=== PATIENT | female | born 1945 | race Caucasian/White ===

== ENCOUNTER 2019-06-24 21:55 | Emergency (ER) | payer OTHER ==
[2019-06-24] MEDS ORDERED: TRAMADOL HCL 50 MG TAB ONE (22:49)
[2019-06-24] MEDS ORDERED: predniSONE 20 MG TAB ONE (22:50)
[2019-06-24 22:51] LABS: Urine Blood NEGATIVE (NEG); Urine Glucose NEGATIVE (NEG); Urine Protein NEGATIVE (NEG); Urine Specific Gravity >1.030 (1.005-1.030)
[2019-06-24 23:31] LABS: Urine Bacteria >50 /HPF (<20); Urine Culture Reflex Order REFLEXED; Urine RBC <5 /HPF (NONE SEEN)
--- NOTE | 2019-06-24 23:39 | ER ---
Nurse's Notes [facility] Name: Savana Martin Age: 74 yrs Sex: Female : 1945 Arrival Date: 06/24/2019 Time: 21:58 Bed 17 Private MD: Diagnosis: Low back pain;Urinary tract infection, site not specified Presentation: 06/24 22:04 Presenting complaint: Patient states: Chronic back pain, reports having pain in the sg left side of back and left hip, denies injury or trauma at this time, reports having a new diagnosis of Dementia. Transition of care: patient was not received from another setting of care. Onset of symptoms was June 24, 2019. Risk Assessment: Do you want to hurt yourself or someone else? Patient reports no desire to harm self or others. Initial Sepsis Screen: Does the patient meet any 2 criteria? No. Patient's initial sepsis screen is negative. Does the patient have a suspected source of infection? No. Patient's initial sepsis screen is negative. Care prior to arrival: None. 22:04 Method Of Arrival: Wheelchair sg 22:04 Acuity: MARGARITO 4 sg Historical: - Allergies: 22:04 Cipro; sg - Home Meds: 22:17 levothyroxine oral [Active]; Plaquenil Oral [Active]; gabapentin oral oral [Active]; BP sg medication [Active]; Effexor Oral [Active]; - PMHx: 22:06 Back pain; sg 22:06 Dementia; sg - PSHx: 22:06 Back Surgery; sg - Immunization history:: Adult Immunizations up to date. - Social history:: Smoking status: Patient uses tobacco products. - Ebola Screening: : Patient negative for fever greater than or equal to 101.5 degrees Fahrenheit, and additional compatible Ebola Virus Disease symptoms Patient denies exposure to infectious person Patient denies travel to an Ebola-affected area in the 21 days before illness onset No symptoms or risks identified at this time. Screenin:30 Abuse screen: Denies threats or abuse. Denies injuries from another. Nutritional wh screening: No deficits noted. Tuberculosis screening: No symptoms or risk factors identified. Fall Risk None identified. Assessment: 22:30 General: Appears in no apparent distress. Behavior is calm, cooperative, appropriate wh for age. Pain: Complains of pain in lower back Pain does not radiate. Pain currently is 7 out of 10 on a pain scale. Quality of pain is described as aching. Neuro: Level of Consciousness is awake, alert, obeys commands, Oriented to person, place, time, situation, Appropriate for age. Cardiovascular: Capillary refill < 3 seconds. Respiratory: Airway is patent Respiratory effort is even, unlabored, Respiratory pattern is regular, symmetrical. GI: Abdomen is flat, non-distended. : No signs and/or symptoms were reported regarding the genitourinary system. EENT: No signs and/or symptoms were reported regarding the EENT system. Derm: Skin is intact, is healthy with good turgor, Skin is pink, warm \T\ dry. normal. Musculoskeletal: Circulation, motion, and sensation intact. 23:50 Reassessment: Patient appears in no apparent distress at this time. No changes from previously documented assessment. Patient and/or family updated on plan of care and expected duration. Pain level reassessed. Patient is alert, oriented x 3, equal unlabored respirations, skin warm/dry/pink. Patient states feeling better. Patient states symptoms have improved. Vital Signs: 22:03 BP 126 / 72; Pulse 87; Resp 18; Temp 97.9; Pulse Ox 100% on R/A; Pain 8/10; sg 23:56 BP 112 / 73; Pulse 74; Resp 18; Pulse Ox 97% on R/A; wh ED Course: 21:58 Patient arrived in ED. jg7 22:04 Arm band placed on. sg 22:05 Triage completed. sg 22:10 Maria Alberto is Primary Nurse. wh 22:22 Elvira Aguillon FNP-C [facility]. kb 22:22 Milton Humphries MD is Attending Physician. kb 22:30 Patient has correct armband on for positive identification. Placed in gown. Bed in low wh position. Call light in reach. Side rails up X 1. Pulse ox on. NIBP on. 22:35 Warm blanket given. Pillow given. Assisted to bathroom. Patient given adult jb5 undergarment for incontinence. 23:51 No provider procedures requiring assistance completed. Patient did not have IV access during this emergency room visit. Administered Medications: 22:49 Drug: predniSONE 20 mg Route: PO; 23:40 Follow up: Response: No adverse reaction 22:49 Drug: traMADol 50 mg Route: PO; 23:40 Follow up: Response: No adverse reaction; Pain is decreased; RASS: Alert and Calm (0) 23:50 Drug: Bactrim (160 mg-800 mg (DS) 1 tablet Route: PO; 23:57 Follow up: Response: No adverse reaction Outcome: 23:38 Discharge ordered by . audra 23:54 Discharged to home via wheelchair, with family. 23:54 Condition: stable 23:54 Discharge instructions given to patient, family, Instructed on discharge instructions, follow up and referral plans. no drinking with medication, no driving heavy equipment, medication usage, POC Demonstrated understanding of instructions, follow-up care, medications, POC Prescriptions given X 3. 23:57 Patient left the ED. Signatures: Elvira Aguillon, WHARF OPERATOR-C WHARF OPERATOR-Ckb Mg Gross, Shavon Farris RN, Winsy wh Gutierrez, Jessica jg7
--- NOTE | 2019-06-24 23:39 | EDPHYS ---
Physician Documentation [facility] Name: Savana Martin Age: 74 yrs Sex: Female : 1945 Arrival Date: 06/24/2019 Time: 21:58 Bed 17 Private MD: ED Physician Milton Humphries HPI: 06/24 23:42 This 74 yrs old Female presents to ER via Wheelchair with complaints of Back kb Pain. 23:42 The patient presents with pain that is chronic. The symptoms are located in the left kb low back. Onset: The symptoms/episode began/occurred years ago. The pain radiates to the left leg. Associated signs and symptoms: The patient has no apparent associated signs or symptoms. The problem was sustained from a chronic condition. Modifying factors: The patient symptoms are alleviated by nothing, the patient symptoms are aggravated by any movement. Severity of symptoms: At their worst the symptoms were moderate, in the emergency department the symptoms are unchanged. The patient has experienced similar episodes in the past, chronically. The patient has not recently seen a physician. Patient reports she has had left low back pain that radiates to left hip and down left leg for years. States it has been worse over the last few days. Reports she had the same pain on the right side years ago and had to have surgery for a nerve problem. The surgeon told her she would eventually need surgery on the other side as well, [place] so she's been trying to get her insurance transferred over so she can see a back surgeon. . Historical: - Allergies: 22:04 Cipro; sg - Home Meds: 22:17 levothyroxine oral [Active]; Plaquenil Oral [Active]; gabapentin oral oral [Active]; BP sg medication [Active]; Effexor Oral [Active]; - PMHx: 22:06 Back pain; sg 22:06 Dementia; sg - PSHx: 22:06 Back Surgery; sg - Immunization history:: Adult Immunizations up to date. - Social history:: Smoking status: Patient uses tobacco products. - Ebola Screening: : Patient negative for fever greater than or equal to 101.5 degrees Fahrenheit, and additional compatible Ebola Virus Disease symptoms Patient denies exposure to infectious person Patient denies travel to an Ebola-affected area in the 21 days before illness onset No symptoms or risks identified at this time. ROS: 23:41 Constitutional: Negative for fever, chills, and weight loss, Cardiovascular: Negative kb for chest pain, palpitations, and edema, Respiratory: Negative for shortness of breath, cough, wheezing, and pleuritic chest pain, Abdomen/GI: Negative for abdominal pain, nausea, vomiting, diarrhea, and constipation, : Negative for injury, bleeding, discharge, and swelling, MS/Extremity: Negative for injury and deformity, Skin: Negative for injury, rash, and discoloration, Neuro: Negative for headache, weakness, numbness, tingling, and seizure. 23:41 Back: Positive for pain at rest, pain with movement, radiated pain, of the left low back. Exam: 23:41 Constitutional: This is a well developed, well nourished patient who is awake, alert, kb and in no acute distress. Head/Face: Normocephalic, atraumatic. Chest/axilla: Normal chest wall appearance and motion. Nontender with no deformity. No lesions are appreciated. Cardiovascular: Regular rate and rhythm with a normal S1 and S2. No gallops, murmurs, or rubs. Normal PMI, no JVD. No pulse deficits. Respiratory: Lungs have equal breath sounds bilaterally, clear to auscultation and percussion. No rales, rhonchi or wheezes noted. No increased work of breathing, no retractions or nasal flaring. Abdomen/GI: Soft, non-tender, with normal bowel sounds. No distension or tympany. No guarding or rebound. No evidence of tenderness throughout. Skin: Warm, dry with normal turgor. Normal color with no rashes, no lesions, and no evidence of cellulitis. MS/ Extremity: Pulses equal, no cyanosis. Neurovascular intact. Full, normal range of motion. Neuro: Awake and alert, GCS 15, oriented to person, place, time, and situation. Cranial nerves II-XII grossly intact. Motor strength 5/5 in all extremities. Sensory grossly intact. Cerebellar exam normal. Normal gait. 23:41 Back: pain, that is mild, that is moderate, of the left low back, ROM is painful, normal spinal alignment noted. Vital Signs: 22:03 BP 126 / 72; Pulse 87; Resp 18; Temp 97.9; Pulse Ox 100% on R/A; Pain 8/10; sg 23:56 BP 112 / 73; Pulse 74; Resp 18; Pulse Ox 97% on R/A; MDM: 22:22 Patient medically screened. kb 23:41 Data reviewed: vital signs, nurses notes. Data interpreted: Pulse oximetry: on room air kb is 100 %. Interpretation: normal. Counseling: I had a detailed discussion with the patient and/or guardian regarding: the historical points, exam findings, and any diagnostic results supporting the discharge/admit diagnosis, lab results, the need for outpatient follow up, a family practitioner, to return to the emergency department if symptoms worsen or persist or if there are any questions or concerns that arise at home. 06/24 22:39 Order name: Urine Dipstick--Ancillary (enter results); Complete Time: 22:53 ar5 06/24 22:40 Order name: Urine Microscopic Only; Complete Time: 23:36 kb 06/24 23:32 Order name: Urine Culture EDMS Administered Medications: 22:49 Drug: predniSONE 20 mg Route: PO; 23:40 Follow up: Response: No adverse reaction 22:49 Drug: traMADol 50 mg Route: PO; 23:40 Follow up: Response: No adverse reaction; Pain is decreased; RASS: Alert and Calm (0) 23:50 Drug: Bactrim (160 mg-800 mg (DS) 1 tablet Route: PO; 23:57 Follow up: Response: No adverse reaction Disposition: 06/25 00:52 Co-signature as Attending Physician, Milton Humphries MD. rn Disposition: 06/24/19 23:38 Discharged to Home. Impression: Low back pain, Urinary tract infection, site not specified. - Condition is Stable. - Discharge Instructions: Urinary Tract Infection, Adult, [id number], Back Pain, Adult, [id number]. - Prescriptions for Prednisone 20 mg Oral Tablet - take 1 tablet by ORAL route once daily for 5 days; 5 tablet. Tramadol 50 mg Oral Tablet - take 1 tablet by ORAL route every 8 hours as needed; 12 tablet. Bactrim DS 800- 160 mg Oral Tablet - take 1 tablet by ORAL route every 12 hours for 7 days; 14 tablet. - Medication Reconciliation Form, Thank You Letter, Antibiotic Education, Prescription Opioid Use form. - Follow up: Emergency Department; When: As needed; Reason: Worsening of condition. Follow up: Private Physician; When: 2 - 3 days; Reason: Recheck today's complaints, Continuance of care, Re-evaluation by your physician. Signatures: Dispatcher [employer] Elvira Levy, EDIS-Marlen RANDHAWA-Mg Gibbs RN RN sg Nieto, Roman, MD MD rn Habalo, Winsy wh Corrections: (The following items were deleted from the chart) 06/24 23:57 23:38 06/24/2019 23:38 Discharged to Home. Impression: Low back pain; Urinary tract wh infection, site not specified. Condition is Stable. Forms are Medication Reconciliation Form, Thank You Letter, Antibiotic Education, Prescription Opioid Use. Follow up: Emergency Department; When: As needed; Reason: Worsening of condition. Follow up: Private Physician; When: 2 - 3 days; Reason: Recheck today's complaints, Continuance of care, Re-evaluation by your physician. kb
[2019-06-24] MEDS ORDERED: AMOX/K CLAV 875 MG TAB ONE (23:46)
[2019-06-25 00:32] VITALS: TEMP 97.9
[2019-06-25 00:33] VITALS: BP 112/73; O2SAT 97
== END 2019-06-24 23:57 | disposition home or self-care (01) ==
LOC: ER 21:55
DX: N39.0 Urinary tract infection, site not specified (principal); Z88.1 Allergy status to other antibiotic agents; Z72.0 Tobacco use
CPT/HCPCS: 81003; 81015; 87086; 87088; 99283; J7512

== ENCOUNTER 2020-01-02 10:52 | Emergency (ER) | payer OTHER ==
[2020-01-02 12:15] LABS: Urine Bacteria 20-50 /HPF (<20); Urine RBC <5 /HPF (NONE SEEN)
[2020-01-02 12:16] LABS: Urine Culture Reflex Order NOT NEEDED
--- NOTE | 2020-01-02 12:55 | RAD REPORT ---
EXAM DESCRIPTION: RAD - Abdomen Acute Series - 01/02/2020 12:44 pm CLINICAL HISTORY: ABD PAIN COMPARISON: Chest Pa And Lat (2 Views) dated 07/30/2018 FINDINGS: The lungs are grossly clear. No subdiaphragmatic free air seen. No bowel obstruction evident. No pathologic calcifications. Moderate levoscoliosis of the lumbar spin e. IMPRESSION: No acute abnormality detected.
--- NOTE | 2020-01-02 13:17 | ER ---
Nurse's Notes [facility] Name: Savana Martin Age: 74 yrs Sex: Female : 1945 Arrival Date: 01/02/2020 Time: 10:55 Bed 17 Private MD: Dawson Hernandez Diagnosis: Lower abdominal pain, unspecified;Urinary tract infection, site not specified;Constipation, unspecified Presentation: 01/01 11:06 Chief complaint: Patient's son or daughter states: abd pain x 3-4 days. Denies N/V/D. Coronavirus screen: Patient denies a cough. Patient denies shortness of breath or difficulty breathing. Patient denies measured and/or subjective temperature greater than 100.4F prior to today's visit. Patient denies travel on a cruise ship or to a country the [facility] currently lists as an affected area. Patient denies contact with known and/or suspected case of COVID-19. Proceed with normal triage. Patient instructed to continue to wear a mask when interacting with others. Patient moved to private room, placed in contact and droplet isolation with eye protection until further assessment. Ebola Screen: Patient denies exposure to infectious person. Patient denies travel to an Ebola-affected area in the 21 days before illness onset. Initial Sepsis Screen: Does the patient meet any 2 criteria? No. Patient's initial sepsis screen is negative. Does the patient have a suspected source of infection? No. Patient's initial sepsis screen is negative. Risk Assessment: Do you want to hurt yourself or someone else? Patient reports no desire to harm self or others. Onset of symptoms was December 29, 2019. 11:06 Method Of Arrival: Wheelchair ss 11:06 Acuity: MARGARITO 3 ss Historical: - Allergies: 11:08 Cipro; ss - PMHx: 11:08 Back pain; Dementia; ss - PSHx: 11:08 Back Surgery; ss - Immunization history:: Adult Immunizations up to date. - Social history:: Smoking status: Patient denies any tobacco usage or history of. Screenin:27 Abuse screen: Denies threats or abuse. Nutritional screening: No deficits noted. Tuberculosis screening: No symptoms or risk factors identified. Fall Risk None identified. Assessment: 11:24 General: Appears in no apparent distress. Behavior is calm, cooperative, appropriate ah for age. Pain: Complains of pain in suprapubic area, right lower quadrant and left lower quadrant Pain. Neuro: Level of Consciousness is awake, alert, obeys commands, Oriented to person, place, time, situation. Cardiovascular: Capillary refill < 3 seconds Patient's skin is warm and dry. Respiratory: Airway is patent Respiratory effort is even, unlabored. GI: Bowel sounds present X 4 quads. Abdomen is tender to palpation in right lower quadrant and left lower quadrant. GI: Patient currently denies rectal bleeding, vomiting. : Urine is dark yellow. Derm: Skin is intact, is healthy with good turgor. 12:18 Reassessment: Pt to radiology via for xrays. Vital Signs: 11:06 Resp 16; Temp 97.8(TE); Weight 56.7 kg; Height 5 ft. 4 in. (162.56 cm); ss 13:42 BP 100 / 55; ah 11:06 Body Mass Index 21.46 (56.70 kg, 162.56 cm) ED Course: 10:55 Patient arrived in ED. mr 10:56 Dawson Hernandez MD is Private Physician. mr 11:03 Ness Chacon FNP-C is [facility]. snw 11:03 Tigre Mercado MD is Attending Physician. snw 11:08 Triage completed. ss 11:08 Arm band placed on right wrist. ss 11:20 Desi Clay, RN is Primary Nurse. ah 11:27 Patient has correct armband on for positive identification. Placed in gown. Bed in low ah position. Call light in reach. Side rails up X 1. Adult w/ patient. NIBP on. Warm blanket given. 12:44 Abdomen Acute Series XRAY In Process Unspecified. EDMS 13:31 No provider procedures requiring assistance completed. Patient did not have IV access ah during this emergency room visit. Administered Medications: 13:30 Drug: Bentyl 20 mg Route: PO; 13:43 Follow up: Response: No adverse reaction; Medication administered at discharge. 13:30 Drug: Augmentin 875 mg Route: PO; 13:42 Follow up: Response: Medication administered at discharge. Outcome: 13:16 Discharge ordered by . sn 13:42 Discharged to home via wheelchair. 13:42 Condition: good 13:42 Discharge instructions given to patient, Instructed on discharge instructions, follow up and referral plans. medication usage, Demonstrated understanding of instructions, follow-up care, medications. 13:43 Patient left the ED. Signatures: Dispatcher [employer] EDMS Ness Chacon, LAGGING MACHINE OPERATOR-C LAGGING MACHINE OPERATOR-Csnw Anat Dorsey, Elvie, RN MYRON Desi Clay RN RN
--- NOTE | 2020-01-02 13:17 | EDPHYS ---
Physician Documentation [facility] Name: Savana Martin Age: 74 yrs Sex: Female : 1945 Arrival Date: 01/02/2020 Time: 10:55 Bed 17 Private MD: Dawson Hernandez ED Physician Tigre Mercado HPI: 01/01 13:48 This 74 yrs old Female presents to ER via Wheelchair with complaints of snw Abdominal Pain. 13:48 The patient presents with abdominal pain in the lower abdomen. Onset: The snw symptoms/episode began/occurred gradually, 4 day(s) ago, and became persistent. The symptoms do not radiate. Associated signs and symptoms: Pertinent positives: rectal pressure. The symptoms are described as vague. Severity of pain: At its worst the pain was moderate. It is unknown whether or not the patient has had similar symptoms in the past. The patient has not recently seen a physician. Historical: - Allergies: 11:08 Cipro; ss - PMHx: 11:08 Back pain; Dementia; ss - PSHx: 11:08 Back Surgery; ss - Immunization history:: Adult Immunizations up to date. - Social history:: Smoking status: Patient denies any tobacco usage or history of. ROS: 13:47 Constitutional: Negative for fever, chills, and weight loss, Eyes: Negative for injury, snw pain, redness, and discharge, ENT: Negative for injury, pain, and discharge, Neck: Negative for injury, pain, and swelling, Cardiovascular: Negative for chest pain, palpitations, and edema, Respiratory: Negative for shortness of breath, cough, wheezing, and pleuritic chest pain, Back: Negative for injury and pain, : Negative for injury, bleeding, discharge, and swelling, MS/Extremity: Negative for injury and deformity, Skin: Negative for injury, rash, and discoloration, Neuro: Negative for headache, weakness, numbness, tingling, and seizure, Psych: Negative for depression, anxiety, suicide ideation, homicidal ideation, and hallucinations. 13:47 Abdomen/GI: Positive for abdominal pain, abdominal cramps, Negative for nausea, vomiting, diarrhea, hematemesis, black/tarry stool. Exam: 13:22 Constitutional: This is a well developed, well nourished patient who is awake, alert, snw and in no acute distress. Head/Face: Normocephalic, atraumatic. Eyes: Pupils equal round and reactive to light, extra-ocular motions intact. Lids and lashes normal. Conjunctiva and sclera are non-icteric and not injected. Cornea within normal limits. Periorbital areas with no swelling, redness, or edema. ENT: Nares patent. No nasal discharge, no septal abnormalities noted. Tympanic membranes are normal and external auditory canals are clear. Oropharynx with no redness, swelling, or masses, exudates, or evidence of obstruction, uvula midline. Mucous membranes moist. Neck: Trachea midline, no thyromegaly or masses palpated, and no cervical lymphadenopathy. Supple, full range of motion without nuchal rigidity, or vertebral point tenderness. No Meningismus. Chest/axilla: Normal chest wall appearance and motion. Nontender with no deformity. No lesions are appreciated. Cardiovascular: Regular rate and rhythm with a normal S1 and S2. No gallops, murmurs, or rubs. Normal PMI, no JVD. No pulse deficits. Respiratory: Lungs have equal breath sounds bilaterally, clear to auscultation and percussion. No rales, rhonchi or wheezes noted. No increased work of breathing, no retractions or nasal flaring. Abdomen/GI: Soft, non-tender except over bladder, with normal bowel sounds. No distension or tympany. No guarding or rebound. Pressure in rectum with palpation of bladder Back: No spinal tenderness. No costovertebral tenderness. Full range of motion. Skin: Warm, dry with normal turgor. Normal color with no rashes, no lesions, and no evidence of cellulitis. MS/ Extremity: Pulses equal, no cyanosis. Neurovascular intact. Full, normal range of motion. Neuro: Awake and alert, GCS 15, oriented to person, place, time, and situation. Cranial nerves II-XII grossly intact. Motor strength 5/5 in all extremities. Sensory grossly intact. Cerebellar exam normal. Normal gait. Psych: Awake, alert, with orientation to person, place and time. Behavior, mood, and affect are within normal limits. Vital Signs: 11:06 Resp 16; Temp 97.8(TE); Weight 56.7 kg; Height 5 ft. 4 in. (162.56 cm); ss 13:42 BP 100 / 55; ah 11:06 Body Mass Index 21.46 (56.70 kg, 162.56 cm) MDM: 11:03 Patient medically screened. snw 01/01 11:08 Order name: Urine Culture snw 01/01 11:08 Order name: Urine Microscopic Only; Complete Time: 12:16 snw 01/01 11:10 Order name: Abdomen Acute Series XRAY; Complete Time: 13:01 snw 01/01 11:19 Order name: Urine Dipstick--Ancillary (enter results) 3 01/01 11:08 Order name: Urine Dipstick-Ancillary (obtain specimen); Complete Time: 11:20 snw Administered Medications: 13:30 Drug: Bentyl 20 mg Route: PO; 13:43 Follow up: Response: No adverse reaction; Medication administered at discharge. 13:30 Drug: Augmentin 875 mg Route: PO; 13:42 Follow up: Response: Medication administered at discharge. Disposition: 19:09 Co-signature as Attending Physician, Tigre Mercado MD I agree with the assessment and kdr plan of care. Disposition: 01/02/20 13:16 Discharged to Home. Impression: Lower abdominal pain, unspecified, Urinary tract infection, site not specified, Constipation, unspecified. - Condition is Stable. - Discharge Instructions: Abdominal Pain, Adult, Constipation, Adult, Urinary Tract Infection, Adult, Rehydration, Elderly. - Prescriptions for Augmentin 875- 125 mg Oral Tablet - take 1 tablet by ORAL route every 12 hours for 10 days; 20 tablet. Bentyl 20 mg Oral Tablet - take 1 tablet by ORAL route every 6 hours As needed; 20 tablet. - Medication Reconciliation Form, Thank You Letter, Antibiotic Education, Prescription Opioid Use form. - Follow up: Emergency Department; When: As needed; Reason: Worsening of condition. Follow up: Private Physician; When: 2 - 3 days; Reason: Recheck today's complaints, Continuance of care, Re-evaluation by your physician. Signatures: Dispatcher [employer] [facility] Tigre Mercado MD MD kdr Waters, Shelly, WARE CARRIER-C WARE CARRIER-Elvie Davis RN RN Desi Clay RN RN Corrections: (The following items were deleted from the chart) 13:43 13:16 01/02/2020 13:16 Discharged to Home. Impression: Lower abdominal pain, ah unspecified; Urinary tract infection, site not specified; Constipation, unspecified. Condition is Stable. Forms are Medication Reconciliation Form, Thank You Letter, Antibiotic Education, Prescription Opioid Use. Follow up: Emergency Department; When: As needed; Reason: Worsening of condition. Follow up: Private Physician; When: 2 - 3 days; Reason: Recheck today's complaints, Continuance of care, Re-evaluation by your physician. snw
[2020-01-02] MEDS ORDERED: AMOX/K CLAV 875 MG TAB ONE (13:37)
[2020-01-02] MEDS ORDERED: DICYCLOMINE HCL 10 MG CAP ONE (13:37)
[2020-01-02 14:15] VITALS: TEMP 97.8
[2020-01-02 14:16] VITALS: BP 100/55
[2020-01-02 14:24] LABS: Urine Blood NEGATIVE (NEG); Urine Glucose NEGATIVE (NEG); Urine Protein 1+ (NEG); Urine Specific Gravity >1.030 (1.005-1.030); Urine pH 5.5 (5.0-7.0)
== END 2020-01-02 13:43 | disposition home or self-care (01) ==
LOC: ER 10:52
DX: N39.0 Urinary tract infection, site not specified (principal); K59.00 Constipation, unspecified; Z88.1 Allergy status to other antibiotic agents
CPT/HCPCS: 74022; 81003; 81015; 87086; 87088; 99283

== ENCOUNTER 2020-05-04 08:14 | Inpatient (IN) | payer OTHER ==
--- OUTSIDE RECORDS SUMMARY | 2020-05-04 08:21 | XMS REPORT | Clinical Summary ---
:1945 Author Organization [facility] Address [address] [place] [address] Care Team Providers Name Role Phone Pcp, No Primary Care Provider Unavailable Allergies No Known Allergies Medications Medication Sig Dispensed Refills Start Date End Date Status aspirin 81 MG EC tablet Take 1 tablet 90 tablet 3 02/07/2020 0 02/06/2021 Active (81 mg total) by mouth daily. atorvastatin (LIPITOR) 80 Take 1 tablet 0 02/06/2020 02/05/2021 Active MG tablet (80 mg total) by mouth nightly. bisoprolol (ZEBETA) 5 MG Take 0.5 0 02/07/202001/17 Active tablet tablets (2.5 mg total) by mouth daily. hydrOXYchloroQUINE Take 1 tablet 0 02/07/20202020 Active (PLAQUENIL) 200 mg tablet (200 mg total) by mouth daily. levothyroxine (SYNTHROID, Take 1 tablet 30 tablet 0 02/07/2020 02/06/2021 Active LEVOTHROID) 75 MCG tablet (75 mcg total) by mouth Every morning on an empty stomach. melatonin 5 mg Tab tablet Take 1 tablet 0 02/06/2020 Active (5 mg total) by mouth nightly. QUEtiapine (SEROQUEL) 50 Take 1 tablet 0 02/06/2020 03/07/2020 MG tablet (50 mg total) by mouth nightly for 30 days. 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); Go Mcgrath MD Hypothyroidism, unspecified type; , At risk for carrie pement; MD Jose Depression, unspecified depression type; Latanya Arreola, Delirium; Suicidal ideati on; Agitation due t o dementia (HCC) 01/29/2020 Travel 01/28/2020 - Hospital Encounter Emergency Goodnough, Weakness (Primary Dx); 01/29/2020 Medicine Liam Mcghee NSTEMI (non-S T elevated myocardial infarction) ([facility]); TIA (transient ischemic attack); Deborah, Hypothyroidism, unspecified type; Go Mcgrath MD Elevated troponin; Wu, Vascular rin ia without behavioral disturbance ([facility]); Chichi Kelley, Essential hype rtension; Lightheadedness 01/28/2020 Orders Only General Internal Medicine after 05/04/2019 Social History Tobacco Use Types Packs/Day Years Used Date Never Assessed Sex Assigned at Date Recorded Not on file Last Filed Vital Signs Vital Sign Reading Time Taken Comments Blood Pressure 112/64 02/07/2020 4:00 PM CDT Pulse 63 02/07/2020 4:00 PM CDT Temperature 36.8 C (98.3 F) 02/07/2020 4:00 PM CDT Respiratory Rate 18 02/07/2020 4:00 PM CDT Oxygen Saturation 100% 02/07/2020 4:00 PM CDT Inhaled Oxygen Concentration - - Weight 61.2 kg (135 lb) 01/30/2020 3:24 PM CDT Height 162.6 cm (5' 4") 01/30/2020 3:24 PM CDT Body Mass Index 23.17 01/30/2020 3:24 PM CDT Plan of Treatment Health Maintenance Due Date Last Done Comments BREAST CANCER SCREENING 1945 COLON CANCER SCREENING COLONOSCOPY 1945 Medicare IPPE (WELCOME TO MEDICARE) 06/18/2019 INFLUENZA VACCINE (#1) 2020 05/02/2017, 02/25/2016, 04/01/2015 PNEUMOCOCCAL 65+ YRS Completed 02/25/2016, 03/18/2015, 02/17/2014 Procedures Procedure Name Priority Date/Time Associated Comments Diagnosis RHYTHM STRIP - SCAN 02/09/2020 3:00 PM CDT ECG 12-LEAD Routine 02/03/2020 11:06 Results for this AM CDT procedure are i n the results section. REPORT OF PROCEDURE - 02/03/2020 10:14 ENDOSCOPY SCAN AM CDT REPORT OF PROCEDURE - 02/03/2020 10:13 ENDOSCOPY SCAN AM CDT CBC W/PLT COUNT & AUTO Routine 02/01/2020 5:38 R esults for this DIFFERENTIAL AM CDT procedure are i n the results section. CBC W/PLT COUNT & AUTO Routine 02/01/2020 5:38 R esults for this DIFFERENTIAL AM CDT procedure are i n the results section. BASIC METABOLIC PANEL Routine 02/01/2020 5:38 Re sults for this (7) AM CDT procedure are i n the results section. DRUG SCREEN, URINE, Routine 01/31/2020 5:38 COMPREHENSIVE AM CDT CBC W/PLT COUNT & AUTO Routine 01/31/2020 5:37 R esults for this DIFFERENTIAL AM CDT procedure are i n the results section. CBC W/PLT COUNT & AUTO Routine 01/31/2020 5:37 R esults for this DIFFERENTIAL AM CDT procedure are i n the results section. BASIC METABOLIC PANEL Routine 01/31/2020 5:37 Re sults for this (7) AM CDT procedure are i n the results section. 2D ECHO W/ DOPPLER Routine 01/31/2020 12:18 Resul ts for this (CW/PW/COLOR) AM CDT procedure are in the results section. REPORT OF PROCEDURE - 01/30/2020 4:42 ENDOSCOPY SCAN PM CDT REPORT OF PROCEDURE - 01/30/2020 4:41 ENDOSCOPY SCAN PM CDT CBC W/PLT COUNT & AUTO Routine 01/30/2020 8:38 R esults for this DIFFERENTIAL AM CDT procedure are i n the results section. CBC W/PLT COUNT & AUTO Routine 01/30/2020 8:38 R esults for this DIFFERENTIAL AM CDT procedure are i n the results section. LIPID PANEL Routine 01/30/2020 8:38 Results for this AM CDT procedure are i n the results section. BASIC METABOLIC PANEL Routine 01/30/2020 8:38 Re sults for this (7) AM CDT procedure are i n the results section. MR BRAIN WITHOUT IV STAT 01/29/2020 9:40 Resu lts for this CONTRAST PM CDT procedure are i n the results section. ECG 12-LEAD Routine 01/29/2020 7:18 Results for this PM CDT procedure are i n the results section. ECG 12-LEAD Routine 01/29/2020 7:18 PM CDT Procedure Note - Interface, External Ris In - 01/29/2020 8:05 PM CDT Ventricular Rate 84 BPM Atrial Rate 84 BPM P-R Interval 140 ms QRS Duration 82 ms Q-T Interval 382 ms QTC Calculation(Bazett) 451 ms P [place] 22 degrees R [place]aver[place] 86 degrees T [place] 74 degrees Normal sinus rhythm Nonspecific ST and T wave ab normality Abnormal ECG When compared with ECG of 09:19, Nonspecific T wave abnormali ty, worse in Lateral leads RPR Routine 01/29/2020 7:07 PM CDT Resu lts for this procedure are i n the results section . HEMOGLOBIN A1C Routine 01/29/2020 7:07 PM CDT Re sults for this procedure are i n the results section . TROPONIN I Routine 01/29/2020 7:07 PM CDT Resu lts for this procedure are i n the results section . ECG 12-LEAD Routine 01/29/2020 9:19 AM CDT Resu lts for this procedure are i n the results section . CBC W/PLT COUNT & AUTO Routine 01/29/2020 4:12 AM CDT Results for this DIFFERENTIAL procedure are i n the results section . TROPONIN I Routine 01/29/2020 4:12 AM CDT Resu lts for this procedure are i n the results section . CBC W/PLT COUNT & AUTO Routine 01/29/2020 4:12 AM CDT Results for this DIFFERENTIAL procedure are i n the results section . BASIC METABOLIC PANEL (7) Routine 01/29/2020 4:12 AM CDT Results for this procedure are i n the results section . TROPONIN I Routine 01/29/2020 3:02 AM CDT Resu lts for this procedure are i n the results section . TROPONIN I STAT 01/29/2020 12:31 AM CDT Resu lts for this procedure are i n the results section . PT/APTT Routine 01/28/2020 10:59 PM CDT Resu lts for this procedure are i n the results section . TROPONIN I STAT 01/28/2020 10:59 PM CDT Resu lts for this procedure are i n the results section . SARS-COV2/RT-PCR ([facility] & STAT 01/28/2020 10:22 PM CDT Results for this REF LABS) procedure are i n the results section . VITAMIN B12 AND FOLATE Routine 01/28/2020 7:14 PM CDT Results for this procedure are i n the results section . TSH/FREE T4 IF INDICATED Routine 01/28/2020 7:14 PM CDT Results for this procedure are i n the results section . HEMOGLOBIN A1C Routine 01/28/2020 7:13 PM CDT Re sults for this procedure are i n the results section . TROPONIN I STAT 01/28/2020 7:13 PM CDT Resu lts for this procedure are i n the results section . XR CHEST 1 VIEW STAT 01/28/2020 6:42 PM CDT R esults for this PORTABLE/BEDSIDE procedure a re in the results section . URINALYSIS W/ REFLEX URINE STAT 01/28/2020 6:35 PM CDT Results for this CULTURE procedure are i n the results section . CT CEREBRAL PERFUSION STAT 01/28/2020 6:31 PM CDT Results for this ANALYSIS procedure are i n the results section . CT/CTA CAROTID STAT 01/28/2020 6:31 PM CDT Re sults for this procedure are i n the results section . CTA BRAIN STAT 01/28/2020 6:31 PM CDT Resu lts for this procedure are i n the results section . CBC W/PLT COUNT & AUTO STAT 01/28/2020 6:20 PM CDT Results for this DIFFERENTIAL procedure are i n the results section . B-TYPE NATRIURETIC FACTOR STAT 01/28/2020 6:20 PM CDT Results for this (BNP) procedure are i n the results section . CBC W/PLT COUNT & AUTO STAT 01/28/2020 6:20 PM CDT Results for this DIFFERENTIAL procedure are i n the results section . LIPID PANEL Add-On 01/28/2020 6:19 PM CDT Resu lts for this procedure are i n the results section . BASIC METABOLIC PANEL (7) STAT 01/28/2020 6:19 PM CDT Results for this procedure are i n the results section . APTT STAT 01/28/2020 6:19 PM CDT Resu lts for this procedure are i n the results section . PROTHROMBIN TIME/INR STAT 01/28/2020 6:19 PM CDT Results for this procedure are i n the results section . TROPONIN I STAT 01/28/2020 6:19 PM CDT Resu lts for this procedure are i n the results section . ECG 12-LEAD Routine 01/28/2020 5:54 PM CDT Procedure Note - Interface, External Ris In - 01/29/2020 8:37 AM CDT Ventricular Rate 90 BPM Atrial Rate 90 BPM P-R Interval 134 ms QRS Duration 88 ms Q-T Interval 376 ms QTC Calculation(Bazett) 459 ms P Waverly -5 degrees R Waverly 84 degrees T [place]aver[place] 73 degrees Normal sinus rhythm Normal ECG No previous ECGs available ECG 12-LEAD Routine 01/28/2020 5:54 PM CDT Resu lts for this procedure are in the resu lts section. CT BRAIN/STROKE TEST STAT 01/28/2020 5:45 PM CDT Results for this procedure DESIGN are in the resu lts section. after 05/04/2019 Results RHYTHM STRIP - SCAN (02/09/2020 3:00 PM CDT) Narrative Performed At This result has an attachment that is no t available. ECG 12 lead (02/03/2020 11:06 AM CDT)Only the most recent of4 resultswithin the time period is included. Specimen Narrative Performed At Ventricular Rate 64 BPM GE MUSE Atrial Rate 64 BPM P-R Interval 164 ms QRS Duration 82 ms Q-T Interval 410 ms QTC Calculation(Bazett) 422 ms P [place] 70 degrees R [place] 66 degrees T [place]aver[place] 95 degrees Normal sinus rhythm T wave abnormality, consider anterior is chemia Abnormal ECG When compared with ECG of 29-JAN-2020 19 :18, Nonspecific ST abnormality improved in t he Inferior leads Confirmed by Shanice LEAVITT MICHAEL ([id number]) on 0 7:24:32 AM Procedure Note Interface, External Ris In - 02/04/2020 7:24 AM CDT Ventricular Rate 64 BPM Atrial Rate 64 BPM P-R Interval 164 ms QRS Duration 82 ms Q-T Interval 410 ms QTC Calculation(Bazett) 422 ms P [place] 70 degrees R [place] 66 degrees T [place]aver[place] 95 degrees Normal sinus rhythm T wave abnormality, consider anterior is chemia Abnormal ECG When compared with ECG of 29-JAN-2020 19 :18, Nonspecific ST abnormality improved in t he Inferior leads Confirmed by Shanice LEAVITT MICHAEL ([id number]) on 02/04/2020 7:24:32 AM Performing Organization Address City/State/Zipcode Phone Number KRANTHI SCOTT EKG-SCANNED (02/03/2020 10:14 AM CDT)Only the most recent of4 resultswithin the time period is included. Narrative Performed At This result has an attachment that is no t available. CBC with platelet count + automated diff (02/01/2020 5:38 AM CDT)Only the most recent of5 resultswithin the time period is included. Pathologist Sig nature WBC 8.2 3.5 - 10.5 [facility] K/L [facility] RBC 3.31 (L) 3.93 - 5.22 [facility] M/L [facility] Hemoglobin 10.4 (L) 11.2 - 15.7 [facility] GM/DL [facility] Hematocrit 32.2 (L) 34.1 - 44.9 % [facility] MCV 97.3 (H) 79.4 - 94.8 fL [facility] MCH 31.4 25.6 - 32.2 pg [facility] MCHC 32.3 32.2 - 35.5 [facility] GM/DL [facility] RDW 14.1 11.7 - 14.4 % [facility] Platelets 193 150 - 450 K/CU [facility] MPV 10.1 9.4 - 12.3 fL [facility] nRBC 0 0 - 0 /100 WBC [facility] % Neutros 65 % [facility] % Lymphs 27 % [facility] % Monos 8 % [facility] % Eos 0 % [facility] % Baso 0 % [facility] # Neutros 5.29 1.56 - 6.13 [facility] # Lymphs 2.17 1.18 - 3.74 [facility] K/L [facility] # Monos 0.66 (H) 0.24 - 0.36 [facility]/L [facility] # Eos 0.00 (L) 0.04 - 0.36 [facility]/L [facility] # Baso 0.02 0.01 - 0.08 [facility] K/L [facility] Immature 0 0 - 1 % [facility] Granulocytes-Relative [facility] Specimen Blood Performing Organization Address City/[facility]/Zipcode Phone Number [facility] [address] [place] [address] CENTER Basic Metabolic Panel (02/01/2020 5:38 AM CDT)Only the most recent of5 results within the time period is included. Sodium 139 136 - 145 meq/L [facility] Potassium 4.5 3.5 - 5.1 meq/L [facility] Chloride 111 (H) 98 - 107 meq/L [facility] CO2 20 (L) 22 - 29 meq/L [facility] BUN 18 7 - 21 mg/dL [facility] Creatinine 0.92 0.57 - 1.25 [facility] mg/dL [facility] Glucose 91 70 - 105 mg/dL [facility] Calcium 8.8 8.4 - 10.2 [facility] mg/dL [facility] EGFR 60Comment: ESTIMATED mL/min/1.[address] [facility] GFR IS NOT m [facility] CREATININE CLEARANCE IN PREDICTING GLOMERULAR FILTRATION RATE. ESTIMATED GFR IS NOT APPLICABLE FOR DIALYSIS PATIENTS. Specimen Blood Narrative Performed At Speech Pathologist Assistant ID - PIAYA L [facility] [place] Performing Organization Address City/[facility]/Zipcode Phone Number [facility] [address] [place] [address] [place]RE[place] Drug screen, urine, comprehensive (01/31/2020 5:38 AM CDT) Specimen Urine Narrative Performed At This result has an attachment that is no t available. Performing Organization Address City/State/Zipcode Phone Number [facility] [address] [facility] [place] [phone] Transthoracic 2D echo w/ doppler (cw/pw/color) (01/31/2020 12:18 AM CDT) Pathologist Sig nature Ejection Fraction [facility] Specimen Narrative Performed At Transthoracic Echocardiography Report (T TE) [facility] Demographics Patient Name SAVANA MARTIN Date of Study 01/31/2020 XENIA Gender Female Visit Number [id number] Race Unknown Room Number 2219 Number Date of 1945 Referring Physician Liam Villalpando Age 74 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 Clinical History HGB 11.3 HCT 33.5 % VASCULAR DEMENTIA, HTN, ANXIETY/DEPRESSI ON Height: 64 inches Weight: 61.23 kg (135 lbs) BSA: 1.66 m^2 BMI: 23.17 kg/m^2 HR: 66 bpm BP: 115/54 mmHg Summary 1. The left ventricle is chamber size (by vol index) is normal. Normal LV wall thickness. All of the LV segments contract normally. LVEF by Valdivia's method of disk assessment is normal (>60%). Grade 1 diastolic dysfunction (impaired relaxation and low-normal LA pressure). LA size is normal (16-34 ml/m2) . 2. The right ventricular chamber size and systolic function are within normal limits. RA cavity size is normal. Unable to estimate peak systolic PA pressure; inadequate TR velocity sig nal. 3. Mild aortic regurgitation. Previous Study No prior exam available for comparison. Signature Findings Left Ventricle The left ventricle is chamber size (by vol index) is normal (female - LVED vol - 29-61ml/m2). Normal LV wall thickness. All of the LV segments contract normally . Global LV systolic function normal . LVEF by Valdivia's method of disk assessment is normal (>60%) . The LVEF was measured using Valdivia's bi-plane method of disk . Grade 1 diastolic dysfunction (impaired relaxati on and low-normal LA pressure). Normal (cardiac index 2-3 L/min/m2) cardiac out put state at rest is noted. Left Atrium LA size is normal (16-34 ml/m2) . Right Ventricle The right ventricular chamber size and systolic function are within normal limits. Right Atrium RA cavity size is normal . Aortic Valve Mild AoV cusp thickening. Mild aortic regurgitation. Mitral Valve Normal MV s tructure. Trace mitral regurgitation. Tricuspid Valve TV structure is normal. Unable to estimate peak systolic PA pressure; inadequate TR velocity signal. Pulmonic Valve PV is not well visualized; function appears normal by Doppler visualized. Aorta Aortic root size (SInus of Valsalva diameter) is norm al . Pericardium No significant pericardial effusion is visualized. IVC/SVC/PA/PV/Pleural The right upper pulmonary vein (RUPV) is normal . The estimated RA pressure by IVC dynamics 0-5mmHg . Chambers/Structures Left Atrium LA Volume: 49.83 ml LA Area: 11.94 cm^2 LA Vol. Index: 30 ml/m^2 Left Ventricle LVIDd: 4.48 cm LV Septum Diastolic: 0.85 cm LV PW Diastolic: 0.87 cm LVEDV Valdivia's:44.95 ml LVESV Valdivia's:14.83 ml LVEF Valdivia's: 67 % LVEDVI: 27 ml/m^2 LVESVI: 9 ml/m^2 LVOT Diameter: 1.86 cm Right Ventricle TAPSE: 1.5 7 cm Aorta Ao Root S of Alma.: 2.74 cm Doppler/Quantitative Measurements Mitral Valve MV Peak E-Wave: 0.53 m/s MV Peak A-Wave: 0.74 m/s E/A Ratio: 0.72 Peak Gradient: 1.12 mmHg Deceleration Time: 228.7 msec MV Uriel. Peak: Tissue Doppler E' Septal Velocity: 0.05 m/s E/E': 9.77 E' Lateral Velocity: 0.06 m/s Aortic Valve Peak Velocity: 1.27 m/s Mean Velocity: 0.92 m/s Peak Gradient: 6.44 mmHg Mean Gradient: 3.76 mmHg AV Area (continuity): 2.32 cm^2 AV VTI: 28.07 cm AV DVI: 0.86 LVOT Peak Velocity: 1.14 m/s Peak Gradient: 5.21 mmHg Mean Velocity: 0.75 m/s Mean Gradient: 2.61 mmHg LVOT Diameter: 1.86 cm LVOT VTI: 24.02 cm LVOT Area: 2.72 cm^2 LVOT SV:65.23 ml LVOT CO: 4.31 l/min LVOT CI: 2.6 l/min/m^2 Procedure Note Interface, External Ris In - 01/31/2020 2:32 PM CDT Transthoracic Echocardiography Report (TTE) Demographics Patient Name SAVANA MARTIN of Study 01/31/2020 XENIA Gen leia Female Visit Number [id number] Rac e Unknown [facility] Number [id number] Number Date of 1945 Ref erring Physician Liam Villalpando Age 74 year(s) Son matt Pelayo Reading Professor Juana Guzman erpretinBao Espinoza MD Procedure Type of Study TTE procedure:2DECHO W DOPPLE R(CW/PW/COLOR) (Routine) Indications:Palpitations. Clinical History HGB 11.3 HCT 33.5 % VASCULAR DEMENTIA, HTN, ANXIETY/DEPRESSI ON Height: 64 inches Weight: 61.23 kg (135 lbs) BSA: 1.66 m^2 BMI: 23.17 kg/m^2 HR: 66 bpm BP: 115/54 mmHg Summary 1. The left ventricle is chamber size ( by vol index) is normal. Normal LV wall thickness. All of the LV segments contract normally. LVEF by Valdivia's method of disk assessment is normal (>60%). Grade 1 diastolic dysfunction (impaired relaxation and lo w-normal LA pressure). LA size is normal (16-34 ml/m2) . 2. The right ventricular chamber size a nd systolic function are within normal limits. RA cavity size is normal . Unable to estimate peak systolic PA pressure; inadequate TR velocity sig nal. 3. Mild aortic regurgitation. Previous Study No prior exam available for comparison. Signature Findings Left Ventricle The left ventric le is chamber size (by vol index) is normal (femal e - LVED vol - 29-61ml/m2). Normal LV wall t hickness. All of the LV se gments contract normally . Global LV systol ic function normal . LVEF by Valdivia' s method of disk assessment is normal (>60%) . The LVEF was franco sured using Valdivia's bi-plane method of disk . Grade 1 diastoli c dysfunction (impaired relaxation and low-normal L A pressure). Normal (cardiac index 2-3 L/min/m2) cardiac output state at rest is noted. Left Atrium LA size is jostin l (16-34 ml/m2) . Right Ventricle The right ventri cular chamber size and systolic function are wit hin normal limits. Right Atrium RA cavity size i s normal . Aortic Valve Mild AoV cusp th ickening. Mild aortic regu rgitation. Mitral Valve Normal MV struct ure. Trace mitral reg urgitation. Tricuspid Valve TV structure is normal. Unable to estima te peak systolic PA pressure; inadequate TR ve locity signal. Pulmonic Valve PV is not well v isualized; function appears normal by Doppler visua lized. Aorta Aortic root size (SInus of Valsalva diameter) is normal . Pericardium No significant p ericardial effusion is visualized. IVC/SVC/PA/PV/Pleural The right upper pulmonary vein (RUPV) is normal . The estimated RA pressure by IVC dynamics 0-5mmHg . Chambers/Structures Left Atrium LA Volume: 49.83 ml LA Area: 11.94 cm^2 LA Vol. Index: 30 ml/m^2 Left Ventricle LVIDd: 4.48 cm LV Septum Diastolic: 0.85 cm LV PW Diastolic: 0.87 cm LVEDV Valdivia's:44.95 ml LVESV Valdivia's:14.83 ml LVEF Valdivia's: 67 % LVEDVI: 27 ml/m^2 LVESVI: 9 ml/m^2 LVOT Diameter: 1.86 cm Right Ventricle TAPSE: 1.57 cm Aorta Ao Root S of Alma.: 2.74 cm Doppler/Quantitative Measurements Mitral Valve MV Peak E-Wave: 0.53 m/s M V Peak A-Wave: 0.74 m/s E /A Ratio: 0.72 P eak Gradient: 1.12 mmHg D eceleration Time: 228.7 msec MV Uriel. Peak: Tissue Doppler E' Septal Velocity: 0.05 m/s E /E': 9.77 E' Lateral Velocity: 0.06 m/s Aortic Valve Peak Velocity: 1.27 m/s Mean Velocity: 0.92 m/s Peak Gradient: 6.44 mmHg Mean Gradient: 3.76 mmHg AV Area (continuity): 2.32 cm^2 AV VTI: 28.07 cm AV DVI: 0.86 LVOT Peak Velocity: 1.14 m/s Pea k Gradient: 5.21 mmHg Mean Velocity: 0.75 m/s Franco n Gradient: 2.61 mmHg LVOT Diameter: 1.86 cm LVO T VTI: 24.02 cm LVOT Area: 2.72 cm^2 LVO T SV:65.23 ml LVOT CO: 4.31 l/min LVO T CI: 2.6 l/min/m^2 Performing Organization Address City/State/Zipcode Phone Number [facility] Fasting lipid panel (01/30/2020 8:38 AM CDT)Only the most recent of2 results within the time period is included. Pathologist Sig nature Triglycerides 102 mg/dL [facility] Cholesterol 145 mg/dL [facility] HDL 45 mg/dL [facility] LDL Calculated 80 mg/dL [facility] Specimen Blood Narrative Performed At Triglyceride Reference Range: [facility] Low Risk <150 Borderline 150-199 High Risk 200-499 Very High Risk >=500 Cholesterol Reference Range: Low Risk <200 Borderline 200-239 High Risk >240 HDL Cholesterol Reference Range: Low Risk >=60 High Risk <40 LDL Cholesterol Reference Range: Optimal <100 Near Optimal 100-129 Borderline 130-159 High 160-189 Very High >=190 Speech Pathologist Assistant ID - RAKESH C Performing Organization Address City/State/Zipcode Phone Number [facility] [address] [place] [address] CENTER MRI brain without contrast (01/29/2020 9:40 PM CDT) Specimen Narrative Performed At FINAL REPORT [employer] MRI Brain without contrast CLINICAL HISTORY: Facial pain or sensory abnormality, mastication muscle weakness (CN 5) Technique: MRI of the brain utilizing ax ial T2, FLAIR, GRE, DWI; sagittal and coronal T1-weighted images. Comparisons: None Findings: Nonspecific T2 FLAIR hyperintensities ty pical of chronic microangiopathy ischemic changes present . There is no evidence of acute infarct or hemorrhage. There is no hydrocephalus or midline shift. There ar e no extra-axial fluid collections. The craniocervical junction is preserved. The major intracranial flow-voids appear patent. H eterogeneous marrow signal suggests osseous demineralization. High- resolution images through the skull base were not obtained but the vis ualized portions of the trigeminal nerves and Meckel's cave demo nstrate no gross asymmetry. IMPRESSION: No evidence of acute infarct, hemorrhage , or hydrocephalus. Moderate chronic microvascular ischemic changes. Signed: Wilberto Durán MD Report Verified Date/Time: 01/29/2020 21:54:29 Procedure Note Interface, External Ris In - 01/29/2020 9:56 PM CDT FINAL REPORT MRI Brain without contrast CLINICAL HISTORY: Facial pain or sensory abnormality, mastication muscle weakness (CN 5) Technique: MRI of the brain utilizing ax ial T2, FLAIR, GRE, DWI; sagittal and coronal T1-weighted images. Comparisons: None Findings: Nonspecific T2 FLAIR hyperintensities ty pical of chronic microangiopathy ischemic changes present . There is no evidence of acute infarct or hemorrhage. There is no hydrocephalus or midline shift. There ar e no extra-axial fluid collections. The craniocervical junction is preserved. The major intracranial flow-voids appear patent. H eterogeneous marrow signal suggests osseous demineralization. High- resolution images through the skull base were not obtained but the vis ualized portions of the trigeminal nerves and Meckel's cave demo nstrate no gross asymmetry. IMPRESSION: No evidence of acute infarct, hemorrhage , or hydrocephalus. Moderate chronic microvascular ischemic changes. Signed: Wilberto Durán MD Report Verified Date/Time: 01/29/2020 2 1:54:29 Performing Organization Address City/State/Zipcode Phone Number [facility] Troponin I (01/29/2020 7:07 PM CDT)Only the most recent of7 resultswithin the time period is included. Pathologist Sig nature Troponin I 0.07 (H) 0.00 - 0.03 ng/mL [facility] Specimen Blood Narrative Performed At Troponin I (TnI) levels must be interpreted [facility] in the context of the presenting symptoms and the clinical findings. Elevated TnI levels indicate myocardial damage, but are not specific for ischemic heart disease. Elevated TnI levels are seen in patients with other cardiac conditions (including myocarditis and congestive heart failure), and slight TnI elevations occur in patients with other conditions, including sepsis, renal failure, acidosis, acute neurological disease, and persistent tachyarrhythmia. Speech Pathologist Assistant ID - DB Performing Organization Address City/State/Zipcode Phone Number [facility] MEDICAL [address] [place] [phone] CENTER RPR (01/29/2020 7:07 PM CDT) Pathologist Sig nature RPR Nonreactive Nonreactive [facility] Specimen Blood Performing Organization Address City/[facility]/Zipcode Phone Number [address] [address] CENTER Hemoglobin A1c (01/29/2020 7:07 PM CDT)Only the most recent of2 resultswithin the time period is included. Pathologist Sig [facility] Hemoglobin A1C 5.0 4.3 - 6.1 % [facility] Specimen Blood Performing Organization Address City/[facility] Phone Number [address] [address] [place] PT/aPTT (01/28/2020 10:59 PM CDT) Pathologist [facility] Protime 13.9 11.9 - 14.2 seconds [facility] INR 1.10 <=5.90 [facility] PTT <20.0 (L) 22.5 - 36.0 seconds [facility] Specimen Blood Narrative Performed At Effective 11/13/2018: PT Reference Range [facility] Change New: 11.9-14.2 Previous: 11.7-14.7 RECOMMENDED COUMADIN/WARFARIN INR THERAPY RANGES STANDARD DOSE: 2.0-3.0 Includes: PROPHYLAXIS for venous thrombosis, systemic embolization; TREATMENT for venous thrombosis and/or pulmonary embolus. HIGH RISK: Target INR is 2.5-3.5 for patients wiht mechanical heart valves. Performing Organization Address City/[facility]/Zipcode Phone Number [address] [address] [place] SARS-CoV2/RT-PCR (Symptomatic ONLY) (01/28/2020 10:22 PM CDT) SARS-COV2/RT-PCR Negative Not Detected, [facility] Negative, See [facility] MED[facility] external report CENTER for linked test SARS-COV-2 [facility] Specimen Other - Nasopharyngeal wall structure (b stacy structure) Narrative Performed At Negative results do not preclude SARS-CoV-2 [facility] infection and should not be used as the sole basis for patient management decisions. Negative results must be combined with clinical observations, patient history, and epidemiological information. A false negative result may occur if a specimen is improperly collected, transported or handled. The limit of detection for this assay is 250 copies/mL. This SARS CoV-2 test is a rapid, real-time RT-PCR test intended for the qualitative detection of nucleic acid from SARS-CoV-2 in a nasopharyngeal swab specimen collected from individuals suspected of COVID-19 by their healthcare provider. This test has not been Food and Drug Administration (FDA) cleared or approved and has been authorized by FDA under an Emergency Use Authorization (EUA). This EUA will be effective until the declaration that circumstances exist justifying the authorization of the emergency use of in vitro diagnostic tests for detection and/or diagnosis of COVID-19 is terminated under Section 564(b)(2) of the Act or the EUA is revoked under Section 564(g) of the Act. Fact Sheet for Healthcare Providers: https://www.[employer]/Documents/Xpert%20Xpre ss%20SARS%20CoV-2/Fact%20Sheets/3023802%20SAR S-COV-2%20HEALTHCARE%20PROVIDERS%20FACT%20SHEE T.pdf Fact Sheet for Healthcare Patients: https://www.[employer]/Documents/Xpert%20Xpre ss%20SARS%20CoV-2/Fact%20Sheets/302-3801%20SAR S-COV-2%20PATIENT%20FACT%20SHEET.pdf Performing Laboratory: [address] [place] [address] Performing Organization Address City/State/Zipcode Phone Number [address] [address] CENTER Vitamin B12 and Folate (01/28/2020 7:14 PM CDT) [facility] Vitamin B12 473 213 - 816 pg/mL [facility] Folate 9.30 >=7.00 ng/mL [facility] Specimen Blood Narrative Performed At Speech Pathologist Assistant ID - RAKESH Gee [facility] Performing Organization Address City/State/Zipcode Phone Number [facility] [address] [place], [place] [phone] CENTER TSH/Free T4 If Indicated (01/28/2020 7:14 PM CDT) Pathologist Sig nature TSH 0.644 0.350 - 4.940 uIU/mL [facility] Specimen Blood Narrative Performed At Speech Pathologist Assistant ID - [facility] Performing Organization Address City/[facility]/Zipcode Phone Number [facility] [address] [place], [place] [phone] CENTER XR chest 1 view portable / bedside (01/28/2020 6:42 PM CDT) Specimen Narrative Performed At FINAL REPORT GE [facility] Chest, 1 view. History: Mental status change. Comparison: None available. Discussion: The trachea is midline. The lungs are sy mmetrically expanded without evidence of focal consolidation, pneumot horax, or significant pleural effusion. The cardiomediastinal silhouet te and pulmonary vasculature are within normal limits. No acute osseo us abnormalities identified. The soft tissues are unremarkable. IMPRESSION: No acute cardiopulmonary process identif ied. Signed: Gerardo Flores MD Report Verified Date/Time: 01/28/2020 19:12:50 Reading Location: [address] Procedure Note Interface, External Ris In - 01/28/2020 7:14 PM CDT FINAL REPORT Chest, 1 view. History: Mental status change. Comparison: None available. Discussion: The trachea is midline. The lungs are sy mmetrically expanded without evidence of focal consolidation, pneumot horax, or significant pleural effusion. The cardiomediastinal silhouet te and pulmonary vasculature are within normal limits. No acute osseo us abnormalities identified. The soft tissues are unremarkable. IMPRESSION: No acute cardiopulmonary process identif ied. Signed: Gerardo Flores MD Report Verified Date/Time: 01/28/2020 1 9:12:50 Reading Location: [facility] [id number] Consult R ding Room Performing Organization Address [facility] Phone Number GE [facility] Urinalysis w/Microscopic + Reflex to Culture (01/28/2020 6:35 PM CDT) Color, UA Yellow [facility] Clarity, UA Hazy [facility] Specific [place], >1.050 (H) 1.001 - 1.035 [facility] pH, UA 5.5 5.0 - 8.0 [facility] Protein, UA 10 mg/dL (A) Negative [facility] Glucose, UA Negative Negative [facility] Ketones, UA Negative Negative [facility] Bilirubin, UA Negative Negative [facility] Blood, UA Moderate (A) Negative [facility] Nitrite, UA Negative Negative [facility] Leukocytes, UA Small (A) Negative [facility] Urobilinogen, UA 0.2 0.2 - 1.0 mg/dL [facility] RBC, UA 30 /HPF [facility] WBC, UA 3 /HPF [facility] Bacteria, UA Occasional [facility] Mucus Rare [facility] Squam Epithel, UA 21 /HPF [facility] Yeast Occasional [facility] Specimen Source [facility] Specimen Urine Narrative Performed At Speech Pathologist Assistant ID - [auto] [facility] Speech Pathologist Assistant ID - tech Performing Organization Address City/State/Zipcode Phone Number [facility] MEDICAL [address] [place] [address] CENTER CTA carotid (01/28/2020 6:31 PM CDT) Specimen Narrative Performed At FINAL REPORT [facility] CT, CAROTID, ANGIO, CT, CTANGIO BRAIN, CT, CEREBRAL PERFUSION ANALYSIS INDICATION: TIA, initial exam Symptoms onset less than 6 hours and NIH SS 6 or greater COMPARISON: Same day noncontrast CT head TECHNIQUE: Rapid acquisition spiral images were obt ained between the aortic arch and the cranial vertex during intravenou s contrast infusion to reconstruct axial images and angiographi c 3D maximum intensity projections (MIP) .Three dimensional ref ormatted images were created at a dedicated workstation. Precontrast images of the brain were also obtained. Perfusion imaging technique: Arterial input function: SHARMAINE Venous outflow function: Torcular Site of normal perfusion: right anterior territory Stenosis evaluation reported in complian ce with NASCET criteria. DOSE REDUCTION: Dose modulation, iterati ve reconstruction, and/or weight-based adjustment of the mA/kV was utilized to reduce the radiation dose to as low as reasonably a chievable. FINDINGS: CTA head: There is no CT evidence of acute infarct or hemorrhage. There is no hydrocephalus or midline shift. The skul l is intact. No intracranial aneurysm, focal stenosis , or proximal branch vessel occlusion. The major intradural venous sinuses are patent. CTA neck: Great vessel origins: No occlusion or hi gh-grade stenosis. Carotid arteries: No occlusion or high-g rade stenosis. Vertebral arteries: Moderate stenosis of the right vertebral origin. Remainder of the vertebral arteries are of normal course and caliber. Mild degenerative changes of the cervica l spine. Cervical soft tissues are unremarkable. Visualized john g apices are clear. CT PERFUSION PARAMETRIC MAPS: CBF: Symmetric CBV: Symmetric MTT: Symmetric TTP: Symmetric IMPRESSION: 1.No proximal branch arterial occlusion or high-grade focal stenosis within the [place]. 2.Moderate focal stenosis of the right v ertebral origin. 3.No significant stenosis of the carotid arteries per NASCET criteria. 4.Symmetric perfusion indices. Signed: Irlanda Liriano MD Report Verified Date/Time: 01/28/2020 18:37:33 Procedure Note Interface, External Ris In - 01/28/2020 6:39 PM CDT FINAL REPORT CT, CAROTID, ANGIO, CT, CTANGIO BRAIN, CT, CEREBRAL PERFUSION ANALYSIS INDICATION: TIA, initial exam Symptoms onset less than 6 hours and NIH SS 6 or greater COMPARISON: Same day noncontrast CT head TECHNIQUE: Rapid acquisition spiral images were obt ained between the aortic arch and the cranial vertex during intravenou s contrast infusion to reconstruct axial images and angiographi c 3D maximum intensity projections (MIP) .Three dimensional ref ormatted images were created at a dedicated workstation. Precontrast images of the brain were also obtained. Perfusion imaging technique: Arterial input function: SHARMAINE Venous outflow function: Torcular Site of normal perfusion: right anterior territory Stenosis evaluation reported in complian ce with NASCET criteria. DOSE REDUCTION: Dose modulation, iterati ve reconstruction, and/or weight-based adjustment of the mA/kV was utilized to reduce the radiation dose to as low as reasonably a chievable. FINDINGS: CTA head: There is no CT evidence of acute infarct or hemorrhage. There is no hydrocephalus or midline shift. The skul l is intact. No intracranial aneurysm, focal stenosis , or proximal branch vessel occlusion. The major intradural venous sinuses are patent. CTA neck: Great vessel origins: No occlusion or hi gh-grade stenosis. Carotid arteries: No occlusion or high-g rade stenosis. Vertebral arteries: Moderate stenosis of the right vertebral origin. Remainder of the vertebral arteries are of normal course and caliber. Mild degenerative changes of the cervica l spine. Cervical soft tissues are unremarkable. Visualized john g apices are clear. CT PERFUSION PARAMETRIC MAPS: CBF: Symmetric CBV: Symmetric MTT: Symmetric TTP: Symmetric IMPRESSION: 1.No proximal branch arterial occlusion or high-grade focal stenosis within the [place]. 2.Moderate focal stenosis of the right v ertebral origin. 3.No significant stenosis of the carotid arteries per NASCET criteria. 4.Symmetric perfusion indices. Signed: Irlanda Liriano MD Report Verified Date/Time: 01/28/2020 1 8:37:33 Performing Organization Address City/State/Zipcode Phone Number GE RIS CT brain cerebral perfusion analysis (01/28/2020 6:31 PM CDT) Specimen Narrative Performed At FINAL REPORT [employer] CT, CAROTID, ANGIO, CT, CTANGIO BRAIN, CT, CEREBRAL PERFUSION ANALYSIS INDICATION: TIA, initial exam Symptoms onset less than 6 hours and NIH SS 6 or greater COMPARISON: Same day noncontrast CT head TECHNIQUE: Rapid acquisition spiral images were obt ained between the aortic arch and the cranial vertex during intravenou s contrast infusion to reconstruct axial images and angiographi c 3D maximum intensity projections (MIP) .Three dimensional ref ormatted images were created at a dedicated workstation. Precontrast images of the brain were also obtained. Perfusion imaging technique: Arterial input function: SHARMAINE Venous outflow function: Torcular Site of normal perfusion: right anterior territory Stenosis evaluation reported in complian ce with NASCET criteria. DOSE REDUCTION: Dose modulation, iterati ve reconstruction, and/or weight-based adjustment of the mA/kV was utilized to reduce the radiation dose to as low as reasonably a chievable. FINDINGS: CTA head: There is no CT evidence of acute infarct or hemorrhage. There is no hydrocephalus or midline shift. The skul l is intact. No intracranial aneurysm, focal stenosis , or proximal branch vessel occlusion. The major intradural venous sinuses are patent. CTA neck: Great vessel origins: No occlusion or hi gh-grade stenosis. Carotid arteries: No occlusion or high-g rade stenosis. Vertebral arteries: Moderate stenosis of the right vertebral origin. Remainder of the vertebral arteries are of normal course and caliber. Mild degenerative changes of the cervica l spine. Cervical soft tissues are unremarkable. Visualized john g apices are clear. CT PERFUSION PARAMETRIC MAPS: CBF: Symmetric CBV: Symmetric MTT: Symmetric TTP: Symmetric IMPRESSION: 1.No proximal branch arterial occlusion or high-grade focal stenosis within the [place]. 2.Moderate focal stenosis of the right v ertebral origin. 3.No significant stenosis of the carotid arteries per NASCET criteria. 4.Symmetric perfusion indices. Signed: Irlanda Liriano MD Report Verified Date/Time: 01/28/2020 18:37:33 Procedure Note Interface, External Ris In - 01/28/2020 6:39 PM CDT FINAL REPORT CT, CAROTID, ANGIO, CT, CTANGIO BRAIN, CT, CEREBRAL PERFUSION ANALYSIS INDICATION: TIA, initial exam Symptoms onset less than 6 hours and NIH SS 6 or greater COMPARISON: Same day noncontrast CT head TECHNIQUE: Rapid acquisition spiral images were obt ained between the aortic arch and the cranial vertex during intravenou s contrast infusion to reconstruct axial images and angiographi c 3D maximum intensity projections (MIP) .Three dimensional ref ormatted images were created at a dedicated workstation. Precontrast images of the brain were also obtained. Perfusion imaging technique: Arterial input function: SHARMAINE Venous outflow function: Torcular Site of normal perfusion: right anterior territory Stenosis evaluation reported in complian ce with NASCET criteria. DOSE REDUCTION: Dose modulation, iterati ve reconstruction, and/or weight-based adjustment of the mA/kV was utilized to reduce the radiation dose to as low as reasonably a chievable. FINDINGS: CTA head: There is no CT evidence of acute infarct or hemorrhage. There is no hydrocephalus or midline shift. The skul l is intact. No intracranial aneurysm, focal stenosis , or proximal branch vessel occlusion. The major intradural venous sinuses are patent. CTA neck: Great vessel origins: No occlusion or hi gh-grade stenosis. Carotid arteries: No occlusion or high-g rade stenosis. Vertebral arteries: Moderate stenosis of the right vertebral origin. Remainder of the vertebral arteries are of normal course and caliber. Mild degenerative changes of the cervica l spine. Cervical soft tissues are unremarkable. Visualized john g apices are clear. CT PERFUSION PARAMETRIC MAPS: CBF: Symmetric CBV: Symmetric MTT: Symmetric TTP: Symmetric IMPRESSION: 1.No proximal branch arterial occlusion or high-grade focal stenosis within the [place]. 2.Moderate focal stenosis of the right v ertebral origin. 3.No significant stenosis of the carotid arteries per NASCET criteria. 4.Symmetric perfusion indices. Signed: Irlanda Liriano MD Report Verified Date/Time: 01/28/2020 1 8:37:33 Performing Organization Address City/State/Zipcode Phone Number [employer] CTA brain (01/28/2020 6:31 PM CDT) Specimen Narrative Performed At FINAL REPORT GE RIS CT, CAROTID, ANGIO, CT, CTANGIO BRAIN, CT, CEREBRAL PERFUSION ANALYSIS INDICATION: TIA, initial exam Symptoms onset less than 6 hours and NIH SS 6 or greater COMPARISON: Same day noncontrast CT head TECHNIQUE: Rapid acquisition spiral images were obt ained between the aortic arch and the cranial vertex during intravenou s contrast infusion to reconstruct axial images and angiographi c 3D maximum intensity projections (MIP) .Three dimensional ref ormatted images were created at a dedicated workstation. Precontrast images of the brain were also obtained. Perfusion imaging technique: Arterial input function: SHARMAINE Venous outflow function: Torcular Site of normal perfusion: right anterior territory Stenosis evaluation reported in complian ce with NASCET criteria. DOSE REDUCTION: Dose modulation, iterati ve reconstruction, and/or weight-based adjustment of the mA/kV was utilized to reduce the radiation dose to as low as reasonably a chievable. FINDINGS: CTA head: There is no CT evidence of acute infarct or hemorrhage. There is no hydrocephalus or midline shift. The skul l is intact. No intracranial aneurysm, focal stenosis , or proximal branch vessel occlusion. The major intradural venous sinuses are patent. CTA neck: Great vessel origins: No occlusion or hi gh-grade stenosis. Carotid arteries: No occlusion or high-g rade stenosis. Vertebral arteries: Moderate stenosis of the right vertebral origin. Remainder of the vertebral arteries are of normal course and caliber. Mild degenerative changes of the cervica l spine. Cervical soft tissues are unremarkable. Visualized john g apices are clear. CT PERFUSION PARAMETRIC MAPS: CBF: Symmetric CBV: Symmetric MTT: Symmetric TTP: Symmetric IMPRESSION: 1.No proximal branch arterial occlusion or high-grade focal stenosis within the [place]. 2.Moderate focal stenosis of the right v ertebral origin. 3.No significant stenosis of the carotid arteries per NASCET criteria. 4.Symmetric perfusion indices. Signed: Irlanda Liriano MD Report Verified Date/Time: 01/28/2020 18:37:33 Procedure Note Interface, External Ris In - 01/28/2020 6:39 PM CDT FINAL REPORT CT, CAROTID, ANGIO, CT, CTANGIO BRAIN, CT, CEREBRAL PERFUSION ANALYSIS INDICATION: TIA, initial exam Symptoms onset less than 6 hours and NIH SS 6 or greater COMPARISON: Same day noncontrast CT head TECHNIQUE: Rapid acquisition spiral images were obt ained between the aortic arch and the cranial vertex during intravenou s contrast infusion to reconstruct axial images and angiographi c 3D maximum intensity projections (MIP) .Three dimensional ref ormatted images were created at a dedicated workstation. Precontrast images of the brain were also obtained. Perfusion imaging technique: Arterial input function: SHARMAINE Venous outflow function: Torcular Site of normal perfusion: right anterior territory Stenosis evaluation reported in complian ce with NASCET criteria. DOSE REDUCTION: Dose modulation, iterati ve reconstruction, and/or weight-based adjustment of the mA/kV was utilized to reduce the radiation dose to as low as reasonably a chievable. FINDINGS: CTA head: There is no CT evidence of acute infarct or hemorrhage. There is no hydrocephalus or midline shift. The skul l is intact. No intracranial aneurysm, focal stenosis , or proximal branch vessel occlusion. The major intradural venous sinuses are patent. CTA neck: Great vessel origins: No occlusion or hi gh-grade stenosis. Carotid arteries: No occlusion or high-g rade stenosis. Vertebral arteries: Moderate stenosis of the right vertebral origin. Remainder of the vertebral arteries are of normal course and caliber. Mild degenerative changes of the cervica l spine. Cervical soft tissues are unremarkable. Visualized john g apices are clear. CT PERFUSION PARAMETRIC MAPS: CBF: Symmetric CBV: Symmetric MTT: Symmetric TTP: Symmetric IMPRESSION: 1.No proximal branch arterial occlusion or high-grade focal stenosis within the [place]. 2.Moderate focal stenosis of the right v ertebral origin. 3.No significant stenosis of the carotid arteries per NASCET criteria. 4.Symmetric perfusion indices. Signed: Irlanda Liriano MD Report Verified Date/Time: 01/28/2020 1 8:37:33 Performing Organization Address City/State/Zipcode Phone Number [facility] B-type Natriuretic Factor (BNP) (01/28/2020 6:20 PM CDT) Pathologist Sig nature BNP 199 (H) 0 - 100 pg/mL [facility] Specimen Blood Narrative Performed At Speech Pathologist Assistant GIANCARLO Gee [facility]AL CENTER Performing Organization Address [facility]/Zipcode Phone Number [address] [phone] CENTER aPTT (01/28/2020 6:19 PM CDT) Pathologist Sig nature PTT 22.4 (L) 22.5 - 36.0 seconds [facility] Specimen Blood Performing Organization Address [facility] Phone Number [address] [address] [place] Prothrombin time/INR (01/28/2020 6:19 PM CDT) Pathologist Sig nature Protime 14.0 11.9 - 14.2 seconds [facility] INR 1.11 <=5.90 [facility] Specimen Blood Narrative Performed At Effective 11/13/2018: PT Reference Range [facility] Change New: 11.9-14.2 Previous: 11.7-14.7 RECOMMENDED COUMADIN/WARFARIN INR THERAPY RANGES STANDARD DOSE: 2.0-3.0 Includes: PROPHYLAXIS for venous thrombosis, systemic embolization; TREATMENT for venous thrombosis and/or pulmonary embolus. HIGH RISK: Target INR is 2.5-3.5 for patients wiht mechanical heart valves. Performing Organization Address [facility] [place] [phone] brain/stroke protocol (01/28/2020 5:45 PM CDT) Specimen Narrative Performed At FINAL REPORT [employer] [facility], BRAIN/STROKE PROTOCOL INDICATION: Ataxia, stroke suspected cva TECHNIQUE: Noncontrast axial imaging was obtained from the vertex to the skull base. Axial images were recons tructed using a bone algorithm. DOSE REDUCTION: Dose modulation, iterati ve reconstruction, and/or weight-based adjustment of the mA/kV was utilized to reduce the radiation dose to as low as reasonably a chievable. COMPARISON: None. FINDINGS: Intracranial: No intracranial hemorrhage or abnormal extra-axial collection. No evidence of acute territo rial infarct. No mass effect. No hydrocephalus. Osseous structures: No fracture. No susp icious lesion. Paranasal sinuses and mastoid air cells: No evidence of sinusitis. Mastoids are clear. Orbital contents: Globes are intact. IMPRESSION: No acute intracranial hemorrhage or CT e vidence of territorial infarct. If there is persistent clinical concern for intracranial pathology, MR examination is recommended for furthe r characterization. The ED is currently not excepting incomi ng phone calls. Addendum will be made to this report upon successful c ommunication with the ordering physician. Signed: Irlanda Liriano MD Report Verified Date/Time: 01/28/2020 17:59:44 Procedure Note Interface, External Ris In - 01/28/2020 6:31 PM CDT FINAL REPORT CT, BRAIN/STROKE PROTOCOL INDICATION: Ataxia, stroke suspected cva TECHNIQUE: Noncontrast axial imaging was obtained from the vertex to the skull base. Axial images were recons tructed using a bone algorithm. DOSE REDUCTION: Dose modulation, iterati ve reconstruction, and/or weight-based adjustment of the mA/kV was utilized to reduce the radiation dose to as low as reasonably a chievable. COMPARISON: None. FINDINGS: Intracranial: No intracranial hemorrhage or abnormal extra-axial collection. No evidence of acute territo rial infarct. No mass effect. No hydrocephalus. Osseous structures: No fracture. No susp icious lesion. Paranasal sinuses and mastoid air cells: No evidence of sinusitis. Mastoids are clear. Orbital contents: Globes are intact. IMPRESSION: No acute intracranial hemorrhage or CT e vidence of territorial infarct. If there is persistent clinical concern for intracranial pathology, MR examination is recommended for furthe r characterization. The ED is currently not excepting incomi ng phone calls. Addendum will be made to this report upon successful c ommunication with the ordering physician. Signed: Irlanda Liriano MD Report Verified Date/Time: 01/28/2020 1 7:59:44 Performing Organization Address City/State/Zipcode Phone Number GE RIS after 05/04/2019 Insurance Payer Benefit Plan / Subscriber ID Effective Phone Address T ype Group Dates CIGNA CIGNA [id number] 2019-Pre Maps [employer] [employer] sent Contracted MEDICAID MEDICAID OF [id number] 2020-Pre Medic aid [place] sent Advance Directives For more information, please contact: [phone] Code Status Date Activated Date Inactivated Comments Full Code 01/29/2020 4:11 PM 02/07/2020 8:19 PM This code status was determined by: Patient Full Code 01/28/2020 9:54 PM 01/29/2020 2:49 PM This code status was determined by: Patient
--- OUTSIDE RECORDS SUMMARY | 2020-05-04 08:23 | XMS REPORT | Continuity of Care Document ---
:[address] [facility] t Address [address] [place] [address] [address]. [address] [place] [address] Care Team Providers Name Role Phone Pcp Primary Care Physician Unavailable Raghav Benito MD Attending Clinician Alcides Cabrera MD Attending Clinician Merchant ORTIZ Attending Clinician Elba ORTIZ Attending Clinician RAGHAV BENITO Attending Clinician Unavailable Pancho Washburn MD Attending Clinician ALCIDES CABRERA Admitting Clinician Unavailable PANCHO WASHBURN Admitting Clinician Unavailable Payers Payer Name Policy Type Policy Effective Date Expiration Date Sour ce Number CIGNA [id number] [facility] [id number] 2019-P resentMaps Contracted MEDICAIDMEDICAID OF [id number] 2020 [id number] 2019 00:00:00 - Medical -PresentMedicaid Center Problems Condition Condition Condition Status Onset Resolution Last Treating Co mments Source Name Details Category Date Date Treatment Clinician Date Paranoia [facility]ia [facility] Dementia Dementia Disease [facility] - behavioral behavioral 00:00: Me dical disturbanc disturbanc 00 Ce nter e e TIA TIA Disease Active [facility] (transient (transient 8-13 Amelia kes - ischemic ischemic 00:00: Medica l attack) attack) 00 Center Allergies, Adverse Reactions, Alerts This patient has no known allergies or adverse reactions. Social History Social Habit Start Date Stop Date Quantity Comments Source Sex Assigned At [facility] Medical [place] Medications Ordered Filled Start Stop Current Ordering Indication Dosage Frequency Signature Comments Components Source Medication Medication Date Date Medication? Clinician (SIG) Name Name aspirin 81 2020- Yes 81mg QD Take [address] [facility] [address] MG EC 02-06 tablet (81 [facility] - tablet 00:00: 23:59 mg total) Medic al 00 :00 by mouth Center daily. bisoprolol 2020- Yes 2.5mg QD Take 0.[address] (ZEBETA) 5 02-06 tablets [facility] - MG tablet 00:00: 23:59 (2.5 mg Medi cheryl 00 :00 total) by Center mouth daily. hydrOXYchlo 2020- Yes 200mg QD Take [address] roQUINE 02-06 tablet [facility] - (PLAQUENIL) 00:00: 23:59 (200 mg Me dical 200 mg 00 :00 total) by Center tablet mouth daily. levothyroxi 2020- Yes 75ug Take [address] [facility] ne 02-06 tablet (75 [facility] - (SYNTHROID, 00:00: 23:59 mcg total) Medical LEVOTHROID) 00 :00 by mouth Cent er 75 MCG Every tablet morning on an empty stomach. melatonin 5 Yes 5mg QD Take [address] mg Tab 02-05 tablet (5 [facility] - tablet 00:00: mg total) Medica l 00 by mouth Center nightly. atorvastati 2020- Yes 80mg QD Take [address] n (LIPITOR) 02-05 tablet (80 L ukes - 80 MG 00:00: 23:59 mg total) Medica l tablet 00 :00 by mouth Center nightly. QUEtiapine 2019- No 50mg QD Take [address] (SEROQUEL) 02-05- tablet (50 Amelia kes - 50 MG 00:00: 23:59 mg total) Medica l tablet 00 :00 by mouth Center nightly for 30 days. Vital Signs Vital Name Observation Time Observation Value Comments Source Systolic blood 2020-02-07 16:00:00 112 mm[Hg] [facility] Diastolic blood 2020-02-07 16:00:00 64 mm[Hg] [facility] Heart rate 2020-02-07 16:00:00 63 /min [facility] Body temperature 2020-02-07 16:00:00 36.83 Alize [facility] Respiratory rate 2020-02-07 16:00:00 18 /min [facility] Oxygen saturation in 2020-02-07 16:00:00 100 /min [facility] Arterial blood by Medical Ce nter Pulse oximetry Body height 2020-01-30 15:24:00 162.6 cm [facility] Body weight 2020-01-30 15:24:00 61.236 kg [facility] BMI 2020-01-30 15:24:00 23.17 kg/m2 [facility] Procedures Procedure Date / Time Performed Performing Clinician [facility] e RHYTHM STRIP - SCAN 2020-02-09 15:00:11 Provider, [facility] ECG 12-LEAD 2020-02-03 11:06:39 Elba Correia [facility] REPORT OF PROCEDURE - 2020-02-03 10:14:01 Provider, [facility] ENDOSCOPY SCAN Scanning [facility] REPORT OF PROCEDURE - 2020-02-03 10:13:59 Provider, [facility] ENDOSCOPY SCAN Scanning [facility] BASIC METABOLIC PANEL (7) 2020-02-01 05:38:00 Go Cabrera [facility] CBC W/PLT COUNT & AUTO 2020-02-01 05:38:00 Deborah Go [facility] DRUG SCREEN, URINE, 2020-01-31 05:38:00 Deborah [facility] BASIC METABOLIC PANEL (7) 2020-01-31 05:37:00 Deborah Go Gr [facility] CBC W/PLT COUNT & AUTO 2020-01-31 05:37:00 Deborah [facility] 2D ECHO W/ DOPPLER 2020-01-31 00:18:[address] [facility] (CW/PW/COLOR) [facility] REPORT OF PROCEDURE - 2020-01-30 16:42:00 Provider, [facility] ENDOSCOPY SCAN Scanning [facility] REPORT OF PROCEDURE - 2020-01-30 16:41:56 Provider, [facility] ENDOSCOPY SCAN Scanning [facility] BASIC METABOLIC PANEL (7) 2020-01-30 08:38:00 Go Cabrera [facility] LIPID PANEL 2020-01-30 08:38:00 Go Cabrera [facility] CBC W/PLT COUNT & AUTO 2020-01-30 08:38:00 Go Cabrera [facility] MR BRAIN WITHOUT IV 2020-01-29 21:40:[address] [facility] ECG 12-LEAD 2020-01-29 19:18:00 Unknown, Hl7 [facility] TROPONIN I 2020-01-29 19:07:00 Go Cabrera [facility] HEMOGLOBIN A1C 2020-01-29 19:07:00 Go Cabrera [facility] RPR 2020-01-29 19:07:00 Go Cabrera [facility] ECG 12-LEAD 2020-01-29 09:19:47 Deborah Golizbeth Mcgrath [facility] BASIC METABOLIC PANEL (7) 2020-01-29 04:12:[address] [facility] TROPONIN I 2020-01-29 04:12:00 Chichi Washburn [facility] CBC W/PLT COUNT & AUTO 2020-01-29 04:12:00 Chichi Washburn [facility] TROPONIN I 2020-01-29 03:02:00 Chichi Washburn [facility] TROPONIN I 2020-01-29 00:31:00 Kwasi [facility] TROPONIN I 2020-01-28 22:59:00 [facility] 2020-01-28 22:59:00 Kwasi [facility] SARS-COV2/RT-PCR ([facility] & 2020-01-28 22:22:[address] [facility] - REF LABS) [facility] TSH/FREE T4 IF INDICATED 2020-01-28 19:14:00 Liam Benito [facility] VITAMIN B12 AND FOLATE 2020-01-28 19:14:00 Kwasi [facility] TROPONIN I 2020-01-28 19:13:00 Kwasi [facility] HEMOGLOBIN A1C 2020-01-28 19:13:00 Kwasi [facility] XR CHEST 1 VIEW 2020-01-28 18:42:00 Kwasi [facility]/BEDSIDE [facility] URINALYSIS W/ REFLEX 2020-01-28 18:35:00 Liam Benito [facility] - URINE CULTURE [facility] CTA BRAIN 2020-01-28 18:31:00 Bria [facility] CT/CTA CAROTID 2020-01-28 18:31:00 [facility] CT CEREBRAL PERFUSION 2020-01-28 18:31:00 [facility] B-TYPE NATRIURETIC FACTOR 2020-01-28 18:20:00 [facility] (BNP) [facility] CBC W/PLT COUNT & AUTO 2020-01-28 18:20:00 [facility] DIFFERENTIAL [facility] TROPONIN I 2020-01-28 18:19:00 Kwasi [facility] PROTHROMBIN TIME/INR 2020-01-28 18:19:00 Kwasi [facility] APTT 2020-01-28 18:19:00 Kwasi [facility] BASIC METABOLIC PANEL (7) 2020-01-28 18:19:00 Kwasi [facility] LIPID PANEL 2020-01-28 18:19:00 Liam Benito [facility] ECG 12-LEAD 2020-01-28 17:54:50 Unknown, Hl7 Doctor CHRISTI Spicer [facility] CT BRAIN/STROKE TEST 2020-01-28 17:45:00 Liam Benito [facility] Plan of Care Planned Activity Planned Date Details Comments Source Future Scheduled 2020-02-[address] [facility] - Test 00:00:00 (#1) [code = [facility] INFLUENZA VACCINE (#1)] Future Scheduled 2019-06-[address] [facility] Test 00:00:00 (WELCOME TO [facility] MEDICARE) [code = Medicare IPPE (WELCOME TO MEDICARE)] Future Scheduled [address] [facility] - Test 00:00:00 malignant neoplasm Medical C enter of breast (procedure) [code = 444452661] Future Scheduled [address] [facility] - Test 00:00:00 malignant neoplasm Medical C enter of colon (procedure) [code = 660665723] Results Test Description Test Time Test Comments Results Result [facility] e Comments ECG 12 lead 2020-01-17 Interface, External [facility] 9 Ris In - 02/04/2020 - Med ical 07:24:36 7:24 AM Center CDTVentricular Rate 64 BPMAtrial Rate 64 BPMP-R Interval 164 msQRS Duration 82 msQ-T Interval 410 msQTC Calculation(Bazett) 422 msP [place] 70 degreesR [place] 66 degreesT [place] 95 degreesNormal sinus rhythmT wave abnormality, consider anterior ischemiaAbnormal ECGWhen compared with ECG of 29-JAN-2020 19:18,Nonspecific ST abnormality improved in the Inferior leadsConfirmed by Shanice LEAVITT MICHAEL ([id number]) on 02/04/2020 7:24:32 AM Basic Metabolic Panel 2020-02-01 07:01:00 Test Item Value Reference Range Interpretation Comme nts Sodium (test code = 139 meq/L 699-826 2016-2) Potassium (test code = 4.5 meq/L 3.5-5.1 2823-3) Chloride (test code = 111 meq/L 98-107 H 5-0) CO2 (test code = 2028-9) 20 meq/L 22-29 L BUN (test code = 3094-0) 18 mg/dL 7-21 Creatinine (test code = 0.92 mg/dL 0.57-1.25 2160-0) Glucose (test code = 91 mg/dL 70-105 2345-7) Calcium (test code = 8.8 mg/dL 8.4-10.2 58552-9) EGFR (test code = 81371-8) 60 mL/min/1.73 sq m ESTIMATED GFR IS NOT ACCURATE CREATININE CARLINE ARI IN PREDICTING GLOMERULAR FILT RATION RATE. ESTIMATED GFR IS NOT APPLICAB LE FOR DIALYSIS PATIEN TS. ARA (test code = ARA) Buffing Wheel Former Machine ID - MARY L Lab Interpretation (test Abnormal code = 90041-5) [facility] METABOLIC [id number] 07:01:00 Test Item Value Reference Range Interpretation Comments SODIUM (BEAKER) 139 meq/L 136-145 (test code = 381) POTASSIUM (BEAKER) 4.5 meq/L 3.5-5.1 (test code = 379) CHLORIDE (BEAKER) 111 meq/L 98-107 H (test code = 382) CO2 (BEAKER) (test 20 meq/L 22-29 L code = 355) BLOOD UREA NITROGEN 18 mg/dL 7-21 (BEAKER) (test code = 354) CREATININE (BEAKER) 0.92 mg/dL 0.57-1.25 (test code = 358) GLUCOSE RANDOM 91 mg/dL 70-105 (BEAKER) (test code = 652) CALCIUM (BEAKER) 8.8 mg/dL 8.4-10.2 (test code = 697) EGFR (BEAKER) (test 60 mL/min/1.73 ESTIMA KATHERINE GFR IS code = 1092) sq m NOT ACCURATE CREATININE CLEARANCE IN PREDICTING GLOMERULAR FILTRATION RATE . ESTIMATED GFR I S NOT APPLICABLE FOR DIALYSIS PATIEN TS. Buffing Wheel Former Machine ID - MARY LCBC with platelet count + automated [id number] 05:54:00 Test Item Value Reference Range Interpretation Comments WBC (test code = 6690-2) 8.2 3.5- 10.5 K/L RBC (test code = 789-8) 3.31 3.93- 5.22 M/L L MCHC (test code = 786-4) 32.3 32.2- 35.5 GM/DL L Hematocrit (test code = 4544-3) 32.2 % 34.1-44.9 L MCV (test code = 787-2) 97.3 fL 79.4-94.8 H MCH (test code = 785-6) 31.4 pg 25.6-32.2 RDW (test code = 788-0) 14.1 % 11.7-14.4 Platelets (test code = 777-3) 193 150- 450 K/CU MM MPV (test code = 93976-6) 10.1 fL 9.4-12.3 nRBC (test code = 413) 0 0- 0 /100 WBC % Neutros (test code = 429) 65 % % Lymphs (test code = 430) 27 % % Monos (test code = 431) 8 % % Eos (test code = 432) 0 % % Baso (test code = 437) 0 % # Neutros (test code = 670) 5.29 1.56- 6.13 K/L # Lymphs (test code = 414) 2.17 1.18- 3.74 K/L # Monos (test code = 415) 0.66 0.24- 0.36 K/L H # Eos (test code = 416) 0.00 0.04- 0.36 K/L L # Baso (test code = 417) 0.02 0.01- 0.08 K/L Immature Granulocytes-Relative 0 % 0-1 (test code = 2801) Lab Interpretation (test code = Abnormal 02947-3) [facility] W/PLT COUNT & AUTO [id number] 05:54:00 Test Item Value Reference Range Interpretation Comments WHITE BLOOD CELL COUNT (BEAKER) 8.2 K/ L 3.5-10.5 (test code = 775) RED BLOOD CELL COUNT (BEAKER) 3.31 M/ L 3.93-5.22 L (test code = 761) HEMOGLOBIN (BEAKER) (test code = 10.4 GM/DL 11.2-15.7 L 410) HEMATOCRIT (BEAKER) (test code = 32.2 % 34.1-44.9 L 411) MEAN CORPUSCULAR VOLUME (BEAKER) 97.3 fL 79.4-94.8 H (test code = 753) MEAN CORPUSCULAR HEMOGLOBIN 31.4 pg 25.6-32.2 (BEAKER) (test code = 751) MEAN CORPUSCULAR HEMOGLOBIN CONC 32.3 GM/DL 32.2-35.5 (BEAKER) (test code = 752) RED CELL DISTRIBUTION WIDTH 14.1 % 11.7-14.4 (BEAKER) (test code = 412) PLATELET COUNT (BEAKER) (test 193 K/CU MM 150-450 code = 756) MEAN PLATELET VOLUME (BEAKER) 10.1 fL 9.4-12.3 (test code = 754) NUCLEATED RED BLOOD CELLS 0 /100 WBC 0-0 (BEAKER) (test code = 413) NEUTROPHILS RELATIVE PERCENT 65 % (BEAKER) (test code = 429) LYMPHOCYTES RELATIVE PERCENT 27 % (BEAKER) (test code = 430) MONOCYTES RELATIVE PERCENT 8 % (BEAKER) (test code = 431) EOSINOPHILS RELATIVE PERCENT 0 % (BEAKER) (test code = 432) BASOPHILS RELATIVE PERCENT 0 % (BEAKER) (test code = 437) NEUTROPHILS ABSOLUTE COUNT 5.29 K/ L 1.56-6.13 (BEAKER) (test code = 670) LYMPHOCYTES ABSOLUTE COUNT 2.17 K/ L 1.18-3.74 (BEAKER) (test code = 414) MONOCYTES ABSOLUTE COUNT (BEAKER) 0.66 K/ L 0.24-0.36 H (test code = 415) EOSINOPHILS ABSOLUTE COUNT 0.00 K/ L 0.04-0.36 L (BEAKER) (test code = 416) BASOPHILS ABSOLUTE COUNT (BEAKER) 0.02 K/ L 0.01-0.08 (test code = 417) IMMATURE GRANULOCYTES-RELATIVE 0 % 0-1 PERCENT (BEAKER) (test code = 2801) Transthoracic 2D echo w/ doppler (cw/pw/color)2020-01-31 14:32:01Ejection FractionSLE ECHO HEARTLAB MKCKESSON CPACSInterface, External Ris In - 01/31/2020 2:32 PM CDTTransthoracic Echocardiography Report (TTE) Demographics Patient Name CHUCK WHITTEN Dateof Study 01/31/2020 XENIA Gender Female Visit Number [id number] Race Unknown Room Number 2219 Number Date of 1945 Referring Physician Liam Benito Age 74 year(s) Director 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 [...] systolic PA pressure; inadequate TR velocity signal. 3. Mild aortic regurgitation. Previous Study No prior exam available for comparison. Signature Findings Left Ventricle The left ventricle is chamber size (by vol index) is normal (female - LVED vol - 29-61ml/m2). N ormal LV wall thickness. All of the LV segments contract normally . Global LV systolic function normal . LVEF by Valdivia's method ofdisk assessment is normal (>60%) . The LVEF was measured using Valdivia's bi- plane method of disk . Grade 1 diastolic dysfunction (impaired relaxation and low-normal LA pressure). Normal (cardiac index 2-3 L/min/m2) cardiac output state at rest is noted. Left Atrium LA size is normal (16-34 ml/m2) . Right Ventricle The right ventricular chamber size and systolic function are within normal limits. Right Atrium RA cavity size is normal . Aortic Valve Mild AoV cusp thickening. Mild aortic regurgitation. Mitral Valve Normal MV structure. Trace mitral regurgitation. Tricuspid Valve TV structure is normal. Unable to estimate peak systolic PA pressure; inadequate TR velocity signal. Pulmonic Valve PV is not well visualized; function appears normal by Doppler visualized. Aorta Aortic root size (SInus of Valsalva diameter) is normal . Pericardium No significant pericardial effusion isvisualized. IVC/SVC/PA/PV/Pleural The right upper pulmonary vein (RUPV) [...] LVOT CO: 4.31 l/min LVOT CI: 2.6 l/min/m^2[facility] METABOLIC [id number] 06:59:00 Test Item Value Reference Range Interpretation Comments SODIUM (BEAKER) 140 meq/L 136-145 (test code = 381) POTASSIUM (BEAKER) 4.6 meq/L 3.5-5.1 (test code = 379) CHLORIDE (BEAKER) 109 meq/L 98-107 H (test code = 382) CO2 (BEAKER) (test 22 meq/L 22-29 code = 355) BLOOD UREA NITROGEN 19 mg/dL 7-21 (BEAKER) (test code = 354) CREATININE (BEAKER) 1.08 mg/dL 0.57-1.25 (test code = 358) GLUCOSE RANDOM 84 mg/dL 70-105 (BEAKER) (test code = 652) CALCIUM (BEAKER) 9.4 mg/dL 8.4-10.2 (test code = 697) EGFR (BEAKER) (test 50 mL/min/1.73 ESTIMA KATHERINE GFR IS code = 1092) sq m NOT ACCURATE CREATININE CLEARANCE IN PREDICTING GLOMERULAR FILTRATION RATE . ESTIMATED GFR I S NOT APPLICABLE FOR DIALYSIS PATIEN TS. Buffing Wheel Former Machine ID - NITO [facility] W/PLT COUNT & AUTO [id number] 06:38:00 Test Item Value Reference Range Interpretation Comments WHITE BLOOD CELL COUNT (BEAKER) 7.6 K/ L 3.5-10.5 (test code = 775) RED BLOOD CELL COUNT (BEAKER) 3.49 M/ L 3.93-5.22 L (test code = 761) HEMOGLOBIN (BEAKER) (test code = 10.9 GM/DL 11.2-15.7 L 410) HEMATOCRIT (BEAKER) (test code = 33.7 % 34.1-44.9 L 411) MEAN CORPUSCULAR VOLUME (BEAKER) 96.6 fL 79.4-94.8 H (test code = 753) MEAN CORPUSCULAR HEMOGLOBIN 31.2 pg 25.6-32.2 (BEAKER) (test code = 751) MEAN CORPUSCULAR HEMOGLOBIN CONC 32.3 GM/DL 32.2-35.5 (BEAKER) (test code = 752) RED CELL DISTRIBUTION WIDTH 14.2 % 11.7-14.4 (BEAKER) (test code = 412) PLATELET COUNT (BEAKER) (test 214 K/CU MM 150-450 code = 756) MEAN PLATELET VOLUME (BEAKER) 10.3 fL 9.4-12.3 (test code = 754) NUCLEATED RED BLOOD CELLS 0 /100 WBC 0-0 (BEAKER) (test code = 413) NEUTROPHILS RELATIVE PERCENT 63 % (BEAKER) (test code = 429) LYMPHOCYTES RELATIVE PERCENT 29 % (BEAKER) (test code = 430) MONOCYTES RELATIVE PERCENT 8 % (BEAKER) (test code = 431) EOSINOPHILS RELATIVE PERCENT 0 % (BEAKER) (test code = 432) BASOPHILS RELATIVE PERCENT 0 % (BEAKER) (test code = 437) NEUTROPHILS ABSOLUTE COUNT 4.75 K/ L 1.56-6.13 (BEAKER) (test code = 670) LYMPHOCYTES ABSOLUTE COUNT 2.23 K/ L 1.18-3.74 (BEAKER) (test code = 414) MONOCYTES ABSOLUTE COUNT (BEAKER) 0.59 K/ L 0.24-0.36 H (test code = 415) EOSINOPHILS ABSOLUTE COUNT 0.00 K/ L 0.04-0.36 L (BEAKER) (test code = 416) BASOPHILS ABSOLUTE COUNT (BEAKER) 0.01 K/ L 0.01-0.08 (test code = 417) IMMATURE GRANULOCYTES-RELATIVE 0 % 0-1 PERCENT (BEAKER) (test code = 2801) [id number] 14:58:00 Test Item Value Reference Range Interpretation Comments RPR (test code = 05283-3) Nonreactive Nonreactive Lab Interpretation (test code = Normal 96771-8) [facility]:58[facility]00 Test Item Value Reference Range Interpretation Comments RPR SCREEN (BEAKER) (test code = Nonreactive Nonreactive 420) Fasting lipid [id number] 09:36:00 Test Item Value Reference Range Interpretation Comments Triglycerides (test 102 mg/dL code = 2571-8) Cholesterol (test code 145 mg/dL = 2093-3) HDL (test code = 45 mg/dL 5-9) LDL Calculated (test 80 mg/dL code = 10865-7) ARA (test code = ARA) Triglyceride Reference Range: Low Risk <150 Borderline 150-199 High Risk 200-499 Very High Risk >=500 Cholesterol Reference Range: Low Risk <200 Borderline 200-239 High Risk >240 HDL Cholesterol Reference Range: Low Risk >=60 High Risk <40 LDL Cholesterol Reference Range: Optimal <100 Near Optimal 100-129 Borderline 130-159 High 160-189 Very High >=190 Buffing Wheel Former Machine ID - RAKESH Gee [facility] [id number] 09:36:00 Test Item Value Reference Range Interpretation Comments TRIGLYCERIDES (BEAKER) (test code = 102 mg/dL 540) CHOLESTEROL (BEAKER) (test code = 145 mg/dL 631) HDL CHOLESTEROL (BEAKER) (test code 45 mg/dL = 976) LDL CHOLESTEROL CALCULATED (BEAKER) 80 mg/dL (test code = 633) Triglyceride Reference Range: Low Risk <150 Borderline 150-199 High Risk 200-499 Very High Risk >=500Cholesterol Reference Range: Low Risk <200 Borderline 200-239 High Risk >240HDL Cholesterol Reference Range: Low Risk >=60 High Risk <40LDL Cholesterol Reference Range: Optimal <100 Near Optimal 100-129 Borderline 130-159 High 160-189 Very High >=190 Buffing Wheel Former Machine ID - RAKESH [facility] METABOLIC [id number] 09:36:00 Test Item Value Reference Range Interpretation Comments SODIUM (BEAKER) 137 meq/L 136-145 (test code = 381) POTASSIUM (BEAKER) 4.1 meq/L 3.5-5.1 (test code = 379) CHLORIDE (BEAKER) 108 meq/L 98-107 H (test code = 382) CO2 (BEAKER) (test 21 meq/L 22-29 L code = 355) BLOOD UREA NITROGEN 19 mg/dL 7-21 (BEAKER) (test code = 354) CREATININE (BEAKER) 1.05 mg/dL 0.57-1.25 (test code = 358) GLUCOSE RANDOM 84 mg/dL 70-105 (BEAKER) (test code = 652) CALCIUM (BEAKER) 9.5 mg/dL 8.4-10.2 (test code = 697) EGFR (BEAKER) (test 52 mL/min/1.73 ESTIMA KATHERINE GFR IS code = 1092) sq m NOT ACCURATE CREATININE CLEARANCE IN PREDICTING GLOMERULAR FILTRATION RATE . ESTIMATED GFR I S NOT APPLICABLE FOR DIALYSIS PATIEN TS. Buffing Wheel Former Machine ID - JUN CCBC W/PLT COUNT & AUTO [id number] 09:19:00 Test Item Value Reference Range Interpretation Comments WHITE BLOOD CELL COUNT (BEAKER) 8.2 K/ L 3.5-10.5 (test code = 775) RED BLOOD CELL COUNT (BEAKER) 3.53 M/ L 3.93-5.22 L (test code = 761) HEMOGLOBIN (BEAKER) (test code = 11.3 GM/DL 11.2-15.7 410) HEMATOCRIT (BEAKER) (test code = 33.5 % 34.1-44.9 L 411) MEAN CORPUSCULAR VOLUME (BEAKER) 94.9 fL 79.4-94.8 H (test code = 753) MEAN CORPUSCULAR HEMOGLOBIN 32.0 pg 25.6-32.2 (BEAKER) (test code = 751) MEAN CORPUSCULAR HEMOGLOBIN CONC 33.7 GM/DL 32.2-35.5 (BEAKER) (test code = 752) RED CELL DISTRIBUTION WIDTH 14.3 % 11.7-14.4 (BEAKER) (test code = 412) PLATELET COUNT (BEAKER) (test 235 K/CU MM 150-450 code = 756) MEAN PLATELET VOLUME (BEAKER) 10.2 fL 9.4-12.3 (test code = 754) NUCLEATED RED BLOOD CELLS 0 /100 WBC 0-0 (BEAKER) (test code = 413) NEUTROPHILS RELATIVE PERCENT 70 % (BEAKER) (test code = 429) LYMPHOCYTES RELATIVE PERCENT 22 % (BEAKER) (test code = 430) MONOCYTES RELATIVE PERCENT 8 % (BEAKER) (test code = 431) EOSINOPHILS RELATIVE PERCENT 0 % (BEAKER) (test code = 432) BASOPHILS RELATIVE PERCENT 0 % (BEAKER) (test code = 437) NEUTROPHILS ABSOLUTE COUNT 5.69 K/ L 1.56-6.13 (BEAKER) (test code = 670) LYMPHOCYTES ABSOLUTE COUNT 1.79 K/ L 1.18-3.74 (BEAKER) (test code = 414) MONOCYTES ABSOLUTE COUNT (BEAKER) 0.66 K/ L 0.24-0.36 H (test code = 415) EOSINOPHILS ABSOLUTE COUNT 0.00 K/ L 0.04-0.36 L (BEAKER) (test code = 416) BASOPHILS ABSOLUTE COUNT (BEAKER) 0.02 K/ L 0.01-0.08 (test code = 417) IMMATURE GRANULOCYTES-RELATIVE 0 % 0-1 PERCENT (BEAKER) (test code = 2801) Hemoglobin [id number] 08:12:00 Test Item Value Reference Range Interpretation Comments Hemoglobin A1C (test code = 4548-4) 5.0 % 4.3-6.1 Lab Interpretation (test code = Normal 35984-6) [facility] [id number] 08:12:00 Test Item Value Reference Range Interpretation Comments HEMOGLOBIN A1C (BEAKER) (test code = 5.0 % 4.3-6.1 368) MR, BRAIN, WITHOUT [id number] 21:54:00Left sided weakness, c/f strokeUnlisted Reason for Exam - Click Yes and Enter Reason Below->NoFINAL REPORT MRI Brain without contrast CLINICAL HISTORY: Facial pain or sensory abnormality, mastication muscle weakness (CN 5) Technique: MRI of the brain utilizing axial T2, FLAIR, GRE, DWI; sagittal and coronal T1-weighted images. Comparisons: None Findings:Nonspecific T2 FLAIR hyperintensities typical of chronic microangiopathy ischemic changes present.There is no evidenceof acute infarct or hemorrhage. There is no hydrocephalus or midline shift. There are no extra-axialfluid collections. The craniocervical junction is preserved. The major intracranial flow-voids appear patent. Heterogeneous marrow signal suggests osseous demineralization. High- resolution images through the skull base were not obtained but the visualized portions of the trigeminal nerves and Meckel'scave demonstrate no gross asymmetry. IMPRESSION: No evidence of acute infarct, hemorrhage, or hydroce phalus. Moderate chronic microvascular ischemic changes. Signed: Wilberto Durán MDReport Verified Date/Time: 01/29/2020 21:54:29 MRI brain without contrast 2020-01-29 21:54:00Interface, External Ris In - 01/29/2020 9:56 PM CDTFINAL REPORT MRI Brain without contrast CLINICAL HISTORY: Facial pain or sensory abnormality, mastication muscle weakness (CN 5) Technique: MRI of the brain utilizing axial T2, FLAIR, GRE, DWI; sagittal and coronal T1-weighted images. Comparisons: None Findings:Nonspecific T2 FLAIR hyperintensities typical of chronic microangiopathy ischemic changes present.There is no evidence of acute infarct or hemorrhage. There is no hydro cephalus or midline shift. There are no extra-axial fluid collections. The craniocervical junction is preserved. The major intracranial flow-voids appear patent. Heterogeneous marrow signal suggests osseous demineralization. High- resolution images through the skull base were not obtained but the visualized portions of the trigeminal nerves and Meckel's cave demonstrate no gross asymmetry. IMPRESSION:No evidence of acute infarct, hemorrhage, or hydrocephalus. Moderate chronic microvascular ischemic changes. Signed: Wilberto Durán MDReport Verified Date/Time: 01/29/2020 21:54:29 [facility] [id number] 20:02:00 Test Item Value Reference Range Interpretation Comments Troponin I (test code = 0.07 ng/mL 0-0.03 H 29735-1) ARA (test code = ARA) Troponin I (TnI) levels must be interpreted in the context of the presenting symptoms and the clinical findings. Elevated TnI levels indicate myocardial damage, but are not specific for ischemic heart disease. Elevated TnI levels are seen in patients with other cardiac conditions (including myocarditis and congestive heart failure), and slight TnI elevations occur in patients with other conditions, including sepsis, renal failure, acidosis, acute neurological disease, and persistent tachyarrhythmia.Opera tor ID - DB Lab Interpretation (test Abnormal code = 76510-2) [facility] [id number] 20:02:00 Test Item Value Reference Range Interpretation Comments TROPONIN I (BEAKER) (test code = 0.07 ng/mL 0.00-0.03 H 397) Troponin I (TnI) levels must be interpreted in the context of the presenting symptoms and the clinical findings. Elevated TnI levels indicate myocardial damage, but are not specific for ischemic heart disease. Elevated TnI levels are seen in patients with other cardiac conditions (including myocarditis and congestive heart failure), and slight TnI elevations occur in patients with other conditions, including sepsis, renal failure, acidosis, acute neurological disease, and persistent tachyarrhythmia.Buffing Wheel Former Machine ID - DBHEMOGLOBIN [id number] 09:51:00 Test Item Value Reference Range Interpretation Comments HEMOGLOBIN A1C (BEAKER) (test code = 5.2 % 4.3-6.1 368) TROPONIN [id number] 04:52:00 Test Item Value Reference Range Interpretation Comments TROPONIN I (BEAKER) (test code = 0.06 ng/mL 0.00-0.03 H 397) Troponin I (TnI) levels must be interpreted in the context of the presenting symptoms and the clinical findings. Elevated TnI levels indicate myocardial damage, but are not specific for ischemic heart disease. Elevated TnI levels are seen in patients with other cardiac conditions (including myocarditis and congestive heart failure), and slight TnI elevations occur in patients with other conditions, including sepsis, renal failure, acidosis, acute neurological disease, and persistent tachyarrhythmia.Buffing Wheel Former Machine ID - EDASIBASIC METABOLIC PANEL 2020-01-29 04:44:00 Test Item Value Reference Range Interpretation Comments SODIUM (BEAKER) 139 meq/L 136-145 (test code = 381) POTASSIUM (BEAKER) 3.5 meq/L 3.5-5.1 (test code = 379) CHLORIDE (BEAKER) 114 meq/L 98-107 H (test code = 382) CO2 (BEAKER) (test 14 meq/L 22-29 L code = 355) BLOOD UREA NITROGEN 19 mg/dL 7-21 (BEAKER) (test code = 354) CREATININE (BEAKER) 0.83 mg/dL 0.57-1.25 (test code = 358) GLUCOSE RANDOM 77 mg/dL 70-105 (BEAKER) (test code = 652) CALCIUM (BEAKER) 8.3 mg/dL 8.4-10.2 L (test code = 697) EGFR (BEAKER) (test 68 mL/min/1.73 ESTIMA KATHERINE GFR IS code = 1092) sq m NOT ACCURATE CREATININE CLEARANCE IN PREDICTING GLOMERULAR FILTRATION RATE . ESTIMATED GFR I S NOT APPLICABLE FOR DIALYSIS PATIEN TS. Buffing Wheel Former Machine ID - EDASICBC W/PLT COUNT & AUTO [id number] 04:24:00 Test Item Value Reference Range Interpretation Comments WHITE BLOOD CELL COUNT (BEAKER) 7.0 K/ L 3.5-10.5 (test code = 775) RED BLOOD CELL COUNT (BEAKER) 3.16 M/ L 3.93-5.22 L (test code = 761) HEMOGLOBIN (BEAKER) (test code = 10.0 GM/DL 11.2-15.7 L 410) HEMATOCRIT (BEAKER) (test code = 30.9 % 34.1-44.9 L 411) MEAN CORPUSCULAR VOLUME (BEAKER) 97.8 fL 79.4-94.8 H (test code = 753) MEAN CORPUSCULAR HEMOGLOBIN 31.6 pg 25.6-32.2 (BEAKER) (test code = 751) MEAN CORPUSCULAR HEMOGLOBIN CONC 32.4 GM/DL 32.2-35.5 (BEAKER) (test code = 752) RED CELL DISTRIBUTION WIDTH 14.1 % 11.7-14.4 (BEAKER) (test code = 412) PLATELET COUNT (BEAKER) (test 200 K/CU MM 150-450 code = 756) MEAN PLATELET VOLUME (BEAKER) 9.8 fL 9.4-12.3 (test code = 754) NUCLEATED RED BLOOD CELLS 0 /100 WBC 0-0 (BEAKER) (test code = 413) NEUTROPHILS RELATIVE PERCENT 71 % (BEAKER) (test code = 429) LYMPHOCYTES RELATIVE PERCENT 22 % (BEAKER) (test code = 430) MONOCYTES RELATIVE PERCENT 8 % (BEAKER) (test code = 431) EOSINOPHILS RELATIVE PERCENT 0 % (BEAKER) (test code = 432) BASOPHILS RELATIVE PERCENT 0 % (BEAKER) (test code = 437) NEUTROPHILS ABSOLUTE COUNT 4.94 K/ L 1.56-6.13 (BEAKER) (test code = 670) LYMPHOCYTES ABSOLUTE COUNT 1.51 K/ L 1.18-3.74 (BEAKER) (test code = 414) MONOCYTES ABSOLUTE COUNT (BEAKER) 0.53 K/ L 0.24-0.36 H (test code = 415) EOSINOPHILS ABSOLUTE COUNT 0.01 K/ L 0.04-0.36 L (BEAKER) (test code = 416) BASOPHILS ABSOLUTE COUNT (BEAKER) 0.01 K/ L 0.01-0.08 (test code = 417) IMMATURE GRANULOCYTES-RELATIVE 0 % 0-1 PERCENT (BEAKER) (test code = 2801) TROPONIN [id number] 03:40:00 Test Item Value Reference Range Interpretation Comments TROPONIN I (BEAKER) (test code = 0.05 ng/mL 0.00-0.03 H 397) Troponin I (TnI) levels must be interpreted in the context of the presenting symptoms and the clinical findings. Elevated TnI levels indicate myocardial damage, but are not specific for ischemic heart disease. Elevated TnI levels are seen in patients with other cardiac conditions (including myocarditis and congestive heart failure), and slight TnI elevations occur in patients with other conditions, including sepsis, renal failure, acidosis, acute neurological disease, and persistent tachyarrhythmia.Buffing Wheel Former Machine ID - EDSRAVAN [id number] 02:33:00 Test Item Value Reference Range Interpretation Comments TROPONIN I (BEAKER) (test code = 0.07 ng/mL 0.00-0.03 H 397) Troponin I (TnI) levels must be interpreted in the context of the presenting symptoms and the clinical findings. Elevated TnI levels indicate myocardial damage, but are not specific for ischemic heart disease. Elevated TnI levels are seen in patients with other cardiac conditions (including myocarditis and congestive heart failure), and slight TnI elevations occur in patients with other conditions, including sepsis, renal failure, acidosis, acute neurological disease, and persistent tachyarrhythmia.Buffing Wheel Former Machine ID - EDASISARS-CoV2/RT-PCR (Symptomatic ONLY)2020-01-29 00:04:00 Test Item Value Reference Range Interpretation Comments SARS-COV2/RT-PCR Negative Not Detected, (test code = Negative, See 74093-3) external report for linked test SARS-COV-2 [facility] (test code = 12081-3) ARA (test code = Negative results do not ARA) preclude SARS-CoV-2 infection and should not be used as [...] of the Act. Fact Sheet for Healthcare Providers:https://www.[employer]/Documents/Xper t%20Xpress%20SARS%20CoV- 2/Fact%20Sheets/3023802 %02IBRX-QZY-8%20HEALTHCA RE%20PROVIDERS%20FACT%20 SHEET.pdf Fact Sheet for Healthcare Patients:https://www.[employer]/Documents/Xpert %20Xpress%20SARS%20CoV-2 /Fact%20Sheets/3023801% 54DWKU-DJO-7%20PATIENT%2 0FACT%20SHEET.pdf Performing Laboratory:[facility], [place] [address] [place], [place] [address]ARS-COV2/RT-PCR ([facility])2020-01-29 00:04:00 Test Item Value Reference Range Interpretation Comments SARS-COV2/RT-PCR (test code Negative Not Detected, Negative, = 3644243) See external report for linked test SARS-COV-[address] [facility] (test code = 2581597) Negative results do not preclude SARS-CoV-2 infection and should not be used as the sole basis for patient management decisions. Negative results must be combined with clinical observations, patient history, and epidemiological information. A false negative result may occur if a specimen is improperly collected, transported or handled.The limit of detection for this assay is 250 copies/mL.This SARS CoV-2 test is a rapid, real-time RT-PCR test intended for the qualitative detection of nucleic acid from SARS-CoV-2 in a nasopharyngeal swab specimen collected from individuals suspected of COVID-19 by their healthcare provider.This test has not been Food and Drug [...] is revoked under Section 564(g) of the Act.Fact Sheet for Healthcare Pro viders:https://www.[employer]/Documents/Xpert%20Xpress%20SARS%20CoV-2/Fact%20Sh eets/302-3802%88PXFE-ICI-9%20HEALTHCARE%20PROVIDERS%20FACT%20SHEET.pdfFact Sheet for Healthcare Patients:https://www.[facility]/Documents/Xpert%20Xpress%20SARS%20CoV-2/Fact%20Sheets/302-3801%20SARS-COV -2%20PATIENT%20FACT%20SHEET.pdfPerforming Laboratory:[facility], [place] [address]WC/[id number] 23:50:00 Test Item Value Reference Range Interpretation Comments Protime (test code = 13.9 11.9- 14.2 5902-2) seconds INR (test code = 1.10 <=5.90 6301-6) PTT (test code = <20.0 22.5- 36.0 L 81788-7) seconds ARA (test code = ARA) Effective 11/13/2018: PT Reference Range ChangeNew: 11.9-14.2 Previous: 11.7-14.7 RECOMMENDED COUMADIN/WARFARIN INR THERAPY RANGESSTANDARD DOSE: 2.0-3.0 Includes: PROPHYLAXIS for venous thrombosis, systemic embolization; TREATMENT for venous thrombosis and/or pulmonary embolus.HIGH RISK: Target INR is 2.5-3.5 for patients wiht mechanical heart valves. Lab Interpretation Abnormal (test code = 25549-0) [id number] 23:50:00 Test Item Value Reference Range Interpretation Comments PROTIME (BEAKER) (test code = 13.9 seconds 11.9-14.2 759) INR (BEAKER) (test code = 370) 1.10 <=5.90 PARTIAL THROMBOPLASTIN TIME < seconds 22.5-36.0 L (BEAKER) (test code = 760) Effective 11/13/2018: PT Reference Range ChangeNew: 11.9-14.2 Previous: 11.7- 14.7RECOMMENDED COUMADIN/WARFARIN INR THERAPY RANGESSTANDARD DOSE: 2.0-3.0 Includes: PROPHYLAXIS for venous thrombosis, systemic embolization; TREATMENT for venous thrombosis and/or pulmonary embolus.HIGH RISK: Target INR is2.5-3.5 for patients wiht mechanical heart valves.TROPONIN [id number] 23:42:00 Test Item Value Reference Range Interpretation Comments TROPONIN I (BEAKER) (test code = 0.07 ng/mL 0.00-0.03 H 397) Troponin I (TnI) levels must be interpreted in the context of the presenting symptoms and the clinical findings. Elevated TnI levels indicate myocardial damage, but are not specific for ischemic heart disease. Elevated TnI levels are seen in patients with other cardiac conditions (including myocarditis and congestive heart failure), and slight TnI elevations occur in patients with other conditions, including sepsis, renal failure, acidosis, acute neurological disease, and persistent tachyarrhythmia.Buffing Wheel Former Machine ID - ASVitamin B12 and Folate 2020-01-28 21:32:00 Test Item Value Reference Range Interpretation Comments Vitamin B12 (test code = 473 pg/mL 198-878 3755-9) Folate (test code = 9.30 ng/mL >=7.00 2284-8) ARA (test code = ARA) [employer] Wheel Former Machine ID - RAKESH C Lab Interpretation (test Normal code = 68487-2) [facility] AND [id number] 21:32:00 Test Item Value Reference Range Interpretation Comments VITAMIN B12 (BEAKER) (test code = 473 pg/mL 213-816 774) FOLATE (BEAKER) (test code = 362) 9.30 ng/mL >=7.00 [employer] Wheel Former Machine ID - RAKESH CTSH/Free T4 If [id number] 20:01:00 Test Item Value Reference Range Interpretation Comments TSH (test code = 43619-1) 0.644 0.350- 4.940 uIU/mL ARA (test code = ARA) Buffing Wheel Former Machine ID - Lab Interpretation (test Normal code = 83722-7) [facility] T4 IF [id number] 20:01:00 Test Item Value Reference Range Interpretation Comments THYROID STIMULATING HORMONE 0.644 uIU/mL 0.350-4.940 (BEAKER) (test code = 772) [employer] Wheel Former Machine ID - ASTROPONIN [id number] 19:47:00 Test Item Value Reference Range Interpretation Comments TROPONIN I (BEAKER) (test code = 0.06 ng/mL 0.00-0.03 H 397) Troponin I (TnI) levels must be interpreted in the context of the presenting symptoms and the clinical findings. Elevated TnI levels indicate myocardial damage, but are not specific for ischemic heart disease. Elevated TnI levels are seen in patients with other cardiac conditions (including myocarditis and congestive heart failure), and slight TnI elevations occur in patients with other conditions, including sepsis, renal failure, acidosis, acute neurological disease, and persistent tachyarrhythmia.Buffing Wheel Former Machine ID - ASLIPID [id number] 19:40:00 Test Item Value Reference Range Interpretation Comments TRIGLYCERIDES (BEAKER) (test code = 198 mg/dL 540) CHOLESTEROL (BEAKER) (test code = 180 mg/dL 631) HDL CHOLESTEROL (BEAKER) (test code 52 mg/dL = 976) LDL CHOLESTEROL CALCULATED (BEAKER) 88 mg/dL (test code = 633) Triglyceride Reference Range: Low Risk <150 Borderline 150-199 High Risk 200-499 Very High Risk >=500Cholesterol Reference Range: Low Risk <200 Borderline 200-239 High Risk >240HDL Cholesterol Reference Range: Low Risk >=60 High Risk <40LDL Cholesterol Reference Range: Optimal <100 Near Optimal 100-129 Borderline 130-159 High 160-189 Very High >=190 Buffing Wheel Former Machine ID - ASRAD, CHEST, 1 VIEW, NON [id number] 19:12:00Reason for exam:->c/f mental status changes, r/o precipitant of CVAFINAL REPORT Chest, 1 view. History: Mental status change. Comparison: None available. Discussion: The trachea is midline. The lungs are symmetrically expanded without evidenceof focal consolidation, pneumothorax, or significant pleural effusion. The cardiomediastinal silhouette and pulmonary vasculature are within normal limits. No acute osseous abnormalities identified. The soft tissues are unremarkable. IMPRESSION: No acute cardiopulmonary process identified. Signed: Gerardo Flores Verified Date/Time: 01/28/2020 19:12:50 Reading Location: [address] Consult Reading Room XR chest 1 view portable / [id number] 19:12:00Interface, External Ris In - 01/28/2020 7:14 PM CDTFINAL REPORT Chest, 1 view. History: Mental status change. Comparison: None available. Discussion: The trachea is midline. The lungs are symmetrically expanded without evidence of focal consolidation, pneumothorax, or significant pleural effusion. The cardiomediastinal silhouette and pulmonary vasculature are within normal limits. No acute osseous abnormalities identified. The soft tissues are unremarkable. IMPRESSION: No a cute cardiopulmonary process identified. Signed: Gerardo Flores MDRdaianaort Verified Date/Time: 01/28/2020 19:12:50 Reading Location: [address] Consult Reading Room [facility] (BNP)2020-01-28 19:03:00 Test Item Value Reference Range Interpretation Comments BNP (test code = 76612-0) 199 pg/mL 0-100 H ARA (test code = ARA) Buffing Wheel Former Machine ID - RAKESH Gee Lab Interpretation (test Abnormal code = 60322-5) [facility] NAT[facility] (BNP)2020-01-28 19:03:00 Test Item Value Reference Range Interpretation Comments B-TYPE NATRIURETIC PEPTIDE (BEAKER) 199 pg/mL 0-100 H (test code = 700) Buff[employer] Wheel Former Machine ID - RAKESH GARLAND [id number] 19:02:00 Test Item Value Reference Range Interpretation Comments TROPONIN I (BEAKER) (test code = 0.05 ng/mL 0.00-0.03 H 397) Troponin I (TnI) levels must be interpreted in the context of the presenting symptoms and the clinical findings. Elevated TnI levels indicate myocardial damage, but are not specific for ischemic heart disease. Elevated TnI levels are seen in patients with other cardiac conditions (including myocarditis and congestive heart failure), and slight TnI elevations occur in patients with other conditions, including sepsis, renal failure, acidosis, acute neurological disease, and persistent tachyarrhythmia.Buffing Wheel Former Machine ID - RAKESH CUrinalysis w/Microscopic + Reflex to [id number] 19:01:00 Test Item Value Reference Range Interpretation Comments Color, UA (test code = Yellow 5778-6) Clarity, UA (test code = Hazy 5767-9) Specific Sunset, UA >1.050 1.001-1.035 H (test code = 5811-5) pH, UA (test code = 5.5 5.0-8.0 5803-2) Protein, UA (test code = 10 mg/dL Negative A 83184-4) Glucose, UA (test code = Negative Negative 365) Ketones, UA (test code = Negative Negative 2514-8) Bilirubin, UA (test code Negative Negative = 07343-2) Blood, UA (test code = Moderate Negative A 69292-1) Nitrite, UA (test code = Negative Negative 5802-4) Leukocytes, UA (test code Small Negative A = 5799-2) Urobilinogen, UA (test 0.2 mg/dL 0.2-1 code = 68352-1) RBC, UA (test code = 30 /HPF 51337-4) WBC, UA (test code = 3 /HPF 5821-4) Bacteria, UA (test code = Occasional 36396-2) Mucus (test code = Rare 8247-9) Squam Epithel, UA (test 21 /HPF code = 99967-6) Yeast (test code = Occasional 35412-3) Specimen Source (test code = 2795) ARA (test code = ARA) Buffing Wheel Former Machine ID - [auto]Buffing Wheel Former Machine ID - tech Lab Interpretation (test Abnormal code = 45295-8) [facility]LEX URINE [id number] 19:01:00 Test Item Value Reference Range Interpretation Comments COLOR (BEAKER) (test code = 470) Yellow CLARITY (BEAKER) (test code = 469) Hazy SPECIFIC GRAVITY UA (BEAKER) (test > 1.001-1.035 H code = 468) PH UA (BEAKER) (test code = 467) 5.5 5.0-8.0 PROTEIN UA (BEAKER) (test code = 10 mg/dL Negative A 464) GLUCOSE UA (BEAKER) (test code = Negative Negative 365) KETONES UA (BEAKER) (test code = Negative Negative 371) BILIRUBIN UA (BEAKER) (test code = Negative Negative 462) BLOOD UA (BEAKER) (test code = Moderate Negative A 461) NITRITE UA (BEAKER) (test code = Negative Negative 465) LEUKOCYTE ESTERASE UA (BEAKER) Small Negative A (test code = 466) UROBILINOGEN UA (BEAKER) (test 0.2 mg/dL 0.2-1.0 code = 463) RBC UA (BEAKER) (test code = 519) 30 /HPF WBC UA (BEAKER) (test code = 520) 3 /HPF BACTERIA (BEAKER) (test code = Occasional 517) MUCUS (BEAKER) (test code = 1574) Rare SQUAMOUS EPITHELIAL (BEAKER) (test 21 /HPF code = 516) YEAST (BEAKER) (test code = 1585) Occasional SOURCE(BEAKER) (test code = 3560) [employer]ing Wheel Former Machine ID - [auto]Buffing Wheel Former Machine ID - techBASIC METABOLIC [id number] 19:00:00 Test Item Value Reference Range Interpretation Comments SODIUM (BEAKER) (test 135 meq/L 136-145 L code = 381) POTASSIUM (BEAKER) 4.1 meq/L 3.5-5.1 (test code = 379) CHLORIDE (BEAKER) 105 meq/L 98-107 (test code = 382) CO2 (BEAKER) (test 22 meq/L 22-29 code = 355) BLOOD UREA NITROGEN 27 mg/dL 7-21 H (BEAKER) (test code = 354) CREATININE (BEAKER) 1.17 mg/dL 0.57-1.25 (test code = 358) GLUCOSE RANDOM 90 mg/dL 70-105 (BEAKER) (test code = 652) CALCIUM (BEAKER) 9.6 mg/dL 8.4-10.2 (test code = 697) EGFR (BEAKER) (test INSUFFIC IENT CLINICAL code = 1092) DATA TO CALCULA TE ESTIMATED GFR. Buffing Wheel Former Machine ID - RAKESH CProthrombin time/[id number] 18:42:00 Test Item Value Reference Range Interpretation Comments Protime (test code = 14.0 11.9- 14.2 5902-2) seconds INR (test code = 1.11 <=5.90 6301-6) ARA (test code = ARA) Effective 11/13/2018: PT Reference Range ChangeNew: 11.9-14.2 Previous: 11.7-14.7 RECOMMENDED COUMADIN/WARFARIN INR THERAPY RANGESSTANDARD DOSE: 2.0-3.0 Includes: PROPHYLAXIS for venous thrombosis, systemic embolization; TREATMENT for venous thrombosis and/or pulmonary embolus.HIGH RISK: Target INR is 2.5-3.5 for patients wiht mechanical heart valves. Lab Interpretation Normal (test code = 85924-5) [facility]TT2020-[facility] 18:42:00 Test Item Value Reference Range Interpretation Comments PTT (test code = 55635-7) 22.4 22.5- 36.0 seconds L Lab Interpretation (test code = Abnormal 09504-3) [facility]PROTHROMBIN [facility]/[id number] 18:42:00 Test Item Value Reference Range Interpretation Comments PROTIME (BEAKER) (test code = 14.0 seconds 11.9-14.2 759) INR (BEAKER) (test code = 370) 1.11 <=5.90 Effective 11/13/2018: PT Reference Range ChangeNew: 11.9-14.2 Previous: 11.7- 14.7RECOMMENDED COUMADIN/WARFARIN INR THERAPY RANGESSTANDARD DOSE: 2.0-3.0 Includes: PROPHYLAXIS for venous thrombosis, systemic embolization; TREATMENT for venous thrombosis and/or pulmonary embolus.HIGH RISK: Target INR is2.5-3.5 for patients wiht mechanical heart valves.[id number] 18:42:00 Test Item Value Reference Range Interpretation Comments PARTIAL THROMBOPLASTIN TIME 22.4 seconds 22.5-36.0 L (BEAKER) (test code = 760) CT, CTANGIO [id number] 18:37:00Reason for exam:->Symptoms onset less than 6 hours and NIHSS [address], CAROTID, ANGIO, CT, CTANGIO BRAIN, CT, CEREBRAL PERFUSION ANALYSIS INDICATION: TIA, initial examSymptoms onset less than 6 hours and NIHSS 6 or greater COMPARISON: Same day noncontrast CT head TECHNIQUE: Rapid acquisition spiral images were obtained between theaortic arch and the cranial vertex during intravenous contrast infusion to reconstruct axial images and angiographic 3D maximum intensity projections (MIP) .Three dimensional reformatted images were created at a dedicated workstation. Precontrast images of the brain were also obtained. Perfusion imaging technique:Arterial input function: ACAVenous outflow function: TorcularSite of normal perfusion: right anterior territory Stenosis evaluation reported in compliance with NASCET criteria. DOSE REDUCTION: Dose modulation, iterative reconstruction, and/or weight-based adjustment of the mA/kV was utilized to reduce the radiation dose to as low as reasonably achievable. FINDINGS:CTA head:There is no CT evidence of acute infarct or hemorrhage. There is no hydrocephalus or midline shift. The skull is intact. No intracranial aneurysm, focal stenosis, or proximal branch vessel occlusion. The major intradural venous sinuses are patent. CTA neck:Great vessel origins: No occlusion or high-grade stenosis.Carotid arteries: No occlusion or high-grade stenosis. Vertebral arteries: Moderate stenosis of theright vertebral origin. Remainder of the vertebral arteries are of normal course and caliber. Mild de generative changes of the cervical spine. Cervical soft tissues are unremarkable. Visualized lung apices are clear. CT PERFUSION PARAMETRIC MAPS: CBF: SymmetricCBV: SymmetricMTT: SymmetricTTP: Symmetric IMPRESSION: 1.No proximal branch arterial occlusion or high-grade focal stenosis within the circl e of [place].2.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 Signed: Irlanda Liriano Verified Date/Time: 01/28/2020 18:37:33 CT, CAROTID, [id number] 18:37:00Reason for exam:- >Symptoms onset less than 6 hours and NIHSS [address], CAROTID, ANGIO, CT, CTANGIO BRAIN, CT, CEREBRAL PERFUSION AN ALYSIS INDICATION: TIA, initial examSymptoms onset less than 6 hours and NIHSS 6 or greater COMPARISON: Same day noncontrast CT head TECHNIQUE: Rapid acquisition spiral images were obtained between theaortic arch and the cranial vertex during intravenous contrast infusion to reconstruct axial images and angiographic 3D maximum intensity projections (MIP) .Three dimensional reformatted images were created at a dedicated workstation. Precontrast images of the brain were also obtained. Perfusion imaging technique:Arterial input function: ACAVenous outflow function: TorcularSite of normal perfusion: right anterior territory Stenosis evaluation reported in compliance with NASCET criteria. DOSE REDUCTION: Dose modulation, iterative reconstruction, and/or weight-based adjustment of the mA/kV was utilized to reduce the radiation dose to as low as reasonably achievable. FINDINGS:CTA head:There is no CT evidence of acute infarct or hemorrhage. There is no hydrocephalus or midline shift. The skull is intact. No intracranial aneurysm, focal stenosis, or proximal branch vessel occlusion. The major intradural venous sinuses are patent. CTA neck:Great vessel origins: No occlusion or high-grade stenosis.Carotid arteries: No occlusion or high-grade stenosis. Vertebral arteries: Moderate stenosis of theright vertebral origin. Remainder of the vertebral arteries are of normal course and caliber. Mild degenerative changes of the cervical spine. Cervical soft tissues are unremarkable. Visualized lung apices are clear. CT PERFUSION PARAMETRIC MAPS: CBF: SymmetricCBV: SymmetricMTT: SymmetricTTP: Symmetric IMPRESSION: 1.No proximal branch arterial occlusion or high-grade focal stenosis within the [place].2.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 Signed: Irlanda Liriano Verified Date/Time: 01/28/2020 18:37:33 CT, CEREBRAL PERFUSION [id number] 18:37:00Reason for exam:->Symptom onset less than 6 hours and NIHSS [address], CAROTID, ANGIO, CT, CTANGIO BRAIN, CT, CEREBRAL PERFUSION ANALYSIS INDICATION: TIA, initial examSymptoms onset less than 6 hours and NIHSS 6 or greater COMPARISON: Same day noncontrast CT head TECHNIQUE: Rapid acquisition spiral images were obtained between the aortic arch and the cranial vertex during intravenous contrast infusion to reconstruct axial images and angiographic 3D maximum intensity projections (MIP) .Three dimensional reformatted images were created at a dedicated workstation. Precontrast images of the brain were also obtained. Perfusion imaging technique:Arterial input function: ACAVenous outflow function: TorcularSite of normal perfusion: right anterior territory Stenosis evaluation reported in compliance with NASCET criteria. DOSE REDUCTION: Dose modulation, iterative reconstruction, and/or weight-based adjustment of the mA/kV was utilized to reduce the radiation dose to as low as reasonably achievable. FINDINGS:CTA head:There is no CT evidence of acute infarct or hemorrhage. There is no hydrocephalus or midline shift. The skull is intact. No intracranial aneurysm, focal stenosis, or proximal branch vessel occlusion. The major intradural venous sinuses are patent. CTA neck:Great vessel origins: No occlusion or high- grade stenosis.Carotid arteries: No occlusion or high-grade stenosis. Vertebral arteries: Moderate stenosis of theright vertebral origin. Remainder of the vertebral arteries are of normal course and caliber. Mild degenerative changes of the cervical spine. Cervical soft tissues are unremarkable. Visualized lung apices are clear. CT PERFUSION PARAMETRIC MAPS: CBF: SymmetricCBV: SymmetricMTT: SymmetricTTP: Symmetric IMPRESSION: 1.No proximal branch arterial occlusion or high-grade focal stenosis within the [place].2.Moderate focal stenosis of the right vertebral origin.3.No significant stenosis of the carotid arteries per NASCET criteria.4.Symmetric perfusion indices. Signed: Irlanda Liriano MDReport Verified Date/Time: 01/28/2020 18:37:33 CTA [id number] 18:37:00Interface, External Ris In - 01/28/2020 6:[address], CAROTID,ANGIO, CT, CTANGIO BRAIN, CT, CEREBRAL PERFUSION ANALYSIS INDICATION: TIA, initial examSymptoms onset less than 6 hours and NIHSS 6 or greater COMPARISON: Same day noncontrast CT head TECHNIQUE: Rapidacquisition spiral images were obtained between the aortic arch and the cranial vertex during intravenous contrast infusion to reconstruct axial images and angiographic 3D maximum intensity projections(MIP) .Three dimensional reformatted images were created at a dedicated workstation. Precontrast images of the brain were also obtained. Perfusion imaging technique:Arterial input function: ACAVenous outflow function: TorcularSite of normal perfusion: right anterior territory Stenosis evaluation reported in compliance with NASCET criteria. DOSE REDUCTION: Dose modulation, iterative reconstruction, and/or weight-based adjustment of the mA/kV was utilized to reduce the radiation dose to as low as reasonably achievable. FINDINGS:CTA head:There is no CT evidence of acute infarct or hemorrhage. There isno hydrocephalus or midline shift. The skull is intact. No intracranial aneurysm, focal stenosis, or proximal branch vessel occlusion. The major intradural venous sinuses are patent. CTA neck:Great vessel origins: No occlusion or high- grade stenosis. Carotid arteries: No occlusion or high-grade stenosis. Vertebral arteries: Moderate stenosis of the right vertebral origin. Remainder of the vertebral arteries are of normal course and caliber. Mild degenerative changes of the cervical spine. Cervical soft tissues are unremarkable. Visualized lung apices are clear. CT PERFUSION PARAMETRIC MAPS: CBF: SymmetricCBV: SymmetricMTT: SymmetricTTP: Symmetric IMPRESSION: 1.No proximal branch arterial occlusion or high-grade focal stenosis within the [place].2.Moderate focal stenosis of the right vertebral origin.3.No significant stenosis of the carotid arteries per NASCET criteria.4.Symmetricperfusion indices. Signed: Irlanda Liriano [facility] Verified Date/Time: 01/28/2020 18:37:33 [facility] 2020-01-28 18:37:00Interface, External Ris In - 01/28/2020 6:[address], CAROTID,ANGIO, CT, CTANGIO BRAIN, CT, CEREBRAL PERFUSION ANALYSIS INDICATION: TIA, initial examSymptoms onset less than 6 hours and NIHSS 6 or greater COMPARISON: Same day noncontrast CT head TECHNIQUE: Rapidacquisition spiral images were obtained between the aortic arch and the cranial vertex during intravenous contrast infusion to reconstruct axial images and angiographic 3D maximum intensity projections(MIP) .Three dimensional reformatted images were created at a dedicated workstation. Precontrast images of the brain were also obtained. Perfusion imaging technique:Arterial input function: ACAVenous outflow function: TorcularSite of normal perfusion: right anterior territory Stenosis evaluation reported in compliance with NASCET criteria. DOSE REDUCTION: Dose modulation, iterative reconstruction, and/or weight-based adjustment of the mA/kV was utilized to reduce the radiation dose to as low as reasonably achievable. FINDINGS:CTA head:There is no CT evidence of acute infarct or hemorrhage. There isno hydrocephalus or midline shift. The skull is intact. No intracranial aneurysm, focal stenosis, or proximal branch vessel occlusion. The major intradural venous sinuses are patent. CTA neck:Great vessel origins: No occlusion or high- grade stenosis. Carotid arteries: No occlusion or high-grade stenosis. Vertebral arteries: Moderate stenosis of the right vertebral origin. Remainder of the vertebral arteries are of normal course and caliber. Mild degenerative changes of the cervical spine. Cervical soft tissues are unremarkable. Visualized lung apices are clear. CT PERFUSION PARAMETRIC MAPS: CBF: SymmetricCBV: SymmetricMTT: SymmetricTTP: Symmetric IMPRESSION: 1.No proximal branch arterial occlusion or high-grade focal stenosis within the [place].2.Moderate focal stenosis of the right vertebral origin.3.No significant stenosis of the carotid arteries per NASCET criteria.4.Symmetricperfusion indices. Signed: Irlanda Liriano MDRzoe Verified Date/Time: 01/28/2020 18:37:33 [facility] [id number] 18:37:00Interface, External Ris In - 01/28/2020 6:[address], CAROTID,ANGIO, CT, CTANGIO BRAIN, CT, CEREBRAL PERFUSION ANALYSIS INDICATION: TIA, initial examSymptoms onset less than 6 hours and NIHSS 6 or greater COMPARISON: Same day noncontrast CT head TECHNIQUE: Rapidacquisition spiral images were obtained between the aortic arch and the cranial vertex during intravenous contrast infusion to reconstruct axial images and angiographic 3D maximum intensity projections(MIP) .Three dimensional reformatted images were created at a dedicated workstation. Precontrast images of the brain were also obtained. Perfusion imaging technique:Arterial input function: ACAVenous outflow function: TorcularSite of normal perfusion: right anterior territory Stenosis evaluation reported in compliance with NASCET criteria. DOSE REDUCTION: Dose modulation, iterative reconstruction, and/or weight-based adjustment of the mA/kV was utilized to reduce the radiation dose to as low as reasonably achievable. FINDINGS:CTA head:There is no CT evidence of acute infarct or hemorrhage. There isno hydrocephalus or midline shift. The skull is intact. No intracranial aneurysm, focal stenosis, or proximal branch vessel occlusion. The major intradural venous sinuses are patent. CTA neck:Great vessel origins: No occlusion or high-grade stenosis. Carotid arteries: No occlusion or high-grade stenosis. Vertebral arteries: Moderate stenosis of the right vertebral origin. Remainder of the vertebral arteries are of normal course and caliber. Mild degenerative changes of the cervical spine. Cervical soft tissues are unremarkable. Visualized lung apices are clear. CT PERFUSION PARAMETRIC MAPS: CBF: SymmetricCBV: SymmetricMTT: SymmetricTTP: Symmetric IMPRESSION: 1.No proximal branch arterial occlusion or high-grade focal stenosis within the [place].2.Moderate focal stenosis of the right vertebral origin.3.No significant stenosis of the carotid arteries per NASCET criteria.4.Symmetric perfusion indices. Signed: Irlanda Liriano Verified Date/Time: 01/28/2020 18:37:33 [facility] W/PLT COUNT & AUTO [id number] 18:35:00 Test Item Value Reference Range Interpretation Comments WHITE BLOOD CELL COUNT (BEAKER) 10.5 K/ L 3.5-10.5 (test code = 775) RED BLOOD CELL COUNT (BEAKER) 4.01 M/ L 3.93-5.22 (test code = 761) HEMOGLOBIN (BEAKER) (test code = 12.5 GM/DL 11.2-15.7 410) HEMATOCRIT (BEAKER) (test code = 38.8 % 34.1-44.9 411) MEAN CORPUSCULAR VOLUME (BEAKER) 96.8 fL 79.4-94.8 H (test code = 753) MEAN CORPUSCULAR HEMOGLOBIN 31.2 pg 25.6-32.2 (BEAKER) (test code = 751) MEAN CORPUSCULAR HEMOGLOBIN CONC 32.2 GM/DL 32.2-35.5 (BEAKER) (test code = 752) RED CELL DISTRIBUTION WIDTH 14.2 % 11.7-14.4 (BEAKER) (test code = 412) PLATELET COUNT (BEAKER) (test 254 K/CU MM 150-450 code = 756) MEAN PLATELET VOLUME (BEAKER) 9.6 fL 9.4-12.3 (test code = 754) NUCLEATED RED BLOOD CELLS 0 /100 WBC 0-0 (BEAKER) (test code = 413) NEUTROPHILS RELATIVE PERCENT 74 % (BEAKER) (test code = 429) LYMPHOCYTES RELATIVE PERCENT 17 % (BEAKER) (test code = 430) MONOCYTES RELATIVE PERCENT 9 % (BEAKER) (test code = 431) EOSINOPHILS RELATIVE PERCENT 0 % (BEAKER) (test code = 432) BASOPHILS RELATIVE PERCENT 0 % (BEAKER) (test code = 437) NEUTROPHILS ABSOLUTE COUNT 7.71 K/ L 1.56-6.13 H (BEAKER) (test code = 670) LYMPHOCYTES ABSOLUTE COUNT 1.80 K/ L 1.18-3.74 (BEAKER) (test code = 414) MONOCYTES ABSOLUTE COUNT (BEAKER) 0.89 K/ L 0.24-0.36 H (test code = 415) EOSINOPHILS ABSOLUTE COUNT 0.00 K/ L 0.04-0.36 L (BEAKER) (test code = 416) BASOPHILS ABSOLUTE COUNT (BEAKER) 0.01 K/ L 0.01-0.08 (test code = 417) IMMATURE GRANULOCYTES-RELATIVE 0 % 0-1 PERCENT (BEAKER) (test code = 2801) CT, BRAIN/STROKE [id number] 17:59:00Reason for exam:->cvaWhat is the patient's sedation requirement?->No SedationFINAL REPORT CT, BRAIN/STROKE PROTOCOL INDICATION: Ataxia, stroke suspectedcva TECHNIQUE: Noncontrast axial imaging was obtained from the vertex to the skull base. Axial images were reconstructed using a bone algorithm. DOSE REDUCTION: Dose modulation, iterative reconstruction, and/or weight-based adjustment of the mA/kV was utilized to reduce the radiation dose to as low as reasonably achievable. COMPARISON: None. FINDINGS: Intracranial: No intracranial hemorrhage or abnormalextra-axial collection. No evidence of acute territorial infarct. No mass effect. No hydrocephalus. Osseous structures: No fracture. No suspicious lesion. Paranasal sinuses and mastoid air cells: No evidence of sinusitis. Mastoids are clear. Orbital contents: Globes are intact. IMPRESSION: No acute intracranial hemorrhage or CT evidence of territorial infarct. If there is persistent clinical concern for intracranial pathology, MR examination is recommended for further characterization. The ED is currently not excepting incoming phone calls. Addendum will be made to this report upon successful communication with the ordering physician. Signed: Irlanda Liriano Verified Date/Time: 01/28/202017:59:44 CT brain/stroke [id number] 17:59:00Interface, External Ris In - 01/28/2020 6:[address], BRAIN/STROKE PROTOCOL INDICATION: Ataxia, stroke suspectedcva TECHNIQUE: Noncontrast axial imaging was obtained from the vertex to the skull base. Axial images were reconstructed using a bone algorithm. DOSE REDUCTION: Dose modulation, iterative reconstruction, and/or weight-based adjustment of the mA/kV was utilized to reduce the radiation dose to as low as reasonably achievable. COMPARISON: None. FINDINGS: Intracranial: No intracranial hemorrhage or abnormal extra-axial collection. No evidence of acute territorial infarct. No mass effect. No hydrocephalus. Osseous structures: No fracture. No suspicious lesion. Paranasal sinuses and mastoid air cells: No evidence of sinusitis. Mastoids are clear. Orbital contents: Globes are intact. IMPRESSION: No acute intracranial hemorrhage or CT evidence of territorial infarct. If there is persistent clinical concern for intracranial pathology, MR examination is recommended for further characterization. The ED is currently not excepting incoming phone calls. Addendum will be made to this report upon successful communication with the ordering physician. Signed: Irlanda Liriano Verified Date/Time: 01/28/2020 17:59:44 [facility]
--- NOTE | 2020-05-04 09:23 | RAD REPORT ---
EXAM DESCRIPTION: CT - Head Brain Wo Cont - 05/04/2020 9:02 am CLINICAL HISTORY: CONFUSED, transient alteration of awareness COMPARISON: No comparisons TECHNIQUE: Axial 5 mm thick images of the head were obtained without IV contrast. All CT scans are performed using dose optimization technique as appropriate and may include automated exposure control or mA/KV adjustment according to patient size. FINDINGS: No intracranial hemorrhage, mass, edema or shift of mid-line structures. No acute infarcti on changes seen. No abnormal extra-axial fluid collections. Mild atrophy and mild to moderate chronic ischemic changes are present. Ventricular size is in proportion. Mastoid air cells and visualized portions of the paranasal sinuses are clear. No acute bony findings. IMPRESSION: No acute intracranial finding identified. Atrophy and chronic ischemic changes are present chronic ischemic change potentially masking nonhemor rhagic acute CVA.
[2020-05-04] MEDS ORDERED: NA CHLORIDE 0.9% 500 ML ONE (09:46)
[2020-05-04 09:47] LABS: Absolute Lymphocytes (CBC) 0.8 K/uL (0.7-4.9); Hematocrit 32.2 % (36.0-45.0); Lymphocytes % 7.6 % (15.3-44.8); MPV 9.3 fL (7.6-11.3); RBC Red Blood Cell Count 3.45 M/uL (3.86-4.86)
[2020-05-04 09:51] LABS: Protime INR 1.01
[2020-05-04 10:22] LABS: Albumin 2.7 g/dL (3.4-5.0); Bilirubin Direct 0.4 mg/dL (0-0.2); CKMB Creatine Kinase MB 1.8 ng/mL (0.3-3.6); Potassium 3.8 mmol/L (3.5-5.1); Protein, Total 7.1 g/dL (6.4-8.2); Troponin (Emerg Dept Use Only) 0.02 ng/mL (0.0-0.045)
--- NOTE | 2020-05-04 10:28 | RAD REPORT ---
EXAM DESCRIPTION: RAD - Chest Single View - 05/04/2020 9:44 am CLINICAL HISTORY: AMS COMPARISON: Chest exam December 2019 TECHNIQUE: AP portable chest image was obtained 05/04/2020 9:44 am . FINDINGS: Fibrotic lung pattern is present accentuated by shallow inspiration. No peripheral mass or consolidation. No failure or volume overload findings. Heart and vasculature are normal. No measurab le pleural effusion and no pneumothorax. No acute bony abnormality seen. No acute aortic findings rosa pected. IMPRESSION: No acute cardiopulmonary process. Chronic fibrotic lung pattern matches the December comparison.
[2020-05-04 11:15] LABS: Urine Bacteria 20-50 /HPF (<20)
[2020-05-04 11:16] LABS: Urine Amorphous Sediment 3+ /HPF (NONE SEEN); Urine Culture Reflex Order REFLEXED
[2020-05-04 12:19] LABS: Urine Blood 2+ (NEG); Urine Glucose NEGATIVE (NEG); Urine Protein 2+ (NEG); Urine pH 5.5 (5.0-7.0)
--- NOTE | 2020-05-04 12:26 | RAD REPORT ---
EXAM DESCRIPTION: MRI - Brain W/Wo Cont - 05/04/2020 11:53 am CLINICAL HISTORY: CONFUSED COMPARISON: Brain W/Wo Cont dated 09/10/2019; Head Brain Wo Cont dated 05/04/2020 TECHNIQUE: Sagittal and axial T1-weighted images were obtained. Axial PD/heavily T2-weighted and T2- FLAIR images were obtained along with axial DWI/ADC mapping sequences. Coronal heavily T2 weighted s equence obtained. Axial and coronal post-contrast T1-weighted images were also obtained. A 12 ml Mul tihance contrast following utilized. FINDINGS: No intracranial hemorrhage, mass or acute infarction. There is no edema or shift of midli ne structures. No extra-axial fluid collections. Mcgrath-matter/white matter junction is preserved. Sig nal voids are seen as a normal finding in the major intracranial vessels. Patient has mild to moderat e atrophy. Ventricles are in proportion 2 that volume loss. Prominent chronic ischemic changes are pr esent throughout the cerebral white matter and [place]. Thalamus and basal ganglia involvement is minima l. Post-contrast images show normal enhancement. No dural thickening. Mastoid air cells and paranasal sinuses are clear. IMPRESSION: No infarction or acute intracranial finding. Prominent cerebral white matter and brainstem chronic ischemic changes with mild to moderate atrophy. Ventricles are in proportion to the volume loss.
[2020-05-04] MEDS ORDERED: CEFTRIAXONE/SWI 1gm 1 GM/10 ML SYR ONE (13:10)
--- NOTE | 2020-05-04 13:36 | EDPHYS ---
Physician Documentation [facility] Name: Savana Martin Age: 75 yrs Sex: Female : 1945 Arrival Date: 05/04/2020 Time: 08:17 Bed 5 Private MD: ED Physician Tigre Mercado HPI: 05/04 17:25 This 75 yrs old Female presents to ER via Ambulatory with complaints of kdr Confusion, Won't Eat. 17:25 Daughter states that the patient has been more confused the last three days and that kdr she is not eating. 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 Onset: The symptoms/episode began/occurred gradually, 3 day(s) ago. Severity of symptoms: At their worst the symptoms were mild in the emergency department the symptoms are unchanged. The patient has experienced similar episodes in the past, a few times. The patient has not recently seen a physician. Historical: - Allergies: 08:40 Cipro; hb - Home Meds: 08:40 gabapentin oral oral [Active]; quetiapine oral oral [Active]; Fish Oil oral oral hb [Active]; hydroxychloroquine oral oral [Active]; atorvastatin oral oral [Active]; Atenolol Oral [Active]; levothyroxine oral [Active]; Vitamin D3 oral oral [Active]; Vitamin E Oral [Active]; venlafaxine oral oral [Active]; aspirin 81 mg Oral chew [Active]; - PMHx: 08:40 Back pain; Dementia; hb - PSHx: 08:40 Back Surgery; hb - Immunization history:: Adult Immunizations up to date. - Social history:: Smoking status: Patient denies any tobacco usage or history of. ROS: 17:25 Constitutional: Negative for fever, chills, and weight loss, Eyes: Negative for injury, kdr pain, redness, and discharge, ENT: Negative for injury, pain, and discharge, Neck: Negative for injury, pain, and swelling, Cardiovascular: Negative for chest pain, palpitations, and edema, Respiratory: Negative for shortness of breath, cough, wheezing, and pleuritic chest pain, Abdomen/GI: Negative for abdominal pain, nausea, vomiting, diarrhea, and constipation, Back: Negative for injury and pain, : Negative for injury, bleeding, discharge, and swelling, MS/Extremity: Negative for injury and deformity, Skin: Negative for injury, rash, and discoloration, Psych: Negative for depression, anxiety, suicide ideation, homicidal ideation, and hallucinations, Allergy/Immunology: Negative for hives, rash, and allergies, Endocrine: Negative for neck swelling, polydipsia, polyuria, polyphagia, and marked weight changes, Hematologic/Lymphatic: Negative for swollen nodes, abnormal bleeding, and unusual bruising. 17:25 Neuro: Positive for altered mental status, Poor feeding. Exam: 10:29 ECG was reviewed by the Attending Physician. kdr 17:25 Constitutional: This is a well developed, well nourished patient who is awake, alert, kdr and in no acute distress. Head/Face: Normocephalic, atraumatic. Eyes: Pupils equal round and reactive to light, extra-ocular motions intact. Lids and lashes normal. Conjunctiva and sclera are non-icteric and not injected. Cornea within normal limits. Periorbital areas with no swelling, redness, or edema. Neck: Trachea midline, no thyromegaly or masses palpated, and no cervical lymphadenopathy. Supple, full range of motion without nuchal rigidity, or vertebral point tenderness. No Meningismus. Chest/axilla: Normal chest wall appearance and motion. Nontender with no deformity. No lesions are appreciated. Cardiovascular: Regular rate and rhythm with a normal S1 and S2. No gallops, murmurs, or rubs. Normal PMI, no JVD. No pulse deficits. Respiratory: Lungs have equal breath sounds bilaterally, clear to auscultation and percussion. No rales, rhonchi or wheezes noted. No increased work of breathing, no retractions or nasal flaring. Abdomen/GI: Soft, non-tender, with normal bowel sounds. No distension or tympany. No guarding or rebound. No evidence of tenderness throughout. Back: No spinal tenderness. No costovertebral tenderness. Full range of motion. Skin: Warm, dry with normal turgor. Normal color with no rashes, no lesions, and no evidence of cellulitis. MS/ Extremity: Pulses equal, no cyanosis. Neurovascular intact. Full, normal range of motion. Psych: Awake, alert, with orientation to person, place and time. Behavior, mood, and affect are within normal limits. 17:25 Neuro: Orientation: to person, Not oriented to place, time, situation, Mentation: lucid, able to follow commands, slow to respond, Memory: Not appropriate for age. Vital Signs: 08:35 BP 104 / 68; Pulse 60; Resp 16; Temp 97.8; Pulse Ox 100% on R/A; Pain 0/10; hb 10:00 BP 112 / 70; Pulse 61; Resp 15; Pulse Ox 100% on R/A; hb 11:00 BP 116 / 68; Pulse 60; Resp 14; Pulse Ox 99% on R/A; hb 12:30 BP 127 / 71; Pulse 62; Resp 15; Pulse Ox 99% on R/A; hb 13:45 BP 123 / 83; Pulse 71; Resp 16; Pulse Ox 100% on R/A; hb 15:30 BP 120 / 90; Pulse 68; Resp 17; Pulse Ox 97% on R/A; hb MDM: 13:36 Patient medically screened. kdr 17:25 Data reviewed: vital signs, nurses notes, lab test result(s), radiologic studies. kdr Counseling: I had a detailed discussion with the patient and/or guardian regarding: the historical points, exam findings, and any diagnostic results supporting the discharge/admit diagnosis, lab results, radiology results, the need for further work-up and treatment in the hospital. 05/04 08:47 Order name: Amylase, Serum; Complete Time: 10:41 kdr 05/04 08:47 Order name: Basic Metabolic Panel; Complete Time: 10:41 kdr 05/04 08:47 Order name: Blood Culture Adult (2) kdr 05/04 08:47 Order name: CBC with Diff; Complete Time: 10:14 kdr 05/04 08:47 Order name: Ckmb; Complete Time: 10:41 kdr 05/04 08:47 Order name: CPK; Complete Time: 10:41 kdr 05/04 08:47 Order name: Lactate; Complete Time: 10:14 kdr 05/04 08:47 Order name: LFT's; Complete Time: 10:41 kdr 05/04 08:47 Order name: Lipase; Complete Time: 10:41 kdr 05/04 08:47 Order name: Procalcitonin; Complete Time: 13:29 kdr 05/04 08:47 Order name: Protime (+inr); Complete Time: 10:14 kdr 05/04 08:47 Order name: Ptt, Activated; Complete Time: 10:14 kdr 05/04 08:47 Order name: Troponin (emerg Dept Use Only); Complete Time: 10:41 kdr 05/04 08:47 Order name: Urine Microscopic Only; Complete Time: 13:29 kdr 05/04 08:47 Order name: Chest Single View XRAY; Complete Time: 10:41 kdr 05/04 08:47 Order name: CT Head Brain wo Cont; Complete Time: 10:14 kdr 05/04 10:41 Order name: Urine Dipstick--Ancillary (enter results); Complete Time: 13:29 bd 05/04 11:20 Order name: Urine Culture EDMS 05/04 12:59 Order name: Lactate Sepsis 2 HR Follow-up; Complete Time: 13:29 EDMS 05/04 15:02 Order name: Comprehensive Metabolic Panel EDMS 05/04 15:03 Order name: Comprehensive Metabolic Panel [facility] 05/04 15:03 Order name: Magnesium EDMS 05/04 15:03 Order name: Magnesium EDMS 05/04 15:03 Order name: NT PRO-BNP EDMS 05/04 15:03 Order name: NT PRO-BNP EDMS 05/04 15:03 Order name: Phosphorus EDMS 05/04 15:03 Order name: Phosphorus EDMS 05/04 15:03 Order name: Urinalysis EDMS 05/04 15:03 Order name: CBC with Automated Diff EDMS 05/04 15:03 Order name: CBC with Automated Diff EDMS 05/04 08:47 Order name: Urine Dipstick-Ancillary (obtain specimen): Cath UA; Complete Time: 13:09 kdr 05/04 08:47 Order name: Accucheck; Complete Time: 09:27 kdr 05/04 08:47 Order name: Cardiac monitoring; Complete Time: 09:28 kdr 05/04 08:47 Order name: EKG - Nurse/Tech; Complete Time: 09:55 kdr 05/04 08:47 Order name: IV Saline Lock - Large Bore; Complete Time: 09:27 kdr 05/04 08:47 Order name: Labs collected and sent; Complete Time: 09:27 kdr 05/04 08:47 Order name: O2 Per Protocol; Complete Time: 09:27 kdr 05/04 08:47 Order name: O2 Sat Monitoring; Complete Time: 09:28 kdr 05/04 10:41 Order name: Brain W/Wo Cont; Complete Time: 13:29 EDOH 05/04 15:02 Order name: Physical Therapy Consult EDOH 05/04 15:03 Order name: Heart Healthy EDOH 05/04 15:21 Order name: EKG Electrocardiogram EDMS EC:29 Rhythm is regular, Sinus Rhythm with No ectopy. QRS [place] is Normal. [place] interval is kdr normal. QRS interval is normal. QT interval is normal. Clinical impression: NSR w/ Non-specific ST/T Changes. Administered Medications: 09:40 Drug: NS 0.9% 500 ml Route: IV; Rate: bolus; Site: left antecubital; hb 11:45 Drug: Rocephin - (cefTRIAXone) 1 grams Route: IVPB; Infused Over: 30 mins; Site: left hb antecubital; Disposition: 05/04/20 13:36 Hospitalization ordered by Jose Zuniga for Observation. Preliminary diagnosis are Confusional arousals, Weakness, Adult failure to thrive. - Bed requested for Telemetry/MedSurg (observation). - Status is Observation. bd - Condition is Fair. - Problem is new. - Symptoms are unchanged. Signatures: Dispatcher [employer] EDOH Monica Samuels bd Nery Vilchis RN RN Tigre Mercado MD MD [facility] Gita Mcmillan, MYRON RN Corrections: (The following items were deleted from the chart) 10:41 10:16 Brain With Cont+MRI.RAD.BRZ ordered. [facility] EDOH 16:03 13:36 Hospitalization Ordered by Jose Zuniga MD for Observation. Preliminary dw diagnosis is Confusional arousals; Weakness; Adult failure to thrive. Bed requested for Telemetry/MedSurg (observation). Status is Observation. Condition is Fair. Problem is new. Symptoms are unchanged. kdr 16:34 16:03 05/04/2020 13:36 Hospitalization Ordered by Jose Zuniga MD for Observation. bd Preliminary diagnosis is Confusional arousals; Weakness; Adult failure to thrive. Bed requested for Telemetry/MedSurg (observation). Status is Observation. Condition is Fair. Problem is new. Symptoms are unchanged. dw
--- NOTE | 2020-05-04 13:36 | ER ---
Nurse's Notes [facility] Name: Savana Martin Age: 75 yrs Sex: Female : 1945 Arrival Date: 05/04/2020 Time: 08: Bed 5 Private MD: Diagnosis: Confusional arousals;Weakness;Adult failure to thrive Presentation: 05/04 08:35 Chief complaint: Daughter reports decreased appetite and confusion x 3 days. Pt stated hb she "feels blah.". Coronavirus screen: At this time, the client does not indicate any symptoms associated with coronavirus-19. Ebola Screen: No symptoms or risks identified at this time. Initial Sepsis Screen: Does the patient meet any 2 criteria? No. Patient's initial sepsis screen is negative. Does the patient have a suspected source of infection? No. Patient's initial sepsis screen is negative. Risk Assessment: Do you want to hurt yourself or someone else? Patient reports no desire to harm self or others. Onset of symptoms was May 01, 2020. 08:35 Method Of Arrival: Ambulatory hb 08:35 Acuity: MARGARITO 3 hb Triage Assessment: 08:40 General: Appears in no apparent distress. Behavior is calm, cooperative. Pain: Denies hb pain. EENT: No signs and/or symptoms were reported regarding the EENT system. Neuro: Level of Consciousness is awake, alert, obeys commands, Oriented to person, place. Cardiovascular: Capillary refill < 3 seconds Patient's skin is warm and dry. Respiratory: Respiratory effort is even, unlabored, Respiratory pattern is regular, symmetrical. GI: Parent/caregiver reports the patient having anorexia. : No signs and/or symptoms were reported regarding the genitourinary system. Derm: Skin is pink, warm \\T\\ dry. Musculoskeletal: No signs and/or symptoms reported regarding the musculoskeletal system. Historical: - Allergies: 08:40 Cipro; hb - Home Meds: 08:40 gabapentin oral oral [Active]; quetiapine oral oral [Active]; Fish Oil oral oral hb [Active]; hydroxychloroquine oral oral [Active]; atorvastatin oral oral [Active]; Atenolol Oral [Active]; levothyroxine oral [Active]; Vitamin D3 oral oral [Active]; Vitamin E Oral [Active]; venlafaxine oral oral [Active]; aspirin 81 mg Oral chew [Active]; - PMHx: 08:40 Back pain; Dementia; hb - PSHx: 08:40 Back Surgery; hb - Immunization history:: Adult Immunizations up to date. - Social history:: Smoking status: Patient denies any tobacco usage or history of. Screenin:41 Abuse screen: Denies threats or abuse. Denies injuries from another. Nutritional hb screening: No deficits noted. Tuberculosis screening: No symptoms or risk factors identified. Fall Risk None identified. Assessment: 08:41 General: see triage. hb 09:30 Reassessment: Patient appears in no apparent distress at this time. Patient and/or hb family updated on plan of care and expected duration. Pain level reassessed. 10:26 Reassessment: Patient appears in no apparent distress at this time. Patient and/or hb family updated on plan of care and expected duration. Pain level reassessed. 11:15 Reassessment: Patient appears in no apparent distress at this time. No changes from ph previously documented assessment. Patient and/or family updated on plan of care and expected duration. Pain level reassessed. 11:26 Reassessment: Daughter in law/caregiver Michelle Martin [phone]. ph 12:45 Reassessment: Patient appears in no apparent distress at this time. No changes from hb previously documented assessment. Patient and/or family updated on plan of care and expected duration. Pain level reassessed. 13:45 Reassessment: Patient appears in no apparent distress at this time. No changes from hb previously documented assessment. Patient and/or family updated on plan of care and expected duration. Pain level reassessed. 14:30 Reassessment: Patient appears in no apparent distress at this time. No changes from hb previously documented assessment. Patient and/or family updated on plan of care and expected duration. Pain level reassessed. 15:42 Reassessment: Patient appears in no apparent distress at this time. No changes from hb previously documented assessment. Patient and/or family updated on plan of care and expected duration. Pain level reassessed. Vital Signs: 08:35 BP 104 / 68; Pulse 60; Resp 16; Temp 97.8; Pulse Ox 100% on R/A; Pain 0/10; hb 10:00 BP 112 / 70; Pulse 61; Resp 15; Pulse Ox 100% on R/A; hb 11:00 BP 116 / 68; Pulse 60; Resp 14; Pulse Ox 99% on R/A; hb 12:30 BP 127 / 71; Pulse 62; Resp 15; Pulse Ox 99% on R/A; hb 13:45 BP 123 / 83; Pulse 71; Resp 16; Pulse Ox 100% on R/A; hb 15:30 BP 120 / 90; Pulse 68; Resp 17; Pulse Ox 97% on R/A; hb ED Course: 08:17 Patient arrived in ED. ds1 08:21 Tigre Mercado MD is Attending Physician. kdr 08:35 Gita Mcmillan RN is Primary Nurse. hb 08:36 Triage completed. hb 08:40 Arm band placed on. hb 08:41 Patient has correct armband on for positive identification. Bed in low position. Call hb light in reach. Side rails up X 1. 09:00 Missed attempt(s): 20 gauge in right antecubital area. Bleeding controlled, band aid hb applied, catheter tip intact. 09:03 CT Head Brain wo Cont In Process Unspecified. EDMS 09:26 Inserted saline lock: 22 gauge in left antecubital area, using aseptic technique. Blood ss collected. 09:45 Chest Single View XRAY In Process Unspecified. EDMS 10:27 Placed in gown. Warm blanket given. classroom monitor on. Pulse ox on. NIBP on. mh5 10:27 EKG done, by ED staff, reviewed by Tigre Mercado MD. mh5 11:54 Brain W/Wo Cont In Process Unspecified. EDMS 13:34 Jose Zuniga MD is Hospitalizing Provider. kdr 16:14 No provider procedures requiring assistance completed. Patient admitted, IV remains in hb place. Administered Medications: 09:40 Drug: NS 0.9% 500 ml Route: IV; Rate: bolus; Site: left antecubital; hb 11:45 Drug: Rocephin - (cefTRIAXone) 1 grams Route: IVPB; Infused Over: 30 mins; Site: left hb antecubital; Outcome: 13:36 Decision to Hospitalize by Provider. kdr 16:14 Admitted to Med/surg accompanied by tech, family with patient, via wheelchair, room hb 235, with chart, Report called to Desi SANCHES 16:14 Condition: stable 16:14 Instructed on the need for admit, Demonstrated understanding of instructions. 16:34 Patient left the ED. bd Signatures: Dispatcher [employer] EDMS Monica Samuels Kevin, MD MD kdr Sanford, Demi ds1 Elvie Lopez RN RN ss Hall, Patricia, RN RN ph Baxter, Heather, RN RN hb Martinez, Maria [facility]
[2020-05-04] MEDS ORDERED: ONDANSETRON 4 MG/2 ML VIAL IV PRN (14:59)
[2020-05-04] MEDS ORDERED: ALPRAZOLAM 0.25 MG TABLET PO PRN (14:59)
[2020-05-04] MEDS ORDERED: ACETAMINOPHEN 500 MG TAB PO PRN (14:59)
[2020-05-04] MEDS ORDERED: Magnesium Sulfate 2gm IVPB 2 G/50 ML BAG IV ONE (16:16)
[2020-05-04 16:45] VITALS: BMI 18.6
[2020-05-04] MEDS: NA CHLORIDE 0.9% 1,000 ML IV SCH (17:27)
[2020-05-04] MEDS: ENOXAPARIN 40 MG/0.4 ML SQ SCH (17:27)
[2020-05-04] MEDS: CEFTRIAXONE/SWI 1gm 1 GM/10 ML SYR IVP SCH (21:27)
[2020-05-05 05:07] LABS: Absolute Lymphocytes (CBC) 0.4 K/uL (0.7-4.9); Basophils % 0.1 % (0-1.3); Hematocrit 31.6 % (36.0-45.0); Lymphocytes % 4.6 % (15.3-44.8); MPV 8.9 fL (7.6-11.3); RBC Red Blood Cell Count 3.46 M/uL (3.86-4.86)
[2020-05-05 05:34] LABS: Blood Morphology Comment NOT SEEN (NOT SEEN); Platelet Estimate ADEQ
[2020-05-05 05:51] LABS: Albumin 2.5 g/dL (3.4-5.0); Bilirubin Total 0.7 mg/dL (0.2-1.0); Magnesium 2.2 mg/dL (1.8-2.4); Phosphorus 2.6 mg/dL (2.5-4.9); Potassium 3.7 mmol/L (3.5-5.1); Protein, Total 6.8 g/dL (6.4-8.2)
[2020-05-05] MEDS ORDERED: POTASSIUM 25 MEQ EFFERV TAB PO ONE (06:35)
[2020-05-05] MEDS: NA CHLORIDE 0.9% 1,000 ML IV SCH ×3 (06:52→21:00)
--- NOTE | 2020-05-05 07:19 | EKG ---
Test Date: 2020-05-04 Test Time: 09:47:06 Conference Translator: MARITZA MEASUREMENT RESULTS: Intervals: Rate: 70 IN: 150 QRSD: 82 QT: 368 QTc: 397 [place]: P: 64 IN: 150 QRS: 75 T: 73 INTERPRETIVE STATEMENTS: Normal sinus rhythm RSR' or QR pattern in V1 suggests right ventricular conduction delay Nonspecific ST and T wave abnormality Abnormal ECG No previous ECG available for comparison Electronically Signed On 05-05-20 07:17:41 [employer] by Alfredo Yanez
[2020-05-05] MEDS: CEFTRIAXONE/SWI 1gm 1 GM/10 ML SYR IVP SCH ×2 (08:57→22:30)
[2020-05-05] MEDS: ENOXAPARIN 40 MG/0.4 ML SQ SCH (08:57)
[2020-05-05] MEDS: ENSURE ENLIVE 237 ML CAN PO SCH (22:31)
[2020-05-06 05:58] LABS: Potassium 3.4 mmol/L (3.5-5.1)
[2020-05-06] MEDS: NA CHLORIDE 0.9% 1,000 ML IV SCH ×2 (06:39→17:59)
[2020-05-06] MEDS ORDERED: POTASSIUM CL SA 10 MEQ TAB PO ONE (09:00)
[2020-05-06] MEDS: ENOXAPARIN 40 MG/0.4 ML SQ SCH ×2 (09:00→10:07)
[2020-05-06] MEDS: CEFTRIAXONE/SWI 1gm 1 GM/10 ML SYR IVP SCH (10:07)
[2020-05-06] MEDS: ENSURE ENLIVE 237 ML CAN PO SCH ×2 (10:08→22:02)
--- NOTE | 2020-05-06 10:24 | P.HP ---
Certification for Inpatient Patient admitted to: Inpatient With expected LOS: >2 Midnights Patient will require the following post-hospital care: None Practitioner: I am a practitioner with admitting privileges, knowledge of patient current condition, hospital course, and medical plan of care. Services: Services provided to patient in accordance with Admission requirements found in Title 42 Section 412.3 of the Code of Federal Regulations Patient History Date of Service: 05/04/20 Reason for admission: Altered mental status History of Present Illness: Patient is a 75-year-old female came to the hospital with altered mentation. Patient has been difficult to arouse and has been confused. Family brought her into the emergency room for further evaluation. Patient not been eating well at all. She has declined and does not really answer questions appropriately. In the emergency room she was very lethargic. She was given IV fluids as she looke d to be pre renal. Procalcitonin lactic acid was also elevated. Patient been running fevers at home. She has also been having some dysuria. She has some incontinence of her urine as well. She will be admitted to the hospital for further evaluation. Allergies ciprofloxacin Allergy (Verified 05/04/20 17:07) Itching Home Medications: Aspirin 1 tab PO DAILY 05/04/20 Atenolol [Tenormin] 1 tab PO DAILY 05/04/20 Atorvastatin Calcium [Lipitor] 1 tab PO BEDTIME 05/04/20 Cholecalciferol (Vitamin D3) [Vitamin D3] 1 tab PO BID 05/04/20 Docosahexanoic AC/Epa [Fish Oil 1,000 MG*] 1 tab PO DAILY 05/04/20 Gabapentin 1 cap PO TID 05/04/20 Hydroxychloroquine [Plaquenil*] 1 tab PO DAILY 05/04/20 Levothyroxine [Synthroid*] 1 tab PO DAILY 05/04/20 Memantine HCl [Namenda] 1 tab PO DAILY 05/04/20 Quetiapine Fumarate [Seroquel] 1 tab PO BEDTIME 05/04/20 Venlafaxine HCl [Effexor Xr] 1 tab PO BID 05/04/20 Vitamin E Acid Succinate [Vitamin E] 180 tab PO BID 05/04/20 - Past Medical/Surgical History Has patient received pneumonia vaccine in the past: Yes Diabetic: No -: HTn -: Dementia -: back pain -: back surgery - Family History Father History Unknown: Yes Mother History Unknown: Yes - Social History Smoking Status: Current some day smoker Alcohol use: Yes CD- Drugs: No Caffeine use: Yes Place of Residence: Home Review of Systems 10-point ROS is otherwise unremarkable Physical Examination - Vital Signs Temperature: 98.2 F Blood Pressure: 129/67 Pulse: 88 Respirations: 18 Pulse Ox (%): 94 - Physical Exam General: Alert, In no apparent distress, Confused, Other (Lethargic and confused) HEENT: Atraumatic, PERRLA, Mucous membr. moist/pink, EOMI, Sclerae nonicteric Neck: Supple, 2+ carotid pulse no bruit, No LAD, Without JVD or thyroid abnormality Respiratory: Clear to auscultation bilaterally, Normal air movement Cardiovascular: Regular rate/rhythm, Normal S1 S2, No murmurs Gastrointestinal: Normal bowel sounds, Soft and benign, Non-distended, Tenderness Musculoskeletal: No tenderness Integumentary: No rashes Neurological: Normal gait, Normal speech, Normal strength at 5/5 x4 extr, Normal tone, Sensation intact, Cranial nerves 3-12 intact, Normal affect Lymphatics: No axilla or inguinal lymphadenopathy - Studies Microbiology Data (last 24 hrs): 05/04/20 10:37 Clean Catch Urine [place] Count - Final >100,000 CFU/ML. 05/04/20 10:37 Clean Catch Urine - Final Escherichia Coli Assessment & Plan - Problems (Diagnosis) (1) Pyelonephritis Current Visit: Yes Status: Acute (2) Bacteremia Current Visit: Yes Status: Acute (3) AMS (altered mental status) Current Visit: Yes Status: Acute (4) LUDMILA (acute kidney injury) Current Visit: Yes Status: Acute - Plan 1. Continue with IV hydration 2. Continue with IV antibiotics 3. Continue with pain control 4. awaiting cultures 5. Serial H&H, and we will monitor CBC, BMP, LFTs and lipase along with electrolytes. 6. GI and DVT prophylaxis Discharge Plan: Home Plan to discharge in: Greater than 2 days - Advance Directives Does patient have a Living Will: No Does patient have a Durable POA for Healthcare: No - Code Status/Comfort Care Code Status Assessed: Yes Code Status: Full Code Critical Care: No Time Spent Managing PTS Care (In Minutes): 45
--- NOTE | 2020-05-06 10:25 | P.PN ---
Subjective Date of Service: 05/05/20 Subjective: Improving (Patient clinically looks to be doing better. Blood cultures are positive. Awaiting culture results) Review of Systems 10-point ROS is otherwise unremarkable Physical Examination - Vital Signs Temperature: 98.2 F Blood Pressure: 129/67 Pulse: 88 Respirations: 18 Pulse Ox (%): 94 - Physical Exam General: Alert, In no apparent distress, Oriented x3 HEENT: Atraumatic, PERRLA, EOMI Neck: Supple, JVD not distended Respiratory: Clear to auscultation bilaterally, Normal air movement Cardiovascular: Regular rate/rhythm, Normal S1 S2 Gastrointestinal: Normal bowel sounds, No tenderness Musculoskeletal: No tenderness Integumentary: No rashes Neurological: Normal speech, Normal tone, Normal affect Lymphatics: No axilla or inguinal lymphadenopathy - Studies Microbiology Data (last 24 hrs): 05/04/20 10:37 Clean Catch Urine [place] Count - Final >100,000 CFU/ML. 05/04/20 10:37 Clean Catch Urine - Final Escherichia Coli Medications List Reviewed: Yes Assessment & Plan - Problems (Diagnosis) (1) Pyelonephritis Current Visit: Yes Status: Acute (2) Bacteremia Current Visit: Yes Status: Acute (3) AMS (altered mental status) Current Visit: Yes Status: Acute (4) LUDMILA (acute kidney injury) Current Visit: Yes Status: Acute - Plan Continue with plan of care as mentioned below 1. Continue with IV hydration 2. Continue with IV antibiotics; awaiting blood culture results 3. Continue with pain control 4. awaiting cultures 5. Serial H&H, and we will monitor CBC, BMP, LFTs and lipase along with electrolytes. 6. GI and DVT prophylaxis - Advance Directives Does patient have a Living Will: No Does patient have a Durable POA for Healthcare: No - Code Status/Comfort Care Code Status: Full Code
--- NOTE | 2020-05-06 10:26 | P.PN ---
Subjective Date of Service: 05/06/20 Patient is doing somewhat better. Continue with pain control. Continue with antibiotic therapy. Review of Systems 10-point ROS is otherwise unremarkable Physical Examination - Vital Signs Temperature: 98.2 F Blood Pressure: 129/67 Pulse: 88 Respirations: 18 Pulse Ox (%): 94 - Physical Exam General: Alert, In no apparent distress, Oriented x3 Respiratory: Clear to auscultation bilaterally, Normal air movement Cardiovascular: Regular rate/rhythm, Normal S1 S2, No murmurs Gastrointestinal: Normal bowel sounds, Soft and benign, Non-distended, Tenderness Musculoskeletal: No clubbing, No swelling, No tenderness Neurological: Sensation intact, Cranial nerves 3-12 intact - Studies Microbiology Data (last 24 hrs): 05/04/20 10:37 Clean Catch Urine [place] Count - Final >100,000 CFU/ML. 05/04/20 10:37 Clean Catch Urine - Final Escherichia Coli Medications List Reviewed: Yes Assessment & Plan - Problems (Diagnosis) (1) Pyelonephritis Status: Acute (2) Bacteremia Status: Acute (3) AMS (altered mental status) Status: Acute (4) LUDMILA (acute kidney injury) Status: Acute - Plan Continue with plan of care as mentioned below 1. Continue with IV hydration 2. Continue with IV antibiotics; awaiting blood culture results 3. Continue with pain control 4. awaiting cultures 5. Serial H&H, and we will monitor CBC, BMP, LFTs and lipase along with electrolytes. 6. GI and DVT prophylaxis Discharge Plan: Home Plan to discharge in: Greater than 2 days - Advance Directives Does patient have a Living Will: No Does patient have a Durable POA for Healthcare: No - Code Status/Comfort Care Code Status: Full Code Critical Care: No Time Spent Managing PTS Care (In Minutes): 35
[2020-05-06] MEDS ORDERED: Levofloxacin500mg IV 500 MG/100 ML BAG IV SCH (11:00)
[2020-05-07] MEDS: NA CHLORIDE 0.9% 1,000 ML IV SCH (03:00)
[2020-05-07 06:49] LABS: Potassium 4.7 mmol/L (3.5-5.1)
[2020-05-07] MEDS: ENOXAPARIN 40 MG/0.4 ML SQ SCH (08:33)
[2020-05-07] MEDS: ENSURE ENLIVE 237 ML CAN PO SCH (08:34)
[2020-05-07 08:41] VITALS: O2SAT 100
[2020-05-07] MEDS ORDERED: ENOXAPARIN 40 MG/0.4 ML SQ SCH (09:00)
[2020-05-07] MEDS ORDERED: Levofloxacin500mg IV 500 MG/100 ML BAG IV SCH (09:00)
[2020-05-11 04:22] VITALS: BP 129/67; TEMP 98.2
--- NOTE | 2020-05-11 04:24 | P.DS ---
Discharge Date: 05/07/20 Disposition: ROUTINE DISCHARGE Discharge Condition: GOOD Reason for Admission: Altered mental status - Problems (1) Pyelonephritis Status: Acute (2) Bacteremia Status: Acute (3) AMS (altered mental status) Status: Acute (4) LUDMILA (acute kidney injury) Status: Acute Brief History of Present Illness: Patient is a 75-year-old female came to the hospital with altered mentation. Patient has been difficult to arouse and has been confused. Family brought her into the emergency room for further evaluation. Patient not been eating well at all. She has declined and does not really answer questions appropriately. In the emergency room she was very lethargic. She was given IV fluids as she looked to be pre renal. Procalcitonin lactic acid was also elevated. Patient been running fevers at home. She has also been having some dysuria. She has some incontinence of her urine as well. She will be admitted to the hospital for further evaluation. Hospital Course: Patient has done well during hospital stay. Will treat her her with IV antibiotics and she is doing better. Also give her Pyridium. At the time, she is stable for discharge on oral antibiotics with outpatient follow up. Patient's mentation is improved. Patient was bacteremic for E. coli. Patient was given IV antibiotics were 72 hours and clinically much better. Vital Signs/Physical Exam: Temp Pulse Resp BP Pulse Ox 98.2 F 88 18 129/67 94 05/11/20 04:22 05/11/20 04:22 05/11/20 04:22 05/11/20 04:22 05/11/20 04:22 General: Alert, In no apparent distress, Oriented x3 Laboratory Data at Discharge: WBC 8.9 K/uL (4.3-10.9) 05/05/20 04:57 Hgb 11.0 g/dL (12.0-15.0) L 05/05/20 04:57 Hct 31.6 % (36.0-45.0) L 05/05/20 04:57 Plt Count 155 K/uL (152-406) 05/05/20 04:57 PT 11.9 SECONDS (9.5-12.5) 05/04/20 09:23 INR 1.01 05/04/20 09:23 APTT 19.6 SECONDS (24.3-36.9) L 05/04/20 09:23 Sodium 142 mmol/L (136-145) 05/07/20 05:59 Potassium 4.7 mmol/L (3.5-5.1) 05/07/20 05:59 BUN 24 mg/dL (7-18) H 05/07/20 05:59 Creatinine 1.07 mg/dL (0.55-1.3) 05/07/20 05:59 Glucose 118 mg/dL (74-106) H 05/07/20 05:59 Phosphorus 2.6 mg/dL (2.5-4.9) 05/05/20 04:57 Magnesium 2.2 mg/dL (1.8-2.4) 05/05/20 04:57 Total Bilirubin 0.7 mg/dL (0.2-1.0) 05/05/20 04:57 AST 69 U/L (15-37) H 05/05/20 04:57 ALT 32 U/L (12-78) 05/05/20 04:57 Alkaline Phosphatase 83 U/L (45-117) 05/05/20 04:57 Amylase 17 U/L (25-115) L 05/04/20 09:23 Lipase 70 U/L (73-393) L 05/04/20 09:23 Home Medications: Aspirin 1 tab PO DAILY 05/04/20 Atenolol [Tenormin] 1 tab PO DAILY 05/04/20 Atorvastatin Calcium [Lipitor] 1 tab PO BEDTIME 05/04/20 Cholecalciferol (Vitamin D3) [Vitamin D3] 1 tab PO BID 05/04/20 Docosahexanoic AC/Epa [Fish Oil 1,000 MG*] 1 tab PO DAILY 05/04/20 Gabapentin 1 cap PO TID 05/04/20 Hydroxychloroquine [Plaquenil*] 1 tab PO DAILY 05/04/20 Levothyroxine [Synthroid*] 1 tab PO DAILY 05/04/20 Memantine HCl [Namenda] 1 tab PO DAILY 05/04/20 Quetiapine Fumarate [Seroquel] 1 tab PO BEDTIME 05/04/20 Venlafaxine HCl [Effexor Xr] 1 tab PO BID 05/04/20 Vitamin E Acid Succinate [Vitamin E] 180 tab PO BID 05/04/20 Smz./Tmp. [Bactrim Ds 800 MG/160 MG] 1 tab PO BID #14 tab 05/07/20 New Medications: Smz./Tmp. [Bactrim Ds 800 MG/160 MG] 1 tab PO BID #14 tab Patient Discharge Instructions: OK TO DC IV AND DC HOME. FOLLOW-UP WITH PRIMARY CARE PROVIDER IN 1-2 WEEKS. RETURN TO THE ER IF symptoms worsen. CALL DR. SCHAEFER AT [phone] IF ANY QUESTIONS REGARDING HOSPITAL STAY. PLEASE CALL THE FLOOR AT [phone] IF ANY MEDICATION OR NURSING QUESTIONS. Diet: ADA Activity: Fall precautions Followup: Dawson Hernandez MD [Primary Care Provider] - Time spent managing pt's care (in minutes): 35
== END 2020-05-07 12:07 | disposition home or self-care (01) | DRG 689 ==
LOC: ER 08:14 → ERHOLD 14:59 → 2ND 16:15
PROVIDERS: ADMIT Hospitalist; ATTEND Hospitalist
DX: N10 Acute pyelonephritis (principal); G92 Toxic encephalopathy; E44.0 Moderate protein-calorie malnutrition; Z68.1 Body mass index [BMI] 19.9 or less, adult; R78.81 Bacteremia; N17.9 Acute kidney failure, unspecified; B96.20 Unspecified Escherichia coli [E. coli] as the cause of diseases classified elsewhere; Z88.1 Allergy status to other antibiotic agents; Z79.890 Hormone replacement therapy; Z79.82 Long term (current) use of aspirin; Z79.899 Other long term (current) drug therapy; Z20.828 Contact with and (suspected) exposure to other viral communicable diseases
CPT/HCPCS: 36415; 70450; 70553; 71045; 80048; 80053; 80076; 81003; 81015; 82150; 82550; 82553; 83605; 83690; 83735; 83880; 84100; 84145; 84484; 85025; 85610; 85730; 87040; 87077; 87086; 87088; 87186; 93005; 96374; 97116; 97161; 97530; 99285; A9577; J0696; J1650; J3475; J7030; J7040; U0002

== ENCOUNTER 2021-06-30 10:12 | Inpatient (IN) | payer OTHER ==
--- OUTSIDE RECORDS SUMMARY | 2021-06-30 10:16 | XMS REPORT | Continuity of Care Document ---
:1945 Author Organization [facility] Address [address] [place] [address] [address]. [address] [place] [address] Care Team Providers Name Role Phone DR MICHAEL Attending Clinician Unavailable BREANNE, Attending Clinician Unavailable RAGHAV BENITO Attending Clinician Unavailable DR MICHAEL Admitting Clinician Unavailable DR BREANNE Admitting Clinician Unavailable PARAMJIT DE SOUZA Admitting Clinician Unavailable PANCHO HENSON Admitting Clinician Unavailable Payers Payer Name Policy Type Policy Number Effective Date Expiration Date Kam piedra [facility] [id number] 2019 ALL 00:00:00 [place] [id number] 2020 00:00:00 Problems This patient has no known problems. Allergies, Adverse Reactions, Alerts Allergy Allergy Status Severity Reaction(s) Onset Inactive Treating Comm ents Source Name Type Date Date Clinician NO KNOWN Allergy Active SLEH ALLERGIE S Medications This patient has no known medications. Vital Signs Vital Name Observation Time Observation Value Comments Source HEIGHT 2020-01-29 00:00:00 162.6 cm WEIGHT 2020-01-29 00:00:00 61.236 kg HEIGHT 2020-01-29 00:00:00 162.6 cm WEIGHT 2020-01-29 00:00:00 61.236 kg HEIGHT 2020-01-28 00:00:00 162.6 cm WEIGHT 2020-01-28 00:00:00 61.236 kg HEIGHT 2020-01-28 00:00:00 162.6 cm WEIGHT 2020-01-28 00:00:00 61.236 kg Procedures This patient has no known procedures. Encounters Start End Encounter Admission Attending Care Care Encounter Source Date/Time Date/Time Type Type Clinicians Facility Department ID 2021-02-11 2021-02-25 Inpatient C [facility]AN [facility] [id number] [place] 04:04:00 16:30:00 [facility] 2021-02-092021-02-11 [facility] [id number] [place] 01:44:00 04:03:00 [facility] 2020-01-29 2020-01-29 Emergency ER [facility] Emergency [id number] [facility] 14:48:00 14:48:00 2020-01-28 2020-01-28 Emergency ER [facility] Emergency [id number] [facility] 17:28:00 17:28:00 Results Test Description Test Time Test Comments Results Result Comments Source SARS-CoV (RAPID ANTIGEN) 2021-02-25 13:32:00 Test Item Value Reference Range Interpretation Comme nts SARS-CoV (ANTIGEN) (test code = NEGATIVE NEGATIVE COVAG) COVID AG (test code = COVAGC) This test has been marketed under the FDA Emergency Use Authorization (EUA) to meet challenges of the COVID-19 pandemic. The validation standards normally enforced by the FDA and the [employer] of [employer] (CAP) are more stringent than those required for this test. Therefore, the result should be interpreted with caution and close attention to other clinical and epidemiological data BLOOD [id number] 22:35:00 Test Item Value Reference Range Interpretation Comments Culture Observations (test NO GROWTH AFTER 5 code = COB1) DAYS B12 [id number] 10:07:00 Test Item Value Reference Range Interpretation Comments VIT B12 (test code = A60) 893.0 pg/mL 180.0-914.0 [id number] 10:07:00 Test Item Value Reference Range Interpretation Comments FOLATE (test code = A75) 18.6 ng/mL 3.1-17.5 H LIPID [id number] 10:07:00 Test Item Value Reference Range Interpretation Comments CHOLESTROL (test code 251 mg/dL 140-200 H = 44A) TRIGLYCERI (test code 114 mg/dL See_Comment [Auto mated message] = 42B) The system iPosition generated this result transmitted ref erence range: <=149. T he reference range was not used to int erpret this result as normal/abnormal . HDL (test code = 83D) 78.0 mg/dL 40.0-60.0 H LDL (test code = 34B) 134 mg/dL See_Comment H [Auto mated message] The system iPosition generated this result transmitted ref erence range: <=99. Th e reference range was not used to int erpret this result as normal/abnormal . CHL/HDL (test code = 3.2 0.0-3.4 CHR) T4 [id number] 10:01:00 Test Item Value Reference Range Interpretation Comments T4 FREE (test code = A91) 0.90 ng/dL 0.76-1.46 THYROID PANEL/SCREEN (TSH)2021-02-12 09:50:00 Test Item Value Reference Range Interpretation Comments TSH (test code = A57) 10.400 uIU/mL 0.358-3.740 H [id number] 09:49:00 Test Item Value Reference Range Interpretation Comments PREALBUMIN (test code = 08E) 20 mg/dL 18-38 [id number] 09:47:00 Test Item Value Reference Range Interpretation Comments Hb A1C % (test code 4.9 % 3.8-6.4 = HBA) A1C % (test code = HbA1c (% ) A1C) Reference Range Normal <5.7 Prediabetes 5.7-6.4 Diabetic >=6.5 [id number] 09:38:00 Test Item Value Reference Range Interpretation Comments MAGNESIUM (test code = 48A) 1.7 mg/dL 1.8-2.4 L SARS-CoV (RAPID ANTIGEN)2021-02-11 12:45:00 Test Item Value Reference Range Interpretation Comments SARS-CoV (ANTIGEN) NEGATIVE NEGATIVE (test code = COVAG) COVID AG (test This test has been code = COVAGC) marketed under the FDA Emergency Use Authorization (EUA) to meet challenges of the COVID-19 pandemic. The validation standards normally enforced by the FDA and the [employer] (CAP) are more stringent than those required for this test. Therefore, the result should be interpreted with caution and close attention to other clinical and epidemiological data URINE [id number] 10:37:00 Test Item Value Reference Range Interpretation Comments Culture Observations THREE OR MORE SPECIES (test code = COB1) OF BACTERIA ISOLATED. PROBABLE CONTAMINATION. Culture Observations IDENTIFICATION AND (test code = COB17) SUSCEPTIBILITY NOT INDICATED. RECOLLECTION RECOMMENDED Isolate 1 (test code = Escherichia coli A ISO1) ampicillin (test code = R am) piperacillin/tazobactam I (test code = tzp) ceftazidime (test code S = alesia) ceftriaxone1 (test code S = ctr) cefepime (test code = S fep) aztreonam (test code = S azm) ertapenem (test code = S etp) meropenem (test code = S mem) gentamicin (test code = S gm) tobramycin (test code = S tob) levofloxacin (test code S = lev) trimethoprim/sulfametho R xazole (test code = sxt) nitrofurantoin (test S code = ftn) CT HEAD W/O [id number] 12:18:41 [facility] 1945 Sex: FEXAMINATION:CT HEAD W/O CONTRASTCLINICAL INDICATION:Female, 75 years old with Altered Mental StatusTECHNIQUE: Axial CT images from the skull base to the vertex without intravenous contrast. Coronal andsagittal reformatted images were created from the data set.One or more of the following dose reduction techniques were used: Automated exposure control, adjustment of the mA and/or kV according to patient size, and/or iterative reconstruction. COMPARISON: CT head 02/08/2021FINDINGS:Intracranial: Senescent and chronic small vessel ischemic changes are present. No evidence of acute infarction, intracranial hemorrhage, mass or mass effect, or abnormal extra-axial fluid collection. The ventricles are normal in size, shape and position.Vascular: The larger dural venous sinuses are grossly normal. No significant atherosclerotic plaque.Sinuses: The visualized paranasal sinuses and mastoid air cells are predominantly clear. Bones: Mild lucent tiny lesions in the skull are noted with bony expansion. Soft tissue: No significant soft tissue abnormalities. IMPRESSION:No acute findings.Mildly expanded skullwith lucent lesions is noted. Please clinically correlate for Paget's disease.Electronically signed by: Milton Dunn MD 02/10/2021 12:18 PM CDT CHEST W/O [id number] 12:16:28[facility]ENTER[facility] : 1945 Sex: FEXAMINATION:CT CHEST W/O CONTRASTCLINICAL INDICATION:Female, 75 years old with cough feverTECHNIQUE: Axial non-contrast contiguous images were obtained through the chest followed by coronal and sagittalmultiplanar reformations.One or more of the following dose reduction techniques were used: Automatedexposure control, adjustment of the mA and/or kV according to patient size, and/or iterative reconstruction. COMPARISON: NoneFINDINGS:Chest:Medical Devices: None.Lungs/Airways/Pleura: Mild diffuse peribronchial thickening is noted. There are bronchiectatic changes and areas of scarring in the lower lobes, left greater than right. Mild scarring is also seen in the periphery of the right upper lobe. The central airways are patent.Heart/Vessels: The heart is upper normal in size. No pericardial effusion is seen. Coronary arterial calcifications are noted. The ascending aorta measures 3.5 cm in diameter.Lymph Nodes: There are no pathologically enlarged mediastinal, hilar, or axillary lymph nodes.Soft Tissues: The visualized thyroid gland is normal. Small hiatal hernia is noted. No soft tissue abnormality of the chest is demonstrated.Upper Abdomen:Abdomen: The visualized upper abdominal structures are within normal limits.Bones: No acute abnormality or suspicious bony lesion.IMPRESSION:1. Peribronchial thickening and lower lobe bronchiectatic changes. Correlate for history of reactive airway disease, bronchitis, or atypical/viral pneumonia.2. Coronary artery disease.3. Small hiatal hernia.Electronically signed by: Curry Joseph MD 02/10/2021 12:16 PM CDT [id number] METABOLIC PANEL 2021-02-10 08:33:00 Test Item Value Reference Range Interpretation Comments GLUCOSE (test code 101 mg/dL 75-100 H = 06D) SODIUM (test code 141 mmol/L 136-145 = 01A) POTASSIUM (test 4.3 mmol/L 3.6-5.1 code = 01B) CHLORIDE (test 111 mmol/L 98-107 H code = 04A) CO2 (test code = 24 mmol/L 22-32 02A) ANION GAP (test 10.3 mmol/L code = ANG) BUN (test code = 18 mg/dL 7-18 05D) CREATININE (test 1.2 mg/dL 0.4-1.1 H code = 03E) GFR (test code = 43 See_Comment L [Automated GFR) mL/min/1.73m\S\2 message] Th e system which generated this result transmit katherine reference range : >=90. The reference range was not used to interpret this result as normal/abnormal . GFR 50 See_Comment L [Automated BOLIVIAN (test mL/min/1.73m\S\2 message] The code = GFRAA) system which generated this result transmit katherine reference range : >=90. The reference range was not used to interpret this result as normal/abnormal . EGFR (test code = eGFR BY EGFR) CKD-EPI CALCULATION IS NOT RECOMMENDED FOR PATIENTS UNDER 18 YEARS OF AGE. BUN/CREA (test 15 12-20 code = BCR) CALCIUM (test code 8.9 mg/dL 8.3-9.5 = 09D) CBC (INCLUDES AUTOMATED DIFFERENTIAL)2021-02-10 08:22:00 Test Item Value Reference Range Interpretation Comments WBC (test code = WBC) 4.5 10\S\3/uL 4.5-11.0 RBC (test code = RBC) 3.47 10\S\6/uL 3.80-5.80 L HGB (test code = HBG) 10.8 g/dL 12.0-15.5 L HCT (test code = HCT) 33.3 % 35.0-44.0 L MCV (test code = MCV) 96.0 fL 81.0-99.0 MCH (test code = MCH) 31.1 pg 27.0-31.0 H MCHC (test code = MCHC) 32.4 g/dL 32.0-36.0 RDW (test code = RDW) 13.4 % 11.5-14.5 PLT (test code = PLT) 118 10\S\3/uL 130-400 L MPV (test code = MPV) 10.7 fL 9.4-12.4 NEUTROP # (test code = NE#) 3.7 10\S\3/uL 1.6-8.0 LYMPH # (test code = LY#) 0.5 10\S\3/uL 1.1-3.5 L MONOCYTE # (test code = MO#) 0.3 10\S\3/uL 0.0-1.1 EOSINOPH # (test code = EO#) 0.0 10\S\3/uL 0.0-0.7 BASOPHIL # (test code = BA#) 0.0 10\S\3/uL 0.0-0.3 IG # (test code = IG#) 0.02 10\S\3/uL 0.00-0.06 NRBC # (test code = NRBC#) 0.00 10\S\3/uL 0.00-0.01 NEUTROPH % (test code = NE%) 82.0 % 35.0-73.0 H LYMPH % (test code = LY%) 10.8 % 20.0-55.0 L MONO % (test code = MO%) 6.8 % 2.5-10.0 EOSINOPH % (test code = EO%) 0.0 % 0.0-5.0 BASOPHIL % (test code = BA%) 0.0 % 0.0-2.0 IG % (test code = IG%) 0.4 % 0.0-0.8 NRBC% (test code = NRBC%) 0.0 % 0.0-0.2 MANDIFF (test code = MDIFF) NO RBC MORPH (test code = RBCMOR) NORMAL LACTIC [id number] 07:44:00 Test Item Value Reference Range Interpretation Comments LACTIC ACD (test code = LA) 1.6 mmol/L 0.4-2.0 CT CHEST W/O [id number] 00:06:16 [facility]ENTER[facility]: CHUCK [facility]ITT[facility] : 1945 Sex: FEXAMINATION:CT CHEST W/O CONTRASTCLINICAL INDICATION:Female, 75 years old with cough, feverTECHNIQUE:Axial non-contrast contiguous images were obtained through the chest followed by coronal and sagittal multiplanar reformations.One or more of the following dose reduction techniques were used: Automated exposure control, adjustment of the mA and/or kV according to patient size, and/or iterative reconstruction. COMPARISON: Chest February 08, 2021FINDINGS:Chest:Medical Devices: None.Lymph Nodes: There are no pathologically enlarged supraclavicular, mediastinal, or axillary lymph nodes.Lungs/Airways/Pleura: Trachea and main bronchi are patent. Lungs are well aerated and clear. Parenchymal scarring is identified involving the left lower lobe. There is mild dependent atelectatic change in the lower lobesbilaterally, right more than left. No evidence of pneumothorax. No pulmonary nodules or masses are identified. No pleural effusion is present. Heart/Vessels: Heart is normal in size. No coronary artery atherosclerosis is identified. No pericardial effusion is present. Aorta is normal in caliber and contour. No atherosclerosis is identified. Central pulmonary arteries are normal in size.Soft Tissues:Visualized thyroid gland is normal. The esophagus is normal. No soft tissue abnormality of the chestis demonstrated. Small right posterior fat-containing Bochdalek hernia is noted.Upper Abdomen:Abdomen: Visualized upper abdominal structures are within normal limits.Bones: No acute abnormality or suspicious bony lesion.IMPRESSION:1. Minimal basilar atelectatic change, parenchymal scarring is present in the left lower lobe.Electronically signed by: Derrick Gómez MD 02/09/2021 12:06 AM CDT HEAD W/O [id number] 00:03:35[facility] CENTERName: CHUCK WHITTEN : 1945 Sex: FEXAMINATION:CT HEAD W/O CONTRASTCLINICAL INDICATION:Female, 75 years old with Altered Mental StatusTECHNIQUE: Axial CT images from the skull base to the vertex without intravenous contrast. Coronal andsagittal reformatted images were created from the data set.One or more of the following dose reduction techniques were used: Automated exposure control, adjustment of the mA and/or kV according to patient size, and/or iterative reconstruction. COMPARISON: NoneFINDINGS:Intracranial: Senescent and chronic small vessel ischemic changes are present. No evidence of acute infarction, intracranial hemorrhage, mass or mass effect, or abnormal extra-axial fluid collection. The ventricles are normal in size,shape and position.Vascular: The larger dural venous sinuses are grossly normal. No significant atherosclerotic plaque.Sinuses: The visualized paranasal sinuses and mastoid air cells are predominantlyclear. Bones: The osseous structures and orbits have no significant abnormalities. Soft tissue: No significant soft tissue abnormalities. IMPRESSION:Senescent and chronic small vessel ischemic change.Electronically signed by: Derrick Gómez MD 02/09/2021 12:03 AM CDT GHOROQHS PROTEIN [id number] 22:08:00 Test Item Value Reference Range Interpretation Comments CRP QUANT (test code 5.8 mg/L 0.0-2.9 H = CRPQ) Method Change (test Please note the code = METHOD) change in Method and the reference range [id number] 22:04:00 Test Item Value Reference Range Interpretation Comments FERRITIN (test code = A19) 68.5 ng/mL 8.0-252.0 [id number] 22:02:00 Test Item Value Reference Range Interpretation Comments ACETAMINPH (test code = 94M) <2.0 ug/mL 10.0-30.0 L AMMONIA [id number] 22:01:00 Test Item Value Reference Range Interpretation Comments AMMONIA (test code = 54A) 14 umol/L 11-32 LDH-LACTIC [id number] 22:01:00 Test Item Value Reference Range Interpretation Comments LDH (test code = 33A) 210 IU/L 84-246 LACTIC [id number] 22:01:00 Test Item Value Reference Range Interpretation Comments LACTIC ACD (test code = LA) 3.8 mmol/L 0.4-2.0 H ALCOHOL BLOOD (ETOH)2021-02-08 22:01:00 Test Item Value Reference Range Interpretation Comments ETOH (test code = ETHANOL HALC) The result is to be used only for medical purposes ALCOHOL (test <10 mg/dL See_Comment [Automated me ssage] code = 56A) The system iPosition generated this result transmit katherine reference range : <=10. The refer ence range was not u sed to interpret th is result as normal/abnormal . COMPREHENSIVE METABOLIC [id number] 22:01:00 Test Item Value Reference Range Interpretation Comments GLUCOSE (test code 94 mg/dL 75-100 = 06D) SODIUM (test code 137 mmol/L 136-145 = 01A) POTASSIUM (test 4.7 mmol/L 3.6-5.1 code = 01B) CHLORIDE (test 105 mmol/L 98-107 code = 04A) CO2 (test code = 29 mmol/L 22-32 02A) ANION GAP (test 7.7 mmol/L code = ANG) BUN (test code = 12 mg/dL 7-18 05D) CREATININE (test 1.4 mg/dL 0.4-1.1 H code = 03E) GFR (test code = 36 See_Comment L [Automated GFR) mL/min/1.73m\S\2 message] Th e system which generated this result transmit katherine reference range : >=90. The reference range was not used to interpret this result as normal/abnormal . GFR 42 See_Comment L [Automated BOLIVIAN (test mL/min/1.73m\S\2 message] The code = GFRAA) system which generated this result transmit katherine reference range : >=90. The reference range was not used to interpret this result as normal/abnormal . EGFR (test code = eGFR BY EGFR) CKD-EPI CALCULATION IS NOT RECOMMENDED FOR PATIENTS UNDER 18 YEARS OF AGE. BUN/CREA (test 9 12-20 L code = BCR) CALCIUM (test code 9.3 mg/dL 8.3-9.5 = 09D) BILI TOTAL (test 0.3 mg/dL 0.2-1.0 code = 11A) PROTEIN (test code 7.3 g/dL 6.4-8.2 = 07D) ALBUMIN (test code 3.6 g/dL 3.5-4.8 = 08D) GLOBULIN (test 3.7 g/dL 1.5-3.8 code = GLB) ALB/GLOB (test 1.0 1.0-2.6 code = AGRR) ALK PHOS (test 93 IU/L 42-121 code = 35A) AST (test code = 21 IU/L See_Comment [Automated 30A) message] The system which generated this result transmit katherine reference range : <=42. The reference range was not used to interpret this result as normal/abnormal . ALT (test code = 13 IU/L See_Comment [Automated 31A) message] The system which generated this result transmit katherine reference range : <=78. The reference range was not used to interpret this result as normal/abnormal . [id number] 21:57:00 Test Item Value Reference Range Interpretation Comments SALICYLATE (test code = 94B) 2.8 mg/dL 2.8-20.0 SARS-CoV (RAPID ANTIGEN)2021-02-08 21:57:00 Test Item Value Reference Range Interpretation Comments SARS-CoV (ANTIGEN) NEGATIVE NEGATIVE (test code = COVAG) COVID AG (test This test has been code = COVAGC) marketed under the FDA Emergency Use Authorization (EUA) to meet challenges of the COVID-19 pandemic. The validation standards normally enforced by the FDA and the [employer] of the [employer] (CAP) are more stringent than those required for this test. Therefore, the result should be interpreted with caution and close attention to other clinical and epidemiological data URINALYSIS WITH [id number] 21:51:00 Test Item Value Reference Range Interpretation Comments COLOR (test code = COLU) YELLOW YELLOW CLARITY (test code = CLA) CLOUDY CLEAR A GLUCOSE UR (test code = UA GLUCOSE) NEGATIVE NEGATIVE BILI UR (test code = BILE) NEGATIVE NEGATIVE KETONES UR (test code = AJ) NEGATIVE NEGATIVE SP GRAVITY (test code = SPGR) 1.011 1.005-1.030 PH UR (test code = PH) 7.0 4.5-8.0 PROTEIN UR (test code = PU) TRACE NEGATIVE A UROBIL UR (test code = UROQ) 0.2 EU/dL 0.2-1.0 NITRITE UR (test code = NITRITE) NEGATIVE NEGATIVE BLOOD UR (test code = UA BLOOD) TRACE NEGATIVE A LEUK ES UR (test code = LEUK) 3+ NEGATIVE A WBC UR (test code = UWBC) >100 /HPF 0-5 H RBC UR (test code = URBC) 4 /HPF 0-2 H EPITH UR (test code = UEPC) FEW /LPF FEW BACTERIA UR (test code = UBACT) FEW /HPF NONE A CAST UR (test code = CAST) /LPF NONE CRYSTAL UR (test code = CRYU) / LPF NONE MUCUS UR (test code = MUC) / HPF NONE AMORPH UR (test code = SHO) / HPF NONE TRICH UR (test code = UTRICH) /HPF NONE YEAST UR (test code = UY) /HPF NONE SPERM UR (test code = USPERM) /HPF NONE DRUGS OF [id number] 21:49:00 Test Item Value Reference Range Interpretation Comments DRUG SCRN (test code URINE DRUG SCREEN = HDOA) This is an unconfirmed screening result and should not be used for non-medical purposes CANNABINOD (test code Negative NEGATIVE = 88C) AMPHETAMINE (test Negative NEGATIVE code = 84A) BENZODIAZP (test code Negative NEGATIVE = 86A) BARBITURAT (test code Negative NEGATIVE = 85A) OPIATES (test code = Negative NEGATIVE 92B) COCAINE (test code = Negative NEGATIVE 87A) PHENCYCLID (test code Negative NEGATIVE = 66A) METHADONE (test code Negative NEGATIVE = 64A) DOAH (test code = DOAH.) *URINE DRUGSCREEN Cut-off values are as follows: Cannabinoids 50 ng/mL Cocaine 300 ng/mL Amphetamines 1000 ng/mL Phencyclidine 25 ng/mL Benzodiazepines 200 ng.mL Methadone 300 ng/mL Barbiturates 200 ng/mL Opiates 300 ng/mL CBC (INCLUDES AUTOMATED DIFFERENTIAL)2021-02-08 21:47:00 Test Item Value Reference Range Interpretation Comments WBC (test code = WBC) 4.2 10\S\3/uL 4.5-11.0 L RBC (test code = RBC) 3.61 10\S\6/uL 3.80-5.80 L HGB (test code = HBG) 11.3 g/dL 12.0-15.5 L HCT (test code = HCT) 35.2 % 35.0-44.0 MCV (test code = MCV) 97.5 fL 81.0-99.0 MCH (test code = MCH) 31.3 pg 27.0-31.0 H MCHC (test code = MCHC) 32.1 g/dL 32.0-36.0 RDW (test code = RDW) 13.3 % 11.5-14.5 PLT (test code = PLT) 129 10\S\3/uL 130-400 L MPV (test code = MPV) 10.9 fL 9.4-12.4 NEUTROP # (test code = NE#) 2.8 10\S\3/uL 1.6-8.0 LYMPH # (test code = LY#) 1.0 10\S\3/uL 1.1-3.5 L MONOCYTE # (test code = MO#) 0.4 10\S\3/uL 0.0-1.1 EOSINOPH # (test code = EO#) 0.0 10\S\3/uL 0.0-0.7 BASOPHIL # (test code = BA#) 0.0 10\S\3/uL 0.0-0.3 IG # (test code = IG#) 0.00 10\S\3/uL 0.00-0.06 NRBC # (test code = NRBC#) 0.00 10\S\3/uL 0.00-0.01 NEUTROPH % (test code = NE%) 66.8 % 35.0-73.0 LYMPH % (test code = LY%) 23.6 % 20.0-55.0 MONO % (test code = MO%) 9.6 % 2.5-10.0 EOSINOPH % (test code = EO%) 0.0 % 0.0-5.0 BASOPHIL % (test code = BA%) 0.0 % 0.0-2.0 IG % (test code = IG%) 0.0 % 0.0-0.8 NRBC% (test code = NRBC%) 0.0 % 0.0-0.2 MANDIFF (test code = MDIFF) NO RBC MORPH (test code = RBCMOR) NORMAL XR CHEST 1 VIEW [id number] 20:55:49 [facility] : 1945 Sex: FEXAMINATION:XR CHEST 1 VIEW PORTABLECLINICAL INDICATION:Female, 75 years year old with Medical ClearanceCOMPARISON: None.FINDINGS:Single view(s) of the chest submitted.Support Devices: None.Heart/Mediastinum: Cardiac silhouette is normal in size. Mediastinal contours are normal.Lungs/Pleura: Pulmonary vessels are normal in size. Lungs are well aerated and clear. No pleural effusion is identified. No pn eumothorax is present.Bones: Visualized skeleton is normal.IMPRESSION:Normal radiographic examination of the chest.Electronically signed by: Surendra Murry MD 02/08/2021 8:55 PM CDT [id number] METABOLIC [id number] 07:01:00 Test Item Value Reference Range Interpretation [...] S NOT APPLICABLE FOR DIALYSIS PATIEN TS. Pen Rider ID - PIAYA LCBC W/PLT COUNT & AUTO [id number] 05:54:00 Test Item Value Reference Range Interpretation [...] 0-1 PERCENT (BEAKER) (test code = 2801) BASIC METABOLIC [id number] 06:59:00 Test Item Value Reference Range Interpretation [...] S NOT APPLICABLE FOR DIALYSIS PATIEN TS. Pen Rider ID - NITO MCBC W/PLT COUNT & AUTO [id number] 06:38:00 Test Item Value Reference Range Interpretation [...] 0-1 PERCENT (BEAKER) (test code = 2801) [id number] 14:58:00 Test Item Value Reference Range Interpretation Comments RPR SCREEN (BEAKER) (test code = Nonreactive Nonreactive 420) LIPID [id number] 09:36:00 Test Item Value Reference Range Interpretation [...] Borderline 130-159 High 160-189 Very High >=190 Pen Rider ID - RAKESH CBASIC METABOLIC [id number] 09:36:00 Test Item Value Reference Range Interpretation [...] S NOT APPLICABLE FOR DIALYSIS PATIEN TS. Pen Rider ID - RAKESH CCBC W/PLT COUNT & AUTO [id number] 09:19:00 Test Item Value Reference Range Interpretation [...] 0-1 PERCENT (BEAKER) (test code = 2801) HEMOGLOBIN [id number] 08:12:00 Test Item Value Reference Range Interpretation Comments HEMOGLOBIN A1C (BEAKER) (test code = 5.0 % 4.3-6.1 368) MR, BRAIN, WITHOUT [id number] 21:54:00Left sided weakness, c/f strokeUnlisted Reason for [...] Wilberto Durán [facility] Verified Date/Time: 01/29/2020 21:54:29 TROPONIN [id number] 20:02:00 Test Item Value Reference Range Interpretation [...] failure, acidosis, acute neurological disease, and persistent tachyarrhythmia.Pen Rider ID - DBHEMOGLOBIN [id number] 09:51:00 Test Item Value Reference Range Interpretation Comments HEMOGLOBIN A1C (BEAKER) (test code = 5.2 % 4.3-6.1 368) TROPONIN [id number] 04:52:00 Test Item Value Reference Range Interpretation [...] failure, acidosis, acute neurological disease, and persistent tachyarrhythmia.Pen Rider ID - EDASIBASIC METABOLIC PANEL 2020-01-29 04:44:00 [...] S NOT APPLICABLE FOR DIALYSIS PATIEN TS. Pen Rider ID - EDASICBC W/PLT COUNT & AUTO [id number] 04:24:00 Test Item Value Reference Range Interpretation [...] PERCENT (BEAKER) (test code = 2801) TROPONIN [id number] 03:40:00 Test Item Value Reference Range Interpretation [...] failure, acidosis, acute neurological disease, and persistent tachyarrhythmia.Pen Rider ID - EDASITROPONIN [id number] 02:33:00 Test Item Value Reference Range Interpretation [...] failure, acidosis, acute neurological disease, and persistent tachyarrhythmia.Pen Rider ID - EDASISARS-COV2/RT-PCR ([facility])2020-01-29 00:04:00 Test Item Value Reference Range Interpretation Comments SARS-COV2/RT-PCR (test code Negative Not Detected, Negative, = [id number]) See external report for linked test SARS-COV-[address] [facility] (test code = 3690770) Negative results do not preclude SARS-CoV-2 infection [...] of the Act.Fact Sheet for Healthcare Pro viders:https://www.[employer]/Documents/Xpert%20Xpress%20SARS%20CoV-2/Fact%20Sh eets/302-1422%60HKHG-IGC-1%20HEALTHCARE%20PROVIDERS%20FACT%20SHEET.pdfFact Sheet for Healthcare Patients:https://www.[employer]/Documents/Xpert%20Xpress%20SARS%20CoV-2/Fact%20Sheets/302-9621%20SARS-COV -2%20PATIENT%20FACT%20SHEET.pdfPerforming Laboratory:[facility] [place], [place] [address]SB/[id number] 23:50:00 Test Item Value Reference Range Interpretation Comments PROTIME (BEAKER) (test code = 13.9 seconds 11.9-14.2 759) INR (BEAKER) (test code = 370) 1.10 <=5.90 PARTIAL THROMBOPLASTIN TIME < seconds 22.5-36.0 L (LUCIA) (test code = 760) Effective 11/13/2018: PT Reference Range ChangeNew: 11.9-14.2 Previous: 11.7- 14.7RECOMMENDED COUMADIN/WARFARIN INR THERAPY RANGESSTANDARD DOSE: 2.0-3.0 Includes: PROPHYLAXIS for venous thrombosis, systemic embolization; TREATMENT for venous thrombosis and/or pulmonary embolus.HIGH RISK: Target INR is2.5-3.5 for patients wiht mechanical heart valves.TROPONIN [id number] 23:42:00 Test Item Value Reference Range Interpretation Comments TROPONIN I (LUCIA) (test code = 0.07 ng/mL 0.00-0.03 H [...] failure, acidosis, acute neurological disease, and persistent tachyarrhythmia.Pen Rider ID - ASVITAMIN B12 AND FOLATE 2020-01-28 21:32:00 Test Item Value Reference Range Interpretation Comments VITAMIN B12 (LUCIA) (test code = 473 pg/mL 213-816 774) FOLATE (LUCIA) (test code = 362) 9.30 ng/mL >=7.00 Pen Rider ID - RAKESH CTSH/FREE T4 IF [id number] 20:01:00 Test Item Value Reference Range Interpretation Comments THYROID STIMULATING HORMONE 0.644 uIU/mL 0.350-4.940 (LUCIA) (test code = 772) Pen Rider ID - ASTROPONIN [id number] 19:47:00 Test Item Value Reference Range Interpretation Comments TROPONIN I (LUCIA) (test code = 0.06 ng/mL 0.00-0.03 H [...] failure, acidosis, acute neurological disease, and persistent tachyarrhythmia.Pen Rider ID - BENIPGIANCARLO [id number] 19:40:00 Test Item Value Reference Range Interpretation [...] Borderline 130-159 High 160-189 Very High >=190 Pen Rider ID - ASRAD, CHEST, 1 VIEW, NON [id number] 19:12:00Reason for exam:->c/f mental status changes, r/o [...] acute cardiopulmonary process identified. Signed: Gerardo Flores [facility] Verified Date/Time: 01/28/2020 19:12:50 Reading Location: [facility] C013W Consult Reading Room B-TYPE NATRIURETIC FACTOR (BNP)2020-01-28 19:03:00 Test Item Value Reference Range Interpretation Comments B-TYPE NATRIURETIC PEPTIDE (BEAKER) 199 pg/mL 0-100 H (test code = 700) Pen Rider ID - RAKESH CTROPONIN [id number] 19:02:00 Test Item Value Reference Range Interpretation [...] failure, acidosis, acute neurological disease, and persistent tachyarrhythmia.Pen Rider ID - RAKESH CURINALYSIS W/ REFLEX URINE [id number] 19:01:00 Test Item Value Reference Range Interpretation [...] = 516) YEAST (BEAKER) (test code = 5015) Occasional SOURCE(BEAKER) (test code = 6355) Pen Rider ID - [auto]Pen Rider ID - techBASIC METABOLIC [id number] 19:00:00 Test Item Value Reference Range Interpretation [...] 1092) DATA TO CALCULA TE ESTIMATED GFR. Pen Rider ID - RAKESH CPROTHROMBIN TIME/[id number] 18:42:00 Test Item Value Reference Range Interpretation [...] INR is2.5-3.5 for patients wiht mechanical heart valves.[id number] 18:42:00 Test Item Value Reference Range Interpretation Comments PARTIAL THROMBOPLASTIN TIME 22.4 seconds 22.5-36.0 L (BEAKER) (test code = 760) CT, CTANGIO [id number] 18:37:00Reason for exam:->Symptoms onset less than 6 [...] Irlanda Liriano MDR[facility] Verified Date/Time: 01/28/2020 18:37:33 CT, CAROTID, [id number] 18:37:00Reason for exam:- >Symptoms onset less than [...] occlusion or high-grade focal stenosis within the [place].2.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 Signed: Irlanda Liriano [facility] Verified Date/Time: 01/28/2020 18:37:33 CT, CEREBRAL PERFUSION [id number] 18:37:00Reason for exam:->Symptom onset less than 6 [...] occlusion or high-grade focal stenosis within the [place].2.Moderate focal stenosis of the right vertebral origin.3.No significant stenosis of the carotid arteries per NASCET criteria.4.Symmetric perfusion indices. Signed: Irlanda Lirianoepjovany Verified Date/Time: 01/28/2020 18:37:33 CBC W/PLT COUNT & AUTO [id number] 18:35:00 Test Item Value Reference Range Interpretation [...] (BEAKER) (test code = 2801) CT, BRAIN/STROKE [id number] 17:59:00Reason for exam:->cvaWhat is the patient's sedation [...] with the ordering physician. Signed: Irlanda Liriano [facility] Verified Date/Time: 01/28/202017:59:44
[2021-06-30] MEDS ORDERED: NA CHLORIDE 0.9% 1,000 ML ONE (10:43)
[2021-06-30 10:48] LABS: Absolute Lymphocytes (CBC) 1.7 K/uL (0.7-4.9); Hematocrit 33.2 % (36.0-45.0); Lymphocytes % 8.5 % (15.3-44.8); MPV 7.6 fL (7.6-11.3); RBC Red Blood Cell Count 3.86 M/uL (3.86-4.86)
[2021-06-30 11:56] LABS: Blood Morphology Comment NOT SEEN (NOT SEEN); Platelet Estimate ADEQ
[2021-06-30 13:03] LABS: BUN Blood Urea Nitrogen 20 mg/dL (7-18); Bicarbonate 20 mmol/L (21-32); Glucose Level 99 mg/dL (74-106); Sodium Level 135 mmol/L (136-145)
[2021-06-30 13:13] LABS: Potassium 2.9 mmol/L (3.5-5.1)
--- NOTE | 2021-06-30 13:17 | RAD REPORT ---
EXAM DESCRIPTION: CTAbdomen Pelvis Wo Contrast - 06/30/2021 1:00 pm CLINICAL HISTORY: ABD PAIN COMPARISON: No comparisons TECHNIQUE: CT of the abdomen and pelvis was performed. All CT scans are performed using dose optimization technique as appropriate and may include automated exposure control or mA/KV adjustment according to patient size. FINDINGS: Lower chest: Multi-vessel coronary artery disease. Small pericardial effusion. Small fat c ontaining left-sided diaphragmatic hernia. Dependent atelectasis and/or aspiration. Liver: No acute abnormality or suspicious lesions. Biliary: No biliary ductal dilatation. Stomach: No significant focal abnormality. Duodenum: Duodenal diverticulum Pancreas: No significant abnormality. Spleen: No significant abnormality. Adrenal: No suspicious lesions. Kidney/ureter: No hydronephrosis. No renal calculi. Retroperitoneum: No retroperitoneal adenopathy. Vascular: Atherosclerosis Bowel: Moderate diffuse pancolonic wall thickening and mesenteric edema. Normal appendix. No bowel ob struction.. Peritoneum: No ascites or free air. Bladder: Grossly unremarkable. Reproductive: No adnexal masses. Hysterectomy. Bones: No acute fracture. Other: n/a IMPRESSION: Pancolitis with differential to include infectious, inflammatory, and less likely ischem ic etiologies.
[2021-06-30] MEDS ORDERED: POTASSIUM CL SA 10 MEQ TAB PO ONE (14:03)
[2021-06-30] MEDS ORDERED: KCL 20 MEQ/100 mL IVPB 100 ML IV ONE (14:05)
--- NOTE | 2021-06-30 14:49 | EDPHYS ---
Physician Documentation [facility] Name: Savana Martin Age: 76 yrs Sex: Female : 1945 Arrival Date: 06/30/2021 Time: 10:13 Bed 16 Private MD: ED Physician Jose Bobby HPI: 06/30 10:32 This 76 yrs old Female presents to ER via EMS with unknown complaint. ma2 10:32 This 76 yrs old Female presents to ER via EMS with complaints of Abdominal pain. ma2 10:32 Onset: The symptoms/episode began/occurred gradually, 2 day(s) ago. Associated signs ma2 and symptoms: Pertinent negatives: blood in stools, constipation, fever, headache, shortness of breath, vomiting. Severity of pain: At its worst the pain was mild in the emergency department the pain is unchanged. The patient has not experienced similar symptoms in the past. Historical: - Allergies: 10:31 Cipro; cb5 - Home Meds: 10:31 aspirin 81 mg Oral chew [Active]; cb5 - Immunization history:: Adult Immunizations up to date, Adult Immunizations up to date, Client reports having NOT received the Covid vaccine. The patient has Lupus and cannot take the vaccination. - Social history:: Smoking status: Patient denies any tobacco usage or history of. Patient/guardian denies using alcohol, street drugs, The patient lives with family. - Family history:: not pertinent. ROS: 10:32 Constitutional: Negative for fever, chills, and weight loss. ma2 10:32 All other systems are negative. Exam: 10:32 Constitutional: This is a well developed, well nourished patient who is awake, alert, ma2 and in no acute distress. Head/Face: Normocephalic, atraumatic. Eyes: Pupils equal round and reactive to light, extra-ocular motions intact. Lids and lashes normal. Conjunctiva and sclera are non-icteric and not injected. Cornea within normal limits. Periorbital areas with no swelling, redness, or edema. ENT: Nares patent. No nasal discharge, no septal abnormalities noted. Tympanic membranes are normal and external auditory canals are clear. Oropharynx with no redness, swelling, or masses, exudates, or evidence of obstruction, uvula midline. Mucous membranes moist. Neck: Trachea midline, no thyromegaly or masses palpated, and no cervical lymphadenopathy. Supple, full range of motion without nuchal rigidity, or vertebral point tenderness. No Meningismus. Chest/axilla: Normal chest wall appearance and motion. Nontender with no deformity. No lesions are appreciated. Cardiovascular: Regular rate and rhythm with a normal S1 and S2. No gallops, murmurs, or rubs. Normal PMI, no JVD. No pulse deficits. Respiratory: Lungs have equal breath sounds bilaterally, clear to auscultation and percussion. No rales, rhonchi or wheezes noted. No increased work of breathing, no retractions or nasal flaring. Abdomen/GI: Soft, non-tender, with normal bowel sounds. No distension or tympany. No guarding or rebound. No evidence of tenderness throughout. Skin: Warm, dry with normal turgor. Normal color with no rashes, no lesions, and no evidence of cellulitis. MS/ Extremity: Pulses equal, no cyanosis. Neurovascular intact. Full, normal range of motion. Neuro: Awake and alert, GCS 15, oriented to person, place, time, and situation. Cranial nerves II-XII grossly intact. Motor strength 5/5 in all extremities. Sensory grossly intact. Cerebellar exam normal. Normal gait. Vital Signs: 10:10 BP 107 / 71; Pulse 80; Resp 16; Temp 98.6; Pulse Ox 96% ; cb5 10:32 BP 106 / 70; Pulse 74; Resp 16; Temp 98.6; Pulse Ox 99% ; Pain 0/10; cb5 13:02 BP 105 / 60; Pulse 78; Resp 16; Temp 98.6; Pulse Ox 98% ; cb5 16:39 BP 106 / 73; Pulse 80; Resp 16; Temp 98.6; cb5 17:00 BP 106 / 61; Pulse 80; Resp 16; Pulse Ox 98% ; cb5 18:00 BP 106 / 81; Pulse 79; Resp 16; Pulse Ox 98% ; Pain 0/10; cb5 19:24 BP 104 / 58; Pulse 72; Resp 19; Temp 97.7; Pulse Ox 100% 0 lpm ; sv1 MDM: 10:13 Patient medically screened. ma2 14:46 Differential diagnosis: appendicitis, gastritis, Hepatitis, Irritable bowel syndrome, ma2 non-specific abd pain, urinary tract infection. Data reviewed: vital signs, nurses notes. Counseling: I had a detailed discussion with the patient and/or guardian regarding: the historical points, exam findings, and any diagnostic results supporting the discharge/admit diagnosis, the presence of at least one elevated blood pressure reading (>120/80) during this emergency department visit, lab results, radiology results, the need for further work-up and treatment in the hospital. ED course: C. difficile test is sent, patient likely has C. difficile CT with pancolitis, however abdomen exam is nontender, no guarding, patient looks well, vital sign looks good. I discussed with Dr. Abbott hospitalist. He recommends vancomycin.. 06/30 10:19 Order name: Basic Metabolic Panel; Complete Time: 18:01 [facility] 06/30 10:19 Order name: CBC with Diff; Complete Time: 13:20 [facility] 06/30 10:19 Order name: Hepatic Function; Complete Time: 18:01 [facility] 06/30 10:19 Order name: Lipase; Complete Time: 18:01 [facility] 06/30 11:56 Order name: Manual Differential; Complete Time: 13:21 [facility] 06/30 12:10 Order name: C.difficile [facility] 06/30 12:59 Order name: Abdomen ; Complete Time: 13:21 [facility] 06/30 13:49 Order name: SARS-COV-2 RT PCR (Document "Date of Onset" if Symptomatic); Complete Time: iw 17:27 06/30 14:23 Order name: CREATININE WHOLE BLOOD; Complete Time: 17:27 [facility] 06/30 10:19 Order name: IV Saline Lock; Complete Time: 11:19 [facility] 06/30 10:19 Order name: Labs collected and sent; Complete Time: 10:45 ma2 Administered Medications: 10:45 Drug: NS 0.9% 1000 ml Route: IV; Rate: 1 bolus; Site: right antecubital; cb5 20:19 Follow up: IV Status: Completed infusion sv1 13:49 CANCELLED (cancell): Flagyl (metroNIDAZOLE) 500 mg 100 ml IVPB at 200 ml/hr once over ma2 30 mins 14:07 Drug: Potassium Chloride 20 mEq Route: IV; Rate: calculated rate; Site: right cb5 antecubital; 16:52 Drug: vancoMYCIN 250 mg Route: PO; cb5 19:28 Follow up: Response: No adverse reaction sv1 Disposition Summary: 06/30/21 14:48 Hospitalization Ordered Hospitalization Status: Inpatient Admission fl2 Provider: Hakan Abbott Location: Telemetry/MedSurg (Inpatient) ma2 Condition: Stable ma2 Problem: new ma2 Symptoms: are unchanged ma2 Bed/Room Type: Standard [facility] Room Assignment: 419(06/30/21 16:42) Diagnosis - Indeterminate colitis - Elevated white count fl2 Forms: - Medication Reconciliation Form ma2 - SBAR form fl2 Signatures: Dispatcher [employer] EDMS Nery Vilchis RN RN Jose Gramajo MD MD ma2 Mg Bay RN RN sv1 Malgorzata Méndez, RN RN cb5 Corrections: (The following items were deleted from the chart) 12:59 10:19 Abdomen Pelvis W Con+CT.RAD.BRZ ordered. EDMS EDMS 13:49 13:22 Flagyl (metroNIDAZOLE) 500 mg 100 ml IVPB at 200 ml/hr once over 30 mins ordered. fl2 ma2 16:42 14:48 ma2 dw 17:34 17:31 PMHx: Back pain; cb5 cb5 17:34 17:31 PMHx: Dementia; cb5 cb5
--- NOTE | 2021-06-30 14:49 | ER ---
Nurse's Notes [facility] Name: Savana Martin Age: 76 yrs Sex: Female : 1945 Arrival Date: 06/30/2021 Time: 10:13 Bed 16 Private MD: Diagnosis: Indeterminate colitis-Elevated white count Presentation: 06/30 10:10 Chief complaint: Patient states: report from EMS, pt has been lethargic the past couple cb5 days with low P.O intake. Coronavirus screen: Client denies travel out of the [place] in the last 14 days. At this time, the client does not indicate any symptoms associated with coronavirus-19. Ebola Screen: Patient negative for fever greater than or equal to 101.5 degrees Fahrenheit, and additional compatible Ebola Virus Disease symptoms Patient denies exposure to infectious person. Initial Sepsis Screen: Does the patient meet any 2 criteria? No. Patient's initial sepsis screen is negative. Does the patient have a suspected source of infection? No. Patient's initial sepsis screen is negative. Risk Assessment: Do you want to hurt yourself or someone else? Patient reports no desire to harm self or others. Onset of symptoms was June 28, 2021. 10:10 Method Of Arrival: EMS: [facility] cb5 10:10 Acuity: MARGARITO 3 cb5 Triage Assessment: 10:32 General: Appears in no apparent distress. slender, Behavior is calm, cooperative, cb5 appropriate for age. Pain: Denies pain. Historical: - Allergies: 10:31 Cipro; cb5 - Home Meds: 10:31 aspirin 81 mg Oral chew [Active]; cb5 - Immunization history:: Adult Immunizations up to date, Adult Immunizations up to date, Client reports having NOT received the Covid vaccine. The patient has Lupus and cannot take the vaccination. - Social history:: Smoking status: Patient denies any tobacco usage or history of. Patient/guardian denies using alcohol, street drugs, The patient lives with family. - Family history:: not pertinent. Screenin:37 Abuse screen: Denies threats or abuse. Denies injuries from another. Nutritional cb5 screening: No deficits noted. reports of decreased P.O. intake last 24 hours. Tuberculosis screening: No symptoms or risk factors identified. Fall Risk Mental Status- Overestimates/Forgets Limitations (15 pts.). Assessment: 10:30 General: Appears in no apparent distress. comfortable, slender, well groomed, well cb5 nourished, Behavior is calm, cooperative, appropriate for age. Pain: Denies pain. Neuro: No deficits noted. Cardiovascular: No deficits noted. Respiratory: No deficits noted. GI: Pt presents with dementia, EMS reported patient has had low P.O. intake the past two days per senior living, upon assessment of abd no s/s of pain, no grimacing or frowning noted from patient. : No deficits noted. EENT: No deficits noted. Derm: pt has poor skin turgor, eccymosisi chris arms. skin intact. Musculoskeletal: No deficits noted. 13:41 Reassessment: pt asleep, no distress, safety precautions in effect, side rails up x2, cb5 bed in low position. call light in reach. 15:30 Reassessment: Spoke with pharmacy they are preparing vancomycin P.O. cb5 16:52 Reassessment: received vancomycin 250/5ml PO. cb5 17:30 Reassessment: called repor to nurse Len Rn. cb5 17:40 Reassessment: pts daughter is requesting pt to be transferred to another hospital, cb5 transfer to room 419 on hold at this time. 19:19 General: . tw5 19:22 General: Spoke to the Osmar Cheng. she was informed that [facility] denied transfer. tw5 She stated " I guess go ahead and keep her. She needs to be taken care of. Thank you.". 20:26 Reassessment: REport called to isaak SANCHES. sv1 Vital Signs: 10:10 BP 107 / 71; Pulse 80; Resp 16; Temp 98.6; Pulse Ox 96% ; cb5 10:32 BP 106 / 70; Pulse 74; Resp 16; Temp 98.6; Pulse Ox 99% ; Pain 0/10; cb5 13:02 BP 105 / 60; Pulse 78; Resp 16; Temp 98.6; Pulse Ox 98% ; cb5 16:39 BP 106 / 73; Pulse 80; Resp 16; Temp 98.6; cb5 17:00 BP 106 / 61; Pulse 80; Resp 16; Pulse Ox 98% ; cb5 18:00 BP 106 / 81; Pulse 79; Resp 16; Pulse Ox 98% ; Pain 0/10; cb5 19:24 BP 104 / 58; Pulse 72; Resp 19; Temp 97.7; Pulse Ox 100% 0 lpm ; sv1 ED Course: 10:13 Patient arrived in ED. eb 10:13 Jose Bobby MD is Attending Physician. ma2 10:28 Malgorzata Méndez, RN is Primary Nurse. cb5 10:31 Triage completed. cb5 10:33 Arm band placed on right wrist. cb5 10:37 No provider procedures requiring assistance completed. cb5 10:38 Patient has correct armband on for positive identification. Allergy band placed. Bed in cb5 low position. Call light in reach. Side rails up X2. 10:45 Warm blanket given. environmental monitoring technician on. Pulse ox on. NIBP on. mh5 10:45 Basic Metabolic Panel Sent. mh5 10:45 CBC with Diff Sent. mh5 10:45 Hepatic Function Sent. mh5 10:45 Lipase Sent. mh5 10:46 Initial lab(s) drawn, by nj, sent to lab. mh5 10:46 Missed attempt(s): 20 gauge in left antecubital area. 22 gauge in left forearm. mh5 10:48 Missed attempt(s):. mh5 10:48 Lipase Sent. mh5 10:48 Hepatic Function Sent. mh5 10:48 CBC with Diff Sent. mh5 10:48 Basic Metabolic Panel Sent. mh5 12:41 C.difficile Sent. mh5 12:59 Abdomen In Process Unspecified. EDMS 14:48 Hakan Abbott is Hospitalizing Provider. ma2 15:31 Inserted saline lock: 22 gauge in left hand, using aseptic technique. iw 19:05 Report given to Princess Maldonado cb5 19:24 Patient admitted, IV remains in place. sv1 Administered Medications: 10:45 Drug: NS 0.9% 1000 ml Route: IV; Rate: 1 bolus; Site: right antecubital; cb5 20:19 Follow up: IV Status: Completed infusion sv1 13:49 CANCELLED (cancell): Flagyl (metroNIDAZOLE) 500 mg 100 ml IVPB at 200 ml/hr once over ma2 30 mins 14:07 Drug: Potassium Chloride 20 mEq Route: IV; Rate: calculated rate; Site: right cb5 antecubital; 16:52 Drug: vancoMYCIN 250 mg Route: PO; cb5 19:28 Follow up: Response: No adverse reaction sv1 Outcome: 14:48 Decision to Hospitalize by Provider. ma2 19:24 Admitted to Med/surg via stretcher. sv1 19:24 Condition: stable 19:24 Instructed on the need for admit. 21:05 Patient left the ED. tw5 Signatures: Dispatcher [employer] EDAshleigh Lock RN RN Estela Mcnally [facility] Jose Bobby MD MD ma2 Skylar Wilson Tiffany 5 Mg Bay RN RN sv1 Malgorzata Méndez RN RN cb5 Corrections: (The following items were deleted from the chart) 17:34 17:31 PMHx: Back pain; cb5 cb5 17:34 17:31 PMHx: Dementia; cb5 cb5
--- NOTE | 2021-06-30 14:58 | P.HP ---
Certification for Inpatient Patient admitted to: Inpatient With expected LOS: >2 Midnights Practitioner: I am a practitioner with admitting privileges, knowledge of patient current condition, hospital course, and medical plan of care. Services: Services provided to patient in accordance with Admission requirements found in Title 42 Section 412.3 of the Code of Federal Regulations Patient History Date of Service: 06/30/21 Reason for admission: Abdominal pain History of Present Illness: 76-year-old woman with a history of dementia and hypertension was brought to the emergency department with a complaint of abdominal pain. Patient has dementia and not able to provide any history. She has no idea why she is in the emergency department. No family member to provide history. Work-up in the emergency department with CT abdomen and pelvis demonstrating pancolitis. CBC shows severe leukocytosis. BMP shows potassium of 2.9. Patient tested positive for COVID-19 PCR. C. difficile infection is suspected and stool for C. difficile requested. Patient is admitted for further management. Allergies ciprofloxacin Allergy (Verified 05/04/20 17:07) Itching Home Medications: Aspirin 1 tab PO DAILY 05/04/20 Atenolol [Tenormin] 1 tab PO DAILY 05/04/20 Atorvastatin Calcium [Lipitor] 1 tab PO BEDTIME 05/04/20 Cholecalciferol (Vitamin D3) [Vitamin D3] 1 tab PO BID 05/04/20 Docosahexanoic AC/Epa [Fish Oil 1,000 MG*] 1 tab PO DAILY 05/04/20 Gabapentin 1 cap PO TID 05/04/20 Hydroxychloroquine [Plaquenil*] 1 tab PO DAILY 05/04/20 Levothyroxine [Synthroid*] 1 tab PO DAILY 05/04/20 Memantine HCl [Namenda] 1 tab PO DAILY 05/04/20 Quetiapine Fumarate [Seroquel] 1 tab PO BEDTIME 05/04/20 Venlafaxine HCl [Effexor Xr] 1 tab PO BID 05/04/20 Vitamin E Acid Succinate [Vitamin E] 180 tab PO BID 05/04/20 Smz./Tmp. [Bactrim Ds 800 MG/160 MG] 1 tab PO BID #14 tab 05/07/20 - Past Medical/Surgical History Diabetic: No -: HTn -: Dementia -: back pain -: back surgery - Social History Alcohol use: Yes CD- Drugs: No Caffeine use: Yes Review of Systems is unable to be obtained (Due to dementia) Physical Examination - Physical Exam General: In no apparent distress, Oriented x2, Other (Awake) HEENT: Normocephalic, PERRLA, Mucous membr. moist/pink, Sclerae nonicteric Neck: Supple, JVD not distended Respiratory: Clear to auscultation bilaterally, Normal air movement Cardiovascular: No edema, Regular rate/rhythm, Normal S1 S2, No murmurs Gastrointestinal: Normal bowel sounds, Soft and benign, Non-distended, No tenderness Musculoskeletal: No swelling, No tenderness Integumentary: No rashes, No erythema, No cyanosis Neurological: Normal speech, Normal strength at 5/5 x4 extr Lymphatics: No axilla or inguinal lymphadenopathy - Studies Laboratory Data (last 24 hrs) 06/30/21 10:40: WBC 20.50 H*, Hgb 11.2 L, Hct 33.2 L, Plt Count 238 06/30/21 10:40: Sodium 135 L, Potassium 2.9 L*, BUN 20 H, Creatinine 1.21, Glucose 99 Assessment and Plan - Problems (Diagnosis) (1) Sepsis Current Visit: Yes Status: Acute (2) Colitis Current Visit: Yes Status: Acute (3) Dementia Current Visit: Yes Status: Acute (4) Hyperkalemia Current Visit: Yes Status: Acute - Plan Admit the patient to the medical floor. Start broad-spectrum antibiotics-IV cefepime and Flagyl. Stool for C. difficile is pending. Will cover C. difficile with oral vancomycin. Hydrate with IV normal saline. IV potassium replacement for hypokalemia. Sepsis protocol initiated in the ED. Check lactic acid level. Monitor CBC to follow leukocytosis. Clear liquid diet Collect, validate and reconcile home medications. - Advance Directives Does patient have a Living Will: No Does patient have a Durable POA for Healthcare: No
[2021-06-30] MEDS ORDERED: VANCOMYCIN ORAL SOLN 250 MG/5 ML OSYR PO ONE (16:15)
[2021-06-30 17:28] LABS: ALT/SGPT 29 U/L (12-78); Albumin 1.7 g/dL (3.4-5.0); Alkaline Phosphatase 58 U/L (45-117); Bilirubin Direct < 0.1 mg/dL (0-0.2); Bilirubin Total 0.4 mg/dL (0.2-1.0); Lipase 30 U/L (73-393); Protein, Total 5.6 g/dL (6.4-8.2)
[2021-06-30 17:29] LABS: AST/SGOT 63 U/L (15-37)
[2021-06-30] MEDS ORDERED: ONDANSETRON 4 MG/2 ML VIAL IV PRN (22:36)
[2021-06-30] MEDS ORDERED: NA CHLORIDE 0.9% 500 ML IV ONE (22:36)
[2021-06-30] MEDS ORDERED: ACETAMINOPHEN 500 MG TAB PO PRN (22:36)
[2021-06-30] MEDS: VANCOMYCIN ORAL SOLN 250 MG/5 ML OSYR PO SCH (22:36)
[2021-06-30] MEDS ORDERED: CEFEPIME 1 GM in NA CHLORIDE 0.9% 100 ML IV ONE (23:00)
[2021-06-30] MEDS ORDERED: NA CHLORIDE 0.9% 100 ML ONE (23:24)
[2021-06-30] MEDS ORDERED: CEFEPIME 1 GM/VIAL ONE (23:29)
[2021-06-30] MEDS ORDERED: VANCOMYCIN 500 MG/VIAL ONE (23:32)
[2021-07-01 00:04] VITALS: BMI 30.7
[2021-07-01] MEDS: NA CHLORIDE 0.9% 1,000 ML IV SCH ×2 (00:09→09:00)
[2021-07-01] MEDS: METRONIDAZOLE 500mg IVPB 500 MG/100 ML BAG IV SCH ×4 (00:09→17:27)
[2021-07-01 04:46] LABS: Absolute Lymphocytes (CBC) 1.2 K/uL (0.7-4.9); Lymphocytes % 11.6 % (15.3-44.8); MPV 8.5 fL (7.6-11.3); RBC Red Blood Cell Count 3.46 M/uL (3.86-4.86)
[2021-07-01 04:55] LABS: Albumin 1.4 g/dL (3.4-5.0); Bilirubin Total 0.4 mg/dL (0.2-1.0); Magnesium 1.8 mg/dL (1.8-2.4); Phosphorus 2.7 mg/dL (2.5-4.9)
[2021-07-01 04:56] LABS: Potassium 2.8 mmol/L (3.5-5.1)
[2021-07-01] MEDS: VANCOMYCIN ORAL SOLN 250 MG/5 ML OSYR PO SCH ×4 (05:34→17:25)
[2021-07-01] MEDS: ENOXAPARIN 40 MG/0.4 ML SQ SCH (08:59)
--- NOTE | 2021-07-01 15:43 | P.PN ---
Subjective Date of Service: 07/01/21 Chief Complaint: Abdominal pain Patient with advanced dementia and not able to provide any history. No reported diarrhea. No recorded fever. Blood pressure has been stable. Physical Examination - Vital Signs Temperature: 97.6 F Blood Pressure: 101/60 Pulse: 67 Respirations: 18 Pulse Ox (%): 97 - Physical Exam General: In no apparent distress, Oriented x1, Other (Awake) HEENT: Mucous membr. moist/pink Neck: JVD not distended Respiratory: Clear to auscultation bilaterally, Normal air movement Cardiovascular: No edema, Regular rate/rhythm, Normal S1 S2 Gastrointestinal: Normal bowel sounds, Soft and benign, Non-distended, Tenderness (Mild diffuse tenderness) Musculoskeletal: No swelling Integumentary: No rashes Neurological: Other (No focal motor deficit) - Studies Laboratory Data (last 24 hrs) 06/30/21 10:40: Total Bilirubin 0.4, AST 63 H, ALT 29, Alkaline Phosphatase 58, Lipase 30 L Assessment And Plan - Current Problems (Diagnosis) (1) Sepsis Current Visit: Yes Status: Acute (2) Colitis Current Visit: Yes Status: Acute (3) Dementia Current Visit: Yes Status: Acute (4) Hyperkalemia Current Visit: Yes Status: Acute - Plan Continue IV cefepime and Flagyl. Stool for C. difficile is pending. Patient has not provided a sample yet. Continue oral vancomycin. Continue IV hydration. IV potassium replacement for hypokalemia. Blood cultures not taken in the ED. obtain blood cultures. UA ordered but not done. Leukocytosis resolved. Continue to monitor CBC Clear liquid diet
[2021-07-01] MEDS: NS KCL 20MEQ 20 MEQ/1,000 ML BAG IV SCH (16:00)
[2021-07-01] MEDS ORDERED: NA CHLORIDE 0.9% IV SCH (17:00)
[2021-07-01] MEDS ORDERED: KCL IV SCH (17:00)
[2021-07-02] MEDS: CEFEPIME 1 GM in NA CHLORIDE 0.9% 100 ML IV SCH ×2 (00:30→22:10)
[2021-07-02] MEDS: METRONIDAZOLE 500mg IVPB 500 MG/100 ML BAG IV SCH ×3 (00:32→17:24)
[2021-07-02] MEDS: VANCOMYCIN ORAL SOLN 250 MG/5 ML OSYR PO SCH ×4 (00:33→17:24)
[2021-07-02] MEDS: NS KCL 20MEQ 20 MEQ/1,000 ML BAG IV SCH ×2 (05:40→17:26)
[2021-07-02] MEDS: ENOXAPARIN 40 MG/0.4 ML SQ SCH (09:25)
--- NOTE | 2021-07-02 14:36 | P.PN ---
Subjective Date of Service: 07/02/21 Chief Complaint: Abdominal pain Nursing staff report patient had episodes of diarrhea last night. She denies abdominal pain at the moment. No recorded fever. Physical Examination - Vital Signs Temperature: 97.0 F Blood Pressure: 109/56 Pulse: 67 Respirations: 14 Pulse Ox (%): 97 - Physical Exam General: In no apparent distress, Other (Awake) HEENT: Mucous membr. moist/pink Neck: JVD not distended Respiratory: Clear to auscultation bilaterally, Normal air movement Cardiovascular: No edema, Regular rate/rhythm, Normal S1 S2 Gastrointestinal: Soft and benign, Non-distended, No tenderness Musculoskeletal: No swelling Integumentary: No rashes Neurological: Normal speech, Normal strength at 5/5 x4 extr Assessment And Plan - Current Problems (Diagnosis) (1) Sepsis Current Visit: Yes Status: Acute (2) Colitis Current Visit: Yes Status: Acute (3) Dementia Current Visit: Yes Status: Acute (4) Hyperkalemia Current Visit: Yes Status: Acute - Plan Continue IV cefepime and Flagyl. Stool for C. difficile is pending. Continue oral vancomycin for possible C. difficile. Continue IV hydration. Monitor and correct electrolyte as needed. Blood culture is pending. Leukocytosis resolved. Continue to monitor CBC Clear liquid diet. PT.
[2021-07-02 16:22] LABS: Potassium 3.4 mmol/L (3.5-5.1)
[2021-07-03] MEDS: VANCOMYCIN ORAL SOLN 250 MG/5 ML OSYR PO SCH ×3 (00:23→12:49)
[2021-07-03] MEDS: METRONIDAZOLE 500mg IVPB 500 MG/100 ML BAG IV SCH ×3 (00:23→16:45)
[2021-07-03] MEDS: NS KCL 20MEQ 20 MEQ/1,000 ML BAG IV SCH (06:22)
[2021-07-03 08:16] LABS: Absolute Lymphocytes (CBC) 1.1 K/uL (0.7-4.9); Hematocrit 29.2 % (36.0-45.0); Lymphocytes % 24.9 % (15.3-44.8); MPV 7.6 fL (7.6-11.3); RBC Red Blood Cell Count 3.36 M/uL (3.86-4.86)
[2021-07-03 08:28] LABS: Potassium 3.2 mmol/L (3.5-5.1)
[2021-07-03] MEDS: ENOXAPARIN 40 MG/0.4 ML SQ SCH ×2 (09:00→14:51)
[2021-07-03 09:05] LABS: C.diff Antigen/Toxin Ag neg : Tox neg (NEG : NEG)
--- NOTE | 2021-07-03 14:19 | P.PN ---
Subjective Date of Service: 07/03/21 Chief Complaint: Abdominal pain Patient reports only 1 episode of diarrhea this morning She denies abdominal pain at the moment. No recorded fever. She has been tolerating the clear liquid diet. Physical Examination - Vital Signs Temperature: 97.4 F Blood Pressure: 159/78 Pulse: 85 Respirations: 18 Pulse Ox (%): 96 - Physical Exam General: Alert, In no apparent distress HEENT: Mucous membr. moist/pink Neck: JVD not distended Respiratory: Clear to auscultation bilaterally, Normal air movement Cardiovascular: No edema, Regular rate/rhythm, Normal S1 S2 Gastrointestinal: Soft and benign, Non-distended, No tenderness Musculoskeletal: No swelling Integumentary: No rashes Neurological: Other (No focal motor deficit.) Assessment And Plan - Current Problems (Diagnosis) (1) Sepsis Current Visit: Yes Status: Acute (2) Colitis Current Visit: Yes Status: Acute (3) Dementia Current Visit: Yes Status: Acute (4) Hyperkalemia Current Visit: Yes Status: Acute - Plan Sepsis resolved. Blood cultures: No growth to date. Stool is negative for C. difficile. Continue antibiotics Discontinue oral vancomycin for possible C. difficile. Advance diet. Discontinue IV fluid. Monitor and correct electrolyte as needed. Continue to monitor CBC. PT.
[2021-07-03] MEDS ORDERED: POTASSIUM CL SA 10 MEQ TAB PO ONE (14:20)
[2021-07-03] MEDS: LEVOTHYROXINE SOD 0.075 MG TAB PO SCH (14:50)
[2021-07-03] MEDS: MEMANTINE HCL 10 MG TABLET PO SCH (14:50)
[2021-07-03] MEDS: GABAPENTIN 300 MG CAP PO SCH (14:50)
[2021-07-03] MEDS: HYDROXYCHLOROQUINE 200MG TAB PO SCH ×2 (16:26→16:27)
[2021-07-03] MEDS ORDERED: NA CHLORIDE 0.9% 100 ML ONE (21:06)
[2021-07-03] MEDS: ATORVASTATIN 80 MG TAB PO SCH (21:26)
[2021-07-03] MEDS: CEFEPIME 1 GM in NA CHLORIDE 0.9% 100 ML IV SCH (21:41)
[2021-07-04] MEDS: METRONIDAZOLE 500mg IVPB 500 MG/100 ML BAG IV SCH ×3 (02:19→17:20)
[2021-07-04] MEDS: GABAPENTIN 300 MG CAP PO SCH ×3 (09:15→21:00)
[2021-07-04] MEDS: VENLAFAXINE HCL XR 75 MG CAP PO SCH (09:15)
[2021-07-04] MEDS: CEFEPIME 1 GM in NA CHLORIDE 0.9% 100 ML IV SCH (09:56)
[2021-07-04 11:53] LABS: Urine Appearance TURBID (Clear); Urine Bilirubin NEGATIVE (Negative); Urine Blood NEGATIVE (Negative); Urine Color YELLOW (Yellow); Urine Glucose NEGATIVE (Negative); Urine Protein NEGATIVE (Negative); Urine Urobilinogen 0.2 mg/dL (0.2-1.0)
[2021-07-04 12:28] LABS: Urine Bacteria <20 /HPF (<20); Urine Mucus 1+ /HPF (NONE SEEN); Urine RBC <5 /HPF (NONE SEEN)
[2021-07-04 12:29] LABS: Urine Yeast FEW (NONE SEEN)
--- NOTE | 2021-07-04 17:55 | P.PN ---
Subjective Date of Service: 07/04/21 Chief Complaint: Abdominal pain No diarrhea reported since yesterday She denies abdominal pain. She reports generalized weakness. Physical Examination - Vital Signs Temperature: 97.3 F Blood Pressure: 124/76 Pulse: 74 Respirations: 18 Pulse Ox (%): 97 - Physical Exam General: Alert, In no apparent distress HEENT: Mucous membr. moist/pink Respiratory: Clear to auscultation bilaterally, Normal air movement Cardiovascular: No edema, Regular rate/rhythm, Normal S1 S2 Gastrointestinal: Soft and benign, Non-distended, No tenderness Musculoskeletal: No swelling Integumentary: No rashes Neurological: Other (No focal motor deficit) Assessment And Plan - Current Problems (Diagnosis) (1) Sepsis Current Visit: Yes Status: Acute (2) Colitis Current Visit: Yes Status: Acute (3) Dementia Current Visit: Yes Status: Acute (4) Hypokalemia Current Visit: Yes Status: Acute - Plan Sepsis resolved. Blood cultures: No growth to date. Stool is negative for C. difficile. Discontinue antibiotics. Discontinue oral vancomycin for possible C. difficile. Advance diet as tolerated. Monitor and correct electrolyte as needed. Continue to monitor CBC. Continue PT. Monitor and correct electrolytes as needed. Anticipating disposition to skilled rehab.
[2021-07-04] MEDS: ATORVASTATIN 80 MG TAB PO SCH (21:00)
--- NOTE | 2021-07-05 06:35 | P.PN ---
Date of Service: 07/05/21
[2021-07-05] MEDS: MEMANTINE HCL 10 MG TABLET PO SCH (08:53)
[2021-07-05] MEDS: VENLAFAXINE HCL XR 75 MG CAP PO SCH (08:53)
[2021-07-05] MEDS: HYDROXYCHLOROQUINE 200MG TAB PO SCH (08:53)
[2021-07-05] MEDS: ENOXAPARIN 40 MG/0.4 ML SQ SCH (08:53)
[2021-07-05] MEDS: GABAPENTIN 300 MG CAP PO SCH ×2 (08:53→13:55)
[2021-07-05] MEDS: LEVOTHYROXINE SOD 0.075 MG TAB PO SCH (08:53)
[2021-07-05 10:57] VITALS: O2SAT 100
[2021-07-05 17:46] VITALS: BP 120/62; TEMP 97
--- NOTE | 2021-07-05 20:46 | P.DS ---
Admission Date: 06/30/21 Discharge Date: 07/05/21 Disposition: TRANSFER TO LONGTERM Discharge Condition: GOOD Reason for Admission: Abdominal pain Procedures: CT Abd/pelvis (06/30): FINDINGS: Lower chest: Multi-vessel coronary artery disease. Small pericardial effusion. Small fat containing left-sided diaphragmatic hernia. Dependent atelectasis and/or aspiration. Liver: No acute abnormality or suspicious lesions. Biliary: No biliary ductal dilatation. Stomach: No significant focal abnormality. Duodenum: Duodenal diverticulum Pancreas: No significant abnormality. Spleen: No significant abnormality. Adrenal: No suspicious lesions. Kidney/ureter: No hydronephrosis. No renal calculi. Retroperitoneum: No retroperitoneal adenopathy. Vascular: Atherosclerosis Bowel: Moderate diffuse pancolonic wall thickening and mesenteric edema. Normal appendix. No bowel obstruction.. Peritoneum: No ascites or free air. Bladder: Grossly unremarkable. Reproductive: No adnexal masses. Hysterectomy. Bones: No acute fracture. Other: n/a IMPRESSION: Pancolitis with differential to include infectious, inflammatory, and less likely ischemic etiologies. Problem List Sepsis secondary to pancolitis of unclear etiology, possibly COVID COVID-19+ Hypokalemia Dementia Brief History of Present Illness: 76-year-old woman with a history of dementia and hypertension was brought to the emergency department with a complaint of abdominal pain. Patient has dementia and not able to provide any history. She has no idea why she is in the emergency department. No family member to provide history. Work-up in the emergency department with CT abdomen and pelvis demonstrating pancolitis. CBC shows severe leukocytosis. BMP shows potassium of 2.9. Patient tested positive for COVID-19 PCR. C. difficile infection is suspected and stool for C. difficile requested. Hospital Course: Patient was empirically treated with IV antibiotics and PO vancomycin for pancolitis of unknown etiology. Cultures remained negative, C.diff was negative. She had quick improvement of her symptoms and antibiotics were discontinued after ~5 days. She continued with improvement and remained afebrile for >24hrs off antibiotics. Discharged back to [facility]. Vital Signs/Physical Exam: Temp Pulse Resp BP Pulse Ox 97.0 F 68 18 120/62 97 07/05/21 16:00 07/05/21 16:00 07/05/21 16:00 07/05/21 16:00 07/05/21 16:00 General: Alert, In no apparent distress, Oriented x2 HEENT: Sclerae nonicteric Respiratory: Clear to auscultation bilaterally, Normal air movement Cardiovascular: No edema, Regular rate/rhythm Gastrointestinal: Soft and benign, Non-distended, No tenderness Musculoskeletal: No tenderness Neurological: Normal speech, Normal affect, Dementia Laboratory Data at Discharge: WBC Cancelled 07/05/21 05:00 Hgb Cancelled 07/05/21 05:00 Hct Cancelled 07/05/21 05:00 Plt Count Cancelled 07/05/21 05:00 Sodium Cancelled 07/05/21 05:00 Potassium Cancelled 07/05/21 05:00 BUN Cancelled 07/05/21 05:00 Creatinine Cancelled 07/05/21 05:00 Glucose Cancelled 07/05/21 05:00 Phosphorus 2.7 mg/dL (2.5-4.9) 07/01/21 03:27 Magnesium Cancelled 07/05/21 05:00 Total Bilirubin 0.4 mg/dL (0.2-1.0) 07/01/21 03:27 AST 46 U/L (15-37) H 07/01/21 03:27 ALT 27 U/L (12-78) 07/01/21 03:27 Alkaline Phosphatase 54 U/L (45-117) 07/01/21 03:27 Lipase 30 U/L (73-393) L 06/30/21 10:40 Home Medications: RX: Aspirin 1 tab PO DAILY 05/04/20 RX: Atenolol [Tenormin] 1 tab PO DAILY 05/04/20 RX: Atorvastatin Calcium [Lipitor] 1 tab PO BEDTIME 05/04/20 RX: Cholecalciferol (Vitamin D3) [Vitamin D3] 1 tab PO BID 05/04/20 RX: Docosahexanoic AC/Epa [Fish Oil 1,000 MG*] 1 tab PO DAILY 05/04/20 RX: Gabapentin 1 cap PO TID 05/04/20 RX: Hydroxychloroquine [Plaquenil*] 1 tab PO DAILY 05/04/20 RX: Levothyroxine [Synthroid*] 1 tab PO DAILY 05/04/20 RX: Memantine HCl [Namenda] 1 tab PO DAILY 05/04/20 RX: Quetiapine Fumarate [Seroquel] 1 tab PO BEDTIME 05/04/20 RX: Venlafaxine HCl [Effexor Xr] 1 tab PO BID 05/04/20 RX: Vitamin E Acid Succinate [Vitamin E] 180 tab PO BID 05/04/20 Physician Discharge Instructions: Found to have pancolitis. Empirically treated with antibiotics (ciprofloxacin, flagyl), and vancomycin for possible C. diff. You C.diff test was negative. You had quick improvement / resolution of your symptoms. Antibiotics were discontinued and you continued to do well, remained afebrile for >24hrs. Deemed stable for discharge back to SNF. Continue home medications as previously prescribed. No changes. Diet: soft /chop Followup: NONE,NONE [Primary Care Provider] - Time spent managing pt's care (in minutes): 45
== END 2021-07-05 18:03 | DRG 871 ==
LOC: ER 10:12 → ERHOLD 15:25 → 4TH 20:28
PROVIDERS: ADMIT Internal Medicine; ATTEND Internal Medicine
DX: A41.9 Sepsis, unspecified organism (principal); U07.1 COVID-19; K51.00 Ulcerative (chronic) pancolitis without complications; E87.6 Hypokalemia; F03.90 Unspecified dementia, unspecified severity, without behavioral disturbance, psychotic disturbance, mood disturbance, and anxiety; I10 Essential (primary) hypertension
CPT/HCPCS: 36415; 74176; 80048; 80053; 80076; 81001; 82565; 83605; 83690; 83735; 84100; 85025; 87040; 87086; 87088; 87324; 87449; 94760; 96361; 96374; 97110; 97161; 97530; 99285; J0692; J1650; J3480; J7030; J7040; U0003

== ENCOUNTER 2021-07-09 12:01 | Emergency (ER) | payer OTHER ==
--- OUTSIDE RECORDS SUMMARY | 2021-07-09 12:06 | XMS REPORT | Continuity of Care Document ---
:1945 Author Organization [facility] Address [address] [place] [address] [address] [place] [address] Care Team Providers Name Role Phone DR MICHAEL Attending Clinician Unavailable BREANNE, Attending Clinician Unavailable RAGHAV BENITO Attending Clinician Unavailable DR MICHAEL Admitting Clinician Unavailable DR BREANNE Admitting Clinician Unavailable PARAMJIT DE SOUZA Admitting Clinician Unavailable PANCHO HENSON Admitting Clinician Unavailable Payers Payer Name Policy Type Policy Number Effective Date Expiration Date Kam [facility]ied[facility] [id number] 2019 ALL 00:00:00 [place] [id number] 2020 00:00:00 Problems This patient has no [...] 2021-02-11 2021-02-25 Inpatient C JUAN PABLO RODRIGUEZ [facility] [id number] [place] 04:04:00 16:30:00 [facility] 2021-02-092021-02-11 [facility] [id number] [place] 01:44:00 04:03:00 [facility] 2020-01-29 2020-01-29 Emergency ER [facility] Emergency [id number] [facility] 14:48:00 14:48:00 2020-01-28 2020-01-28 Emergency ER [facility] Emergency [id number] [facility] 17:28:00 17:28:00 Results Test Description Test Time [...] the FDA and the [employer] the [employer] (CAP) are more stringent than those required for this test. Therefore, the result should be interpreted with caution and close attention to other clinical and epidemiological data BLOOD [id number] 22:35:00 Test Item Value Reference Range Interpretation Comments Culture Observations (test NO GROWTH AFTER 5 code = COB1) DAYS B12 [id number] 10:07:00 Test Item Value Reference Range Interpretation Comments VIT B12 (test code = A60) 893.0 pg/mL 180.0-914.0 [id number] 10:07:00 Test Item Value Reference Range Interpretation Comments FOLATE (test code = A75) 18.6 ng/mL 3.1-17.5 H LIPID [id number] 10:07:00 Test Item Value Reference Range Interpretation Comments CHOLESTROL (test code 251 mg/dL 140-200 H = 44A) TRIGLYCERI (test code 114 mg/dL See_Comment [Auto mated message] = 42B) The system AfterSteps generated this result transmitted ref erence range: <=149. T he reference range was not used to int erpret this result as normal/abnormal . HDL (test code = 83D) 78.0 mg/dL 40.0-60.0 H LDL (test code = 34B) 134 mg/dL See_Comment H [Auto mated message] The system AfterSteps generated this result transmitted ref erence range: <=99. Th e reference range was not used to int erpret this result as normal/abnormal . CHL/HDL (test code = 3.2 0.0-3.4 CHR) T4 [id number] 10:01:00 Test Item Value Reference Range Interpretation Comments T4 FREE (test code = A91) 0.90 ng/dL 0.76-1.46 THYROID PANEL/SCREEN (TSH)2021-02-12 09:50:00 Test Item Value Reference Range Interpretation Comments TSH (test code = A57) 10.400 uIU/mL 0.358-3.740 H [id number] 09:49:00 Test Item Value Reference Range Interpretation Comments PREALBUMIN (test code = 08E) 20 mg/dL 18-38 [id number] 09:47:00 Test Item Value Reference Range Interpretation Comments Hb A1C % (test code 4.9 % 3.8-6.4 = HBA) A1C % (test code = HbA1c (% ) A1C) Reference Range Normal <5.7 Prediabetes 5.7-6.4 Diabetic >=6.5 [id number] 09:38:00 Test Item Value Reference Range Interpretation [...] the FDA and the [employer] the [employer] [employer] (CAP) are more stringent than those required for this test. Therefore, the result should be interpreted with caution and close attention to other clinical and epidemiological data URINE [id number] 10:37:00 Test Item Value Reference Range Interpretation [...] S code = ftn) CT HEAD W/O [id number] 12:18:41 [facility] 1945 Sex: FEXAMINATION:CT HEAD [...] MD 02/10/2021 12:18 PM CDT CHEST W/O [id number] 12:16:28[facility] : 1945 [...] Curry Joseph MD 02/10/2021 12:16 PM CDT [id number] METABOLIC PANEL 2021-02-10 08:33:00 Test Item Value [...] normal/abnormal . GFR 50 See_Comment L [Automated AZERBAIJANI (test mL/min/1.73m\S\2 message] The code = GFRAA) [...] MORPH (test code = RBCMOR) NORMAL LACTIC [id number] 07:44:00 Test Item Value Reference Range Interpretation Comments LACTIC ACD (test code = LA) 1.6 mmol/L 0.4-2.0 CT CHEST W/O [id number] 00:06:16 [facility]ENTER[facility] CHUCK WHITTEN : 1945 [...] MD 02/09/2021 12:06 AM CDT HEAD W/O [id number] 00:03:35[facility] : 1945 [...] Derrick Gómez MD 02/09/2021 12:03 AM CDT RPFNDPHT PROTEIN [id number] 22:08:00 Test Item Value Reference Range Interpretation Comments CRP QUANT (test code 5.8 mg/L 0.0-2.9 H = CRPQ) Method Change (test Please note the code = METHOD) change in Method and the reference range [id number] 22:04:00 Test Item Value Reference Range Interpretation Comments FERRITIN (test code = A19) 68.5 ng/mL 8.0-252.0 [id number] 22:02:00 Test Item Value Reference Range Interpretation Comments ACETAMINPH (test code = 94M) <2.0 ug/mL 10.0-30.0 L AMMONIA [id number] 22:01:00 Test Item Value Reference Range Interpretation Comments AMMONIA (test code = 54A) 14 umol/L 11-32 LDH-LACTIC [id number] 22:01:00 Test Item Value Reference Range Interpretation Comments LDH (test code = 33A) 210 IU/L 84-246 LACTIC [id number] 22:01:00 Test Item Value Reference Range Interpretation Comments LACTIC ACD (test code = LA) 3.8 mmol/L 0.4-2.0 H ALCOHOL BLOOD (ETOH)2021-02-08 22:01:00 Test Item Value Reference Range Interpretation Comments ETOH (test code = ETHANOL HALC) The result is to be used only for medical purposes ALCOHOL (test <10 mg/dL See_Comment [Automated me ssage] code = 56A) The system AfterSteps generated this result transmit katherine reference range : <=10. The refer ence range was not u sed to interpret th is result as normal/abnormal . COMPREHENSIVE METABOLIC [id number] 22:01:00 Test Item Value Reference Range Interpretation [...] normal/abnormal . GFR 42 See_Comment L [Automated AZERBAIJANI (test mL/min/1.73m\S\2 message] The code = GFRAA) [...] to interpret this result as normal/abnormal . [id number] 21:57:00 Test Item Value Reference Range Interpretation [...] the FDA and the [employer] [place] [employer] (CAP) are more stringent than those required for this test. Therefore, the result should be interpreted with caution and close attention to other clinical and epidemiological data URINALYSIS WITH [id number] 21:51:00 Test Item Value Reference Range Interpretation [...] code = USPERM) /HPF NONE DRUGS OF [id number] 21:49:00 Test Item Value Reference Range Interpretation [...] = RBCMOR) NORMAL XR CHEST 1 VIEW [id number] 20:55:49 [facility] : 1945 Sex: FEXAMINATION:XR CHEST [...] Surendra Murry MD 02/08/2021 8:55 PM CDT [id number] METABOLIC [id number] 07:01:00 Test Item Value Reference Range Interpretation [...] S NOT APPLICABLE FOR DIALYSIS PATIEN TS. Chief Radiologic Technologist ID - PIAYA LCBC W/PLT COUNT & AUTO [id number] 05:54:00 Test Item Value Reference Range Interpretation [...] (BEAKER) (test code = 2801) BASIC METABOLIC [id number] 06:59:00 Test Item Value Reference Range Interpretation [...] S NOT APPLICABLE FOR DIALYSIS PATIEN TS. Chief Radiologic Technologist ID - NITO MCBC W/PLT COUNT & AUTO [id number] 06:38:00 Test Item Value Reference Range Interpretation [...] 0-1 PERCENT (BEAKER) (test code = 2801) [id number] 14:58:00 Test Item Value Reference Range Interpretation Comments RPR SCREEN (BEAKER) (test code = Nonreactive Nonreactive 420) LIPID [id number] 09:36:00 Test Item Value Reference Range Interpretation [...] Borderline 130-159 High 160-189 Very High >=190 Chief Radiologic Technologist ID - RAKESH CBASIC METABOLIC [id number] 09:36:00 Test Item Value Reference Range Interpretation [...] S NOT APPLICABLE FOR DIALYSIS PATIEN TS. Chief Radiologic Technologist ID - RAKESH CCBC W/PLT COUNT & AUTO [id number] 09:19:00 Test Item Value Reference Range Interpretation [...] PERCENT (BEAKER) (test code = 2801) HEMOGLOBIN [id number] 08:12:00 Test Item Value Reference Range Interpretation Comments HEMOGLOBIN A1C (BEAKER) (test code = 5.0 % 4.3-6.1 368) MR, BRAIN, WITHOUT [id number] 21:54:00Left sided weakness, c/f strokeUnlisted Reason for [...] Durán MDReport Verified Date/Time: 01/29/2020 21:54:29 TROPONIN [id number] 20:02:00 Test Item Value Reference Range Interpretation [...] failure, acidosis, acute neurological disease, and persistent tachyarrhythmia.Chief Radiologic Technologist ID - DBHEMOGLOBIN [id number] 09:51:00 Test Item Value Reference Range Interpretation Comments HEMOGLOBIN A1C (BEAKER) (test code = 5.2 % 4.3-6.1 368) TROPONIN [id number] 04:52:00 Test Item Value Reference Range Interpretation [...] failure, acidosis, acute neurological disease, and persistent tachyarrhythmia.Chief Radiologic Technologist ID - EDASIBASIC METABOLIC PANEL 2020-01-29 04:44:00 [...] S NOT APPLICABLE FOR DIALYSIS PATIEN TS. Chief Radiologic Technologist ID - EDASICBC W/PLT COUNT & AUTO [id number] 04:24:00 Test Item Value Reference Range Interpretation [...] PERCENT (BEAKER) (test code = 2801) TROPONIN [id number] 03:40:00 Test Item Value Reference Range Interpretation [...] failure, acidosis, acute neurological disease, and persistent tachyarrhythmia.Chief Radiologic Technologist ID - EDASITROPONIN [id number] 02:33:00 Test Item Value Reference Range Interpretation [...] failure, acidosis, acute neurological disease, and persistent tachyarrhythmia.Chief Radiologic Technologist ID - EDASISARS-COV2/RT-PCR ([facility])2020-01-29 00:04:00 Test Item Value Reference Range Interpretation Comments SARS-COV2/RT-PCR (test code Negative Not Detected, Negative, = [id number]) See external report for linked test SARS-COV-[address] [facility] (test code = 4070242) Negative results do not preclude SARS-CoV-2 infection [...] of the Act.Fact Sheet for Healthcare Pro viders:https://www.[employer]/Documents/Xpert%20Xpress%20SARS%20CoV-2/Fact%20Sh eets/302-0322%97URKJ-PLU-9%20HEALTHCARE%20PROVIDERS%20FACT%20SHEET.pdfFact Sheet for Healthcare Patients:https://www.[employer]/Documents/Xpert%20Xpress%20SARS%20CoV-2/Fact%20Sheets/302-8451%20SARS-COV -2%20PATIENT%20FACT%20SHEET.pdfPerforming Laboratory:[facility] [place], [place] [address]JB/[id number] 23:50:00 Test Item Value Reference Range Interpretation [...] is2.5-3.5 for patients wiht mechanical heart valves.TROPONIN [id number] 23:42:00 Test Item Value Reference Range Interpretation [...] failure, acidosis, acute neurological disease, and persistent tachyarrhythmia.Chief Radiologic Technologist ID - ASVITAMIN B12 AND FOLATE 2020-01-28 21:32:00 Test Item Value Reference Range Interpretation Comments VITAMIN B12 (LUCIA) (test code = 473 pg/mL 213-816 774) FOLATE (LUCIA) (test code = 362) 9.30 ng/mL >=7.00 Chief Radiologic Technologist ID - RAKESH CTSH/FREE T4 IF [id number] 20:01:00 Test Item Value Reference Range Interpretation Comments THYROID STIMULATING HORMONE 0.644 uIU/mL 0.350-4.940 (LUCIA) (test code = 772) Chief Radiologic Technologist ID - ASTROPONIN [id number] 19:47:00 Test Item Value Reference Range Interpretation [...] failure, acidosis, acute neurological disease, and persistent tachyarrhythmia.Chief Radiologic Technologist ID - BENIPGIANCARLO [id number] 19:40:00 Test Item Value Reference Range Interpretation [...] Borderline 130-159 High 160-189 Very High >=190 Chief Radiologic Technologist ID - ASRAD, CHEST, 1 VIEW, NON [id number] 19:12:00Reason for exam:->c/f mental status changes, r/o [...] acute cardiopulmonary process identified. Signed: Gerardo Flores [facility] Verified Date/Time: 01/28/2020 19:12:50 Reading Location: [facility] C013W Consult Reading Room B-TYPE NATRIURETIC FACTOR (BNP)2020-01-28 19:03:00 Test Item Value Reference Range Interpretation Comments B-TYPE NATRIURETIC PEPTIDE (BEAKER) 199 pg/mL 0-100 H (test code = 700) Chief Radiologic Technologist ID - RAKESH CTROPONIN [id number] 19:02:00 Test Item Value Reference Range Interpretation [...] failure, acidosis, acute neurological disease, and persistent tachyarrhythmia.Chief Radiologic Technologist ID - RAKESH CURINALYSIS W/ REFLEX URINE [id number] 19:01:00 Test Item Value Reference Range Interpretation [...] = 516) YEAST (BEAKER) (test code = 9265) Occasional SOURCE(BEAKER) (test code = 5124) Chief Radiologic Technologist ID - [auto]Chief Radiologic Technologist ID - techBASIC METABOLIC [id number] 19:00:00 Test Item Value Reference Range Interpretation [...] 1092) DATA TO CALCULA TE ESTIMATED GFR. Chief Radiologic Technologist ID - RAKESH CPROTHROMBIN TIME/[id number] 18:42:00 Test Item Value Reference Range Interpretation [...] INR is2.5-3.5 for patients wiht mechanical heart valves.[id number] 18:42:00 Test Item Value Reference Range Interpretation Comments PARTIAL THROMBOPLASTIN TIME 22.4 seconds 22.5-36.0 L (BEAKER) (test code = 760) CT, CTANGIO [id number] 18:37:00Reason for exam:->Symptoms onset less than 6 [...] MDReport Verified Date/Time: 01/28/2020 18:37:33 CT, CAROTID, [id number] 18:37:00Reason for exam:- >Symptoms onset less than [...] occlusion or high-grade focal stenosis within the [place].2.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 Signed: Irladna Liriano [facility] Verified Date/Time: 01/28/2020 18:37:33 CT, CEREBRAL PERFUSION [id number] 18:37:00Reason for exam:->Symptom onset less than 6 [...] occlusion or high-grade focal stenosis within the [place].2.Moderate focal stenosis of the right vertebral origin.3.No significant stenosis of the carotid arteries per NASCET criteria.4.Symmetric perfusion indices. Signed: Irlanda Lirianoepjovany Verified Date/Time: 01/28/2020 18:37:33 CBC W/PLT COUNT & AUTO [id number] 18:35:00 Test Item Value Reference Range Interpretation [...] (BEAKER) (test code = 2801) CT, BRAIN/STROKE [id number] 17:59:00Reason for exam:->cvaWhat is the patient's sedation [...]
[2021-07-09 12:46] LABS: Absolute Lymphocytes (CBC) 1.7 K/uL (0.7-4.9); Hematocrit 28.5 % (36.0-45.0); Lymphocytes % 38.7 % (15.3-44.8); MPV 7.2 fL (7.6-11.3); RBC Red Blood Cell Count 3.26 M/uL (3.86-4.86)
--- NOTE | 2021-07-09 13:00 | RAD REPORT ---
EXAM DESCRIPTION: Deya Single View07/09/2021 12:50 pm CLINICAL HISTORY: cough COMPARISON: 2019 FINDINGS: The lungs are mildly to moderately hyperaerated. The lungs appear clear of acute infiltrate. The heart is normal size IMPRESSION: No acute abnormalities displayed
[2021-07-09 13:02] LABS: Potassium 2.7 mmol/L (3.5-5.1)
[2021-07-09 13:19] LABS: Blood Morphology Comment NOT SEEN (NOT SEEN); Platelet Estimate ADEQ
[2021-07-09] MEDS ORDERED: KCL 20 MEQ/100 mL IVPB 100 ML IV ONE (13:29)
[2021-07-09] MEDS ORDERED: NA CHLORIDE 0.9% 250 ML ONE (13:29)
--- NOTE | 2021-07-09 13:47 | ER ---
Nurse's Notes [facility] Name: Savana Martin Age: 76 yrs Sex: Female : 1945 Arrival Date: 07/09/2021 Time: 12:02 Bed 20 Private MD: Diagnosis: Hypokalemia;Encounter for general adult medical examination without abnormal findings Presentation: 07/09 12:03 Chief complaint: EMS states: "CREEKSIDE STAFF SAID SHE WAS SHORT OF BREATH. PT SAYS bp SHE'S FINE, NO COMPLAINTS". Coronavirus screen: At this time, the client does not indicate any symptoms associated with coronavirus-19. Ebola Screen: No symptoms or risks identified at this time. Initial Sepsis Screen: Does the patient meet any 2 criteria? No. Patient's initial sepsis screen is negative. Does the patient have a suspected source of infection? No. Patient's initial sepsis screen is negative. Risk Assessment: Do you want to hurt yourself or someone else? Patient reports no desire to harm self or others. Onset of symptoms is unknown. 12:03 Method Of Arrival: EMS: [facility] bp 12:03 Acuity: MARGARITO 4 bp Triage Assessment: 12:05 General: Appears in no apparent distress. comfortable, Behavior is cooperative, bp appropriate for age, anxious. Pain: Denies pain. EENT: No deficits noted. Neuro: Level of Consciousness is awake, alert, obeys commands, Oriented to person, place. Cardiovascular: No deficits noted. Respiratory: No deficits noted. GI: No signs and/or symptoms were reported involving the gastrointestinal system. : No signs and/or symptoms were reported regarding the genitourinary system. Derm: No deficits noted. Musculoskeletal: No deficits noted. Historical: - Allergies: 12:05 Cipro; bp - Home Meds: 12:05 aspirin 81 mg Oral chew 1 tab once daily [Active]; amlodipine 5 mg tab 1 tab once daily bp [Active]; Eliquis 2.5 mg oral tab 1 tab 2 times per day [Active]; gabapentin 100 mg oral cap 1 cap twice a day [Active]; hydroxychloroquine 200 mg oral tab 1 tab once daily [Active]; levothyroxine 75 mcg tab 1 tab once daily [Active]; memantine 10 mg oral tab 1 tab 2 times per day [Active]; venlafaxine 150 mg oral cp24 1 cap once daily [Active]; - PMHx: 12:05 Hypertensive disorder; Hypothyroidism; Dementia; Deep vein thrombosis; Chronic bp obstructive lung disease; - Immunization history:: Adult Immunizations up to date. - Social history:: Smoking status: Patient denies any tobacco usage or history of. - Family history:: not pertinent. - Hospitalizations: : The patient was recently seen at [facility]. Screenin:05 Abuse screen: Denies threats or abuse. Denies injuries from another. Nutritional bp screening: No deficits noted. Tuberculosis screening: No symptoms or risk factors identified. Fall Risk None identified. Assessment: 12:05 General: SEE TRIAGE NOTE. bp 14:00 Reassessment: PT D/C IN PROCESS. CLINICALS FAXED TO [place] FOR APPROVAL TO RETURN. bp Vital Signs: 12:03 BP 110 / 98; Pulse 78; Resp 16; Temp 98.6; Pulse Ox 100% ; bp 13:00 BP 106 / 94; Pulse 74; Resp 16; Pulse Ox 100% ; bp 14:00 BP 116 / 59; Pulse 70; Resp 15; Pulse Ox 99% ; bp ED Course: 12:02 Patient arrived in ED. bp 12:03 Milton Humphries MD is Attending Physician. rn 12:03 Patient has correct armband on for positive identification. Bed in low position. Call 5 light in reach. Side rails up X2. Warm blanket given. Pulse ox on. NIBP on. 12:05 Triage completed. bp 12:05 Arm band placed on. bp 12:17 Alireza Tinoco, RN is Primary Nurse. bp 12:33 Basic Metabolic Panel Sent. mh5 12:33 Procalcitonin Sent. 5 12:33 CBC with Diff Sent. 5 12:33 Lab(s) recollected, by me, sent to lab. Inserted saline lock: 22 gauge in right 5 antecubital area, using aseptic technique. Blood collected. 12:50 XRAY Chest (1 view) In Process Unspecified. EDMS Administered Medications: 14:07 Not Given (Other Intervention Used): Potassium Chloride 10 mEq IV at calculated rate bp once; administer over 1-2 hours 14:08 Drug: Potassium Effervescent Tablet 50 mEq Route: PO; bp Outcome: 13:46 Discharge ordered by . rn 15:33 Patient left the ED. ss Signatures: Dispatcher [employer] EDMilton Zavala MD MD rn Smirch, Shelby, RN RN ss Martinez, [facility] Alireza Tinoco RN RN bp
--- NOTE | 2021-07-09 13:47 | EDPHYS ---
Physician Documentation [facility] Name: Savana Martin Age: 76 yrs Sex: Female : 1945 Arrival Date: 07/09/2021 Time: 12:02 Bed 20 Private MD: ED Physician Milton Humphries HPI: 07/09 12:30 This 76 yrs old Female presents to ER via EMS with complaints of ASYMPTOMATIC. rn 12:30 Per EMS report, correction states patient having trouble breathing. Upon EMS arrival rn patient had no complaints and had normal vital signs, correction insisted that she be transported. Patient does not know why she is here and denies any symptoms. Reports feels a little cold in the room and requests a blanket. Denies shortness of breath. Denies abdominal pain/vomiting/diarrhea. Denies chest pain.. Recently admitted for colitis 2 weeks ago and diagnosed with COVID 3 weeks ago. Onset: The symptoms/episode began/occurred at an unknown time. Severity of symptoms:. It is unknown whether or not the patient has had similar symptoms in the past. The patient has been recently been admitted at [facility]. Historical: - Allergies: 12:05 Cipro; bp - Home Meds: 12:05 aspirin 81 mg Oral chew 1 tab once daily [Active]; amlodipine 5 mg tab 1 tab once daily bp [Active]; Eliquis 2.5 mg oral tab 1 tab 2 times per day [Active]; gabapentin 100 mg oral cap 1 cap twice a day [Active]; hydroxychloroquine 200 mg oral tab 1 tab once daily [Active]; levothyroxine 75 mcg tab 1 tab once daily [Active]; memantine 10 mg oral tab 1 tab 2 times per day [Active]; venlafaxine 150 mg oral cp24 1 cap once daily [Active]; - PMHx: 12:05 Hypertensive disorder; Hypothyroidism; Dementia; Deep vein thrombosis; Chronic bp obstructive lung disease; - Immunization history:: Adult Immunizations up to date. - Social history:: Smoking status: Patient denies any tobacco usage or history of. - Family history:: not pertinent. - Hospitalizations: : The patient was recently seen at [facility]. ROS: 12:30 Constitutional: Negative for fever, chills, and weight loss, Eyes: Negative for injury, rn pain, redness, and discharge, ENT: Negative for injury, pain, and discharge, Neck: Negative for injury, pain, and swelling, Cardiovascular: Negative for chest pain, palpitations, and edema, Respiratory: Negative for shortness of breath, cough, wheezing, and pleuritic chest pain, Abdomen/GI: Negative for abdominal pain, nausea, vomiting, diarrhea, and constipation, Back: Negative for injury and pain, : Negative for injury, bleeding, discharge, and swelling, MS/Extremity: Negative for injury and deformity, Skin: Negative for injury, rash, and discoloration, Neuro: Negative for headache, weakness, numbness, tingling, and seizure. Exam: 12:30 Constitutional: This is a well developed, well nourished patient who is awake, alert, rn and in no acute distress. Head/Face: Normocephalic, atraumatic. Eyes: Periorbital areas with no swelling, redness, or edema. Cardiovascular: Regular rate and rhythm. No pulse deficits. Respiratory: Mild cough noted during exam. No increased work of breathing, no retractions or nasal flaring. Abdomen/GI: Soft, nontender, No masses Skin: Warm, dry MS/ Extremity: Pulses equal, no cyanosis. Neuro: Awake and alert, GCS 15, oriented to person, place, not time. Cranial nerves II-XII grossly intact. Motor strength 4/5 in all extremities. Sensory grossly intact. Vital Signs: 12:03 BP 110 / 98; Pulse 78; Resp 16; Temp 98.6; Pulse Ox 100% ; bp 13:00 BP 106 / 94; Pulse 74; Resp 16; Pulse Ox 100% ; bp 14:00 BP 116 / 59; Pulse 70; Resp 15; Pulse Ox 99% ; bp MDM: 12:03 Patient medically screened. rn 13:36 Differential Diagnosis cough, COPD, dehydration, electrolyte disorder. Data reviewed: rn vital signs, nurses notes, lab test result(s), radiologic studies, and as a result, I will discharge patient. Counseling: I had a detailed discussion with the patient and/or guardian regarding: the historical points, exam findings, and any diagnostic results supporting the discharge/admit diagnosis, lab results, radiology results, the need for outpatient follow up, to return to the emergency department if symptoms worsen or persist or if there are any questions or concerns that arise at home. Special discussion: I discussed with the patient/guardian in detail that at this point there is no indication for admission to the hospital. It is understood, however, that if the symptoms persist or worsen the patient needs to return immediately for re-evaluation. ED course: No acute findings on lab work/chest x-ray. No oxygen requirement. Afebrile. Will discharge home to correction as patient still without any complaints.. 07/09 12:08 Order name: CBC with Diff; Complete Time: 13:36 rn 07/09 12:08 Order name: Basic Metabolic Panel; Complete Time: 13:04 rn 07/09 12:08 Order name: XRAY Chest (1 view); Complete Time: 13:01 rn 07/09 12:08 Order name: Procalcitonin; Complete Time: 13:36 rn 07/09 13:19 Order name: Manual Differential; Complete Time: 13:36 EDMS 07/09 12:08 Order name: IV Start; Complete Time: 12:34 rn Administered Medications: 14:07 Not Given (Other Intervention Used): Potassium Chloride 10 mEq IV at calculated rate bp once; administer over 1-2 hours 14:08 Drug: Potassium Effervescent Tablet 50 mEq Route: PO; bp Disposition Summary: 07/09/21 13:46 Discharge Ordered Location: Home rn Problem: new rn Symptoms: have improved rn Condition: Stable rn Diagnosis - Hypokalemia rn - Encounter for general adult medical examination without abnormal findings rn Followup: rn - With: Private Physician - When: As needed - Reason: Recheck today's complaints, Re-evaluation by your physician Discharge Instructions: - Discharge Summary Sheet rn - Health Maintenance, Female rn - Hypokalemia rn - Preventive Care 65 Years and Older, Female rn Forms: - Medication Reconciliation Form rn - Thank You Letter rn - 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
[2021-07-09] MEDS ORDERED: POTASSIUM 25 MEQ EFFERV TAB ONE (14:07)
[2021-07-09 15:39] VITALS: TEMP 98.6
[2021-07-09 15:41] VITALS: BP 116/59; O2SAT 99
== END 2021-07-09 15:33 | disposition home or self-care (01) ==
LOC: ER 12:01
DX: E87.6 Hypokalemia (principal); I10 Essential (primary) hypertension; E03.9 Hypothyroidism, unspecified; F03.90 Unspecified dementia, unspecified severity, without behavioral disturbance, psychotic disturbance, mood disturbance, and anxiety; J44.9 Chronic obstructive pulmonary disease, unspecified; Z79.82 Long term (current) use of aspirin; Z79.01 Long term (current) use of anticoagulants; Z88.1 Allergy status to other antibiotic agents
CPT/HCPCS: 85025; 80048; 36415; 84145; 71045; 99284; J3480; J7050

== ENCOUNTER 2021-12-21 13:29 | Inpatient (IN) | payer OTHER ==
--- NOTE | 2021-12-21 14:38 | RAD REPORT ---
EXAM DESCRIPTION: CT - Head Brain Wo Cont - 12/21/2021 2:29 pm CLINICAL HISTORY: Mental status change, unknown cause Headache, drowsiness COMPARISON: Head Brain Wo Cont dated 11/29/2021; Head Brain Wo Cont dated 05/04/2020 TECHNIQUE: All CT scans are performed using dose optimization technique as appropriate and may inclu de automated exposure control or mA/KV adjustment according to patient size. FINDINGS: No intracranial hemorrhage, hydrocephalus or extra-axial fluid collection.Moderate general ized brain atrophy is present with moderate periventricular and deep white matter chronic microvascul ar ischemic changes.No areas of brain edema or evidence of midline shift. The paranasal sinuses and mastoids are clear. The calvarium is intact. IMPRESSION: No acute intracranial abnormality.
--- NOTE | 2021-12-21 14:55 | RAD REPORT ---
EXAM DESCRIPTION: RAD - Chest Single View - 12/21/2021 2:45 pm CLINICAL HISTORY: AMS Chest pain. COMPARISON: Chest Single View dated 11/29/2021; Chest Single View dated 07/09/2021; Chest Single View dated 05/04/2020; Abdomen Acute Series dated 01/02/2020 FINDINGS: Portable technique limits examination quality. The lungs are grossly clear. The heart is normal in size. No displaced fractures. IMPRESSION: No acute intrathoracic process suspected.
[2021-12-21 15:59] LABS: Absolute Lymphocytes (CBC) 2.4 K/uL (0.7-4.9); Hematocrit 40.5 % (36.0-45.0); MCV 94.3 fL (80-100); MPV 7.9 fL (7.6-11.3); RBC Red Blood Cell Count 4.29 M/uL (3.86-4.86)
[2021-12-21 16:15] LABS: Bilirubin Total 0.5 mg/dL (0.2-1.0); Potassium 4.2 mmol/L (3.5-5.1); Protein, Total 9.4 g/dL (6.4-8.2)
[2021-12-21 16:24] LABS: Protime INR 1.31
[2021-12-21 16:47] LABS: Anisocytosis 1+; Blood Morphology Comment NOTED (NOT SEEN); Platelet Estimate ADEQ; White Blood Cell Scan OK (OK)
[2021-12-21] MEDS ORDERED: CEFEPIME 1 GM/VIAL ONE (17:22)
[2021-12-21] MEDS ORDERED: NA CHLORIDE 0.9% 100 ML ONE (17:22)
[2021-12-21] MEDS ORDERED: NA CHLORIDE 0.9% 1,000 ML ONE ×2 (17:22→20:19)
[2021-12-21] MEDS ORDERED: VANCOMYCIN 1 GM/VIAL ONE (17:54)
[2021-12-21] MEDS ORDERED: NA CHLORIDE 0.9% 500 ML ONE ×2 (17:55→19:15)
[2021-12-21 18:13] LABS: Urine Blood 2+ (Negative); Urine Glucose Negative (Negative); Urine Protein Trace (Negative); Urine Specific Gravity 1.015 (1.005-1.030); Urine pH 6.5 (5.0-7.0)
--- NOTE | 2021-12-21 18:16 | ER ---
Nurse's Notes [facility] Name: Savana Martin Age: 76 yrs Sex: Female : 1945 Arrival Date: 12/21/2021 Time: 13:44 Bed 5 Private MD: Diagnosis: Severe sepsis with septic shock;Dehydration;Acute kidney failure, unspecified Presentation: 12/21 13:44 Chief complaint: EMS states: nursing staff reported pt has been more sleepy than aa5 normal, had labs today and WBC 23.4 and Creatinine 2.62. Pt's baseline is A\T\O x 2, hx of Dementia. Pt currently A\T\O x person. 13:44 Coronavirus screen: At this time, the client does not indicate any symptoms associated aa5 with coronavirus-19. Ebola Screen: Patient denies travel to an Ebola-affected area in the 21 days before illness onset. Initial Sepsis Screen: Does the patient meet any 2 criteria? HR > 90 bpm. Does the patient have a suspected source of infection? No. Patient's initial sepsis screen is negative. Risk Assessment: Do you want to hurt yourself or someone else? Unable to obtain. Onset of symptoms was December 21, 2021. 13:44 Method Of Arrival: EMS: [facility] aa5 13:44 Acuity: MARGARITO 3 aa5 Historical: - Allergies: 13:48 Cipro; aa5 - Home Meds: 13:50 levothyroxine 50 mcg oral cap once daily [Active]; memantine 10 mg Oral tab 1 tab 2 aa5 times per day [Active]; Remeron 15 mg Oral tab once daily [Active]; rivastigmine tartrate 6 mg oral cap 1 cap 2 times per day [Active]; triamterene-hydrochlorothiazid 75-50 mg Oral tab once daily [Active]; acetaminophen 325 mg Oral tab 2 tabs every 6 hours [Active]; amlodipine 2.5 mg oral tab once daily [Active]; ascorbic acid (vitamin C) 500 mg oral cap twice a day [Active]; aspirin 81 mg Oral chew 1 tab once daily [Active]; Depakote Sprinkles 125 mg Oral CDRS 2 caps 3 times per day [Active]; duloxetine 30 mg oral CDRS once daily [Active]; Eliquis 5 mg oral tab 2 times per day [Active]; gabapentin 100 mg Oral cap 1 cap twice a day [Active]; hydroxychloroquine 200 mg Oral tab 1 tab once daily [Active]; - PMHx: 13:48 Chronic obstructive lung disease; Deep vein thrombosis; Dementia; Hypertensive aa5 disorder; Hypothyroidism; Malnutrition; Depressive disorder; Lupus erythematosus; - Immunization history:: Adult Immunizations unknown. - Social history:: Smoking status: unknown. Screenin:34 Abuse screen: No signs of abuse. Nutritional screening: Pt slender and with diagnosis aa5 of malnutrition. Tuberculosis screening: No symptoms or risk factors identified. 15:35 Fall Risk Secondary diagnosis (15 points) dementia, IV access (20 points). Mental aa5 Status- Overestimates/Forgets Limitations (15 pts.). Total Wise Fall Scale indicates High Risk Score (45 or more points). Fall prevention measures have been instituted. Side Rails Up X 2 Placed Close to Nursing Station. Assessment: 13:44 General: Appears comfortable, Behavior is cooperative, sleepy . Pain: Denies pain. aa5 Neuro: Level of Consciousness is obeys commands, confused, sleepy . Oriented to person, Game Master are weak bilaterally Moves all extremities. Speech is normal, Facial symmetry appears normal, Pupils are PERRLA. Cardiovascular: Heart tones S1 S2 present Rhythm is sinus tachycardia. Respiratory: Airway is patent Respiratory effort is even, unlabored, Respiratory pattern is regular, symmetrical, Breath sounds are clear bilaterally. GI: Abdomen is flat, non-distended, Bowel sounds present X 4 quads. Abd is soft and non tender X 4 quads. : Brief noted. EENT: No signs and/or symptoms were reported regarding the EENT system. Derm: Skin is dry, Karl lower extremities mottled in color Skin is pink, Skin temperature is cool. Musculoskeletal: Range of motion: intact in all extremities. 13:44 Reassessment: Warm blankets placed on patient for warming measures. . aa5 14:00 Reassessment: Pt with eyes closed, easy to awaken to verbal stimuli, respirations are aa5 even and unlabored, skin is warm, pink,dry. Karl lower extremities remain mottled. . 15:30 Reassessment: Pt sleeping, easy to awaken to verbal stimuli, pt is A \T\ O x person and aa5 place. Equal and unlabored respirations, skin is pink/warm/dry. Karl legs mottled in color. Extra warm blankets placed on patient. . 16:00 Reassessment: PA notified pt is hard stick and full set of blood work was just sent to aa5 lab, unable to collect 2nd set of blood cultures at this time. . 16:20 Neuro: Level of Consciousness is obeys commands, confused, sleepy . Oriented to person. aa5 Cardiovascular: Rhythm is sinus tachycardia. Respiratory: Airway is patent Respiratory effort is even, unlabored, Respiratory pattern is regular, symmetrical. Derm: Skin is dry, Skin is pink, Skin temperature is warm. 17:00 Reassessment: Moderate amount of diarrhea noted, pt cleaned and clean brief applied. . aa5 17:20 Reassessment: No changes from previously documented assessment. aa5 17:20 Cardiovascular: Rhythm is sinus tachycardia. aa5 17:20 Reassessment: Pt's daughter Michelle, phone number [phone]. aa5 18:30 Neuro: Level of Consciousness is obeys commands, confused, sleepy . Oriented to person. aa5 Cardiovascular: Rhythm is sinus rhythm. Respiratory: Airway is patent Respiratory effort is even, unlabored, Respiratory pattern is regular, symmetrical. Derm: Skin is pink, warm \T\ dry. 22:12 Reassessment: pt Levophed started at 10ml. will titrate per protocol. kd3 12/22 07:21 Reassessment: Patient and/or family updated on plan of care and expected duration. Pain kd3 level reassessed. Patient is alert, oriented x 3, equal unlabored respirations, skin warm/dry/pink. Patient denies pain at this time. General: Appears comfortable, Behavior is quiet. Vital Signs: 12/21 13:40 BP 108 / 76; Pulse 92; Resp 18 S; Temp 97.8(TE); Pulse Ox 95% on R/A; aa5 13:44 BP 106 / 75; Pulse 92; Resp 18 S; Temp 97.7(TE); Pulse Ox 96% on R/A; aa5 14:00 Weight 45.36 kg; aa5 14:30 BP 120 / 63; Pulse 110; Resp 16 S; Pulse Ox 95% on R/A; aa5 16:00 BP 102 / 80; Pulse 107; Resp 18 S; Pulse Ox 96% on R/A; aa5 16:20 BP 101 / 73; Pulse 106; Resp 16 S; Pulse Ox 95% on R/A; aa5 17:00 BP 105 / 85; Pulse 110; Resp 18 S; Temp 97.2(TE); Pulse Ox 97% on R/A; aa5 17:20 BP 104 / 78; Pulse 105; Resp 18 S; Pulse Ox 100% on R/A; aa5 17:50 BP 101 / 69; Pulse 89; Resp 20 S; Pulse Ox 98% on R/A; aa5 18:00 BP 101 / 60; Pulse 89; Resp 20 S; Pulse Ox 98% on R/A; aa5 18:20 BP 99 / 63; Pulse 87; Resp 16 S; Pulse Ox 100% on R/A; aa5 18:30 BP 98 / 54; Pulse 87; Resp 15 S; Pulse Ox 98% on R/A; aa5 18:40 BP 85 / 52; Pulse 89; Resp 16 S; Pulse Ox 98% on R/A; aa5 18:50 BP 88 / 55; Pulse 87; Resp 16 S; Pulse Ox 98% on R/A; aa5 18:56 BP 82 / 50; Pulse 89; Resp 16 S; Temp 97.8(TE); Pulse Ox 98% on R/A; aa5 19:00 BP 89 / 54; Pulse 91; Resp 18 S; Pulse Ox 98% on R/A; aa5 19:15 BP 96 / 61; Pulse 92; Resp 15 S; Pulse Ox 98% on R/A; aa5 22:13 BP 87 / 56; Pulse 94; Resp 20; Pulse Ox 93% on R/A; kd3 23:06 BP 88 / 56; Pulse 93; Resp 23; kd3 23:44 BP 100 / 55; Pulse 94; Resp 18; Pulse Ox 98% on R/A; kd3 07 01:12 BP 73 / 50; kd3 01:53 BP 83 / 52; kd3 02:02 BP 98 / 59; kd3 02:15 BP 99 / 59; Pulse 85; Resp 16; Pulse Ox 100% on R/A; kd3 02:24 BP 101 / 63; Pulse 90; Resp 13; kd3 02:43 BP 113 / 62; kd3 03:28 BP 103 / 62; kd3 03:35 BP 90 / 54; Pulse 86; Resp 19; Pulse Ox 100% on R/A; kd3 04:53 BP 96 / 62; Pulse 97; Resp 13; Pulse Ox 100% on R/A; kd3 04:57 BP 131 / 68; Pulse 91; Resp 16; Pulse Ox 99% on R/A; kd3 05:08 BP 118 / 71; Pulse 87; Resp 10; Pulse Ox 99% on R/A; kd3 07:16 BP 113 / 67; Pulse 86; Resp 17; Pulse Ox 99% ; kd3 07/06 18:56 PA notified of persistent low BP. aa5 ED Course: 13:44 Patient arrived in ED. aa5 13:44 Arm band placed on. aa5 13:44 Patient has correct armband on for positive identification. Placed in gown. Bed in low aa5 position. Call light in reach. Side rails up X2. Client placed on continuous cardiac and pulse oximetry monitoring. NIBP monitoring applied. 13:48 Triage completed. aa5 13:51 Josef Ribeiro PA is PHCP. cp 13:51 Tigre Mercado MD is Attending Physician. cp 13:56 Bonny Tai, MYRON is Primary Nurse. aa5 14:30 CT Head Brain wo Cont In Process Unspecified. EDMS 14:47 Chest Single View XRAY In Process Unspecified. EDMS 14:56 Inserted saline lock: 20 gauge in right antecubital area, using aseptic technique. IV tp1 infiltrated upon flushing. intact, bleeding controlled, No redness/swelling at site. Pressure dressing applied. 14:57 Missed attempt(s): 20 gauge in left antecubital area. intact, bleeding controlled, No tp1 redness/swelling at site. Pressure dressing applied. 15:40 Initial lab(s) drawn, by me, sent to lab. First set of blood cultures drawn by me. aa5 Inserted saline lock: 24 gauge in right wrist, using aseptic technique. 15:50 Missed attempt(s): 22 gauge in right antecubital area. Bleeding controlled, band aid aa5 applied, catheter tip intact. 16:00 Initial lab(s) drawn, by me, sent to lab. aa5 16:45 Antunez cath inserted, using sterile technique, 16 Fr., by me, balloon inflated, to aa5 gravity drainage, other unable to collect urine specimen at this time, no urine output noted. 17:00 Inserted saline lock: 20 gauge in left EJ, using aseptic technique. ,using aseptic aa5 technique. Inserted by ALBAN Amaya. 17:00 Second set of blood cultures drawn by provider. aa5 17:50 Stool specimen sent to lab. aa5 18:00 Urine collected: Antunez catheter specimen, clear, Amount Returned: 30mL. aa5 18:13 Liam Scott MD is Hospitalizing Provider. cp 19:15 Report given to MYRON Huddleston. aa5 19:54 CT Chest Abdomen Pelvis W/O Contrast In Process Unspecified. EDMS 20:06 Jose Zuniga MD is Hospitalizing Provider. ss 23:58 Primary Nurse role handed off by Bonny Tai RN [facility] 23:58 Karo Diaz RN is Primary Nurse. 3 12/22 07:00 Patient admitted, IV remains in place. aa5 07:00 No provider procedures requiring assistance completed. aa5 Administered Medications: 12/21 17:06 Not Given (Physician Discretion): Rocephin - (cefTRIAXone) 1 grams IVPB once over 30 cp mins; (mix in 50 mL NS) 17:10 Drug: NS 0.9% (30 ml/kg) 30 ml/kg Route: IV; Rate: bolus; Site: left jugular; aa5 18:30 Follow up: IV Status: Completed infusion; IV Intake: 1350ml aa5 17:15 Drug: Cefepime 1 grams Route: IVPB; Rate: 200 ml/hr; Infused Over: 30 mins; Site: left aa5 jugular; 17:50 Follow up: Response: No adverse reaction; IV Status: Completed infusion aa5 18:01 Drug: vancoMYCIN 1 grams Route: IVPB; Infused Over: 2 hrs; Site: left jugular; aa5 19:29 Follow up: Response: No adverse reaction; IV Status: Completed infusion aa5 19:11 Drug: NS 0.9% 500 ml Route: IV; Rate: bolus; Site: left jugular; aa5 12/22 01:52 Follow up: Response: No adverse reaction; IV Status: Completed infusion 3 12/21 22:10 Drug: Levophed (norepinephrine) 0.1 mcg/kg/min Route: IV; Rate: calculated rate; Site: kd3 Other; 22:10 Drug: Levophed (norepinephrine) 0.1 mcg/kg/min Route: IV; Rate: calculated rate; Site: kd3 Other; 22:11 Drug: Levophed (norepinephrine) 0.1 mcg/kg/min Route: IV; Rate: calculated rate; Site: kd3 Other; 23:06 Follow up: BP 88 / 56; Pulse 93 bpm; Resp 23 bpm; Rate change 15 mcg/min kd3 12/22 01:12 Follow up: BP 73 / 50; Rate change 17 ml/hr kd3 01:53 Follow up: Rate change 20 ml/hr kd3 Medication: 12/21 18:16 VIS not applicable for this client. aa5 Intake: 18:30 IV: 1350ml; Total: 1350ml. aa5 Outcome: 18:16 Decision to Hospitalize by Provider. sulaiman 12/22 07:00 Admitted to ER Hold. Please see [facility] for further documentation. aa5 10:55 Patient left the ED. aa5 Signatures: Dispatcher [employer] EDBonny Webb RN RN aa5 Elvie Lopez RN RN ss Josef Ribeiro, PA PA Karo Chun RN RN [email or web address] Julia Johnston tp1 Corrections: (The following items were deleted from the chart) 12/21 14:57 14:57 Missed attempt(s): 20 gauge in left antecubital area. tp1 tp1 14:58 14:56 Inserted saline lock: 20 gauge in right antecubital area, using aseptic tp1 technique. IV infiltrated upon flushing. tp1 19:49 18:56 BP 82 / 50; Pulse 89bpm; Resp 16bpm; Spontaneous; Pulse Ox 98% RA; Temp 97.8F aa5 Temporal; aa5 20:19 13:44 Derm: Skin is dry, Karl lower extremities mottled in color Skin is pale, Skin aa5 temperature is cool aa5 12/22 11:27 11:27 Patient left the ED. aa5 aa5
--- NOTE | 2021-12-21 18:16 | EDPHYS ---
Physician Documentation [facility] Name: Savana Martin Age: 76 yrs Sex: Female : 1945 Arrival Date: 12/21/2021 Time: 13:44 Bed 5 Private MD: ED Physician Tigre Mercado HPI: 12/21 14:10 This 76 yrs old Female presents to ER via EMS with complaints of Abnormal Lab Results. cp Historical: - Allergies: 13:48 Cipro; aa5 - Home Meds: 13:50 levothyroxine 50 mcg oral cap once daily [Active]; memantine 10 mg Oral tab 1 tab 2 aa5 times per day [Active]; Remeron 15 mg Oral tab once daily [Active]; rivastigmine tartrate 6 mg oral cap 1 cap 2 times per day [Active]; triamterene-hydrochlorothiazid 75-50 mg Oral tab once daily [Active]; acetaminophen 325 mg Oral tab 2 tabs every 6 hours [Active]; amlodipine 2.5 mg oral tab once daily [Active]; ascorbic acid (vitamin C) 500 mg oral cap twice a day [Active]; aspirin 81 mg Oral chew 1 tab once daily [Active]; Depakote Sprinkles 125 mg Oral CDRS 2 caps 3 times per day [Active]; duloxetine 30 mg oral CDRS once daily [Active]; Eliquis 5 mg oral tab 2 times per day [Active]; gabapentin 100 mg Oral cap 1 cap twice a day [Active]; hydroxychloroquine 200 mg Oral tab 1 tab once daily [Active]; - PMHx: 13:48 Chronic obstructive lung disease; Deep vein thrombosis; Dementia; Hypertensive aa5 disorder; Hypothyroidism; Malnutrition; Depressive disorder; Lupus erythematosus; - Immunization history:: Adult Immunizations unknown. - Social history:: Smoking status: unknown. ROS: 14:15 Constitutional: Positive for poor PO intake, Negative for fever. cp 14:15 Neuro: Positive for altered mental status. cp 14:15 Cardiovascular: Negative for chest pain, edema. cp 14:15 Eyes: Negative for injury, pain, redness, and discharge. cp 14:15 Respiratory: Negative for cough, shortness of breath, wheezing. 14:15 Abdomen/GI: Negative for vomiting, diarrhea. 14:15 Unable to obtain ROS due to altered mental status. Exam: 14:20 Constitutional: The patient appears in no acute distress, non-diaphoretic, non-toxic, cp well developed, well nourished. 14:20 Head/Face: Normocephalic, atraumatic. cp 14:20 Eyes: Periorbital structures: appear normal, Pupils: equal, round, and reactive to light and accomodation, Extraocular movements: intact throughout, Conjunctiva: normal, no exudate, no injection, Sclera: no appreciated abnormality, Lids and lashes: appear normal, bilaterally. 14:20 ENT: External ear(s): are unremarkable, Nose: is normal, Mouth: Lips: dry, Oral mucosa: dry, Posterior pharynx: Airway: no evidence of obstruction, patent. 14:20 Neck: ROM/movement: is normal, is supple, without pain, no range of motions limitations, no meningismus, no nuchal rigidity. 14:20 Chest/axilla: Inspection: normal, Palpation: is normal, no crepitus, no tenderness. 14:20 Cardiovascular: Rate: tachycardic, Rhythm: regular, Edema: is not appreciated, JVD: is cp not appreciated. 14:20 Respiratory: the patient does not display signs of respiratory distress, Respirations: cp normal, no use of accessory muscles, no retractions, labored breathing, is not present, Breath sounds: are clear throughout, no decreased breath sounds, no stridor, no wheezing. 14:20 Abdomen/GI: Inspection: abdomen appears normal, Bowel sounds: active, all quadrants, Palpation: abdomen is soft and non-tender, in all quadrants, rebound tenderness, is not appreciated, involuntary guarding, is not appreciated. 14:20 Back: CVA tenderness, is absent, vertebral tenderness, is not appreciated. 14:20 Skin: cellulitis, is not appreciated, no rash present. 14:20 Neuro: Orientation: to person, Mentation: able to follow commands, sleepy, Motor: moves all fours, general weakness with no focal deficits. 16:22 ECG was reviewed by the Attending Physician. cp Vital Signs: 13:40 BP 108 / 76; Pulse 92; Resp 18 S; Temp 97.8(TE); Pulse Ox 95% on R/A; aa5 13:44 BP 106 / 75; Pulse 92; Resp 18 S; Temp 97.7(TE); Pulse Ox 96% on R/A; aa5 14:00 Weight 45.36 kg; aa5 14:30 BP 120 / 63; Pulse 110; Resp 16 S; Pulse Ox 95% on R/A; aa5 16:00 BP 102 / 80; Pulse 107; Resp 18 S; Pulse Ox 96% on R/A; aa5 16:20 BP 101 / 73; Pulse 106; Resp 16 S; Pulse Ox 95% on R/A; aa5 17:00 BP 105 / 85; Pulse 110; Resp 18 S; Temp 97.2(TE); Pulse Ox 97% on R/A; aa5 17:20 BP 104 / 78; Pulse 105; Resp 18 S; Pulse Ox 100% on R/A; aa5 17:50 BP 101 / 69; Pulse 89; Resp 20 S; Pulse Ox 98% on R/A; aa5 18:00 BP 101 / 60; Pulse 89; Resp 20 S; Pulse Ox 98% on R/A; aa5 18:20 BP 99 / 63; Pulse 87; Resp 16 S; Pulse Ox 100% on R/A; aa5 18:30 BP 98 / 54; Pulse 87; Resp 15 S; Pulse Ox 98% on R/A; aa5 18:40 BP 85 / 52; Pulse 89; Resp 16 S; Pulse Ox 98% on R/A; aa5 18:50 BP 88 / 55; Pulse 87; Resp 16 S; Pulse Ox 98% on R/A; aa5 18:56 BP 82 / 50; Pulse 89; Resp 16 S; Temp 97.8(TE); Pulse Ox 98% on R/A; aa5 19:00 BP 89 / 54; Pulse 91; Resp 18 S; Pulse Ox 98% on R/A; aa5 19:15 BP 96 / 61; Pulse 92; Resp 15 S; Pulse Ox 98% on R/A; aa5 22:13 BP 87 / 56; Pulse 94; Resp 20; Pulse Ox 93% on R/A; kd3 23:06 BP 88 / 56; Pulse 93; Resp 23; kd3 23:44 BP 100 / 55; Pulse 94; Resp 18; Pulse Ox 98% on R/A; kd3 07/07 01:12 BP 73 / 50; kd3 01:53 BP 83 / 52; kd3 02:02 BP 98 / 59; kd3 02:15 BP 99 / 59; Pulse 85; Resp 16; Pulse Ox 100% on R/A; kd3 02:24 BP 101 / 63; Pulse 90; Resp 13; kd3 02:43 BP 113 / 62; kd3 03:28 BP 103 / 62; kd3 03:35 BP 90 / 54; Pulse 86; Resp 19; Pulse Ox 100% on R/A; kd3 04:53 BP 96 / 62; Pulse 97; Resp 13; Pulse Ox 100% on R/A; kd3 04:57 BP 131 / 68; Pulse 91; Resp 16; Pulse Ox 99% on R/A; kd3 05:08 BP 118 / 71; Pulse 87; Resp 10; Pulse Ox 99% on R/A; kd3 07:16 BP 113 / 67; Pulse 86; Resp 17; Pulse Ox 99% ; kd3 12/21 18:56 PA notified of persistent low BP. aa5 Procedures: 16:15 Peripheral line: by aseptic technique a peripheral line was placed in the left external cp jugular vein. 21:30 Central Line: the site was prepped with Betadine, in sterile fashion, a triple lumen cp catheter was inserted, in the right femoral vein, in 1 attempts. placement was verified, by blood return, the patient tolerated the procedure, well. MDM: 13:52 Patient medically screened. cp 17:40 Data reviewed: vital signs, nurses notes, lab test result(s), EKG, radiologic studies, cp plain films. 17:40 Test interpretation: by ED physician or midlevel provider: ECG, plain radiologic cp studies. 18:10 Physician consultation: Jad Alegre was contacted at 18:10, regarding admission, cp patient's condition, would like further tests performed, CT scan. 20:10 Post IV fluid administration reassessment for Sepsis: Client prescribed 30 mL/kg IVF. Sepsis focused reassessment complete. Focused Assessment performed: December 21, 2021 at 20:12 Heart: Regular rate/rhythm noted. Lungs: Noted to be clear bilaterally. Capillary refill examination performed. Capillary refill noted to be brisk. Skin examination performed. Skin noted to have normal turgor. Current vital signs reviewed: Yes. Neuro: Neurological examination did not improve from previous exam. Cardio: Cardiovascular examination did not improve from previous exam. Respiratory: no change. 12/21 14:09 Order name: Blood Culture Adult (2) 12/21 14:09 Order name: CBC with Diff; Complete Time: 17:32 12/21 16:22 Interpretation: Normal except: MCHC 31.5; RDW 18.3; CHANDLER% 86.4; LYM% 8.0; NEUT A 25.6; cp MNA 1.6. 12/21 14:09 Order name: CMP; Complete Time: 16:22 12/21 16:22 Interpretation: Normal except: NA 146; CL 109; ANION GAP 18.2; BUN 81; CRE 2.84; GFR cp 17; TP 9.4; ALB 3.0; GLOB 6.4; A/G 0.5. 12/21 14:09 Order name: Lactate; Complete Time: 17:32 12/21 17:33 Interpretation: Abnormal: LAC 4.0. 12/21 14:09 Order name: Protime (+inr); Complete Time: 16:40 12/21 16:40 Interpretation: Reviewed. 12/21 14:09 Order name: Ptt, Activated; Complete Time: 16:40 12/21 14:09 Order name: Urine Culture 12/21 14:09 Order name: Urine Microscopic Only; Complete Time: 18:44 12/21 19:09 Interpretation: Normal except: URBC 10-20. 12/21 14:09 Order name: Influenza Screen (a \\T\\ B); Complete Time: 16:22 12/21 14:09 Order name: COVID-19 SARS RT PCR (Document "Date of Onset" if Symptomatic); Complete cp Time: 17:32 12/21 16:32 Order name: Glucose, Ancillary Testing; Complete Time: 16:40 EDMS 12/21 16:48 Order name: CBC Smear Scan; Complete Time: 17:32 EDMS 12/21 17:08 Order name: Ova And Parasites 12/21 17:08 Order name: Rotavirus Antigen 12/21 14:09 Order name: Chest Single View XRAY; Complete Time: 16:22 12/21 14:10 Order name: CT Head Brain wo Cont; Complete Time: 16:22 12/21 17:08 Order name: Stool Culture 12/21 17:08 Order name: CDIFF 12/21 18:14 Order name: Urine Dipstick-Ancillary; Complete Time: 18:31 EDMS 12/21 19:09 Interpretation: Normal except: UBLD 2+; UPROT Trace; UESTR Trace. cp 12/21 18:16 Order name: CT Chest Abdomen Pelvis W/O Contrast; Complete Time: 20:02 cp 12/21 20:09 Order name: Lactate: 2 hr repeat cp 12/21 22:27 Order name: Lactate Sepsis 2 HR Follow-up EDMS 12/22 07:44 Order name: CBC with Automated Diff EDMS 12/22 07:46 Order name: Comprehensive Metabolic Panel EDMS 12/22 11:24 Order name: CBC with Automated Diff EDMS 12/21 14:09 Order name: Accucheck; Complete Time: 17:10 cp 12/21 14:09 Order name: Cardiac monitoring; Complete Time: 15:29 cp 12/21 14:09 Order name: EKG - Nurse/Tech; Complete Time: 17:10 cp 12/21 14:09 Order name: IV Saline Lock - Large Bore; Complete Time: 17:10 cp 12/21 14:09 Order name: Labs collected and sent; Complete Time: 17:10 cp 12/21 14:09 Order name: O2 Per Protocol; Complete Time: 15:29 cp 12/21 14:09 Order name: O2 Sat Monitoring; Complete Time: 15:29 cp 12/21 14:09 Order name: Urine Dipstick-Ancillary (obtain specimen); Complete Time: 18:08 cp 12/21 16:23 Order name: Antunez; Complete Time: 17:20 cp EC:22 Rate is 104 beats/min. Rhythm is regular. NV interval is normal. QRS interval is cp normal. QT interval is normal. Interpreted by me. Reviewed by me. Administered Medications: 17:06 Not Given (Physician Discretion): Rocephin - (cefTRIAXone) 1 grams IVPB once over 30 cp mins; (mix in 50 mL NS) 17:10 Drug: NS 0.9% (30 ml/kg) 30 ml/kg Route: IV; Rate: bolus; Site: left jugular; aa5 18:30 Follow up: IV Status: Completed infusion; IV Intake: 1350ml aa5 17:15 Drug: Cefepime 1 grams Route: IVPB; Rate: 200 ml/hr; Infused Over: 30 mins; Site: left aa5 jugular; 17:50 Follow up: Response: No adverse reaction; IV Status: Completed infusion aa5 18:01 Drug: vancoMYCIN 1 grams Route: IVPB; Infused Over: 2 hrs; Site: left jugular; aa5 19:29 Follow up: Response: No adverse reaction; IV Status: Completed infusion aa5 19:11 Drug: NS 0.9% 500 ml Route: IV; Rate: bolus; Site: left jugular; aa5 12/22 01:52 Follow up: Response: No adverse reaction; IV Status: Completed infusion kd3 12/21 22:10 Drug: Levophed (norepinephrine) 0.1 mcg/kg/min Route: IV; Rate: calculated rate; Site: 3 Other; 22:10 Drug: Levophed (norepinephrine) 0.1 mcg/kg/min Route: IV; Rate: calculated rate; Site: 3 Other; 22:11 Drug: Levophed (norepinephrine) 0.1 mcg/kg/min Route: IV; Rate: calculated rate; Site: [facility] Other; 23:06 Follow up: BP 88 / 56; Pulse 93 bpm; Resp 23 bpm; Rate change 15 mcg/min kd3 12/22 01:12 Follow up: BP 73 / 50; Rate change 17 ml/hr kd3 01:53 Follow up: Rate change 20 ml/hr kd3 Disposition: 12/21 22:00 Critical Care:. cp Disposition Summary: 12/21/21 18:16 Hospitalization Ordered Hospitalization Status: Inpatient Admission cp Condition: Stable cp Problem: new cp Symptoms: have improved cp Bed/Room Type: Standard cp Provider: Jose Zuniga(12/21/21 20:06) Location: Intensive Care Unit(12/22/21 10:00) [facility] Room Assignment: 7-(12/22/21 10:00) ja Diagnosis - Severe sepsis with septic shock cp - Dehydration cp - Acute kidney failure, unspecified cp Forms: - Medication Reconciliation Form cp - SBAR form cp Critical care time excluding procedures: 22:00 Critical care time: Bedside Care: 10 minutes, Consultation: 25 minutes, Family cp Intervention: 5 minutes. Total time: 40 minutes Signatures: Dispatcher [employer] Bonny Mathis RN RN aa5 Elvie Lopez RN RN ss Jad Alegre FNP-Marlen MORAP-Cla1 Josef Ribeiro PA PA cp Aguilar, Jose RN RN ja1 Karo Diaz RN RN kd3 Corrections: (The following items were deleted from the chart) 20:06 18:16 Liam Scott ss 21:02 18:16 Telemetry/MedSurg (Inpatient) cp la1 21:02 18:16 cp wiliam 12/22 10:00 07 21:02 [facility] ER HOLD la ja12/22 10:00 07 21:02 ERHOLD- la1 ja1
[2021-12-21 18:39] LABS: Urine Bacteria <20 /HPF (<20)
--- NOTE | 2021-12-21 20:00 | RAD REPORT ---
EXAM DESCRIPTION: CT - Chest Abd Pelvis Wo Con - 12/21/2021 7:52 pm CLINICAL HISTORY: Chest and abdomen pain. Sepsis COMPARISON: No comparisons TECHNIQUE: A limited noncontrast study was performed. All CT scans are performed using dose optimization technique as appropriate and may include automated exposure control or mA/KV adjustment according to patient size. FINDINGS: Mild linear subsegmental atelectasis is seen in both lung bases. The lungs are otherwise c lear.No pleural or pericardial effusion.No intrathoracic adenopathy. The liver, spleen, pancreas, adrenal glands and kidneys are within normal limits. No bowel obstruction, free air, free fluid or abscess. Normal appendix. There is mild thickening of t he entire colon noted. This is most prominent, however in the rectosigmoid region. Moderate stool ret ention seen as well. No pathologic lymphadenopathy in the abdomen or pelvis. Antunez catheter and small amount of air is seen in the urinary bladder. No worrisome osseous finding. IMPRESSION: A mild to moderate nonspecific colitis is possible.
--- NOTE | 2021-12-21 20:48 | P.HP ---
Certification for Inpatient Patient admitted to: Inpatient With expected LOS: >2 Midnights Patient will require the following post-hospital care: None Practitioner: I am a practitioner with admitting privileges, knowledge of patient current condition, hospital course, and medical plan of care. Services: Services provided to patient in accordance with Admission requirements found in Title 42 Section 412.3 of the Code of Federal Regulations Patient History Date of Service: 12/21/21 Reason for admission: Septic shock History of Present Illness: 76-year-old female with history of SLE, CKD 4, DVT, dementia, hypertension, hypothyroidism and COPD presents the emergency department for abnormal labs including elevated white blood cell count and creatinine the reports has been more sleepy than normal with decreasing mental status. She was evaluated in the emergency department found to be in septic shock with lactate of 4 and multiple pressure readings below systolic of 90 as well as elevated white blood cell count and worsening CKD 4. Patient did receive sepsis fluid bolus in the ER blood pressure still very soft with maps around 67-69. ED provider plans on placing central line patient may require vasopressor therapies. Patient was seen in the hospital here admitted on 11/29/2021 and discharged on 12/02/2021 for acute kidney injury, UTI, AMS. She was discharged on cefpodoxime with a 5-day prescription. Nursing staff noted patient had multiple episodes of diarrhea with very foul order. She did not appear to have urinary tract infection, she had a CT scan which revealed mild to moderate nonspecific colitis pattern. At this point suspect septic shock secondary to C. difficile colitis. She will need to be admitted for further evaluation and management. Repeat lactate is currently pending. On Allergies ciprofloxacin Allergy (Verified 05/04/20 17:07) Itching Home Medications: Acetaminophen [Tylenol*] 2 tab PO Q6HP PRN 11/30/21 Amlodipine Besylate 1 tab PO DAILY 11/30/21 Apixaban [Eliquis] 1 tab PO BID 11/30/21 Ascorbic Acid 1 tab PO BID 11/30/21 Aspirin [Aspirin EC] 1 tab PO DAILY 11/30/21 Divalproex Sodium [Depakote Sprinkle] 3 cap PO TID 11/30/21 Duloxetine HCl [Drizalma Sprinkle] 1 tab PO DAILY 11/30/21 Gabapentin [Neurontin*] 1 tab PO BID 11/30/21 Hydroxychloroquine Sulfate 1 tab PO DAILY 11/30/21 Lactobacillus Acidophilus [Acidophilus Lactobacilli] 1 cap PO BID 11/30/21 Memantine HCl 1 tab PO BID 11/30/21 Mirtazapine [Remeron] 1 tab PO BEDTIME 11/30/21 Rivastigmine Tartrate [Rivastigmine] 1 cap PO BID 11/30/21 Cefpodoxime Proxetil 100 mg PO BID #10 tablet 12/02/21 Ensure Enlive 237 ml PO BID can 12/02/21 Levothyroxine [Synthroid*] 0.05 mg PO DAILYAC tablet 12/02/21 - Past Medical/Surgical History Diabetic: No -: Hypertension -: Dementia -: Lupus -: Chronic DVTs -: COPD -: Hypothyroidism -: back surgery Psychosocial/ Personal History: Patient lives at [facility]. - Family History Father -: Cancer, Other (see notes) Notes: No mention of renal disorders - Social History Smoking Status: Unknown if ever smoked Alcohol use: No CD- Drugs: No Caffeine use: Yes Place of Residence: Longterm Review of Systems is unable to be obtained Physical Examination - Physical Exam General: Alert, In no apparent distress, Oriented x1 HEENT: Atraumatic, PERRLA, Other (Mucous membranes dry), EOMI, Sclerae nonicteric Neck: Supple, 2+ carotid pulse no bruit, No LAD Respiratory: Clear to auscultation bilaterally, Normal air movement Cardiovascular: No edema, Regular rate/rhythm, Normal S1 S2 Capillary refill: <2 Seconds Gastrointestinal: Normal bowel sounds, No tenderness, No rebound, No guarding Musculoskeletal: No tenderness Integumentary: No rashes Neurological: Other (Confused, oriented x1), Dementia - Studies Laboratory Data (last 24 hrs) 12/21/21 16:01: PT 14.5 H, INR 1.31, APTT 27.6 12/21/21 15:40: Sodium 146 H, Potassium 4.2, BUN 81 H, Creatinine 2.84 H, Glucose 101, Total Bilirubin 0.5, AST 30, ALT 17, Alkaline Phosphatase 68 12/21/21 15:40: WBC 29.6 H* D, Hgb 12.7, Hct 40.5, Plt Count 269 Microbiology Data (last 24 hrs): 12/21/21 14:53 Nasopharnyx Influenza Type A Antigen Screen - Final 12/21/21 14:53 Nasopharnyx Influenza Type B Antigen Screen - Final Assessment and Plan - Plan Assessment: Septic shock secondary to colitissuspect C. difficile colitis Acute kidney injury superimposed on CKD 4 likely secondary to septic shock Acute metabolic encephalopathy secondary to septic shock Chronic DVTs on chronic anticoagulation Hypertension currently with hypotension Hypothyroidism SLE COPD Plan: Septic shock secondary to colitissuspect C. difficile colitis: Stool specimen for C. difficile ordered, patient did receive sepsis fluid bolus in the ER blood pressure still soft plan is for central line placement in emergency department patient likely require vasopressor therapy. Will cover with broad-spectrum antibiotics including vancomycin/meropenem. Infectious disease to be consulted, if C. difficile positive, can transition to oral vancomycin. Repeat lactate is pending if still elevated will continue to trend. Acute kidney injury superimposed on CKD 4 likely secondary to septic shock: Continue with IV fluids, nephrology consult in place Acute metabolic encephalopathy secondary to septic shock: Continue treatment as above patient with underlying dementia at baseline mental status alert and oriented x2 per skilled nursing currently oriented x1. N.p.o. for the time being until she can pass on screen, speech therapy consult in place. Chronic DVTs on chronic anticoagulation: Continue Eliquis, may require Lovenox while in hospital if mental status does not improve and she cannot swallow screen in the morning. Hypertension currently with hypotension: Hold antihypertensive agents, continue with IV fluids/vasopressors as necessary resume when appropriate Hypothyroidism: Continue home medications SLE: Continue home medications when appropriate COPD: As needed breathing treatments. DVT PPX: Continue Eliquis Code status: Full Discharge Plan: Longterm Plan to discharge in: 48 Hours - Advance Directives Does patient have a Living Will: No Does patient have a Durable POA for Healthcare: No - Code Status/Comfort Care Code Status Assessed: Yes (Full) Critical Care: No Time Spent Managing Pts Care (In Minutes): 70
[2021-12-21] MEDS ORDERED: NOREPINEPHRINE 4mg/D5W 250mL 4 MG/250 ML BAG IV ONE (22:08)
[2021-12-22] MEDS ORDERED: NA CHLORIDE 0.9% 1,000 ML ONE (05:57)
[2021-12-22] MEDS: D5 0.45 NS 1,000 ML IV SCH ×2 (06:01→16:50)
[2021-12-22] MEDS ORDERED: ONDANSETRON 4 MG/2 ML VIAL IV PRN (06:01)
[2021-12-22] MEDS ORDERED: ACETAMINOPHEN 650MG/RECT SUPP PR PRN (06:01)
[2021-12-22] MEDS: HEPARIN 5000 UNIT/ML 1 ML VIAL SQ SCH ×3 (06:01→21:00)
[2021-12-22] MEDS ORDERED: D5 0.45 NS 1,000 ML IV ONE (06:11)
[2021-12-22] MEDS ORDERED: Meropenem 500 MG in NA CHLORIDE 0.9% 100 ML IV ONE (06:15)
[2021-12-22 07:39] LABS: Absolute Lymphocytes (CBC) 2.8 K/uL (0.7-4.9); Lymphocytes % 12.2 % (15.3-44.8); MCV 93.4 fL (80-100); MPV 7.3 fL (7.6-11.3)
[2021-12-22 07:44] LABS: Albumin 2.2 g/dL (3.4-5.0); Bilirubin Total 0.3 mg/dL (0.2-1.0); Potassium 3.3 mmol/L (3.5-5.1); Protein, Total 6.8 g/dL (6.4-8.2)
[2021-12-22 09:43] VITALS: BMI 21.0
[2021-12-22] MEDS ORDERED: HYDROCORTISONE SUC 100 MG INJ IV ONE (10:00)
[2021-12-22] MEDS ORDERED: ALBUMIN HUMAN 25% 100 ML IV ONE ×2 (10:00→13:12)
[2021-12-22] MEDS ORDERED: NA CHLORIDE 0.9% 500 ML IV ONE ×2 (10:00→13:12)
--- NOTE | 2021-12-22 10:04 | P.PN ---
Subjective Date of Service: 12/22/21 Subjective: No new changes, No C/O voiced, Improving Review of Systems 10-point ROS is otherwise unremarkable Physical Examination - Vital Signs Temperature: 98 F Blood Pressure: 110/70 Pulse: 88 Respirations: 18 Pulse Ox (%): 95 - Physical Exam General: Alert, In no apparent distress HEENT: Atraumatic, PERRLA, EOMI Neck: Supple, JVD not distended Respiratory: Clear to auscultation bilaterally, Normal air movement Cardiovascular: Regular rate/rhythm, Normal S1 S2 Gastrointestinal: Normal bowel sounds, No tenderness Musculoskeletal: No tenderness Integumentary: No rashes Neurological: Normal speech, Normal tone, Normal affect Lymphatics: No axilla or inguinal lymphadenopathy - Studies Laboratory Data (last 24 hrs) 12/21/21 16:01: PT 14.5 H, INR 1.31, APTT 27.6 12/21/21 15:40: Sodium 146 H, Potassium 4.2, BUN 81 H, Creatinine 2.84 H, Glucose 101, Total Bilirubin 0.5, AST 30, ALT 17, Alkaline Phosphatase 68 12/21/21 15:40: WBC 29.6 H* D, Hgb 12.7, Hct 40.5, Plt Count 269 Microbiology Data (last 24 hrs): 12/21/21 17:50 Stool Rotavirus Antigen - Final 12/21/21 14:53 Nasopharnyx Influenza Type A Antigen Screen - Final 12/21/21 14:53 Nasopharnyx Influenza Type B Antigen Screen - Final Medications List Reviewed: Yes Assessment & Plan - Problems (Diagnosis) (1) Septic shock Current Visit: Yes Status: Acute (2) LUDMILA (acute kidney injury) Current Visit: No Status: Acute (3) AMS (altered mental status) Current Visit: No Status: Acute Qualifiers: Altered mental status type: unspecified Qualified Code(s): R41.82 - Altered mental status, unspecified (4) COPD (chronic obstructive pulmonary disease) Current Visit: No Status: Chronic Qualifiers: COPD type: unspecified COPD Qualified Code(s): J44.9 - Chronic obstructive pulmonary disease, unspecified (5) SLE (systemic lupus erythematosus) Current Visit: No Status: Chronic Qualifiers: Systemic lupus erythematosus type: unspecified Systemic lupus erythematosus organ involvement: unspecified Qualified Code(s): M32.9 - Systemic lupus erythematosus, unspecified - Plan PLAN: -aggressive IV hydration -wean levophed -increase protein supplementation -IV antibiotics/oral vanc -outpatient colonoscopy -pain controlled -stool studies with Cdiff + Discharge Plan: Home Plan to discharge in: Greater than 2 days - Advance Directives Does patient have a Living Will: No Does patient have a Durable POA for Healthcare: Yes - Code Status/Comfort Care Code Status Assessed: Yes Code Status: Full Code Critical Care: Yes Time Spent Managing PTS Care (In Minutes): 45
[2021-12-22] MEDS: Meropenem 500 MG in NA CHLORIDE 0.9% 100 ML IV SCH ×2 (10:10→21:21)
[2021-12-22] MEDS ORDERED: HYDROCORTISONE SUC 100 MG INJ ONE (10:17)
[2021-12-22] MEDS ORDERED: NA CHLORIDE 0.9% 100 ML ONE (10:18)
[2021-12-22] MEDS ORDERED: Meropenem 500 MG VIAL IV ONE (10:18)
[2021-12-22] MEDS ORDERED: NA CHLORIDE 0.9% 500 ML ONE (10:18)
[2021-12-22] MEDS: NOREPINEPHRINE 4 MG in D5W 250 ML IV SCH (11:16)
[2021-12-22 11:21] LABS: Absolute Lymphocytes (CBC) 2.1 K/uL (0.7-4.9); Hematocrit 24.5 % (36.0-45.0); Lymphocytes % 11.7 % (15.3-44.8); MCV 94.5 fL (80-100); MPV 7.2 fL (7.6-11.3); RBC Red Blood Cell Count 2.59 M/uL (3.86-4.86)
[2021-12-22 11:38] LABS: Potassium 3.2 mmol/L (3.5-5.1)
[2021-12-22 12:43] LABS: C.diff Antigen/Toxin Ag pos : Tox pos (NEG : NEG)
--- NOTE | 2021-12-22 12:53 | P.CNS ---
Date of Consult: 12/22/21 Chief Complaint: Septic shock History of Present Illness: The patient is a 76-year-old female with a past medical history of SLE, CKD stage IV, dementia, hypertension, hypothyroidism, and COPD who presented to the emergency department secondary to abnormal labs including elevated white blood cell count and creatinine. Patient is altered at bedside, oriented only to self. As such all history obtained via chart review. Per chart review she had been reported to be more sleepy than normal with a decrease in mental status. In ED she is found to be in septic shock with a lactate of 4, WBC of 29.6, LUDMILA on CKD stage IV with a creatinine of 2.27. Patient was recently hospitalized at this facility (11/29) secondary to urinary tract infection. Urine culture obtained on 11/29/2021 grew Enterococcus faecalis, patient was discharged home on oral cefpodixime x5day. Blood cultures pending, preliminary urine cultures growing gram-negative rods. C. difficile positive. Infectious disease has been consulted to manage antibiotic regimen. We recommend continuing IV meropenem and oral vancomycin at this time. Allergies ciprofloxacin Allergy (Verified 05/04/20 17:07) Itching Home Medications: Acetaminophen [Tylenol*] 2 tab PO Q6HP PRN 11/30/21 Amlodipine Besylate 2.5 mg PO DAILY 11/30/21 Apixaban [Eliquis] 1 tab PO BID 11/30/21 Ascorbic Acid 1 tab PO BID 11/30/21 Aspirin [Aspirin EC] 1 tab PO DAILY 11/30/21 Divalproex Sodium [Depakote Sprinkle] 2 cap PO TID 11/30/21 Duloxetine HCl [Drizalma Sprinkle] 30 mg PO DAILY 11/30/21 Gabapentin [Neurontin*] 1 tab PO BID 11/30/21 Hydroxychloroquine Sulfate 1 tab PO DAILY 11/30/21 Lactobacillus Acidophilus [Acidophilus Lactobacilli] 1 cap PO BID 11/30/21 Memantine HCl 1 tab PO BID 11/30/21 Mirtazapine [Remeron] 1 tab PO BEDTIME 11/30/21 Rivastigmine Tartrate [Rivastigmine] 1 cap PO BID 11/30/21 Ensure Enlive 237 ml PO BID can 12/02/21 Levothyroxine [Synthroid*] 50 mcg PO DAILYAC 12/22/21 Triamterene/Hydrochlorothiazid [Triamterene-Hctz 75-50 mg Tab] 75 mg PO DAILY 12/22/21 - Past Medical/Surgical History Diabetic: No -: Hypertension -: Dementia -: Lupus -: Chronic DVTs -: COPD -: Hypothyroidism -: Malnutrition -: Depression -: Lupus Erythematosus -: back surgery Psychosocial/ Personal History: Patient lives at [facility]. - Family History Father Medical History: Cancer, Other (see notes) Notes: No mention of renal disorders - Social History Smoking Status: Unknown if ever smoked Alcohol use: No CD- Drugs: No Caffeine use: Yes [facility] of Residence: [facility] Review of Systems 10-point ROS is otherwise unremarkable Physical Examination Temp Pulse Resp BP Pulse Ox 97.3 F 83 10 L 113/56 L 98 12/22/21 11:16 12/22/21 12:15 12/22/21 12:15 12/22/21 12:15 12/22/21 12:15 General: Oriented x1, Demented HEENT: Atraumatic Respiratory: Clear to auscultation bilaterally, Normal air movement Cardiovascular: Regular rate/rhythm Gastrointestinal: No ascites, No tenderness, No rebound, No guarding Integumentary: No rashes, No breakdown, No significant lesion Urinary: Antunez catheter Laboratory Data (last 24 hrs) 12/21/21 16:01: PT 14.5 H, INR 1.31, APTT 27.6 12/21/21 15:40: Sodium 146 H, Potassium 4.2, BUN 81 H, Creatinine 2.84 H, Glucose 101, Total Bilirubin 0.5, AST 30, ALT 17, Alkaline Phosphatase 68 12/21/21 15:40: WBC 29.6 H* D, Hgb 12.7, Hct 40.5, Plt Count 269 Conclusions/Impression: Lines: Right femoral, left IJ, Antunez catheter Antibiotics: Meropenem: urrent Oral vancomycin: 7current Assessment/plan Septic shock secondary to colitis versus UTI C. difficile positive, oral vancomycin started on 12/22. Continue for 10 days Patient was hospitalized at this facility earlier last month, urinary culture obtained on 11/29/2021 grew Enterococcus faecalis, patient was discharged on oral cefpodoxime x5 days. This likely did not clear infection, urine culture obtained on 12/21 growing gram-negative rods. Continue meropenem at this time. Leukocytosis Downtrending, continue oral vancomycin and IV meropenem at this time LUDMILA on CKD stage III Renally dose all antibiotics, avoid nephrotoxic agents Hypothyroidism Continue current medications Plan of care discussed with Dr. Cervantes Thank for consultation
--- NOTE | 2021-12-22 13:54 | EKG ---
Test Date: 2021-12-21 Test Time: 16:16:46 Trailer Driver: DEBBIE MEASUREMENT RESULTS: Intervals: Rate: 104 VT: 140 QRSD: 74 QT: 296 QTc: 389 [place]: P: 28 VT: 140 QRS: 36 T: 106 INTERPRETIVE STATEMENTS: Sinus tachycardia ST & T wave abnormality, consider inferolateral ischemia Abnormal ECG Compared to ECG 11/29/2021 21:00:45 ST (T wave) deviation now present Sinus rhythm no longer present T-wave abnormality no longer present Possible ischemia still present Electronically Signed On 12-22-21 13:51:06 CDT by Everett Barnard
[2021-12-22] MEDS: VANCOMYCIN ORAL SOLN 250 MG/5 ML OSYR PO SCH ×3 (14:03→21:24)
--- NOTE | 2021-12-22 14:18 | P.CNS ---
Date of Consult: 12/22/21 Date of Consult: 12/22/21 Reason for Consult: LUDMILA Referring physician: Dr. Zuniga Chief Complaint: Hypotension, dehydration, C diff colitis, LUDMILA History of Present Illness: Patient is a 76-year-old female with PMHx per the records of SLE without reported complications, dementia residing chronically in a NH, hypertension typically (on medication), chronic DVTs on anticoagulation, COPD, hypothyroidism who was in the hospital less than a mo ago due to acute renal failure 2nd to volume depletion then in the setting of thiazide diuretic use and poor oral intake. I did see on a telemed visit within a week of discharge and she was martha govea then, [place] was supposed to obtain labs as none were avail at the time of that visit. Pt has not come back in through the ER in the setting of reports of recent diarrhea, weakness, lethargy/AMS and found to be hypotensive and with SIRS criteria. Labs showed recurrent LUDMILA, she has been admitted to the unit for pressor support. Allergies ciprofloxacin Allergy (Verified 05/04/20 17:07) Itching Home Medications: Reviewed home meds and current meds in the EMR - Past Medical/Surgical History Diabetic: No -: Hypertension -: Dementia -: Lupus -: Chronic DVTs -: COPD -: Hypothyroidism -: Recent LUDMILA Past Surgical History: Reviewed- Non-Contributory -: back surgery Psychosocial/ Personal History: Patient lives at [facility]. - Family History Father Medical History: Cancer, Other (see notes) Family History: No mention of renal disorders - Social History Smoking Status: Unknown if ever smoked Alcohol use: No CD- Drugs: No Caffeine use: Yes [facility] Review of Systems Unable to obtain as pt lethargic and not able to provide Physical Examination Reviewed in EMR General: Appears pale, ill HEENT: Atraumatic, Normocephalic, Sclerae nonicteric, mucous membranes dry Neck: Supple, Lt IJ CVC Respiratory: Clear to auscultation bilaterally, Normal air movement Cardiovascular: No edema, Regular rate/rhythm, No gallops Gastrointestinal: Soft, Non-distended, No significant tenderness, wheatley present Musculoskeletal: No swelling Integumentary: No rashes Neurological: Lethargic but awake, tracks movements, responds briefly, no tremors or myoclonus Urinary: [place] Conclusions/Impression: 1. Stage II LUDMILA 2. Pre-renal azotemia 3. Volume depletion 4. Hypernatremia 5. Hypokalemia 6. Leukocytosis 7. C diff colitis 8. Lactic acidosis on admission 1. LUDMILA 2nd to recurrent pre-renal azotemia induced by GI losses/diarrhea/low oral intake causing volume depletion (labs showed signs of hemoconcentration, elevated HCT on admission) compounded by hypotension. Fortunately Cr level is downward trending from peak, pt is non oliguric with 500 cc in wheatley, no current indication for HD. 2. Cont to hydrate with hypotonic fluids but will cont to employ saline given hypotension on presentation. Cont D51/2 NS at current rate. Trend Na levels. 3. Replete potassium with IV KCL. 4. Wean pressor support as tolerated. 5. Defer management of C diff colitis to the primary team, cont PO Vanc, monitor for any complications. Thank you for this referral, Kulwinder Dial MD, [facility]
[2021-12-22] MEDS: KCL 20 MEQ/100 mL IVPB 20 MEQ/100 ML BAG IV SCH ×2 (14:33→16:40)
[2021-12-22] MEDS: HYDROCORTISONE SUC 100 MG INJ IV SCH (16:41)
[2021-12-23] MEDS: HYDROCORTISONE SUC 100 MG INJ IV SCH ×3 (02:02→16:32)
[2021-12-23] MEDS: D5 0.45 NS 1,000 ML IV SCH (02:05)
[2021-12-23 05:09] LABS: Absolute Lymphocytes (CBC) 1.1 K/uL (0.7-4.9); Hematocrit 21.3 % (36.0-45.0); Lymphocytes % 12.2 % (15.3-44.8); MCV 93.5 fL (80-100); MPV 7.3 fL (7.6-11.3); RBC Red Blood Cell Count 2.28 M/uL (3.86-4.86)
[2021-12-23 05:22] LABS: Albumin 2.4 g/dL (3.4-5.0); Bilirubin Total 0.3 mg/dL (0.2-1.0); Magnesium 1.9 mg/dL (1.8-2.4); Potassium 3.2 mmol/L (3.5-5.1)
[2021-12-23] MEDS: HEPARIN 5000 UNIT/ML 1 ML VIAL SQ SCH ×2 (08:37→19:53)
[2021-12-23] MEDS: Meropenem 500 MG in NA CHLORIDE 0.9% 100 ML IV SCH ×2 (08:38→19:54)
[2021-12-23] MEDS: VANCOMYCIN ORAL SOLN 250 MG/5 ML OSYR PO SCH ×4 (08:39→19:57)
[2021-12-23] MEDS ORDERED: KCL 20 MEQ/100 mL IVPB 20 MEQ/100 ML BAG IV ONE (11:00)
--- NOTE | 2021-12-23 11:12 | P.PN ---
Subjective Date of Service: 12/23/21 Chief Complaint: Septic shock Patient seen and examined at bedside, alert and oriented did only to self. Still requiring pressors. Review of Systems 10-point ROS is otherwise unremarkable Physical Examination - Vital Signs Temperature: 96.6 F Blood Pressure: 105/55 Pulse: 72 Respirations: 15 Pulse Ox (%): 100 - Studies Laboratory Last Values WBC 29.6 K/uL (4.3-10.9) H* D 12/21/21 15:40 RBC 4.29 M/uL (3.86-4.86) 12/21/21 15:40 Hgb 12.7 g/dL (12.0-15.0) 12/21/21 15:40 Hct 40.5 % (36.0-45.0) 12/21/21 15:40 MCV 94.3 fL (80-100) 12/21/21 15:40 MCH 29.7 pg (27.0-35.0) 12/21/21 15:40 MCHC 31.5 g/dL (32.0-36.0) L 12/21/21 15:40 RDW 18.3 % (12.1-15.2) H 12/21/21 15:40 Plt Count 269 K/uL (152-406) 12/21/21 15:40 MPV 7.9 fL (7.6-11.3) 12/21/21 15:40 Neutrophils % 86.4 % (41.7-73.7) H 12/21/21 15:40 Lymphocytes % 8.0 % (15.3-44.8) L 12/21/21 15:40 Monocytes % 5.5 % (3.3-12.3) 12/21/21 15:40 Eosinophils % 0.0 % (0-4.4) 12/21/21 15:40 Basophils % 0.1 % (0-1.3) 12/21/21 15:40 Absolute Neutrophils 25.6 K/uL (1.8-8.0) H 12/21/21 15:40 Absolute Lymphocytes 2.4 K/uL (0.7-4.9) 12/21/21 15:40 Absolute Monocytes 1.6 K/uL (0.1-1.3) H 12/21/21 15:40 Absolute Eosinophils 0.0 K/uL (0-0.5) 12/21/21 15:40 Absolute Basophils 0.0 K/uL (0-0.5) 12/21/21 15:40 Platelet Estimate Adeq 12/21/21 15:40 Anisocytosis 1+ 12/21/21 15:40 Morphology Comment Noted (NOT SEEN) 12/21/21 15:40 PT 14.5 SECONDS (9.5-12.5) H 12/21/21 16:01 INR 1.31 12/21/21 16:01 APTT 27.6 SECONDS (24.3-36.9) 12/21/21 16:01 Sodium 146 mmol/L (136-145) H 12/21/21 15:40 Potassium 4.2 mmol/L (3.5-5.1) 12/21/21 15:40 Chloride 109 mmol/L (98-107) H 12/21/21 15:40 Carbon Dioxide 23 mmol/L (21-32) 12/21/21 15:40 Anion Gap 18.2 mEq/L (5.0-15.0) H D 12/21/21 15:40 BUN 81 mg/dL (7-18) H 12/21/21 15:40 Creatinine 2.84 mg/dL (0.55-1.3) H 12/21/21 15:40 Est GFR (CKD-EPI) 17 ml/min (=/>90) L 12/21/21 15:40 Glucose 101 mg/dL (74-106) 12/21/21 15:40 POC Glucose 96 mg/dL (65-120) 12/21/21 16:19 Lactic Acid Cancelled 12/21/21 20:09 Calcium 9.6 mg/dL (8.5-10.1) 12/21/21 15:40 Total Bilirubin 0.5 mg/dL (0.2-1.0) 12/21/21 15:40 AST 30 U/L (15-37) 12/21/21 15:40 ALT 17 U/L (12-78) 12/21/21 15:40 Alkaline Phosphatase 68 U/L (45-117) 12/21/21 15:40 Serum Total Protein 9.4 g/dL (6.4-8.2) H 12/21/21 15:40 Albumin 3.0 g/dL (3.4-5.0) L 12/21/21 15:40 Globulin 6.4 g/dL (2.3-3.5) H 12/21/21 15:40 Albumin/Globulin Ratio 0.5 (1.1-1.8) L 12/21/21 15:40 Urine pH 6.5 (5.0-7.0) 12/21/21 18:10 Ur Specific [place] 1.015 (1.005-1.030) 12/21/21 18:10 Glucose (UA)(Auto) Negative (Negative) 12/21/21 18:10 Urine Ketones Negative (Negative) 12/21/21 18:10 Urine Blood 2+ (Negative) H 12/21/21 18:10 Urine Nitrite Negative (Negative) 12/21/21 18:10 Ur Leukocyte Esterase Trace (Negative) H 12/21/21 18:10 Urine RBC 10-20 /HPF (NONE SEEN) H 12/21/21 18:10 Urine WBC <5 /HPF (<5) 12/21/21 18:10 Ur Squamous Epith Cells <5 /HPF (NONE SEEN) 12/21/21 18:10 Urine Bacteria <20 /HPF (<20) 12/21/21 18:10 Urine Culture Reflexed Not needed 12/21/21 18:10 Urine Total Protein Trace (Negative) H 12/21/21 18:10 C. difficile Ag & Toxin Ag pos : tox pos (NEG : NEG) A 12/21/21 17:08 SARS-CoV-2 Rap RNA(RT-PCR) Negative (NEGATIVE) 12/21/21 14:53 Smear Scan Ok (OK) 12/21/21 15:40 Medications List Reviewed: Yes Assessment And Plan - Plan Physical Exam: General: Oriented x1, Demented HEENT: Atraumatic Respiratory: Clear to auscultation bilaterally, Normal air movement Cardiovascular: Regular rate/rhythm Gastrointestinal: No ascites, No tenderness, No rebound, No guarding Integumentary: No rashes, No breakdown, No significant lesion Urinary: Antunez catheter Conclusions/Impression: Lines: Right femoral, left IJ, Antunez catheter Antibiotics: Meropenem: 7current Oral vancomycin: 7current Assessment/plan Septic shock secondary to colitis versus UTI -Still requiring pressors C. difficile positive, oral vancomycin started on 12/22. Continue for 10 days Patient was hospitalized at this facility earlier last month, urinary culture obtained on 11/29/2021 grew Enterococcus faecalis, patient was discharged on oral cefpodoxime x5 days. This likely did not clear infection, urine culture obtained on 12/21 growing gram-negative rods. Continue meropenem at this time. Leukocytosis Downtrending, continue oral vancomycin and IV meropenem at this time LUDMILA on CKD stage III Renally dose all antibiotics, avoid nephrotoxic agents -Current creatinine 24.7 mL/min. Meropenem renally dosed at 500 mg every 12 Hypothyroidism Continue current medications SLE Continue hydrocortisone 500 mg every 8 hours Plan of care discussed with Dr. Cervantes Thank for consultation
[2021-12-23] MEDS: D5W 1,000 ML with POTASSIUM CL 20 MEQ IV SCH ×2 (11:32)
--- NOTE | 2021-12-23 11:33 | P.PN ---
Date of Service: 12/23/21 Nephrology (S) Pt remains in the ICU, renal function better, had been off pressor support but [employer]ER started back low dose this AM for MAPs that were low. Pt still having some diarrhea, no reports of abd pain General: Appears pale, ill HEENT: Atraumatic, Normocephalic, Sclerae nonicteric, mucous membranes dry Neck: Supple, Lt IJ CVC Respiratory: Clear to auscultation bilaterally, Normal air movement Cardiovascular: No edema, Regular rate/rhythm, No gallops Gastrointestinal: Soft, Non-distended, No significant tenderness, wheatley present Musculoskeletal: No swelling Integumentary: No rashes Neurological: Lethargic but awake, tracks movements, responds briefly, no tremors or myoclonus Urinary: Wheatley Conclusions/Impression: 1. Stage II LUDMILA resolving 2. Pre-renal azotemia -improved 3. Volume depletion -improved 4. Hypernatremia 5. Hypokalemia 6. Leukocytosis -improving 7. C diff colitis 8. Lactic acidosis on admission -resolved 1. LUDMILA 2nd to recurrent pre-renal azotemia induced by GI losses/diarrhea/low oral intake causing volume depletion (labs showed signs of hemoconcentration, elevated HCT on admission) compounded by hypotension. Fortunately Cr level has been steadily downward trending from peak, cont to monitor. 2. Had been on hypotonic fluids but did employ saline given hypotension on presentation. Pt had been off pressors so I intended to switch to D5W + IV KCL to address water deficit/hypernatremia but in light of being back on low dose Levophed, I'll add some IV Albumin for colloidal support. 3. Replete potassium with IV KCL. 4. Wean pressor support as tolerated. 5. Defer management of C diff colitis to the primary team, cont PO Vanc, monitor for any complications. Kulwinder Dial MD, [facility]
[2021-12-23] MEDS ORDERED: ALBUMIN HUMAN 25% 100 ML IV ONE ×2 (11:40→13:00)
[2021-12-23] MEDS ORDERED: VANCOMYCIN 0.75 GM in NA CHLORIDE 0.9% 150 ML IVPB SCH (13:00)
--- NOTE | 2021-12-23 13:58 | P.PN ---
Subjective Date of Service: 12/23/21 Chief Complaint: Septic shock Subjective: No new changes Physical Examination - Vital Signs Temperature: 96.6 F Blood Pressure: 105/55 Pulse: 72 Respirations: 15 Pulse Ox (%): 100 - Physical Exam General: Alert, Oriented x3 HEENT: Atraumatic, Normocephalic Neck: Supple Respiratory: Normal air movement Cardiovascular: Regular rate/rhythm, Normal S1 S2 Gastrointestinal: Soft and benign Musculoskeletal: No swelling Neurological: Normal speech, Normal strength at 5/5 x4 extr - Studies Medications List Reviewed: Yes Assessment And Plan - Plan Assessment & Plan - Problems (Diagnosis) (1) Septic shock Current Visit: Yes Status: Acute (2) LUDMILA (acute kidney injury) Current Visit: No Status: Acute (3) AMS (altered mental status) Current Visit: No Status: Acute Qualifiers: Altered mental status type: unspecified Qualified Code(s): R41.82 - Altered mental status, unspecified (4) COPD (chronic obstructive pulmonary disease) Current Visit: No Status: Chronic Qualifiers: COPD type: unspecified COPD Qualified Code(s): J44.9 - Chronic obstructive pulmonary disease, unspecified (5) SLE (systemic lupus erythematosus) Current Visit: No Status: Chronic Qualifiers: Systemic lupus erythematosus type: unspecified Systemic lupus erythematosus organ involvement: unspecified Qualified Code(s): M32.9 - Systemic lupus erythematosus, unspecified - Plan: Continues to have significant cardiovascular instability and is still needing IV vasopressor. Will continue IV fluid and vasopressor support. With aim for mean atrial pressure of 65 mmHg modified to convert to regular perfusion. Will continue C. difficile management with oral vancomycin. Will follow cultures and adjust as needed.
[2021-12-23] MEDS: NOREPINEPHRINE 4 MG in D5W 250 ML IV SCH (14:23)
[2021-12-23] MEDS ORDERED: VANCOMYCIN 500 MG in NA CHLORIDE 0.9% 100 ML IVPB SCH (18:00)
[2021-12-24] MEDS: HYDROCORTISONE SUC 100 MG INJ IV SCH ×2 (00:40→09:05)
[2021-12-24] MEDS: D5W 1,000 ML with POTASSIUM CL 20 MEQ IV SCH ×6 (02:17→18:00)
[2021-12-24 05:13] LABS: Absolute Lymphocytes (CBC) 1.5 K/uL (0.7-4.9); Lymphocytes % 20.2 % (15.3-44.8); MCV 92.7 fL (80-100); MPV 7.4 fL (7.6-11.3); RBC Red Blood Cell Count 2.17 M/uL (3.86-4.86)
[2021-12-24 05:19] LABS: Hematocrit 20.1 % (36.0-45.0)
[2021-12-24 05:23] LABS: Albumin 2.6 g/dL (3.4-5.0); Bilirubin Total 0.3 mg/dL (0.2-1.0); Potassium 3.4 mmol/L (3.5-5.1); Protein, Total 5.7 g/dL (6.4-8.2)
[2021-12-24] MEDS ORDERED: NA CHLORIDE 0.9% 250 ML IV SCH (06:00)
[2021-12-24] MEDS: HEPARIN 5000 UNIT/ML 1 ML VIAL SQ SCH (09:03)
[2021-12-24] MEDS: Meropenem 500 MG in NA CHLORIDE 0.9% 100 ML IV SCH ×2 (09:04→20:35)
[2021-12-24] MEDS: VANCOMYCIN ORAL SOLN 250 MG/5 ML OSYR PO SCH ×4 (09:16→20:36)
--- NOTE | 2021-12-24 10:39 | P.PN ---
Subjective Date of Service: 12/24/21 Chief Complaint: Septic shock Subjective: Improving (Patient is improving off Levophed) Review of Systems General: Weakness Physical Examination - Vital Signs Temperature: 97.7 F Blood Pressure: 97/49 Pulse: 60 Respirations: 17 Pulse Ox (%): 100 - Physical Exam General: Alert, In no apparent distress, Oriented x3 Respiratory: Clear to auscultation bilaterally Cardiovascular: No edema, Normal pulses - Studies Microbiology Data (last 24 hrs): 12/21/21 17:50 Stool Culture & Sensitivity - Final 12/21/21 18:10 Catheterized Urine [place] Count - Final <10,000 CFU/ML. 12/21/21 18:10 Catheterized Urine - Final Escherichia Coli Esbl Medications List Reviewed: Yes Assessment And Plan - Current Problems (Diagnosis) (1) Septic shock Current Visit: Yes Status: Acute Plan: Patient is 76 years of age admitted with septic shock ESBL bacteremia patient is improving off vasopressors White count is now normal there is been a decline in her hemoglobin we will plan to transfuse her pressure still on the lower side DC hydrocortisone (2) C. difficile diarrhea Current Visit: Yes Status: Acute Plan: Patient is on vancomycin changed to Lovenox
[2021-12-24] MEDS ORDERED: POTASSIUM 25 MEQ EFFERV TAB PO ONE (17:42)
--- NOTE | 2021-12-24 17:44 | P.PN ---
Date of Service: 12/24/21 Nephrology (S) Pt remains in the ICU, renal function better, BP holding up better, denies abd pain. General: Appears pale, ill HEENT: Atraumatic, Normocephalic, Sclerae nonicteric, mucous membranes dry Neck: Supple, Lt IJ CVC Respiratory: Clear to auscultation bilaterally, Normal air movement Cardiovascular: No edema, Regular rate/rhythm, No gallops Gastrointestinal: Soft, Non-distended, No significant tenderness, wheatley present Musculoskeletal: No swelling Integumentary: No rashes Neurological: LLes lethargic, more awake, conversive, no tremors or myoclonus Urinary: Wheatley Conclusions/Impression: 1. Stage II LUDMILA resolving 2. Pre-renal azotemia -improved 3. Volume depletion -improved 4. Hypernatremia resolved 5. Hypokalemia 6. Leukocytosis -improving 7. C diff colitis 8. Lactic acidosis on admission -resolved 1. LUDMILA 2nd to recurrent pre-renal azotemia induced by GI losses/diarrhea/low oral intake causing volume depletion (labs showed signs of hemoconcentration, elevated HCT on admission) compounded by hypotension. Fortunately Cr level has been steadily downward trending from peak, cont to monitor. 2. Hypotension resolved. Hypernatremia resolved, will cont lower rate of D5W + KCL for another 12-24 until PO intake improves, diarrhea resolves 3. Replete potassium 4. Complete course of PO Vanc for Cdiff. Kulwinder Dial MD, [facility]
[2021-12-24 19:32] LABS: Hematocrit 28.6 % (36.0-45.0)
[2021-12-25] MEDS: ENOXAPARIN 30 MG/0.3 ML SQ SCH (08:12)
[2021-12-25] MEDS: VANCOMYCIN ORAL SOLN 250 MG/5 ML OSYR PO SCH ×4 (08:13→20:28)
[2021-12-25] MEDS: Meropenem 500 MG in NA CHLORIDE 0.9% 100 ML IV SCH ×2 (08:13→20:28)
--- NOTE | 2021-12-25 08:35 | P.PN ---
Subjective Date of Service: 12/25/21 Chief Complaint: Sepsis Subjective: Improving (Patient is improving shock resolved she is more alert responsive cooperative) Review of Systems Unremarkable General: Weakness Physical Examination - Vital Signs Temperature: 97.1 F Blood Pressure: 100/58 Pulse: 51 Respirations: 12 Pulse Ox (%): 92 - Physical Exam General: Alert, In no apparent distress, Oriented x3 Respiratory: Clear to auscultation bilaterally Cardiovascular: No edema, Regular rate/rhythm - Studies Microbiology Data (last 24 hrs): 12/21/21 17:50 Stool Culture & Sensitivity - Final 12/21/21 18:10 Catheterized Urine [place] Count - Final <10,000 CFU/ML. 12/21/21 18:10 Catheterized Urine - Final Escherichia Coli Esbl Medications List Reviewed: Yes Assessment And Plan - Current Problems (Diagnosis) (1) C. difficile diarrhea Current Visit: Yes Status: Acute Plan: Patient is on vancomycin changed to Lovenox patient condition is stable (2) ESBL (extended spectrum beta-lactamase) producing bacteria infection Current Visit: Yes Status: Acute Plan: Admitted with ESBL infection septic shock has resolved doing much better blood pressure oxygenation levels are stable labs reviewed hemoglobin has improved stable for transfer to the floor patient was also transfused 1 unit of packed red blood cells (3) Renal failure Current Visit: Yes Status: Acute Plan: Improving Qualifiers: Renal failure chronicity: acute
[2021-12-25] MEDS: D5W 1,000 ML with POTASSIUM CL 20 MEQ IV SCH ×2 (12:13)
[2021-12-25] MEDS ORDERED: DEXTROSE 10%-WATER 500 ML IV ONE (21:10)
[2021-12-26 05:02] LABS: Hematocrit 30.3 % (36.0-45.0); MCV 92.1 fL (80-100); MPV 6.9 fL (7.6-11.3); RBC Red Blood Cell Count 3.29 M/uL (3.86-4.86)
[2021-12-26 05:16] LABS: Potassium 3.6 mmol/L (3.5-5.1)
[2021-12-26] MEDS: Meropenem 500 MG in NA CHLORIDE 0.9% 100 ML IV SCH (08:23)
[2021-12-26] MEDS: ENOXAPARIN 30 MG/0.3 ML SQ SCH (08:24)
[2021-12-26] MEDS: VANCOMYCIN ORAL SOLN 250 MG/5 ML OSYR PO SCH ×4 (08:24→21:00)
--- NOTE | 2021-12-26 08:44 | P.PN ---
Subjective Date of Service: 12/26/21 Chief Complaint: Sepsis Subjective: Improving (Better hemodynamically stable) Review of Systems General: Weakness, Unremarkable Physical Examination - Vital Signs Temperature: 97.8 F Blood Pressure: 124/58 Pulse: 55 Respirations: 18 Pulse Ox (%): 97 - Physical Exam General: Alert, In no apparent distress, Oriented x3 Respiratory: Clear to auscultation bilaterally Cardiovascular: No edema, Regular rate/rhythm - Studies Medications List Reviewed: Yes Assessment And Plan - Current Problems (Diagnosis) (1) C. difficile diarrhea Current Visit: Yes Status: Acute Plan: Patient is on vancomycin changed to Lovenox patient condition is stable (2) ESBL (extended spectrum beta-lactamase) producing bacteria infection Current Visit: Yes Status: Acute Plan: Patient has been ordered a PICC line will need meropenem therapy for 2 weeks
--- NOTE | 2021-12-26 11:29 | P.PN ---
Date of Service: 12/26/21 Vital Signs Temp Pulse Resp BP Pulse Ox 97.8 F 55 18 124/58 L 97 12/26/21 08:43 12/26/21 08:43 12/26/21 08:43 12/26/21 08:43 12/26/21 08:43 Medications Acetaminophen (Acetaminophen 650mg/Rect Supp) 650 mg ND Q6HP PRN PRN Reason: TEMP > 100' F Enoxaparin Sodium (Enoxaparin 30 Mg/0.3 Ml) 30 mg SQ DAILY [facility] Last Admin: 12/26/21 08:24 Dose: 30 mg Documented by: Meropenem 500 mg/ Sodium (Chloride) 100 mls @ 200 mls/hr IV BID [facility] Last Admin: 12/26/21 08:23 Dose: 100 mls Documented by: Sodium Chloride (Sodium Chloride) 250 mls @ 0 mls/hr IV .Q0M [facility] Ondansetron HCl (Ondansetron 4 Mg/2 Ml Vial) 4 mg IV Q6HP PRN PRN Reason: NAUSEA / VOMITING Sodium Chloride (Flush Normal Saline 10 Ml) 10 ml IV BID [facility] Last Admin: 12/26/21 08:24 Dose: 10 ml Documented by: Vancomycin HCl (Vancomycin Oral Soln 250 Mg/5 Ml [place]) 125 mg PO QID [facility]; Protocol Stop: 01/01/22 09:01 Last Admin: 12/26/21 08:24 Dose: 125 mg Documented by: Microbiology Results 12/21/21 17:50 Stool Culture & Sensitivity - Final 12/21/21 18:10 Catheterized Urine [place] Count - Final <10,000 CFU/ML. 12/21/21 18:10 Catheterized Urine - Final Escherichia Coli Esbl 12/21/21 17:00 Blood - Blood Aerobic Blood Culture - Preliminary No growth in 24 hours. 12/21/21 17:00 Blood - Blood Anaerobic Blood Culture - Preliminary No growth in 24 hours. 12/21/21 15:40 Blood - Blood Aerobic Blood Culture - Preliminary No growth in 24 hours. 12/21/21 15:40 Blood - Blood Anaerobic Blood Culture - Preliminary No growth in 24 hours. 12/21/21 17:50 Stool Rotavirus Antigen - Final 12/21/21 14:53 Nasopharnyx Influenza Type A Antigen Screen - Final 12/21/21 14:53 Nasopharnyx Influenza Type B Antigen Screen - Final Assessment/ Plan: Nephrology Weakness and fatigue No chest pain No dyspnea No acute events overnight Vitals, medications, blood work and imaging reviewed in the chart. NAD. NCAT. MMM. CTA. RRR. Soft Abd. No C/C/E. No rash. AAO. Normal speech. LUDMILA likely hypovolemia CKD II with proteinuria -No NSAIDs Hypernatremia -Maintain adequate hydration Hypokalemia -Replete prn Moderate malnutrition -Encourage nutrition Anemia in chronic illness -Monitor H&H C.diff colitis -Continue oral Vancomycin
--- NOTE | 2021-12-26 15:43 | P.PN ---
Subjective Date of Service: 12/26/21 Chief Complaint: Sepsis Patient seen and examined at bedside, no acute events. Review of Systems 10-point ROS is otherwise unremarkable Physical Examination - Vital Signs Temperature: 97.0 F Blood Pressure: 135/63 Pulse: 51 Respirations: 16 Pulse Ox (%): 98 - Studies Medications List Reviewed: Yes Assessment And Plan - Plan Physical Exam: General: Oriented x1, Demented HEENT: Atraumatic Respiratory: Clear to auscultation bilaterally, Normal air movement Cardiovascular: Regular rate/rhythm Gastrointestinal: No ascites, No tenderness, No rebound, No guarding Integumentary: No rashes, No breakdown, No significant lesion Urinary: Antunez catheter Conclusions/Impression: Lines: Right femoral, left IJ, Antunez catheter Antibiotics: Meropenem: 7current Oral vancomycin: 7current Assessment/plan Septic shock secondary to colitis versus UTI -off pressers since 12/23, recommend removing right femoral line C. difficile positive, oral vancomycin started on 12/22. Continue for 10 days Patient was hospitalized at this facility earlier last month, urinary culture obtained on 11/29/2021 grew Enterococcus faecalis, patient was discharged on oral cefpodoxime x5 days. This likely did not clear infection, urine culture obtained on 12/21 grew ESBL producing E. coli, recommend continuing meropenem for 5 to 7-day duration. Leukocytosis -Resolved LUDMILA on CKD stage III -Creatinine improved. LUDMILA resolved Renally dose all antibiotics, avoid nephrotoxic agents -Current creatinine 33.3 mL/min, meropenem dose increased from 500 mg every 12 to 1000 mg every 12. Hypothyroidism Continue current medications SLE hydrocortisone 500 mg every 8 hours DC by IM Plan of care discussed with Dr. Cervantes Thank for consultation
[2021-12-26] MEDS ORDERED: LORazepam 2 MG/ML VIAL IV ONE (18:52)
[2021-12-26] MEDS: Banana Flakes/T-Galactooligos 1 Dose Packet FT SCH (21:00)
[2021-12-26] MEDS: Meropenem 1,000 MG in NA CHLORIDE 0.9% 100 ML IV SCH (22:49)
[2021-12-26] MEDS: ENSURE ENLIVE 237 ML CAN PO SCH (22:50)
[2021-12-27] MEDS: Banana Flakes/T-Galactooligos 1 Dose Packet FT SCH ×2 (09:00→21:21)
[2021-12-27] MEDS: Meropenem 1,000 MG in NA CHLORIDE 0.9% 100 ML IV SCH ×2 (09:17→21:20)
[2021-12-27] MEDS: ENOXAPARIN 30 MG/0.3 ML SQ SCH (09:17)
[2021-12-27] MEDS: VANCOMYCIN ORAL SOLN 250 MG/5 ML OSYR PO SCH ×4 (09:18→21:21)
[2021-12-27] MEDS: ENSURE ENLIVE 237 ML CAN PO SCH ×2 (09:18→21:21)
--- NOTE | 2021-12-27 11:34 | P.PN ---
Subjective Date of Service: 12/27/21 Chief Complaint: Sepsis Patient seen and examined at bedside, no acute events. Review of Systems 10-point ROS is otherwise unremarkable Physical Examination - Vital Signs Temperature: 97.0 F Blood Pressure: 112/68 Pulse: 60 Respirations: 16 Pulse Ox (%): 98 - Studies Laboratory Last Values WBC 29.6 K/uL (4.3-10.9) H* D 12/21/21 15:40 RBC 4.29 M/uL (3.86-4.86) 12/21/21 15:40 Hgb 12.7 g/dL (12.0-15.0) 12/21/21 15:40 Hct 40.5 % (36.0-45.0) 12/21/21 15:40 MCV 94.3 fL (80-100) 12/21/21 15:40 MCH 29.7 pg (27.0-35.0) 12/21/21 15:40 MCHC 31.5 g/dL (32.0-36.0) L 12/21/21 15:40 RDW 18.3 % (12.1-15.2) H 12/21/21 15:40 Plt Count 269 K/uL (152-406) 12/21/21 15:40 MPV 7.9 fL (7.6-11.3) 12/21/21 15:40 Neutrophils % 86.4 % (41.7-73.7) H 12/21/21 15:40 Lymphocytes % 8.0 % (15.3-44.8) L 12/21/21 15:40 Monocytes % 5.5 % (3.3-12.3) 12/21/21 15:40 Eosinophils % 0.0 % (0-4.4) 12/21/21 15:40 Basophils % 0.1 % (0-1.3) 12/21/21 15:40 Absolute Neutrophils 25.6 K/uL (1.8-8.0) H 12/21/21 15:40 Absolute Lymphocytes 2.4 K/uL (0.7-4.9) 12/21/21 15:40 Absolute Monocytes 1.6 K/uL (0.1-1.3) H 12/21/21 15:40 Absolute Eosinophils 0.0 K/uL (0-0.5) 12/21/21 15:40 Absolute Basophils 0.0 K/uL (0-0.5) 12/21/21 15:40 Platelet Estimate Adeq 12/21/21 15:40 Anisocytosis 1+ 12/21/21 15:40 Morphology Comment Noted (NOT SEEN) 12/21/21 15:40 PT 14.5 SECONDS (9.5-12.5) H 12/21/21 16:01 INR 1.31 12/21/21 16:01 APTT 27.6 SECONDS (24.3-36.9) 12/21/21 16:01 Sodium 146 mmol/L (136-145) H 12/21/21 15:40 Potassium 4.2 mmol/L (3.5-5.1) 12/21/21 15:40 Chloride 109 mmol/L (98-107) H 12/21/21 15:40 Carbon Dioxide 23 mmol/L (21-32) 12/21/21 15:40 Anion Gap 18.2 mEq/L (5.0-15.0) H D 12/21/21 15:40 BUN 81 mg/dL (7-18) H 12/21/21 15:40 Creatinine 2.84 mg/dL (0.55-1.3) H 12/21/21 15:40 Est GFR (CKD-EPI) 17 ml/min (=/>90) L 12/21/21 15:40 Glucose 101 mg/dL (74-106) 12/21/21 15:40 POC Glucose 96 mg/dL (65-120) 12/21/21 16:19 Lactic Acid Cancelled 12/21/21 20:09 Calcium 9.6 mg/dL (8.5-10.1) 12/21/21 15:40 Total Bilirubin 0.5 mg/dL (0.2-1.0) 12/21/21 15:40 AST 30 U/L (15-37) 12/21/21 15:40 ALT 17 U/L (12-78) 12/21/21 15:40 Alkaline Phosphatase 68 U/L (45-117) 12/21/21 15:40 Serum Total Protein 9.4 g/dL (6.4-8.2) H 12/21/21 15:40 Albumin 3.0 g/dL (3.4-5.0) L 12/21/21 15:40 Globulin 6.4 g/dL (2.3-3.5) H 12/21/21 15:40 Albumin/Globulin Ratio 0.5 (1.1-1.8) L 12/21/21 15:40 Urine pH 6.5 (5.0-7.0) 12/21/21 18:10 Ur Specific [place] 1.015 (1.005-1.030) 12/21/21 18:10 Glucose (UA)(Auto) Negative (Negative) 12/21/21 18:10 Urine Ketones Negative (Negative) 12/21/21 18:10 Urine Blood 2+ (Negative) H 12/21/21 18:10 Urine Nitrite Negative (Negative) 12/21/21 18:10 Ur Leukocyte Esterase Trace (Negative) H 12/21/21 18:10 Urine RBC 10-20 /HPF (NONE SEEN) H 12/21/21 18:10 Urine WBC <5 /HPF (<5) 12/21/21 18:10 Ur Squamous Epith Cells <5 /HPF (NONE SEEN) 12/21/21 18:10 Urine Bacteria <20 /HPF (<20) 12/21/21 18:10 Urine Culture Reflexed Not needed 12/21/21 18:10 Urine Total Protein Trace (Negative) H 12/21/21 18:10 C. difficile Ag & Toxin Ag pos : tox pos (NEG : NEG) A 12/21/21 17:08 SARS-CoV-2 Rap RNA(RT-PCR) Negative (NEGATIVE) 12/21/21 14:53 Smear Scan Ok (OK) 12/21/21 15:40 Microbiology Data (last 24 hrs): 12/21/21 17:00 Blood - Blood Aerobic Blood Culture - Final No growth in 5 days. 12/21/21 17:00 Blood - Blood Anaerobic Blood Culture - Final No growth in 5 days. 12/21/21 15:40 Blood - Blood Aerobic Blood Culture - Final No growth in 5 days. 12/21/21 15:40 Blood - Blood Anaerobic Blood Culture - Final No growth in 5 days. Medications List Reviewed: Yes Assessment And Plan - Plan Physical Exam: General: Oriented x1, Demented HEENT: Atraumatic Respiratory: Clear to auscultation bilaterally, Normal air movement Cardiovascular: Regular rate/rhythm Gastrointestinal: No ascites, No tenderness, No rebound, No guarding Integumentary: No rashes, No breakdown, No significant lesion Urinary: Antunez catheter Conclusions/Impression: Lines: Right femoral, right arm PICC line, left hand peripheral Antibiotics: Meropenem: urrent Oral vancomycin: urrent Assessment/plan Septic shock secondary to colitis versus UTI -off pressers since 12/23, recommend removing right femoral line C. difficile positive, oral vancomycin started on 12/22. Continue for 10 days Patient was hospitalized at this facility earlier last month, urinary culture obtained on 11/29/2021 grew Enterococcus faecalis, patient was discharged on oral cefpodoxime x5 days. This likely did not clear infection, urine culture obtained on 12/21 grew ESBL producing E. coli, recommend continuing meropenem for 5 to 7-day duration. Leukocytosis -Resolved LUDMILA on CKD stage III -Creatinine improved. LUDMILA resolved Renally dose all antibiotics, avoid nephrotoxic agents -Current creatinine 33.3 mL/min, meropenem dose increased from 500 mg every 12 to 1000 mg every 12. Hypothyroidism Continue current medications SLE hydrocortisone 500 mg every 8 hours DC by IM Plan of care discussed with Dr. Cervantes Thank for consultation
--- NOTE | 2021-12-27 11:42 | RAD REPORT ---
EXAM DESCRIPTION: RAD - Chest Single View - 12/27/2021 6:19 am CLINICAL HISTORY: The patient is 76 years old and is Female; picc line placement TECHNIQUE: Frontal view of the chest. COMPARISON: No relevant prior studies available. FINDINGS: Lungs: Unremarkable. No consolidation. Pleural space: Unremarkable. No pneumothorax. Heart: Unremarkable. Mediastinum: Unremarkable. Bones/joints: Unremarkable. IMPRESSION: No acute findings in the chest. Electronically signed by: Sagar Crum MD 12/27/2021 7:40 AM CDT Due to temporary technical issues with the PACS/Fluency reporting system, reports are being signed by the in house radiologists without review as a courtesy to insure prompt reporting. The interpreting radiologist is fully responsible for the content of the report.
--- NOTE | 2021-12-27 16:32 | P.PN ---
Date of Service: 12/27/21 Vital Signs Temp Pulse Resp BP Pulse Ox 98.0 F 64 12 134/67 98 12/27/21 16:00 12/27/21 16:00 12/27/21 16:00 12/27/21 16:00 12/27/21 16:00 Medications Acetaminophen (Acetaminophen 650mg/Rect Supp) 650 mg SD Q6HP PRN PRN Reason: TEMP > 100' F Enoxaparin Sodium (Enoxaparin 30 Mg/0.3 Ml) 30 mg SQ DAILY [facility] Last Admin: 12/27/21 09:17 Dose: 30 mg Documented by: Sodium Chloride (Sodium Chloride) 250 mls @ 0 mls/hr IV .Q0M FERN Meropenem 1,000 mg/ Sodium (Chloride) 100 mls @ 200 mls/hr IV Q12HR [facility] Last Admin: 12/27/21 09:17 Dose: 100 mls Documented by: Nutritional Formula (Ensure Enlive 237 Ml Can) 237 ml PO BID [facility] Last Admin: 12/27/21 09:18 Dose: 237 ml Documented by: Ondansetron HCl (Ondansetron 4 Mg/2 Ml Vial) 4 mg IV Q6HP PRN PRN Reason: NAUSEA / VOMITING Sodium Chloride (Flush Normal Saline 10 Ml) 10 ml IV BID [facility] Last Admin: 12/27/21 09:18 Dose: 10 ml Documented by: Vancomycin HCl (Vancomycin Oral Soln 250 Mg/5 Ml [place]) 125 mg PO QID [facility]; Protocol Stop: 01/01/22 09:01 Last Admin: 12/27/21 16:18 Dose: 125 mg Documented by: Microbiology Results 12/21/21 17:00 Blood - Blood Aerobic Blood Culture - Final No growth in 5 days. 12/21/21 17:00 Blood - Blood Anaerobic Blood Culture - Final No growth in 5 days. 12/21/21 15:40 Blood - Blood Aerobic Blood Culture - Final No growth in 5 days. 12/21/21 15:40 Blood - Blood Anaerobic Blood Culture - Final No growth in 5 days. 12/21/21 17:50 Stool Culture & Sensitivity - Final 12/21/21 18:10 Catheterized Urine [place] Count - Final <10,000 CFU/ML. 12/21/21 18:10 Catheterized Urine - Final Escherichia Coli Esbl 12/21/21 17:50 Stool Rotavirus Antigen - Final 12/21/21 14:53 Nasopharnyx Influenza Type A Antigen Screen - Final 12/21/21 14:53 Nasopharnyx Influenza Type B Antigen Screen - Final Assessment/ Plan: Nephrology Weakness and fatigue No chest pain No dyspnea No acute events overnight Vitals, medications, blood work and imaging reviewed in the chart. NAD. NCAT. MMM. CTA. RRR. Soft Abd. No C/C/E. No rash. AAO. Normal speech. LUDMILA likely hypovolemia CKD II with proteinuria -No NSAIDs Hypernatremia -Maintain adequate hydration Hypokalemia -Replete prn Moderate malnutrition -Encourage nutrition Anemia in chronic illness -Monitor H&H C.diff colitis -Continue oral Vancomycin
--- NOTE | 2021-12-27 17:38 | P.PN ---
Subjective Date of Service: 12/27/21 Chief Complaint: Sepsis Patient has no complaint. She is on pured diet. She has been afebrile. No issues overnight.. Physical Examination - Vital Signs Temperature: 98.0 F Blood Pressure: 134/67 Pulse: 64 Respirations: 12 Pulse Ox (%): 98 - Physical Exam General: In no apparent distress, Demented HEENT: Mucous membr. moist/pink Neck: JVD not distended Respiratory: Clear to auscultation bilaterally, Normal air movement Cardiovascular: No edema, Regular rate/rhythm, Normal S1 S2 Gastrointestinal: Normal bowel sounds, Soft and benign, Non-distended, No tenderness Musculoskeletal: No swelling, No tenderness Integumentary: No rashes Neurological: Normal strength at 5/5 x4 extr - Studies Microbiology Data (last 24 hrs): 12/21/21 17:00 Blood - Blood Aerobic Blood Culture - Final No growth in 5 days. 12/21/21 17:00 Blood - Blood Anaerobic Blood Culture - Final No growth in 5 days. 12/21/21 15:40 Blood - Blood Aerobic Blood Culture - Final No growth in 5 days. 12/21/21 15:40 Blood - Blood Anaerobic Blood Culture - Final No growth in 5 days. Medications List Reviewed: Yes Assessment And Plan - Current Problems (Diagnosis) (1) Acute metabolic encephalopathy Current Visit: Yes Status: Acute (2) C. difficile diarrhea Current Visit: Yes Status: Acute (3) ESBL (extended spectrum beta-lactamase) producing bacteria infection Current Visit: Yes Status: Acute (4) Septic shock Current Visit: Yes Status: Acute (5) LUDMILA (acute kidney injury) Current Visit: No Status: Acute (6) Dementia Current Visit: No Status: Chronic Qualifiers: Dementia type: unspecified type Dementia behavioral disturbance: without behavioral disturbance Qualified Code(s): F03.90 - Unspecified dementia without behavioral disturbance (7) SLE (systemic lupus erythematosus) Current Visit: No Status: Chronic Qualifiers: Systemic lupus erythematosus type: unspecified Systemic lupus erythematosus organ involvement: unspecified Qualified Code(s): M32.9 - Systemic lupus erythematosus, unspecified - Plan Patient clinically improved. Acute renal failure resolved. Septic shock resolved. Blood cultures yielded no growth. Urine culture ESBL E. coli. Patient is on meropenem. Prior history of Enterococcus faecalis UTI which was noted to be sensitive to penicillin. Patient previously treated with third-generation cephalosporin. Stool is positive for C. difficile. Patient started on oral vancomycin. Infectious diseases following. She will need to complete about 7 days of IV meropenem. PICC line placed to continue IV meropenem as outpatient. Anticipating discharge to [facility] tomorrow.
[2021-12-28] MEDS ORDERED: NA CHLORIDE 0.9% 100 ML ONE (08:10)
[2021-12-28] MEDS ORDERED: Meropenem 1000 MG/VIAL IV ONE (08:13)
[2021-12-28] MEDS: ENOXAPARIN 30 MG/0.3 ML SQ SCH (08:15)
[2021-12-28] MEDS: Meropenem 1,000 MG in NA CHLORIDE 0.9% 100 ML IV SCH (08:15)
[2021-12-28] MEDS: Banana Flakes/T-Galactooligos 1 Dose Packet FT SCH (08:16)
[2021-12-28] MEDS: ENSURE ENLIVE 237 ML CAN PO SCH (08:16)
[2021-12-28] MEDS: VANCOMYCIN ORAL SOLN 250 MG/5 ML OSYR PO SCH (09:00)
[2021-12-28 10:07] VITALS: O2SAT 96
--- NOTE | 2021-12-28 12:34 | P.DS ---
Admission Date: 12/21/21 Discharge Date: 12/28/21 Disposition: TRANSFER TO [facility] Discharge Condition: FAIR Reason for Admission: Sepsis - Problems (1) Acute metabolic encephalopathy Current Visit: Yes Status: Acute (2) C. difficile diarrhea Current Visit: Yes Status: Acute (3) ESBL (extended spectrum beta-lactamase) producing bacteria infection Current Visit: Yes Status: Acute (4) Septic shock Current Visit: Yes Status: Acute (5) LUDMILA (acute kidney injury) Current Visit: No Status: Acute (6) Dementia Current Visit: No Status: Chronic Qualifiers: Dementia type: unspecified type Dementia behavioral disturbance: without behavioral disturbance Qualified Code(s): F03.90 - Unspecified dementia without behavioral disturbance (7) SLE (systemic lupus erythematosus) Current Visit: No Status: Chronic Qualifiers: Systemic lupus erythematosus type: unspecified Systemic lupus erythematosus organ involvement: unspecified Qualified Code(s): M32.9 - Systemic lupus erythematosus, unspecified Brief History of Present Illness: 76-year-old female with history of SLE, CKD 4, DVT, dementia, hypertension, hypothyroidism and COPD presents the emergency department for abnormal labs including elevated white blood cell count and creatinine the reports has been more sleepy than normal with decreasing mental status. She was evaluated in the emergency department found to be in septic shock with lactate of 4 and multiple pressure readings below systolic of 90 as well as elevated white blood cell count and worsening CKD 4. Patient did receive sepsis fluid bolus in the ER. Blood pressure still very soft with maps around 67-69. Patient was seen in the hospital here admitted on 11/29/2021 and discharged on 12/02/2021 for acute kidney injury, UTI, AMS. She was discharged on cefpodoxime with a 5-day prescription. Nursing staff noted patient had multiple episodes of diarrhea with very foul order. UA was negative. She had a CT scan which revealed mild to moderate no nspecific colitis pattern. At this point septic shock secondary to C. difficile colitis was suspected. Admitted to the ICU for further management. Hospital Course: Patient treated aggressively for septic shock with IV hydration, broad-spectrum antibiotics. Stool for C. difficile obtained which came back positive. She was started on oral vancomycin for C. difficile. Her urine culture grew ESBL E. coli. Antibiotics was tailored to IV meropenem and oral vancomycin. She was seen by infectious disease who assisted with management. 7 days of IV meropenem recommended by ID for treatment of the ESBL E. coli. Her blood pressure improved, patient became more awake and interactive though confused from dementia. Patient was transferred to the floor where her clinical condition continued to improve. Her blood pressure normalized. Her antihypertensives were held and not resumed because patient has been normotensive without them. Her hemoglobin dropped to 6.8 and was given 2 unit PRBC transfusion. No active GI bleed. Noted patient is on Eliquis for DVT. Hemoglobin was stable after blood transfusion. PICC line was placed for outpatient IV antibiotics. She has clinically improved and deemed stable for discharge. Eliquis resumed on discharge. Vital Signs/Physical Exam: Temp Pulse Resp BP Pulse Ox 97.0 F 71 16 110/59 L 96 12/28/21 08:00 12/28/21 08:00 12/28/21 08:00 12/28/21 08:00 12/28/21 08:00 General: Other (Awake) HEENT: Mucous membr. moist/pink Neck: JVD not distended Respiratory: Clear to auscultation bilaterally, Normal air movement Cardiovascular: No edema, Regular rate/rhythm, Normal S1 S2 Gastrointestinal: Normal bowel sounds, Soft and benign, Non-distended, No tenderness Musculoskeletal: No swelling Integumentary: No rashes, No cyanosis Neurological: Other (No focal motor deficit) Laboratory Data at Discharge: WBC 8.0 K/uL (4.3-10.9) 12/26/21 04:56 Hgb 10.3 g/dL (12.0-15.0) L 12/26/21 04:56 Hct 30.3 % (36.0-45.0) L 12/26/21 04:56 Plt Count 162 K/uL (152-406) 12/26/21 04:56 PT 14.5 SECONDS (9.5-12.5) H 12/21/21 16:01 INR 1.31 12/21/21 16:01 APTT 27.6 SECONDS (24.3-36.9) 12/21/21 16:01 Sodium 139 mmol/L (136-145) 12/26/21 04:56 Potassium 3.6 mmol/L (3.5-5.1) 12/26/21 04:56 BUN 24 mg/dL (7-18) H 12/26/21 04:56 Creatinine 1.06 mg/dL (0.55-1.3) 12/26/21 04:56 Glucose 75 mg/dL (74-106) 12/26/21 04:56 Magnesium 1.9 mg/dL (1.8-2.4) D 12/23/21 04:38 Total Bilirubin 0.3 mg/dL (0.2-1.0) 12/24/21 04:35 AST 19 U/L (15-37) 12/24/21 04:35 ALT 14 U/L (12-78) 12/24/21 04:35 Alkaline Phosphatase 32 U/L (45-117) L 12/24/21 04:35 Home Medications: Acetaminophen [Tylenol*] 2 tab PO Q6HP PRN 11/30/21 Ascorbic Acid 1 tab PO BID 11/30/21 Aspirin [Aspirin EC] 1 tab PO DAILY 11/30/21 Divalproex Sodium [Depakote Sprinkle] 2 cap PO TID 11/30/21 Duloxetine HCl [Drizalma Sprinkle] 30 mg PO DAILY 11/30/21 Gabapentin [Neurontin*] 1 tab PO BID 11/30/21 Hydroxychloroquine Sulfate 1 tab PO DAILY 11/30/21 Memantine HCl 1 tab PO BID 11/30/21 Mirtazapine [Remeron] 1 tab PO BEDTIME 11/30/21 Rivastigmine Tartrate [Rivastigmine] 1 cap PO BID 11/30/21 Ensure Enlive 237 ml PO BID can 12/02/21 Apixaban [Eliquis] 5 mg PO BID #60 tablet 12/28/21 Meropenem [Merrem 1 GM/100 ML NS IVPB] 1 gm IV BID #6 bag 12/28/21 Vancomycin Oral Soln [Vancocin HCl*] 5 ml PO QID 7 Days osyr 12/28/21 New Medications: Apixaban [Eliquis] 5 mg PO BID #60 tablet Meropenem [Merrem 1 GM/100 ML NS IVPB] 1 gm IV BID #6 bag Diet: Regular Activity: Fall precautions Followup: Sybil Aguilar MD [Primary Care Provider] - 1-2 Weeks Time spent managing pt's care (in minutes): 38
--- NOTE | 2021-12-28 15:03 | P.PN ---
Subjective Date of Service: 12/28/21 Chief Complaint: Sepsis Patient seen and examined at bedside[facility] line [facility]. Review of Systems 10-point ROS is otherwise unremarkable Physical Examination - Vital Signs Temperature: 97.6 F Blood Pressure: 114/64 Pulse: 79 Respirations: 16 Pulse Ox (%): 97 - Studies Medications List Reviewed: Yes Assessment And Plan - Plan Physical Exam: General: Oriented x1, Demented HEENT: Atraumatic Respiratory: Clear to auscultation bilaterally, Normal air movement Cardiovascular: Regular rate/rhythm Gastrointestinal: No ascites, No tenderness, No rebound, No guarding Integumentary: No rashes, No breakdown, No significant lesion Urinary: Antunez catheter Conclusions/Impression: Lines: Right femoral, right arm PICC line, left hand peripheral Antibiotics: Meropenem: 7current Oral vancomycin: 77current Assessment/plan Septic shock secondary to colitis versus UTI -off pressers since 12/23, recommend removing right femoral line C. difficile positive, oral vancomycin started on 12/22. Continue for 10 days Patient was hospitalized at this facility earlier last month, urinary culture obtained on 11/29/2021 grew Enterococcus faecalis, patient was discharged on oral cefpodoxime x5 days. This likely did not clear infection, urine culture obtained on 12/21 grew ESBL producing E. coli, recommend continuing meropenem for 5 to 7-day duration. Leukocytosis -Resolved LUDMILA on CKD stage III -Creatinine improved. LUDMILA resolved Renally dose all antibiotics, avoid nephrotoxic agents -Current creatinine 33.3 mL/min, meropenem dose increased from 500 mg every 12 to 1000 mg every 12. Hypothyroidism Continue current medications SLE hydrocortisone 500 mg every 8 hours DC by IM Plan of care discussed with Dr. Cervantes Thank for consultation
[2021-12-28 17:13] VITALS: BP 98/55; TEMP 97
--- OUTSIDE RECORDS SUMMARY | 2022-01-04 15:37 | XMS REPORT | Continuity of Care Document ---
:[address] [facility] t Address [address] [place] [address] [address] [place] [address] Care Team Providers Name Role Phone VENU Attending Clinician Unavailable DR MICHAEL Attending Clinician Unavailable DR BREANNE Attending Clinician Unavailable RAGHAV BENITO Attending Clinician Unavailable VENU Admitting Clinician Unavailable DR MICHAEL Admitting Clinician Unavailable DR BREANNE Admitting Clinician Unavailable PARAMJIT DE SOUZA Admitting Clinician Unavailable PANCHO HENSON Admitting Clinician Unavailable Payers Payer Name Policy Type Policy Number Effective Date Expiration Date Kam piedra [facility] [id number] 2019 ALL 00:00:00 [place] [id number] 2020 00:00:00 Problems This patient has no known problems. Allergies, Adverse Reactions, Alerts Allergy Allergy Status Severity Reaction(s) Onset Inactive Treating Comm ents Source Name Type Date Date Clinician Alisia BARNES Active Unknown Desiree garcia 8 Medical 00:00: Center 00 NO KNOWN Allergy Active [facility] ALLERGIE S Medications This patient has no known medications. Vital Signs Vital Name Observation Time Observation Value Comments Source Weight 2021-02-14 09:46:00 55.42 KG Height 2021-02-08 20:21:00 162.56 CM Weight 2021-02-08 20:21:00 63.5 KG HEIGHT 2020-01-29 00:00:00 162.6 cm WEIGHT 2020-01-29 [...] Date/Time Type Type Clinicians Facility Department ID 2021-07-14 2021-07-14 Outpatient VIGNESH ESCOBAR [id number] [place] 11:44:00 11:44:00 [facility] Outre h Program 2021-02-11 2021-02-25 [facility] [id number] [place] 04:04:00 16:30:00 VEENA [facility] 2021-02-09 2021-02-11 Inpatient Daisy RAYMUNDO [facility] [id number] [place] 01:44:00 04:03:00 SANDER [facility] 2020-01-29 2020-01-29 Emergency ER [facility] Emergency [id number] [facility] 14:48:00 14:48:00 2020-01-28 2020-01-28 Emergency ER [facility] Emergency [id number] [facility] 17:28:00 17:28:00 Results Test Description Test Time [...] the FDA and the College of the [place] (CAP) are more stringent than those required for this test. Therefore, the result should be interpreted with caution and close attention to other clinical and epidemiological data BLOOD [id number] 22:35:00 Test Item Value Reference Range Interpretation Comments Culture Observations (test NO GROWTH AFTER 5 code = COB1) DAYS B12 [id number] 10:07:00 Test Item Value Reference Range Interpretation Comments VIT B12 (test code = A60) 893.0 pg/mL 180.0-914.0 [id number] 10:07:00 Test Item Value Reference Range Interpretation Comments FOLATE (test code = A75) 18.6 ng/mL 3.1-17.5 H LIPID [id number] 10:07:00 Test Item Value Reference Range Interpretation Comments CHOLESTROL (test code 251 mg/dL 140-200 H = 44A) TRIGLYCERI (test code 114 mg/dL See_Comment [Auto mated message] = 42B) The system [employer] generated this result transmitted ref erence range: <=149. T he reference range was not used to int erpret this result as normal/abnormal . HDL (test code = 83D) 78.0 mg/dL 40.0-60.0 H LDL (test code = 34B) 134 mg/dL See_Comment H [Auto mated message] The system [employer] generated this result transmitted ref erence range: <=99. Th e reference range was not used to int erpret this result as normal/abnormal . CHL/HDL (test code = 3.2 0.0-3.4 CHR) T4 [id number] 10:01:00 Test Item Value Reference Range Interpretation Comments T4 FREE (test code = A91) 0.90 ng/dL 0.76-1.46 THYROID PANEL/SCREEN (TSH)2021-02-12 09:50:00 Test Item Value Reference Range Interpretation Comments TSH (test code = A57) 10.400 uIU/mL 0.358-3.740 H [id number] 09:49:00 Test Item Value Reference Range Interpretation Comments PREALBUMIN (test code = 08E) 20 mg/dL 18-38 [id number] 09:47:00 Test Item Value Reference Range Interpretation Comments Hb A1C % (test code 4.9 % 3.8-6.4 = HBA) A1C % (test code = HbA1c (% ) A1C) Reference Range Normal <5.7 Prediabetes 5.7-6.4 Diabetic >=6.5 [id number] 09:38:00 Test Item Value Reference Range Interpretation [...] the FDA and the [employer] of the [place] [employer] (CAP) are more stringent than those required for this test. Therefore, the result should be interpreted with caution and close attention to other clinical and epidemiological data URINE [id number] 10:37:00 Test Item Value Reference Range Interpretation [...] S code = ftn) CT HEAD W/O [id number] 12:18:41 [facility] 1945 Sex: FEXAMINATION:CT [...] MD 02/10/2021 12:18 PM CDT CHEST W/O [id number] 12:16:28[facility] : 1945 Sex: FEXAMINATION:CT [...] Curry Joseph MD 02/10/2021 12:16 PM CDT [id number] METABOLIC PANEL 2021-02-10 08:33:00 Test Item Value [...] normal/abnormal . GFR 50 See_Comment L [Automated CENTRAL AFRICAN (test mL/min/1.73m\S\2 message] The code = GFRAA) system which generated this result transmit katherine reference range : >=90. The reference range was not used to interpret this result as normal/abnormal . EGFR (test code = eGFR BY EGFR) CKD-EPI CALCULATION IS NOT RECOMMENDED FOR PATIENTS UNDER 18 YEARS OF AGE. BUN/CREA (test 06-06 code = BCR) CALCIUM (test code 8.9 [...] MORPH (test code = RBCMOR) NORMAL LACTIC [id number] 07:44:00 Test Item Value Reference Range Interpretation Comments LACTIC ACD (test code = LA) 1.6 mmol/L 0.4-2.0 CT CHEST W/O [id number] 00:06:16 [facility] 1945 Sex: FEXAMINATION:CT [...] MD 02/09/2021 12:06 AM CDT HEAD W/O [id number] 00:03:35[facility] 1945 Sex: FEXAMINATION:CT [...] Derrick Gómez MD 02/09/2021 12:03 AM CDT GJUKTXYR PROTEIN [id number] 22:08:00 Test Item Value Reference Range Interpretation Comments CRP QUANT (test code 5.8 mg/L 0.0-2.9 H = CRPQ) Method Change (test Please note the code = METHOD) change in Method and the reference range [id number] 22:04:00 Test Item Value Reference Range Interpretation Comments FERRITIN (test code = A19) 68.5 ng/mL 8.0-252.0 [id number] 22:02:00 Test Item Value Reference Range Interpretation Comments ACETAMINPH (test code = 94M) <2.0 ug/mL 10.0-30.0 L AMMONIA [id number] 22:01:00 Test Item Value Reference Range Interpretation Comments AMMONIA (test code = 54A) 14 umol/L 11-32 LDH-LACTIC [id number] 22:01:00 Test Item Value Reference Range Interpretation Comments LDH (test code = 33A) 210 IU/L 84-246 LACTIC [id number] 22:01:00 Test Item Value Reference Range Interpretation Comments LACTIC ACD (test code = LA) 3.8 mmol/L 0.4-2.0 H ALCOHOL BLOOD (ETOH)2021-02-08 22:01:00 Test Item Value Reference Range Interpretation Comments ETOH (test code = ETHANOL HALC) The result is to be used only for medical purposes ALCOHOL (test <10 mg/dL See_Comment [Automated me ssage] code = 56A) The system [employer] generated this result transmit katherine reference range : <=10. The refer ence range was not u sed to interpret th is result as normal/abnormal . COMPREHENSIVE METABOLIC [id number] 22:01:00 Test Item Value Reference Range Interpretation [...] normal/abnormal . GFR 42 See_Comment L [Automated CENTRAL AFRICAN (test mL/min/1.73m\S\2 message] The code = GFRAA) [...] to interpret this result as normal/abnormal . [id number] 21:57:00 Test Item Value Reference Range Interpretation [...] the FDA and the College of the [place] [employer] (CAP) are more stringent than those required for this test. Therefore, the result should be interpreted with caution and close attention to other clinical and epidemiological data URINALYSIS WITH [id number] 21:51:00 Test Item Value Reference Range Interpretation [...] code = USPERM) /HPF NONE DRUGS OF [id number] 21:49:00 Test Item Value Reference Range Interpretation [...] = RBCMOR) NORMAL XR CHEST 1 VIEW [id number] 20:55:49 [facility] 1945 Sex: FEXAMINATION:XR CHEST [...] Surendra Murry MD 02/08/2021 8:55 PM CDT [id number] METABOLIC [id number] 07:01:00 Test Item Value Reference Range Interpretation [...] S NOT APPLICABLE FOR DIALYSIS PATIEN TS. Felt Cutter ID - PIAYA LCBC W/PLT COUNT & AUTO [id number] 05:54:00 Test Item Value Reference Range Interpretation [...] (BEAKER) (test code = 2801) BASIC METABOLIC [id number] 06:59:00 Test Item Value Reference Range Interpretation [...] S NOT APPLICABLE FOR DIALYSIS PATIEN TS. Felt Cutter ID - NITO MCBC W/PLT COUNT & AUTO [id number] 06:38:00 Test Item Value Reference Range Interpretation [...] 0-1 PERCENT (BEAKER) (test code = 2801) [id number] 14:58:00 Test Item Value Reference Range Interpretation Comments RPR SCREEN (BEAKER) (test code = Nonreactive Nonreactive 420) LIPID [id number] 09:36:00 Test Item Value Reference Range Interpretation [...] Borderline 130-159 High 160-189 Very High >=190 Felt Cutter ID - JUN CBASIC METABOLIC [id number] 09:36:00 Test Item Value Reference Range Interpretation [...] S NOT APPLICABLE FOR DIALYSIS PATIEN TS. Felt Cutter ID - JUN CCBC W/PLT COUNT & AUTO [id number] 09:19:00 Test Item Value Reference Range Interpretation [...] PERCENT (BEAKER) (test code = 2801) HEMOGLOBIN [id number] 08:12:00 Test Item Value Reference Range Interpretation Comments HEMOGLOBIN A1C (BEAKER) (test code = 5.0 % 4.3-6.1 368) MR, BRAIN, WITHOUT [id number] 21:54:00Left sided weakness, c/f strokeUnlisted Reason for [...] Durán MDReport Verified Date/Time: 01/29/2020 21:54:29 TROPONIN [id number] 20:02:00 Test Item Value Reference Range Interpretation [...] failure, acidosis, acute neurological disease, and persistent tachyarrhythmia.Felt Cutter ID - DBHEMOGLOBIN [id number] 09:51:00 Test Item Value Reference Range Interpretation Comments HEMOGLOBIN A1C (BEAKER) (test code = 5.2 % 4.3-6.1 368) TROPONIN [id number] 04:52:00 Test Item Value Reference Range Interpretation [...] failure, acidosis, acute neurological disease, and persistent tachyarrhythmia.Felt Cutter ID - EDASIBASIC METABOLIC PANEL 2020-01-29 04:44:00 [...] 697) EGFR (BEAKER) (test 68 mL/min/1.73 ESTIMA KATHREINE GFR IS code = 1092) sq m NOT ACCURATE CREATININE CLEARANCE IN PREDICTING GLOMERULAR FILTRATION RATE . ESTIMATED GFR I S NOT APPLICABLE FOR DIALYSIS PATIEN TS. Felt Cutter ID - EDASICBC W/PLT COUNT & AUTO [id number] 04:24:00 Test Item Value Reference Range Interpretation [...] PERCENT (BEAKER) (test code = 2801) TROPONIN [id number] 03:40:00 Test Item Value Reference Range Interpretation [...] failure, acidosis, acute neurological disease, and persistent tachyarrhythmia.Felt Cutter ID - ROSENDO [id number] 02:33:00 Test Item Value Reference Range Interpretation Comments TROPONIN I (ANIYAAKER) (test code = 0.07 ng/mL 0.00-0.03 H [...] failure, acidosis, acute neurological disease, and persistent tachyarrhythmia.Felt Cutter ID - EDASISARS-COV2/RT-PCR ([facility])2020-01-29 00:04:00 Test Item Value Reference Range Interpretation Comments SARS-COV2/RT-PCR (test code Negative Not Detected, Negative, = 4265683) See external report for linked test SARS-COV-2 PERFORMING LAB [facility] (test code = 9393966) Negative results do not preclude SARS-CoV-2 infection [...] of the Act.Fact Sheet for Healthcare Pro viders:https://www.Callvine.Marro.ws/Documents/Xpert%20Xpress%20SARS%20CoV-2/Fact%20Sh eets/302-5642%99DCBD-BRW-2%20HEALTHCARE%20PROVIDERS%20FACT%20SHEET.pdfFact Sheet for Healthcare Patients:https://www.REHAPP.com/Documents/Xpert%20Xpress%20SARS%20CoV-2/Fact%20Sheets/302-4721%20SARS-COV -2%20PATIENT%20FACT%20SHEET.pdfPerforming Laboratory:[facility], [place] [address]XR/[id number] 23:50:00 Test Item Value Reference Range Interpretation [...] is2.5-3.5 for patients wiht mechanical heart valves.TROPONIN [id number] 23:42:00 Test Item Value Reference Range Interpretation [...] failure, acidosis, acute neurological disease, and persistent tachyarrhythmia.Felt Cutter ID - ASVITAMIN B12 AND FOLATE 2020-01-28 21:32:00 Test Item Value Reference Range Interpretation Comments VITAMIN B12 (BEAKER) (test code = 473 pg/mL 213-816 774) FOLATE (BEAKER) (test code = 362) 9.30 ng/mL >=7.00 Felt Cutter ID - RAKESH CTSH/FREE T4 IF [id number] 20:01:00 Test Item Value Reference Range Interpretation Comments THYROID STIMULATING HORMONE 0.644 uIU/mL 0.350-4.940 (ANIYAAKER) (test code = 772) Felt Cutter ID - AARON [id number] 19:47:00 Test Item Value Reference Range Interpretation Comments TROPONIN I (ANIYAAKER) (test code = 0.06 ng/mL 0.00-0.03 H [...] failure, acidosis, acute neurological disease, and persistent tachyarrhythmia.Felt Cutter ID - ASLIPID [id number] 19:40:00 Test Item Value Reference Range Interpretation Comments TRIGLYCERIDES (Tail-f SystemsAKER) (test code = 198 mg/dL 540) CHOLESTEROL (Tail-f SystemsAKER) (test code = 180 mg/dL 631) HDL CHOLESTEROL (Tail-f SystemsAKER) (test code 52 mg/dL = 976) LDL CHOLESTEROL CALCULATED (Tail-f SystemsAKER) 88 mg/dL (test code = 633) Triglyceride Reference Range: Low Risk <150 Borderline 150-199 High Risk 200-499 Very High Risk >=500Cholesterol Reference Range: Low Risk <200 Borderline 200-239 High Risk >240HDL Cholesterol Reference Range: Low Risk >=60 High Risk <40LDL Cholesterol Reference Range: Optimal <100 Near Optimal 100-129 Borderline 130-159 High 160-189 Very High >=190 Felt Cutter ID - ASRAD, CHEST, 1 VIEW, NON [id number] 19:12:00Reason for exam:->c/f mental status changes, r/o [...] acute cardiopulmonary process identified. Signed: Gerardo Flores MDReport Verified Date/Time: 01/28/2020 19:12:50 Reading Location: [facility] C013W Consult Reading Room B-TYPE NATRIURETIC FACTOR (BNP)2020-01-28 19:03:00 Test Item Value Reference Range Interpretation Comments B-TYPE NATRIURETIC PEPTIDE (BEAKER) 199 pg/mL 0-100 H (test code = 700) Felt Cutter ID - RAKESH CTROPONIN [id number] 19:02:00 Test Item Value Reference Range Interpretation [...] failure, acidosis, acute neurological disease, and persistent tachyarrhythmia.Felt Cutter ID - RAKESH CURINALYSIS W/ REFLEX URINE [id number] 19:01:00 Test Item Value Reference Range Interpretation [...] = 1585) Occasional SOURCE(BEAKER) (test code = 2795) Felt Cutter ID - [auto]Felt Cutter ID - techBASIC METABOLIC [id number] 19:00:00 Test Item Value Reference Range Interpretation [...] 1092) DATA TO CALCULA TE ESTIMATED GFR. Felt Cutter ID - RAKESH CPROTHROMBIN TIME/[id number] 18:42:00 Test Item Value Reference Range Interpretation [...] INR is2.5-3.5 for patients wiht mechanical heart valves.[id number] 18:42:00 Test Item Value Reference Range Interpretation Comments PARTIAL THROMBOPLASTIN TIME 22.4 seconds 22.5-36.0 L (LUCIA) (test code = 760) CT, CTANGIO [id number] 18:37:00Reason for exam:->Symptoms onset less than 6 [...] Liriano Verified Date/Time: 01/28/2020 18:37:33 CT, CAROTID, [id number] 18:37:00Reason for exam:- >Symptoms onset less than [...] occlusion or high-grade focal stenosis within the [place].2.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 Signed: Irlanda Liriano Verified Date/Time: 01/28/2020 18:37:33 CBC W/PLT COUNT & AUTO [id number] 18:35:00 Test Item Value Reference Range Interpretation [...] (BEAKER) (test code = 2801) CT, BRAIN/STROKE [id number] 17:59:00Reason for exam:->cvaWhat is the patient's sedation [...]
== END 2021-12-28 17:14 | DRG 871 ==
LOC: ER 13:29 → ERHOLD 20:28 → 3RD-ICU 12-22 10:52 → 2ND 12-25 10:23
PROVIDERS: ADMIT Hospitalist; ATTEND Internal Medicine
PROC: 02HV33Z Insertion of Infusion Device into Superior Vena Cava, Percutaneous Approach (ICD-10-PCS; principal; 2021-12-21)
PROC: 3E043XZ Introduction of Vasopressor into Central Vein, Percutaneous Approach (ICD-10-PCS; 2021-12-21)
PROC: 30233N1 Transfusion of Nonautologous Red Blood Cells into Peripheral Vein, Percutaneous Approach (ICD-10-PCS; 2021-12-22)
PROC: 3E04329 Introduction of Other Anti-infective into Central Vein, Percutaneous Approach (ICD-10-PCS; 2021-12-22)
PROC: 02HV33Z Insertion of Infusion Device into Superior Vena Cava, Percutaneous Approach (ICD-10-PCS; 2021-12-27)
DX: A41.9 Sepsis, unspecified organism (principal); R65.21 Severe sepsis with septic shock; G93.41 Metabolic encephalopathy; E43 Unspecified severe protein-calorie malnutrition; N18.4 Chronic kidney disease, stage 4 (severe); A04.72 Enterocolitis due to Clostridium difficile, not specified as recurrent; I82.509 Chronic embolism and thrombosis of unspecified deep veins of unspecified lower extremity; N17.9 Acute kidney failure, unspecified; E87.0 Hyperosmolality and hypernatremia; E87.2 Acidosis; Z68.1 Body mass index [BMI] 19.9 or less, adult; M32.9 Systemic lupus erythematosus, unspecified; I12.9 Hypertensive chronic kidney disease with stage 1 through stage 4 chronic kidney disease, or unspecified chronic kidney disease; F03.90 Unspecified dementia, unspecified severity, without behavioral disturbance, psychotic disturbance, mood disturbance, and anxiety; E03.9 Hypothyroidism, unspecified; J44.9 Chronic obstructive pulmonary disease, unspecified; I95.9 Hypotension, unspecified; E86.0 Dehydration; E87.6 Hypokalemia; Z20.822 Contact with and (suspected) exposure to COVID-19
CPT/HCPCS: 36415; 36430; 36569; 51702; 70450; 71045; 71250; 74176; 80048; 80053; 81003; 81015; 82947; 83605; 83735; 84134; 84145; 85014; 85018; 85025; 85027; 85610; 85730; 86140; 86850; 86900; 86901; 87040; 87045; 87046; 87077; 87086; 87088; 87177; 87186; 87209; 87324; 87425; 87449; 87804; 92610; 93005; 94760; 96361; 96365; 96367; 96375; 97110; 97161; 97530; 99285; J0692; J1644; J1650; J1720; J2185; J2405; J3370; J3480; J7030; J7040; J7050; J7060; J7799; P9016; P9047; U0003

== ENCOUNTER 2022-03-02 08:39 | Inpatient (IN) | payer OTHER ==
--- OUTSIDE RECORDS SUMMARY | 2022-03-02 08:43 | XMS REPORT | Continuity of Care Document ---
:1945 Author Organization [facility] t Address [facility] [address] [place] [address] Care Team Providers Name Role Phone No, Pcp [facility] Primary Care Physician Unavailable VENU Attending Clinician Unavailable DR VEENA RODRIGUEZ Attending Clinician Unavailable DR SANDER RAYMUNDO Attending Clinician Unavailable MARTELL BENITO Attending Clinician Unavailable VENU Admitting Clinician Unavailable DR VEENA RODRIGUEZ Admitting Clinician Unavailable DR SANDER RAYMUNDO Admitting Clinician Unavailable QUITA DE SOUZA Admitting Clinician Unavailable RAHEEM HENSON Admitting Clinician Unavailable Payers Payer Name Policy Type Policy Number Effective Date Expiration Date Kam piedra [facility] [id number] 2019 ALL 00:00:00 MEDICAID OF [place] [id number] 2020 00:00:00 Problems Condition Condition Condition Status Onset Resolution Last Treating Co mments Source Name Details Category Date Date Treatment Clinician Date Paranoia [facility]ia [facility] Dementia Dementia Disease [facility] behavioral 00:00: Me dical disturbanc disturbanc 00 Ce nter e e TIA TIA Disease Active [facility] (transient [facility] ischemic ischemic 00:00: Medica l attack) attack) 00 Center Allergies, Adverse Reactions, Alerts Allergy Allergy Status Severity Reaction(s) Onset Inactive Treating Comm ents Source Name Type Date Date Clinician Ciproflo DA Active Unknown [facility] xacin 8 Medical 00:00: Center 00 NO KNOWN Allergy Active [facility] Social History Social Habit Start Date Stop Date Quantity Comments Source Sex Assigned At [address] [facility] 00:[facility] Medications Ordered Filled Start Stop Current Ordering Indication Dosage Frequency Signature Comments Components Source Medication Medication Date Date Medication? Clinician (SIG) Name Name melatonin 5 2020-0 Yes 5mg QD Take [address] [facility] mg Tab 8-21 tablet (5 [facility] tablet 00:00: mg total) Medica l 00 by mouth Center nightly. Vital Signs Vital Name Observation Time Observation [...] Procedures This patient has no known procedures. Plan of Care Planned Activity Planned Date Details Comments Source Future Scheduled 2022-02-16 INFLUENZA VACCINE (#1) [facility] [code = INFLUENZA Medical Ce nter VACCINE (#1)] Future Scheduled 2021-06-18 FALLS RISK SCREENING [facility] 00:00:00 [code = FALLS RISK Medical C enter SCREENING] Future Scheduled 2020-06-[address] [facility] 00:00:00 WELLNESS (YEAR 2 or Medical Center FIRST YEAR if no IPPE) [code = MEDICARE ANNUAL WELLNESS (YEAR 2 or FIRST YEAR if no IPPE)] Future Scheduled 1997 SHINGLES VACCINES ([address] [facility] 00:00:00 2) [code = SHINGLES Medical Center VACCINES (1 of 2)] Future Scheduled 1966 DTAP/TDAP/TD VACCINES [facility] 00:[facility]00 (1 - Tdap) [code = Medical C enter DTAP/TDAP/TD VACCINES (1 - Tdap)] Future Scheduled 1965 HEPATITIS C [facility]CRE[facility]ING [facility] [code = HEPATITIS C Medical Center SCREENING] Future Scheduled 1945 COVID-19 VACCINE (#1) [facility] 00:00:00 [code = COVID-[address] VACCINE (#1)] Future Scheduled 1945 DXA SCAN [code = DXA [facility] 00:00:00 SCAN] [facility] Future Scheduled 1947 Screening for malignant [facility] 00:00:00 neoplasm of colon Medical Ce nter (procedure) [code = 385189538] Future Scheduled 1947 Screening for malignant [facility] 00:00:00 neoplasm of colon Medical Ce nter (procedure) [code = 657529651] Future Scheduled 1945 Sigmoidoscopy [facility]code = [facility] Scre[facility] malignant [facility] 00:00:00 neoplasm of breast Medical C enter (procedure) [code = 514676302] Future Scheduled 1947 CT Colonography (combo) [facility] 00:00:[facility] [code = CT Colonography [facility] (combo)] Future Scheduled 1947 Screening for malignant [facility] 00:00:00 neoplasm of colon Medical Ce nter (procedure) [code = 290496680] Future Scheduled 1947 Screening for malignant [facility] 00:00:00 neoplasm of colon Medical Ce nter (procedure) [code = 454757693] Encounters Start End Encounter Admission Attending Care Care Encounter Source Date/Time Date/Time Type Type Clinicians Facility Department ID 2021-07-14 2021-07-14 Outpatient VIGNESH ESCOBAR [id number] [place] 11:44:00 11:44:00 [facility] h Program 2021-02-11 2021-02-25 Inpatient C MICHAEL [facility] [id number] [facility] 04:04:00 16:30:00 [facility] 2021-02-09 2021-02-11 Inpatient Daisy RAYMUNDO [facility] [id number] [facility] 01:44:00 04:03:00 S[facility] 2020-01-29 2020-01-29 Emergency ER [facility] Emergency [id number] [facility] 14:48:00 14:48:00 2020-01-28 2020-01-28 Emergency ER [facility] Emergency [id number] [facility] 17:28:00 17:28:00 Results Test Description Test [...] the FDA and the College of the [employer] (CAP) are more stringent than those required for this test. Therefore, the result should be interpreted with caution and close attention to other clinical and epidemiological data BLOOD [id number] 22:35:00 Test Item Value Reference Range Interpretation Comments Culture Observations (test NO GROWTH AFTER 5 code = COB1) DAYS B12 [id number] 10:07:00 Test Item Value Reference Range Interpretation Comments VIT B12 (test code = A60) 893.0 pg/mL 180.0-914.0 [id number] 10:07:00 Test Item Value Reference Range Interpretation Comments FOLATE (test code = A75) 18.6 ng/mL 3.1-17.5 H LIPID [id number] 10:07:00 Test Item Value Reference Range Interpretation Comments CHOLESTROL (test code 251 mg/dL 140-200 H = 44A) TRIGLYCERI (test code 114 mg/dL See_Comment [Auto mated message] = 42B) The system [employer] generated this result transmitted ref erence range: <=149. T he reference range was not used to int erpret this result as normal/abnormal . HDL (test code = 83D) 78.0 mg/dL 40.0-60.0 H LDL (test code = 34B) 134 mg/dL See_Comment H [Auto mated message] The system [employer] generated this result transmitted ref erence range: <=99. Th e reference range was not used to int erpret this result as normal/abnormal . CHL/HDL (test code = 3.2 0.0-3.4 CHR) T4 [id number] 10:01:00 Test Item Value Reference Range Interpretation Comments T4 FREE (test code = A91) 0.90 ng/dL 0.76-1.46 THYROID PANEL/SCREEN (TSH)2021-02-12 09:50:00 Test Item Value Reference Range Interpretation Comments TSH (test code = A57) 10.400 uIU/mL 0.358-3.740 H [id number] 09:49:00 Test Item Value Reference Range Interpretation Comments PREALBUMIN (test code = 08E) 20 mg/dL 18-38 [id number] 09:47:00 Test Item Value Reference Range Interpretation Comments Hb A1C % (test code 4.9 % 3.8-6.4 = HBA) A1C % (test code = HbA1c (% ) A1C) Reference Range Normal <5.7 Prediabetes 5.7-6.4 Diabetic >=6.5 [id number] 09:38:00 Test Item Value Reference Range Interpretation [...] the FDA and the College of the [employer] (CAP) are more stringent than those required for this test. Therefore, the result should be interpreted with caution and close attention to other clinical and epidemiological data URINE [id number] 10:37:00 Test Item Value Reference Range Interpretation [...] S code = ftn) CT HEAD W/O [id number] 12:18:41 [facility] CENTERName: CHUCK WHITTEN : 1945 Sex: FEXAMINATION:CT HEAD W/O CONTRASTCLINICAL INDICATION:Female, 75 years old with Altered Mental StatusTECHNIQUE: Axial CT images from the skull base to the vertex without intravenous contrast. Coronal and sagittal reformatted images were created from the data set.One or more of the following dose reduction techniques were used: Automated exposure control, adjustment of the mA and/or kV according to patient size, and/oriterative reconstruction. COMPARISON: CT head 02/08/2021FINDINGS:Intracranial: Senescent and chronic small vessel ischemic changes are present. No evidence of acute infarction, intracranial hemorrhage, m ass or mass effect, or abnormal extra-axial fluid [...] soft tissue abnormalities. IMPRESSION:No acute findings.Mildly expanded skull with lucent lesions is noted. Please clinically correlate for Paget's disease.Electronically signed by: Milton Dunn MD 02/10/2021 12:18 PM CDT CHEST W/O [id number] 12:16:28 [facility] 1945 Sex: FEXAMINATION:CT C HEST W/O CONTRASTCLINICAL INDICATION:Female, 75 years old with [...] of scarring in the lower lobes, left greate r than right. Mild scarring is also seen [...] The visualized upper abdominal structures are within normallimits.Bones: No acute abnormality or suspicious bony lesion.IMPRESSION:1. Peribronchial thickening and lower lobe bronchiectatic changes. Correlate for history of reactive airway disease, bronchitis, or atypical/viral pneumonia.2. Coronary artery disease.3. Small hiatal hernia.Electronically signed by: Curry Joseph MD 02/10/2021 12:16 PM CDT [id number] METABOLIC [id number] 08:33:00 Test Item Value Reference Range Interpretation [...] normal/abnormal . GFR 50 See_Comment L [Automated LATVIAN (test mL/min/1.73m\S\2 message] The code = GFRAA) [...] MORPH (test code = RBCMOR) NORMAL LACTIC [id number] 07:44:00 Test Item Value Reference Range Interpretation Comments LACTIC ACD (test code = LA) 1.6 mmol/L 0.4-2.0 CT CHEST W/O [id number] 00:06:16 [facility] CENTERName: CHUCK WHITTEN : 1945 Sex: FEXAMINATION:CT C HEST W/O CONTRASTCLINICAL INDICATION:Female, 75 years old with cough, feverTECHNIQUE: Axial non-contrast contiguous images were obtained through the chest followed by coronal and sagittal multiplanar reformations.One or more of the following dose reduction techniques were used: Automated exposure control, adjustment of the mA and/or kV according to patient size, and/or iterative reconstruction. COMPARISON: Chest February 08, 2021FINDINGS:Chest:Medical Devices: None.Lymph Nodes: There are no pathologically enlarged supraclavicular, mediastinal, or axillary lymph nodes.Lungs/Airways/Pleura: Trachea andmain bronchi are patent. Lungs are well aerated and clear. Parenchymal scarring is identified involving the left lower lobe. There is mild dependent atelectatic change in the lower lobes bilaterally, right more than left. No evidence of pneumothorax. No pulmonary nodules or masses are identified. No pleural effusion is present. Heart/Vessels: Heart is normal in size. No coronary artery atherosclerosis is identified. No pericardial effusion is present. Aorta is normal in caliber and contour. No atherosclerosis is identified. Central pulmonary arteries are normal in size.Soft Tissues: Visualized thyroid gland is normal. The esophagus is normal. No soft tissue abnormality of the chest is demonstrated. Small right posterior fat-containing Bochdalek hernia is noted.Upper Abdomen:Abdomen: Visualized upper abdominal structures are within normal limits.Bones: No acute abnormality or suspicious bony lesio n.IMPRESSION:1. Minimal basilar atelectatic change, parenchymal scarring is present in the left lower lobe.Electronically signed by: Derrick Gómez MD 02/09/2021 12:06 AM CDT HEAD W/O [id number] 00:03:35[facility] 1945 Sex: FEXAMINATION:CT HEAD W/O CONTRASTCLINICAL INDICATION:Female, 75 years old with Altered Mental StatusTECHNIQUE: Axial CT images from the skull base to the vertex without intravenous contrast. Coronal and sagittal reformatted images were created from the data set.One or more of the following dose reduction techniques were used: Automated exposure control, adjustment of the mA and/or kV according to patient size, and/oriterative reconstruction. COMPARISON: NoneFINDINGS:Intracranial: Senescent and chronic small vessel ischemic changes are present. No evidence of acute infarction, intracranial hemorrhage, mass or mass effect, or abnormal extra-axial fluid collection. The ventricles are normal in size, shape and position.Vascular: The larger dural venous sinuses are grossly normal. No significant atherosclerotic plaque.Sinuses: The visualized paranasal sinuses and mastoid air cells are predominantly clear. Bones: Theosseous structures and orbits have no significant abnormalities. Soft tissue: No significant soft tis leena abnormalities. IMPRESSION:Senescent and chronic small vessel ischemic change.Electronically signed by: Derrick Gómez MD 02/09/2021 12:03 AM CDT [id number] PROTEIN [id number] 22:08:00 Test Item Value Reference Range Interpretation Comments CRP QUANT (test code 5.8 mg/L 0.0-2.9 H = CRPQ) Method Change (test Please note the code = METHOD) change in Method and the reference range [id number] 22:04:00 Test Item Value Reference Range Interpretation Comments FERRITIN (test code = A19) 68.5 ng/mL 8.0-252.0 [id number] 22:02:00 Test Item Value Reference Range Interpretation Comments ACETAMINPH (test code = 94M) <2.0 ug/mL 10.0-30.0 L COMPREHENSIVE METABOLIC [id number] 22:01:00 Test Item Value Reference Range Interpretation Comments GLUCOSE (test code 94 mg/dL 75-100 = 06D) SODIUM (test code 137 mmol/L 136-145 = 01A) POTASSIUM (test 4.7 mmol/L 3.6-5.1 code = 01B) CHLORIDE (test 105 mmol/L 98-107 code = 04A) CO2 (test code = 29 mmol/L -32 02A) ANION GAP (test 7.7 mmol/L code [...] normal/abnormal . GFR 42 See_Comment L [Automated LATVIAN (test mL/min/1.73m\S\2 message] The code = GFRAA) [...] to interpret this result as normal/abnormal . AMMONIA [id number] 22:01:00 Test Item Value Reference Range Interpretation Comments AMMONIA (test code = 54A) 14 umol/L 11-32 LDH-LACTIC [id number] 22:01:00 Test Item Value Reference Range Interpretation Comments LDH (test code = 33A) 210 IU/L 84-246 LACTIC [id number] 22:01:00 Test Item Value Reference Range Interpretation Comments LACTIC ACD (test code = LA) 3.8 mmol/L 0.4-2.0 H ALCOHOL BLOOD (ETOH)2021-02-08 22:01:00 Test Item Value Reference Range Interpretation Comments ETOH (test code = ETHANOL HALC) The result is to be used only for medical purposes ALCOHOL (test <10 mg/dL See_Comment [Automated me ssage] code = 56A) The system whic h generated this result transmit katherine reference range : <=10. The refer ence range was not u sed to interpret th is result as normal/abnormal . [id number] 21:57:00 Test Item Value Reference Range Interpretation [...] the FDA and the College of the [employer] (CAP) are more stringent than those required for this test. Therefore, the result should be interpreted with caution and close attention to other clinical and epidemiological data URINALYSIS WITH [id number] 21:51:00 Test Item Value Reference Range Interpretation [...] code = USPERM) /HPF NONE DRUGS OF [id number] 21:49:00 Test Item Value Reference Range Interpretation Comments DRUG SCRN (test code = URINE DRUG HDOA) SCREEN This is an unconfirmed screening result and should not be used for non-medical purposes CANNABINOD (test code Negative NEGATIVE = 88C) AMPHETAMINE (test code Negative NEGATIVE = 84A) BENZODIAZP (test code Negative NEGATIVE = 86A) BARBITURAT (test code Negative NEGATIVE = 85A) OPIATES (test code = Negative NEGATIVE 92B) COCAINE (test code = Negative NEGATIVE 87A) PHENCYCLID (test code Negative NEGATIVE = 66A) METHADONE (test code = Negative NEGATIVE 64A) DOAH (test code = DOAH.) URINE DRUGSCREEN Cut-off values are as follows: Cannabinoids [...] = RBCMOR) NORMAL XR CHEST 1 VIEW [id number] 20:55:49 [facility] 1945 Sex: FEXAMINATION:XR C HEST 1 VIEW PORTABLECLINICAL INDICATION:Female, 75 years year old with Medical ClearanceCOMPARISON: None.FINDINGS:Single view(s) of the chest submitted.Support Devices: None.Heart/Mediastinum: Cardiac silhouette is normal in size. Mediastinal contours are normal.Lungs/Pleura: Pulmonary vessels are normal in size. Lungs are well aerated and clear. No pleural effusion is identified. No pneumothorax is present.Bones: Visualized skeleton is normal.IMPRESSION:Normal radiographic examination of the chest.Electronically signed by: Surendra Murry MD 02/08/2021 8:55 PM CDT [id number] METABOLIC [id number] 07:01:00 Test Item Value Reference Range Interpretation [...] S NOT APPLICABLE FOR DIALYSIS PATIEN TS. Laboratory Equipment Cleaner ID - PIAYA LCBC W/PLT COUNT & AUTO [id number] 05:54:00 Test Item Value Reference Range Interpretation [...] (BEAKER) (test code = 2801) BASIC METABOLIC [id number] 06:59:00 Test Item Value Reference Range Interpretation [...] S NOT APPLICABLE FOR DIALYSIS PATIEN TS. Laboratory Equipment Cleaner ID - NITO MCBC W/PLT COUNT & AUTO [id number] 06:38:00 Test Item Value Reference Range Interpretation [...] 0-1 PERCENT (BEAKER) (test code = 2801) [id number] 14:58:00 Test Item Value Reference Range Interpretation Comments RPR SCREEN (BEAKER) (test code = Nonreactive Nonreactive 420) LIPID [id number] 09:36:00 Test Item Value Reference Range Interpretation [...] Borderline 130-159 High 160-189 Very High >=190 Laboratory Equipment Cleaner ID - RAKESH CBASIC METABOLIC [id number] 09:36:00 Test Item Value Reference Range Interpretation [...] S NOT APPLICABLE FOR DIALYSIS PATIEN TS. Laboratory Equipment Cleaner ID - RAKESH CCBC W/PLT COUNT & AUTO [id number] 09:19:00 Test Item Value Reference Range Interpretation [...] PERCENT (BEAKER) (test code = 2801) HEMOGLOBIN [id number] 08:12:00 Test Item Value Reference Range Interpretation Comments HEMOGLOBIN A1C (BEAKER) (test code = 5.0 % 4.3-6.1 368) MR, BRAIN, WITHOUT [id number] 21:54:00Left sided weakness, c/f strokeUnlisted Reason for Exam - Click Yes and Enter Reason Below->NoFINAL REPORT MRI Brain without contrast CLINICAL HISTORY: Facial pain or sensory abnormality, mastication muscle weakness (CN 5) Technique: MRI of the brain utilizing axial T2, FLAIR, GRE, DWI; sagittal and coronal T1- weighted images. Comparisons: None Findings:Nonspecific T2 FLAIR hyperintensities typical of chronic microangiopathy ischemic changes present.There is no evidence of acute infarct or hemorrhage. There is no hydrocephalus or midline shift. There are no extra-axial fluid collections. The craniocervical junction is preserved. The major intracranial flow-voids appear p atent. Heterogeneous marrow signal suggests osseous demineralization. High- resolution images throughthe skull base were not obtained but the visualized portions of the trigeminal nerves and Meckel's cave demonstrate no gross asymmetry. IMPRESSION: No evidence of acute infarct, hemorrhage, or hydroceph alus. Moderate chronic microvascular ischemic changes. Signed: Wilberto Durán MDReport Verified Date/Time: 01/29/2020 21:54:29 TROPONIN [id number] 20:02:00 Test Item Value Reference Range Interpretation [...] failure, acidosis, acute neurological disease, and persistent tachyarrhythmia.Laboratory Equipment Cleaner ID - DBHEMOGLOBIN [id number] 09:51:00 Test Item Value Reference Range Interpretation Comments HEMOGLOBIN A1C (BEAKER) (test code = 5.2 % 4.3-6.1 368) TROPONIN [id number] 04:52:00 Test Item Value Reference Range Interpretation [...] failure, acidosis, acute neurological disease, and persistent tachyarrhythmia.Laboratory Equipment Cleaner ID - EDASIBASIC METABOLIC PANEL 2020-01-29 04:44:00 [...] S NOT APPLICABLE FOR DIALYSIS PATIEN TS. Laboratory Equipment Cleaner ID - EDASICBC W/PLT COUNT & AUTO [id number] 04:24:00 Test Item Value Reference Range Interpretation [...] PERCENT (BEAKER) (test code = 2801) TROPONIN [id number] 03:40:00 Test Item Value Reference Range Interpretation [...] failure, acidosis, acute neurological disease, and persistent tachyarrhythmia.Laboratory Equipment Cleaner ID - EDASIDIALLON [id number] 02:33:00 Test Item Value Reference Range Interpretation [...] failure, acidosis, acute neurological disease, and persistent tachyarrhythmia.Laboratory Equipment Cleaner ID - EDASISARS-COV2/RT-PCR ([facility])2020-01-29 00:04:00 Test Item Value Reference Range Interpretation Comments SARS-COV2/RT-PCR (test code Negative Not Detected, Negative, = 7281419) See external report for linked test SARS-COV-2 PERFORMING LAB [facility] (test code = 1014162) Negative results do not preclude SARS-CoV-2 infection [...] of the Act.Fact Sheet for Healthcare Pro viders:https://www.ClassifEye[employer]/Documents/Xpert%20Xpress%20SARS%20CoV-2/Fact%20Sh eets/3023802%75BEUQ-WVX-4%20HEALTHCARE%20PROVIDERS%20FACT%20SHEET.pdfFact Sheet for Healthcare Patients:https://www.VirtualU[employer]/Documents/Xpert%20Xpress%20SARS%20CoV-2/Fact%20Sheets/3023801%20SARS-COV -2%20PATIENT%20FACT%20SHEET.pdfPerforming Laboratory:[facility], [place] [id number] 23:50:00 Test Item Value Reference Range Interpretation [...] is 2.5-3.5 for patients wiht mechanical heart valves.TROPONIN [id number] 23:42:00 Test Item Value Reference Range Interpretation [...] failure, acidosis, acute neurological disease, and persistent tachyarrhythmia.Laboratory Equipment Cleaner ID - ASVITAMIN B12 AND FOLATE 2020-01-28 21:32:00 Test Item Value Reference Range Interpretation Comments VITAMIN B12 (LUCIA) (test code = 473 pg/mL 213-816 774) FOLATE (LUCIA) (test code = 362) 9.30 ng/mL >=7.00 Laboratory Equipment Cleaner ID - RAKESH CTSH/FREE T4 IF [id number] 20:01:00 Test Item Value Reference Range Interpretation Comments THYROID STIMULATING HORMONE 0.644 uIU/mL 0.350-4.940 (LUCIA) (test code = 772) Laboratory Equipment Cleaner ID - ASTROPONIN [id number] 19:47:00 Test Item Value Reference Range Interpretation [...] failure, acidosis, acute neurological disease, and persistent tachyarrhythmia.Laboratory Equipment Cleaner ID - BENIPID [id number] 19:40:00 Test Item Value Reference Range Interpretation Comments TRIGLYCERIDES (BEAKER) (test code = 198 mg/dL 540) CHOLESTEROL (BEAKER) (test code = 180 mg/dL 631) HDL CHOLESTEROL (BEAKER) (test code 52 mg/dL = 976) LDL CHOLESTEROL CALCULATED (BEAKER) 88 mg/dL (test code = 633) Triglyceride Reference Range: Low Risk <150 Borderline 150-199 High Risk 200- 499 Very High Risk >=500Cholesterol Reference Range: Low Risk <200 Borderline 200-239 High Risk >240HDL Cholesterol Reference Range: Low Risk >=60 High Risk <40LDL Cholesterol Reference Range: Optimal <100 Near Optimal 100-129 Borderline 130-159 High 160-189 Very High >=190 Laboratory Equipment Cleaner ID - ASRAD, CHEST, 1 VIEW, NON [id number] 19:12:00Reason for exam:->c/f mental status changes, r/o precipitant of CVAFINAL REPORT Chest, 1 view. History: Mental status change. Comparison: None available. Discussion: The trachea is midline. The lungs are symmetrically expanded without evidence of focal consolidation, pneumothorax, or significant pleural effusion. The cardiomediastinal silhouetteand pulmonary vasculature are within normal limits. No acute osseous abnormalities identified. The soft tissues are unremarkable. IMPRESSION: No acute cardiopulmonary process identified. Signed: Gerardo Flores MDReport Verified Date/Time: 01/28/2020 19:12:50 Reading Location: [address] Consult Reading Room B-TYPE NATRIURETIC FACTOR (BNP)2020-01-28 19:03:00 Test Item Value Reference Range Interpretation Comments B-TYPE NATRIURETIC PEPTIDE (BEAKER) 199 pg/mL 0-100 H (test code = 700) Laboratory Equipment Cleaner ID - RAKESH CTROPONIN [id number] 19:02:00 Test Item Value Reference Range Interpretation [...] failure, acidosis, acute neurological disease, and persistent tachyarrhythmia.Laboratory Equipment Cleaner ID - RAKESH CURINALYSIS W/ REFLEX URINE [id number] 19:01:00 Test Item Value Reference Range Interpretation [...] = 516) YEAST (BEAKER) (test code = 5955) Occasional SOURCE(BEAKER) (test code = 9920) Laboratory Equipment Cleaner ID - [auto]Laboratory Equipment Cleaner ID - techBASIC METABOLIC [id number] 19:00:00 Test Item Value Reference Range Interpretation [...] 1092) DATA TO CALCULA TE ESTIMATED GFR. Laboratory Equipment Cleaner ID - RAKESH CPROTHROMBIN TIME/[id number] 18:42:00 Test Item Value Reference Range Interpretation [...] is 2.5-3.5 for patients wiht mechanical heart valves.[id number] 18:42:00 Test Item Value Reference Range Interpretation Comments PARTIAL THROMBOPLASTIN TIME 22.4 seconds 22.5-36.0 L (BEAKER) (test code = 760) CT, CTANGIO [id number] 18:37:00Reason for exam:->Symptoms onset less than 6 hours and NIHSS [address], CAROTID, ANGIO, CT, CTANGIO BRAIN, CT, CEREBRAL PERFUSION ANALYSIS INDICATION: TIA, initial examSymptoms onset less than 6 hours and NIHSS 6 or greater COMPARISON:Same day noncontrast CT head TECHNIQUE: Rapid acquisition spiral images were obtained between the aortic arch and the cranial vertex during intravenous contrast infusion to reconstruct axial images andangiographic 3D maximum intensity projections (MIP) .Three dimensional reformatted images were created at a dedicated workstation. Precontrast images of the brain were also obtained. Perfusion imaging technique:Arterial input function: ACAVenous outflow function: TorcularSite of normal perfusion: right anterior territory Stenosis evaluation reported in compliance with NASCET criteria. DOSE REDUCTION:Dose modulation, iterative reconstruction, and/or weight-based adjustment of the mA/kV was utilized to reduce the radiation dose to as low as reasonably achievable. FINDINGS:CTA head:There is no CT evidence of acute infarct or hemorrhage. There is no hydrocephalus or midline shift. The skull is intact. No intracranial aneurysm, focal stenosis, or proximal branch vessel occlusion. The major intraduralvenous sinuses are patent. CTA neck:Great vessel origins: [...] occlusion or high-grade focal stenosis within the [place].2.Moderate focal stenosis of the right vertebral origin.3.No significant stenosis of the carotid arteries per NASCET criteria.4.Symmetric perfusion indices. Signed: Irlanda Liriano MDReport Verified Date/Time: 01/28/2020 18:37:33 CT, CAROTID, [id number] 18:37:00Reason for exam:- >Symptoms onset less than 6 hours and NIHSS [address], CAROTID, ANGIO, CT, CTANGIO BRAIN, CT, CEREBRAL PERFUSION KEELY SIS INDICATION: TIA, initial examSymptoms onset less than 6 hours and NIHSS 6 or greater COMPARISON:Same day noncontrast CT head TECHNIQUE: Rapid acquisition spiral images were obtained between the aortic arch and the cranial vertex during intravenous contrast infusion to reconstruct axial images andangiographic 3D maximum intensity projections (MIP) .Three dimensional [...] or proximal branch vessel occlusion. The major intraduralvenous sinuses are patent. CTA neck:Great vessel origins: [...] occlusion or high-grade focal stenosis within the [place].2.Moderate focal stenosis of the right vertebral origin.3.No significant stenosis of the carotid arteries per NASCET criteria.4.Symmetric perfusion indices. Signed: Irlanda Liriano MDReport Verified Date/Time: 01/28/2020 18:37:33 CT, CEREBRAL PERFUSION [id number] 18:37:00Reason for exam:->Symptom onset less than 6 hours and NIHSS [address], CAROTID, ANGIO, CT, CTANGIO BRAIN, CT, CEREBRAL PERFUSION ANALYSIS INDICATION: TIA, initial examSymptoms onset less than 6 hours and NIHSS 6 or greater COMPARISON:Same day noncontrast CT head TECHNIQUE: Rapid acquisition [...] reported in compliance with NASCET criteria. DOSE REDUCTION:Dose modulation, iterative reconstruction, and/or weight-based adjustment of the mA/kV was utilized to reduce the radiation dose to as low as reasonably achievable. FINDINGS:CTA head:There is no CT evidence of acute infarct or hemorrhage. There is no hydrocephalus or midline shift. The skull is intact. No intracranial aneurysm, focal stenosis, or proximal branch vessel occlusion. The major intraduralvenous sinuses are patent. CTA neck:Great vessel origins: [...] PARAMETRIC MAPS: CBF: SymmetricCBV: SymmetricMTT: SymmetricTTP: Symmetric IMPRES ERIKA: 1.No proximal branch arterial occlusion or high-grade focal stenosis within the [place].2.Moderate focal stenosis of the right vertebral origin.3.No significant stenosis of the carotid arteries per NASCET criteria.4.Symmetric perfusion indices. Signed: Irlanda Liriano MDReport Verified Date/Time: 01/28/2020 18:37:33 CBC W/PLT COUNT & AUTO DIFFERENTIAL 2020-01-28 18:35:00 Test Item Value Reference Range Interpretation [...] (BEAKER) (test code = 2801) CT, BRAIN/STROKE [id number] 17:59:00Reason for exam:->cvaWhat is the patient's sedation [...] with the ordering physician. Signed: Irlanda [facility]iano [facility] Verified Date/Time: 01/28/2020 17:59:44
[2022-03-02 09:11] LABS: Absolute Lymphocytes (CBC) 1.1 K/uL (0.7-4.9); Hematocrit 32.8 % (36.0-45.0); Lymphocytes % 8.9 % (15.3-44.8); MPV 7.9 fL (7.6-11.3)
[2022-03-02 09:21] LABS: Urine Blood 1+ (Negative); Urine Glucose Negative (Negative); Urine Protein Negative (Negative)
[2022-03-02] MEDS ORDERED: NA CHLORIDE 0.9% 1,000 ML ONE ×2 (09:35→18:22)
[2022-03-02] MEDS ORDERED: ACETAMINOPHEN 500 MG TAB ONE (09:35)
--- NOTE | 2022-03-02 10:02 | RAD REPORT ---
EXAM DESCRIPTION: CT - Head Brain Wo Cont - 03/02/2022 9:44 am CLINICAL HISTORY: Alteration of awareness/confusion COMPARISON: December 2021 TECHNIQUE: Computed axial tomography of the head was obtained. IV contrast was not requested. All CT scans are performed using dose optimization technique as appropriate and may include automated exposure control or mA/KV adjustment according to patient size. FINDINGS: An intracranial bleed is not seen . The ventricles are normal in caliber. No extra-axial fluid collection is noted. Mild to moderate low-density areas within periventricular, deep and subcortical white matter likely r epresent ischemic changes secondary to small vessel disease. Fluid within the sinuses/ mastoids is not seen. IMPRESSION: No acute intracranial abnormality is seen. If patient's symptoms persist MRI of the bra in would be recommended.
[2022-03-02 10:03] LABS: Urine Mucus Slight /HPF (None Seen); Urine RBC 21-50 /HPF (None Seen)
[2022-03-02] MEDS ORDERED: CEFTRIAXONE 1000 MG/VIAL ONE (10:25)
--- NOTE | 2022-03-02 10:27 | EDPHYS ---
Physician Documentation [facility] Name: Savana Martin Age: 76 yrs Sex: Female : 1945 Arrival Date: 03/02/2022 Time: 08:41 Bed 15 Private MD: ED Physician Josef Can HPI: 03/02 09:02 This 76 yrs old Female presents to ER via EMS with complaints of EMS reports jl9 that they were called out for patient being more confused than normal and not acting her normal self. History of UTI's reports by ID staff. . 09:02 Onset: The symptoms/episode began/occurred yesterday. Unable to obtain HPI due to jl9 baseline dementia. The patient has experienced similar episodes in the past. - Immunization history:: Adult Immunizations up to date. - Social history:: Smoking status: Patient denies any tobacco usage or history of. ROS: 09:03 Constitutional: Negative for fever, chills, and weight loss, Eyes: Negative for injury, jl9 pain, redness, and discharge, ENT: Negative for injury, pain, and discharge, Neck: Negative for injury, pain, and swelling, Cardiovascular: Negative for chest pain, palpitations, and edema, Respiratory: Negative for shortness of breath, cough, wheezing, and pleuritic chest pain, Abdomen/GI: Negative for abdominal pain, nausea, vomiting, diarrhea, and constipation, Back: Negative for injury and pain, : Negative for injury, bleeding, discharge, and swelling, MS/Extremity: Negative for injury and deformity, Skin: Negative for injury, rash, and discoloration. 09:03 Neuro: Positive for Exam: 09:24 Constitutional: This is a well developed, well nourished patient who is awake, alert, jl9 and in no acute distress. Head/Face: Normocephalic, atraumatic. Eyes: Pupils equal round and reactive to light, extra-ocular motions intact. Lids and lashes normal. Conjunctiva and sclera are non-icteric and not injected. Cornea within normal limits. Periorbital areas with no swelling, redness, or edema. ENT: Mucous membranes moist. Neck: Trachea midline, no thyromegaly or masses palpated, and no cervical lymphadenopathy. Supple, full range of motion without nuchal rigidity, or vertebral point tenderness. No Meningismus. Chest/axilla: Normal chest wall appearance and motion. Nontender with no deformity. No lesions are appreciated. Cardiovascular: Regular rate and rhythm with a normal S1 and S2. No gallops, murmurs, or rubs. Normal PMI, no JVD. No pulse deficits. Respiratory: Lungs have equal breath sounds bilaterally, clear to auscultation and percussion. No rales, rhonchi or wheezes noted. No increased work of breathing, no retractions or nasal flaring. Abdomen/GI: Soft, non-tender, with normal bowel sounds. No distension or tympany. No guarding or rebound. No evidence of tenderness throughout. Back: No spinal tenderness. No costovertebral tenderness. Full range of motion. Skin: Warm, dry with normal turgor. Normal color with no rashes, no lesions, and no evidence of cellulitis. MS/ Extremity: Pulses equal, no cyanosis. Neurovascular intact. Full, normal range of motion. 09:24 Neuro: Awake and alert, GCS 15, oriented to person, place, time, and situation. Cranial nerves II-XII grossly intact. Motor strength 5/5 in all extremities. Sensory grossly intact. Cerebellar exam normal. Normal gait. Psych: Awake, alert, with orientation to person, place and time. Behavior, mood, and affect are within normal limits. 09:24 Neuro: Orientation: appropriate for stated age, Not oriented to time, situation, Mentation: appropriate for stated age, no acute changes, Memory: appropriate for stated age, no acute changes. Vital Signs: 08:48 BP 146 / 71; Pulse 105; Resp 17; Temp 102.2(A); Pulse Ox 100% ; Weight 61.23 kg; Height jh6 5 ft. 5 in. (165.10 cm); Pain 0/10; 10:27 BP 103 / 54; Pulse 93; Resp 17; Temp 99.8(A); Pulse Ox 94% on R/A; Pain 0/10; jh6 11:38 BP 92 / 69; Pulse 91; Resp 17; Pulse Ox 97% ; Pain 0/10; jh6 12:20 BP 92 / 70; Pulse 87; Resp 16; Temp 98.9(A); Pulse Ox 96% ; jh6 14:00 BP 91 / 70; Pulse 80; Resp 17; Pulse Ox 96% ; Pain 0/10; [facility] 15:00 BP 112 / 68; Pulse 53; Resp 18; Temp 97.8; Pulse Ox 98% ; Pain 0/10; 6 20:38 BP 108 / 90; Pulse 82; Resp 15 S; Temp 98.8; Pulse Ox 95% on R/A; ha1 08:48 Body Mass Index 22.46 (61.23 kg, 165.10 cm) [facility] MDM: 08:42 Patient medically screened. [facility] 09:24 Differential Diagnosis altered mental status, sepsis. Data reviewed: vital signs, [facility] nurses notes. 09:25 Test interpretation: by ED physician or midlevel provider: ECG. [facility] 10:23 Post IV fluid administration reassessment for Sepsis: Client prescribed 30 mL/kg IVF. [facility] Sepsis focused reassessment complete. Focused Assessment performed: March 02, 2022 at 10:00 Heart: Regular rate/rhythm noted. Lungs: Noted to be clear bilaterally. Capillary refill examination performed. Capillary refill noted to be brisk. Peripheral pulse evaluation performed. Radial Pedal Skin examination performed. Skin noted to have normal turgor. Current vital signs reviewed: Yes. Neuro: Neurological examination improved from previous exam. Cardio: Cardiovascular examination improved from previous exam. Heart rate and blood pressure have improved. Respiratory:. Counseling: I had a detailed discussion with the patient and/or guardian regarding: the historical points, exam findings, and any diagnostic results supporting the discharge/admit diagnosis, lab results, radiology results, the need for further work-up and treatment in the hospital. 10:25 Physician consultation: Ness SMYTH was called at 10:25, was contacted at [facility] 10:25, Admit to Dr Scott.. 03/02 08:42 Order name: CBC with Diff; Complete Time: 09:23 [facility] 03/02 08:42 Order name: CMP; Complete Time: 11:12 [facility] 03/02 08:42 Order name: Lipase; Complete Time: 11:12 [facility] 03/02 08:59 Order name: Lactate; Complete Time: 10:08 [facility] 03/02 09:06 Order name: Blood Culture Adult (2) [facility] 03/02 09:22 Order name: Urine Dipstick-Ancillary; Complete Time: 09:23 EDMS 03/02 08:57 Order name: Head Brain Wo Cont CT 03/02 09:02 Order name: Head Brain Wo Cont; Complete Time: 10:08 EDMS 03/02 09:23 Order name: Urine Culture 03/02 09:23 Order name: Urine Microscopic Only; Complete Time: 10:08 03/02 09:40 Order name: SARS-COV-2 RT PCR (Document "Date of Onset" if Symptomatic); Complete Time: 14:45 03/02 08:42 Order name: IV Saline Lock; Complete Time: 09:03/02 08:42 Order name: Labs collected and sent; Complete Time: :03/02 08:42 Order name: Urine Dipstick-Ancillary (obtain specimen); Complete Time: :03/02 09:31 Order name: Labs - recollect needed: GREEN TOP ONLY; Complete Time: 10:09 ss Administered Medications: 09:29 Drug: NS 0.9% 1000 ml Route: IV; Rate: 1000 ml; Site: right hand; [facility] 09:29 Drug: Acetaminophen 1000 mg Route: PO; [facility] 10:25 Drug: Rocephin (cefTRIAXone) 1 grams Route: IV; Rate: calculated rate; Site: right [facility] antecubital; 10:26 Drug: NS 0.9% 1000 ml Route: IV; Rate: 1000 ml; Site: right antecubital; [facility] Disposition Summary: 03/02/22 10:26 Hospitalization Ordered Hospitalization Status: Inpatient Admission 9 Provider: Liam Scott 9 Location: Telemetry/MedSurg (Inpatient) [facility] Condition: Fair jl Problem: new jl9 Symptoms: have improved 9 Bed/Room Type: Standard [facility] Room Assignment: 420(03/02/22 20:07) cg Diagnosis - UTI/ Urinary tract infection, site not specified [facility] Forms: - Medication Reconciliation Form 9 - SBAR form 9 Signatures: Dispatcher [employer] EDNess Vergara FNP-C FNP-Elvie Davis RN RN Ange Walsh RN RN Shavon Contreras RN RN [facility] Blake Araiza [facility] Corrections: (The following items were deleted from the chart) 20:07 10:26 jl9 cg
--- NOTE | 2022-03-02 10:27 | ER ---
Nurse's Notes [facility] Name: Savana Martin Age: 76 yrs Sex: Female : 1945 Arrival Date: 03/02/2022 Time: 08:41 Bed 15 Private MD: Diagnosis: UTI/ Urinary tract infection, site not specified Presentation: 03/02 08:48 Chief complaint: EMS states: called to OR for increase AMS. Pt with Hx of dementia but [facility] was not able to get up and interact with staff per usual. last seen normal was yesterday evening \T\ 2100. Coronavirus screen: Vaccine status: Patient reports receiving the 2nd dose of the covid vaccine. Ebola Screen: Patient negative for fever greater than or equal to 101.5 degrees Fahrenheit, and additional compatible Ebola Virus Disease symptoms Patient denies exposure to infectious person. Patient denies travel to an Ebola-affected area in the 21 days before illness onset. Initial Sepsis Screen: Does the patient meet any 2 criteria? No. Patient's initial sepsis screen is negative. Does the patient have a suspected source of infection? No. Patient's initial sepsis screen is negative. Risk Assessment: Do you want to hurt yourself or someone else? Patient reports no desire to harm self or others. Onset of symptoms was March 02, 2022. 08:48 Method Of Arrival: EMS: [place] [id number] 08:48 Acuity: MARGARITO 3 6 Triage Assessment: 08:50 General: Appears in no apparent distress. Behavior is calm, cooperative. Pain: Denies [facility] pain. Unable to use pain scale. Patient is disoriented. - Immunization history:: Adult Immunizations up to date. - Social history:: Smoking status: Patient denies any tobacco usage or history of. Screenin:33 Abuse screen: Denies threats or abuse. Nutritional screening: No deficits noted. [facility] Tuberculosis screening: No symptoms or risk factors identified. Fall Risk IV access (20 points). Gait- Impaired (20 pts.). Mental Status- Overestimates/Forgets Limitations (15 pts.). Assessment: 09:33 General: Appears in no apparent distress. Behavior is calm, cooperative. Pain: Denies [facility] pain. Neuro: Level of Consciousness is awake, confused, Oriented to person, [place] are equal bilaterally Speech is normal, Facial symmetry appears normal. 10:26 Reassessment: No changes from previously documented assessment. Patient and/or family [facility] updated on plan of care and expected duration. Pain level reassessed. Pt responds to verbal stimuli and has no complaints when asked. 19:35 General: Appears in no apparent distress. Behavior is cooperative. Pain: Unable to use ha1 pain scale. Patient appears quiet. Neuro: Level of Consciousness is awake. Cardiovascular: Patient's skin is warm and dry. Respiratory: Airway is patent Trachea midline Respiratory effort is even, unlabored, Respiratory pattern is regular, symmetrical. 20:41 Reassessment: Patient and/or family updated on plan of care and expected duration. Pain ha1 level reassessed. calm and cooperative. Vital Signs: 08:48 BP 146 / 71; Pulse 105; Resp 17; Temp 102.2(A); Pulse Ox 100% ; Weight 61.23 kg; Height [facility] 5 ft. 5 in. (165.10 cm); Pain 0/10; 10:27 BP 103 / 54; Pulse 93; Resp 17; Temp 99.8(A); Pulse Ox 94% on R/A; Pain 0/10; jh6 11:38 BP 92 / 69; Pulse 91; Resp 17; Pulse Ox 97% ; Pain 0/10; 6 12:20 BP 92 / 70; Pulse 87; Resp 16; Temp 98.9(A); Pulse Ox 96% ; jh6 14:00 BP 91 / 70; Pulse 80; Resp 17; Pulse Ox 96% ; Pain 0/10; jh6 15:00 BP 112 / 68; Pulse 53; Resp 18; Temp 97.8; Pulse Ox 98% ; Pain 0/10; 6 20:38 BP 108 / 90; Pulse 82; Resp 15 S; Temp 98.8; Pulse Ox 95% on R/A; ha1 08:48 Body Mass Index 22.46 (61.23 kg, 165.10 cm) [facility] ED Course: 08:41 Patient arrived in ED. eb 08:42 Blake Araiza is PHCP. jl9 08:42 Josef Can MD is Attending Physician. jl9 08:47 Shavon Mathias RN is Primary Nurse. jh6 08:49 Triage completed. jh6 08:51 Arm band placed on right wrist. Patient placed in an exam room, in the treatment room, jh6 in view of staff members, on marble worker, on pulse oximetry. 09:00 Placed in gown. Bed in low position. Call light in reach. Side rails up X2. 6 09:00 Inserted saline lock: 22 gauge in right wrist, using aseptic technique. 6 09:[address] via stretcher. jh6 09:34 No provider procedures requiring assistance completed. 6 09:46 Head Brain Wo Cont In Process Unspecified. EDMS 10:00 Inserted saline lock: 22 gauge in right antecubital area, using aseptic technique. 6 Blood collected. 10:26 Liam Scott MD is Hospitalizing Provider. 9 10:26 Head Brain Wo Cont CT Sent. 6 22:12 Patient admitted, IV remains in place. ha1 Administered Medications: 09:29 Drug: NS 0.9% 1000 ml Route: IV; Rate: 1000 ml; Site: right hand; [facility] 09:29 Drug: Acetaminophen 1000 mg Route: PO; [facility] 10:25 Drug: Rocephin (cefTRIAXone) 1 grams Route: IV; Rate: calculated rate; Site: right [facility] antecubital; 10:26 Drug: NS 0.9% 1000 ml Route: IV; Rate: 1000 ml; Site: right antecubital; [facility] Medication: 12:21 VIS not applicable for this client. [facility] Outcome: 10:26 Decision to Hospitalize by Provider. 9 22:11 Admitted to Med/surg accompanied by nurse, via stretcher, Report called to eligio Cheng RN 22:11 Condition: stable 22:11 Discharge instructions given to patient, Instructed on the need for admit, Demonstrated understanding of instructions. 22:13 Patient left the ED. ha1 Signatures: Dispatcher [employer] EDME Skylar Wilson Jennifer, RN RN 6 Blake Araiza 9 Gita Larsen, MYRON RN 1 Corrections: (The following items were deleted from the chart) 08:50 08:48 Chief complaint: EMS states: called to [facility] for increase AMS. Pt with Hx of 6 dementia but was not able to get up and interact with staff per usual [facility] 08:51 08:48 BP 146 / 71; Pulse 44bpm; Resp 17bpm; Pulse Ox 100%; Temp 99.5F Temporal; 61.23 jh6 kg; Height 5 ft. 5 in.; BMI: 22.4; Pain 0/10; jh6 09:05 08:48 BP 146 / 71; Pulse 105bpm; Resp 17bpm; Pulse Ox 100%; Temp 99.5F Temporal; 61.23 jh6 kg; Height 5 ft. 5 in.; BMI: 22.4; Pain 0/10; jh6
[2022-03-02 10:37] LABS: Albumin 3.5 g/dL (3.4-5.0); Bilirubin Total 0.3 mg/dL (0.2-1.0); Potassium 4.3 mmol/L (3.5-5.1); Protein, Total 7.5 g/dL (6.4-8.2)
[2022-03-02] MEDS: NA CHLORIDE 0.9% 1,000 ML IV SCH (18:02)
[2022-03-02] MEDS ORDERED: ACETAMINOPHEN 650MG/RECT SUPP PR PRN (18:02)
--- NOTE | 2022-03-02 18:14 | P.HP ---
Certification for Inpatient With expected LOS: >2 Midnights Patient will require the following post-hospital care: None (pt resides in [place]) Practitioner: I am a practitioner with admitting privileges, knowledge of patient current condition, hospital course, and medical plan of care. Services: Services provided to patient in accordance with Admission requirements found in Title 42 Section 412.3 of the Code of Federal Regulations <Ness Chacon - Last Filed: 03/02/22 18:07> Patient History Date of Service: 03/02/22 Primary Care Provider: MIGUEL ORTIZ Reason for admission: UTI, fever History of Present Illness: Ms Martin is a 76yo female with a hx of dementia, COPD, Lupus, HTN, hypothyroidism. Pt sent to ED today for increase in alteration in mental status per [place] staff. Ms. Martin presented to the ED with fever to 102. Initial lactate 1.8. Pt did have a SBP of 92 in ED. Pt rec'd 1.5L NS and Rocephin 1gm. Pt voices understanding that she will stay in the hospital. Home medications list reviewed: Yes - Past Medical/Surgical History Diabetic: No -: Hypertension -: Dementia -: Lupus -: Chronic DVTs -: COPD -: Hypothyroidism -: Malnutrition -: Depression -: Lupus Erythematosus -: back surgery Psychosocial/ Personal History: Patient lives at [facility]. - Family History Father -: Cancer, Other (see notes) Notes: No mention of renal disorders - Social History Smoking Status: Unknown if ever smoked Alcohol use: No CD- Drugs: No Caffeine use: Yes <Ness Chacon - Last Filed: 03/02/22 18:07> Date of Service: 03/02/22 <Liam Scott - Last Filed: 03/02/22 20:10> Allergies ciprofloxacin Allergy (Verified 05/04/20 17:07) Itching Home Medications: RX: Acetaminophen [Tylenol*] 2 tab PO Q6HP PRN 11/30/21 RX: Ascorbic Acid 1 tab PO BID 11/30/21 RX: Aspirin [Aspirin EC] 1 tab PO DAILY 11/30/21 RX: Divalproex Sodium [Depakote Sprinkle] 2 cap PO TID 11/30/21 RX: Duloxetine HCl [Drizalma Sprinkle] 30 mg PO DAILY 11/30/21 RX: Gabapentin [Neurontin*] 1 tab PO BID 11/30/21 RX: Hydroxychloroquine Sulfate 1 tab PO DAILY 11/30/21 RX: Memantine HCl 1 tab PO BID 11/30/21 RX: Mirtazapine [Remeron] 1 tab PO BEDTIME 11/30/21 RX: Rivastigmine Tartrate [Rivastigmine] 1 cap PO BID 11/30/21 RX: Ensure Enlive 237 ml PO BID can 12/02/21 Apixaban [Eliquis] 5 mg PO BID #60 tablet 12/28/21 RX: Meropenem [Merrem 1 GM/100 ML NS IVPB] 1 gm IV BID #6 bag 12/28/21 RX: Vancomycin Oral Soln [Vancocin HCl*] 5 ml PO QID 7 Days osyr 12/28/21 Review of Systems General: Fever, As per HPI Eyes: Unremarkable ENT: Unremarkable Respiratory: Unremarkable Cardiovascular: Unremarkable Gastrointestinal: Unremarkable Genitourinary: Unremarkable Musculoskeletal: Unremarkable Integumentary: Unremarkable Neurological: Confusion Lymphatics: Unremarkable <Ness Chacon - Last Filed: 03/02/22 18:07> Physical Examination - Vital Signs Temperature: 99.8 F Blood Pressure: 92/69 Pulse: 96 Respirations: 18 Pulse Ox (%): 97 - Physical Exam General: Alert, Cooperative HEENT: Atraumatic, Normocephalic Neck: Supple Respiratory: Clear to auscultation bilaterally Cardiovascular: Irregular heart rate/rhythm Capillary refill: <2 Seconds Gastrointestinal: Normal bowel sounds Musculoskeletal: No clubbing, No swelling, No contractures Integumentary: No rashes Neurological: Dementia External genitalia: Deferred - Studies Laboratory Data (last 24 hrs) 03/02/22 10:00: Sodium 142, Potassium 4.3, BUN 25 H, Creatinine 1.39 H, Glucose 103, Total Bilirubin 0.3, AST 23, ALT 13, Alkaline Phosphatase 82, Lipase 145 03/02/22 09:02: WBC 11.90 H, Hgb 11.0 L, Hct 32.8 L, Plt Count 182 <OswaldoNess - Last Filed: 03/02/22 18:07> - Studies Laboratory Data (last 24 hrs) 03/02/22 10:00: Sodium 142, Potassium 4.3, BUN 25 H, Creatinine 1.39 H, Glucose 103, Total Bilirubin 0.3, AST 23, ALT 13, Alkaline Phosphatase 82, Lipase 145 03/02/22 09:02: WBC 11.90 H, Hgb 11.0 L, Hct 32.8 L, Plt Count 182 <Liam Scott - Last Filed: 03/02/22 20:10> Assessment and Plan - Problems (Diagnosis) (1) Urinary tract infection Current Visit: Yes Status: Acute Plan: Urine sent for culture per ED, iv abx, follow labs Qualifiers: Urinary tract infection type: site unspecified Hematuria presence: without hematuria Qualified Code(s): N39.0 - Urinary tract infection, site not specified (2) Fever Current Visit: Yes Status: Acute Qualifiers: Fever type: due to other condition Qualified Code(s): R50.81 - Fever presenting with conditions classified elsewhere - Plan Continue q 4h vital signs, antipyretics prn T>101, continue to assess for sepsis/severe sepsis markers. A = source, urine infection, B = T > 102, C = continue assessment Discharge Plan: Snf Plan to discharge in: 72 Hours - Advance Directives Does patient have a Living Will: Yes Does patient have a Durable POA for Healthcare: Yes - Code Status/Comfort Care Code Status Assessed: Yes Code Status: Do Not Attempt Resuscitat (confirmed with family via phone) <Ness Chacon - Last Filed: 03/02/22 18:07> Physician Review: Patient Assessed, Agree with Above Assessment and Plan <Liam Scott - Last Filed: 03/02/22 20:10>
[2022-03-02] MEDS ORDERED: ACETAMINOPHEN 325 MG TABLET ONE (18:32)
[2022-03-02 18:56] VITALS: BMI 21.6
[2022-03-02] MEDS: RIVASTIGMINE TARTRATE 1.5 MG PO SCH (22:46)
[2022-03-02] MEDS: MEMANTINE HCL 10 MG TABLET PO SCH (22:47)
[2022-03-02] MEDS: APIXABAN 5 MG TABLET PO SCH (22:47)
[2022-03-02] MEDS: MIRTAZAPINE 15 MG TAB PO SCH (22:47)
[2022-03-02] MEDS: DULOXETINE 30 MG CAP PO SCH (22:47)
[2022-03-02] MEDS: GABAPENTIN 100 MG CAP PO SCH (22:47)
[2022-03-03] MEDS: NA CHLORIDE 0.9% 1,000 ML IV SCH ×3 (05:30→17:07)
[2022-03-03] MEDS: LEVOTHYROXINE SOD 0.1 MG TAB PO SCH (05:31)
[2022-03-03 09:06] LABS: Absolute Lymphocytes (CBC) 1.4 K/uL (0.7-4.9); Hematocrit 28.1 % (36.0-45.0); Lymphocytes % 17.5 % (15.3-44.8); MCV 91.6 fL (80-100); MPV 8.2 fL (7.6-11.3); RBC Red Blood Cell Count 3.07 M/uL (3.86-4.86)
[2022-03-03] MEDS: CEFTRIAXONE 1,000 MG in NA CHLORIDE 0.9% 50 ML IVPB SCH (09:15)
[2022-03-03] MEDS: GABAPENTIN 100 MG CAP PO SCH ×2 (09:16→21:23)
[2022-03-03] MEDS: MEMANTINE HCL 10 MG TABLET PO SCH ×2 (09:16→21:24)
[2022-03-03] MEDS: APIXABAN 5 MG TABLET PO SCH ×2 (09:16→21:23)
[2022-03-03 09:19] LABS: Albumin 2.7 g/dL (3.4-5.0); Bilirubin Total 0.5 mg/dL (0.2-1.0); Magnesium 1.5 mg/dL (1.8-2.4); Phosphorus 2.7 mg/dL (2.5-4.9); Potassium 3.5 mmol/L (3.5-5.1); Protein, Total 6.4 g/dL (6.4-8.2); Valproic Acid (Depakene) Level 29.3 ug/mL (50-100)
[2022-03-03] MEDS ORDERED: Magnesium Sulfate 2gm IVPB 2 G/50 ML BAG IV ONE (09:59)
[2022-03-03] MEDS ORDERED: POTASSIUM CL SA 10 MEQ TAB PO ONE (09:59)
[2022-03-03] MEDS: RIVASTIGMINE TARTRATE 1.5 MG PO SCH ×2 (10:34→21:24)
[2022-03-03] MEDS: HYDROXYCHLOROQUINE 200MG TAB PO SCH (10:34)
--- NOTE | 2022-03-03 20:44 | P.PN ---
Subjective Date of Service: 03/03/22 Primary Care Provider: MIGUEL ORTIZ Chief Complaint: UTI, fever No acute events overnight. Vital signs have remained stable. History is limited given advanced dementia. She denies any concerns this morning. Review of Systems is unable to be obtained Physical Examination - Vital Signs Temperature: 97.6 F Blood Pressure: 135/60 Pulse: 87 Respirations: 14 Pulse Ox (%): 97 - Physical Exam General: Alert, In no apparent distress, Oriented x1 HEENT: Atraumatic, PERRLA, Mucous membr. moist/pink, EOMI, Sclerae nonicteric Neck: Supple, JVD not distended Respiratory: Clear to auscultation bilaterally, Normal air movement Cardiovascular: No edema, Regular rate/rhythm, Normal S1 S2, No gallops, No rubs, No murmurs Gastrointestinal: Normal bowel sounds, Soft and benign, Non-distended, No tenderness, No rebound, No guarding Musculoskeletal: No clubbing Integumentary: No rashes Neurological: Normal speech, Cranial nerves 3-12 intact, Normal affect - Studies Microbiology Data (last 24 hrs): 03/02/22 10:00 Blood - Blood Anaerobic Blood Culture - Final 03/02/22 09:31 Blood - Blood Anaerobic Blood Culture - Final Assessment And Plan - Plan # Sepsis likely secondary to Urinary Tract Infection She met sepsis criteria based on temperature > 100.9 F and HR > 90 bpm, and the suspected source is a UTI. - Sepsis order set was initiated - Initial Lactate was 1.8 - Blood cultures drawn before antibiotics were given - Broad spectrum antibiotics started: Ceftriaxone - In regards to fluids: - 30 mL/kg of IV fluids was not administered given SBP > 90, MAP > 65, lactic acid < 4 # Advanced Dementia - Continue home memantine, rivastigmine # Hypothyroidism - Continue home levothyroxine # Lupus - Continue home hydroxychloroquine # Neuropathy? 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
[2022-03-03] MEDS: DULOXETINE 30 MG CAP PO SCH (21:23)
[2022-03-03] MEDS: MIRTAZAPINE 15 MG TAB PO SCH (21:23)
[2022-03-04] MEDS: NA CHLORIDE 0.9% 1,000 ML IV SCH ×3 (02:25→20:24)
[2022-03-04] MEDS: LEVOTHYROXINE SOD 0.1 MG TAB PO SCH (06:18)
[2022-03-04 06:44] VITALS: O2SAT 95
[2022-03-04 06:49] LABS: Absolute Lymphocytes (CBC) 1.6 K/uL (0.7-4.9); Hematocrit 27.3 % (36.0-45.0); Lymphocytes % 30.2 % (15.3-44.8); MCV 91.2 fL (80-100); MPV 8.2 fL (7.6-11.3); RBC Red Blood Cell Count 2.99 M/uL (3.86-4.86)
[2022-03-04 07:02] LABS: Magnesium 1.9 mg/dL (1.8-2.4); Potassium 3.7 mmol/L (3.5-5.1)
[2022-03-04] MEDS: HYDROXYCHLOROQUINE 200MG TAB PO SCH (09:18)
[2022-03-04] MEDS: MEMANTINE HCL 10 MG TABLET PO SCH ×2 (09:19→20:24)
[2022-03-04] MEDS: RIVASTIGMINE TARTRATE 1.5 MG PO SCH ×2 (09:19→20:23)
[2022-03-04] MEDS: GABAPENTIN 100 MG CAP PO SCH ×2 (09:19→20:24)
[2022-03-04] MEDS: APIXABAN 5 MG TABLET PO SCH ×2 (09:20→20:24)
[2022-03-04] MEDS: CEFTRIAXONE 1,000 MG in NA CHLORIDE 0.9% 50 ML IVPB SCH (09:22)
--- NOTE | 2022-03-04 19:00 | P.PN ---
Subjective Date of Service: 03/04/22 Primary Care Provider: MIGUEL ORTZI Chief Complaint: UTI, fever No acute events overnight. History is limited given advanced dementia. This morning, she spiked a temperature to 102.2 F. She denies any dysuria, frequency, or urgency. Review of Systems is unable to be obtained Physical Examination - Vital Signs Temperature: 98.3 F Blood Pressure: 139/63 Pulse: 80 Respirations: 14 Pulse Ox (%): 100 - Studies Microbiology Data (last 24 hrs): 03/02/22 09:21 Clean Catch Urine [place] Count - Final <10,000 CFU/ML. 03/02/22 09:21 Clean Catch Urine - Final MIXED MANNY. Assessment And Plan - Plan - Physical Exam General: Alert, In no apparent distress, Oriented x1 HEENT: Atraumatic, PERRLA, Mucous membr. moist/pink, EOMI, Sclerae nonicteric Neck: Supple, JVD not distended Respiratory: Clear to auscultation bilaterally, Normal air movement Cardiovascular: No edema, Regular rate/rhythm, Normal S1 S2, No gallops, No rubs, No murmurs Gastrointestinal: Normal bowel sounds, Soft and benign, Non-distended, No tenderness, No rebound, No guarding Musculoskeletal: No clubbing Integumentary: No rashes Neurological: Normal speech, Cranial nerves 3-12 intact, Normal affect # Sepsis likely secondary to Urinary Tract Infection She met sepsis criteria based on temperature > 100.9 F and HR > 90 bpm, and the suspected source is a UTI. - Sepsis order set was initiated - Initial Lactate was 1.8 - Blood cultures drawn before antibiotics were given - Broad spectrum antibiotics started: Ceftriaxone - In regards to fluids: - 30 mL/kg of IV fluids was not administered given SBP > 90, MAP > 65, lactic acid < 4 - Spiked fever to 102.2 F this morning. Will continue IV antibiotics for an additional day and monitor hemodynamics. # Advanced Dementia - Continue home memantine, rivastigmine # Hypothyroidism - Continue home levothyroxine # Lupus - Continue home hydroxychloroquine # Neuropathy? 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
[2022-03-04] MEDS: DULOXETINE 30 MG CAP PO SCH (20:22)
[2022-03-04] MEDS: MIRTAZAPINE 15 MG TAB PO SCH (20:23)
[2022-03-05 03:58] LABS: Absolute Lymphocytes (CBC) 2.2 K/uL (0.7-4.9); Hematocrit 28.2 % (36.0-45.0); Lymphocytes % 31.1 % (15.3-44.8); MCV 90.5 fL (80-100); MPV 8.7 fL (7.6-11.3); RBC Red Blood Cell Count 3.11 M/uL (3.86-4.86)
[2022-03-05] MEDS: LEVOTHYROXINE SOD 0.1 MG TAB PO SCH (05:30)
[2022-03-05] MEDS: NA CHLORIDE 0.9% 1,000 ML IV SCH (05:33)
[2022-03-05 08:33] VITALS: TEMP 97.4
[2022-03-05] MEDS: RIVASTIGMINE TARTRATE 1.5 MG PO SCH (09:13)
[2022-03-05] MEDS: APIXABAN 5 MG TABLET PO SCH (09:14)
[2022-03-05] MEDS: GABAPENTIN 100 MG CAP PO SCH (09:14)
[2022-03-05] MEDS: CEFTRIAXONE 1,000 MG in NA CHLORIDE 0.9% 50 ML IVPB SCH (09:14)
[2022-03-05] MEDS: MEMANTINE HCL 10 MG TABLET PO SCH (09:14)
[2022-03-05] MEDS: HYDROXYCHLOROQUINE 200MG TAB PO SCH (09:19)
--- NOTE | 2022-03-05 10:48 | RAD REPORT ---
EXAM DESCRIPTION: RAD - Chest Single View - 03/05/2022 9:53 am CLINICAL HISTORY: fever COMPARISON: Portable chest December 27, CT chest December 21, CT abdomen November 29, portable chest July 09 TECHNIQUE: AP portable chest image was obtained 03/05/2022 9:53 am . FINDINGS: Mildly prominent baseline interstitial pattern is present. No failure or volume overload f indings. A small 3-4 cm rounded mass density is present in the medial left lung base. This is not joaquin zev seen on prior portable chest imaging but is believed to be a Bochdalek's hernia based on the stella or cross-sectional imaging. Heart and vasculature are normal. No measurable pleural effusion and no p neumothorax. No acute bony abnormality seen. No acute aortic findings suspected. IMPRESSION: No acute cardiopulmonary process. Chronic interstitial lung pattern matches comparison.
--- NOTE | 2022-03-05 11:12 | P.DS ---
Admission Date: 03/02/22 Discharge Date: 03/05/22 Primary Care Provider: MIGUEL ORTIZ Disposition: TRANSFER TO LONGTERM Comment: [facility] Discharge Condition: GOOD Reason for Admission: UTI, fever Hospital Course: DIAGNOSES: # Sepsis likely secondary to Urinary Tract Infection # KDIGO Stage I Acute Kidney Injury - Pre-Renal (resolved) # Possible Bochdalek's Hernia # Advanced Dementia # Hypothyroidism # Lupus # Neuropathy? # History of DVT HOSPITAL COURSE: Ms. Savana Martin is a 76 year old female with a past medical history significant for advanced dementia, hypothyroidism, lupus, neuropathy, and history of a DVT who was admitted to the [facility] on 03/02/2022 for fever. She was admitted to the Medicine service. Upon further evaluation, she was found to have sepsis secondary to a urinary tract infection. She was treated with IV antibiotics via sepsis protocol. She was also found to have an acute kidney injury, but this resolved with IV fluids. Incidentally, her evaluation was notable for microscopic hematuria and a chest x-ray report noting "small 3-4 cm rounded mass density is present in the medial left lung base. This is not clearly seen on prior portable chest imaging but is believed to be a Bochdalek's hernia based on the prior cross-sectional imaging." Over the course of her hospitalization, she improved significantly. On 03/05/2022, she was seen on morning rounds and deemed medically stable for discharge. Given her advanced dementia, discharge instructions were discussed with her son (Mr. Otto Martin) and her [id number]-ewz (Mrs. Skylar Martin). They were advised to have her PCP at [facility] further evaluate her hematuria and to schedule a repeat CT chest in about 3-6 months to evaluate the mass density noted on her chest x-ray. They verbalized understanding and agreed to arrange this follow-up. She was provided a prescription for cephalexin. Her and family members were given the opportunity to ask questions and reported no further questions. Furthermore, all questions were answered to the best of my ability. Today, I personally spent 25 minutes on her case, of which greater than 50% of the time was spent in patient education, counseling, and coordination of care as described above. - Physical Exam General: Alert, In no apparent distress, Oriented x1 HEENT: Atraumatic, PERRLA, Mucous membr. moist/pink, EOMI, Sclerae nonicteric Neck: Supple, JVD not distended Respiratory: Clear to auscultation bilaterally, Normal air movement Cardiovascular: No edema, Regular rate/rhythm, Normal S1 S2, No gallops, No rubs, No murmurs Gastrointestinal: Normal bowel sounds, Soft and benign, Non-distended, No tenderness, No rebound, No guarding Musculoskeletal: No clubbing Integumentary: No rashes Neurological: Normal speech, Cranial nerves 3-12 intact, Normal affect Vital Signs/Physical Exam: Temp Pulse Resp BP Pulse Ox 97.4 F 78 14 147/66 H 100 03/05/22 08:00 03/05/22 08:00 03/05/22 08:00 03/05/22 08:00 03/05/22 08:00 Laboratory Data at Discharge: WBC 7.20 K/uL (4.3-10.9) 03/05/22 02:42 Hgb 9.3 g/dL (12.0-15.0) L 03/05/22 02:42 Hct 28.2 % (36.0-45.0) L 03/05/22 02:42 Plt Count 152 K/uL (152-406) 03/05/22 02:42 Sodium 143 mmol/L (136-145) 03/04/22 06:28 Potassium 3.7 mmol/L (3.5-5.1) 03/04/22 06:28 BUN 10 mg/dL (7-18) 03/04/22 06:28 Creatinine 0.96 mg/dL (0.55-1.3) 03/04/22 06:28 Glucose 96 mg/dL (74-106) 03/04/22 06:28 Phosphorus 2.7 mg/dL (2.5-4.9) 03/03/22 08:41 Magnesium 1.9 mg/dL (1.8-2.4) 03/04/22 06:28 Total Bilirubin 0.5 mg/dL (0.2-1.0) 03/03/22 08:41 AST 25 U/L (15-37) 03/03/22 08:41 ALT 11 U/L (12-78) L 03/03/22 08:41 Alkaline Phosphatase 63 U/L (45-117) D 03/03/22 08:41 Lipase 145 U/L (73-393) 03/02/22 10:00 Home Medications: Acetaminophen [Tylenol*] 650 mg PO Q6HP PRN 11/30/21 Ascorbic Acid 500 mg PO BID 11/30/21 Aspirin [Aspirin EC] 81 mg PO DAILY 11/30/21 Divalproex Sodium [Depakote Sprinkle] 4 cap PO BID 11/30/21 Gabapentin [Neurontin*] 100 mg PO BID 11/30/21 Hydroxychloroquine Sulfate 1 tab PO DAILY 11/30/21 Memantine HCl 1 tab PO BID 11/30/21 Mirtazapine [Remeron] 15 mg PO BEDTIME 11/30/21 Rivastigmine Tartrate [Rivastigmine] 6 mg PO BID 11/30/21 Apixaban [Eliquis] 5 mg PO BID #60 tablet 12/28/21 Duloxetine HCl [Cymbalta] 30 mg PO DAILY 03/03/22 Levothyroxine [Synthroid*] 100 mcg PO [id number] 03/03/22 Cephalexin [Keflex*] 250 mg PO Q6H 5 Days #20 cap 03/05/22 New Medications: Cephalexin [Keflex*] 250 mg PO Q6H 5 Days #20 cap Physician Discharge Instructions: 1. Please schedule follow-up with your PCP in 3-5 days - Please schedule a repeat CT scan of your chest in 3-6 months to re-evaluate the spot seen on your chest x-ray - Please discuss the blood in your urine with your physician at [facility], so that it can be further evaluated Diet: AHA Activity: Fall precautions Time spent managing pt's care (in minutes): 25
[2022-03-05 12:16] VITALS: BP 141/66
== END 2022-03-05 14:23 | DRG 872 ==
LOC: ER 08:39 → ERHOLD 17:04 → 4TH 20:46
PROVIDERS: ADMIT Internal Medicine; ATTEND Internal Medicine
DX: A41.9 Sepsis, unspecified organism (principal); N39.0 Urinary tract infection, site not specified; N17.9 Acute kidney failure, unspecified; J44.9 Chronic obstructive pulmonary disease, unspecified; E03.9 Hypothyroidism, unspecified; M32.9 Systemic lupus erythematosus, unspecified; I10 Essential (primary) hypertension; K46.9 Unspecified abdominal hernia without obstruction or gangrene; G62.9 Polyneuropathy, unspecified; F03.90 Unspecified dementia, unspecified severity, without behavioral disturbance, psychotic disturbance, mood disturbance, and anxiety; R50.81 Fever presenting with conditions classified elsewhere; Z88.1 Allergy status to other antibiotic agents; Z79.01 Long term (current) use of anticoagulants; Z79.82 Long term (current) use of aspirin; Z79.899 Other long term (current) drug therapy; Z79.890 Hormone replacement therapy; Z86.718 Personal history of other venous thrombosis and embolism; Z20.822 Contact with and (suspected) exposure to COVID-19
CPT/HCPCS: 36415; 70450; 71045; 80048; 80053; 80164; 81003; 81015; 83605; 83690; 83735; 84100; 85025; 87040; 87086; 87088; 93005; 96374; 99285; J3475; J7030; U0003

== ENCOUNTER 2022-05-17 17:56 | Inpatient (IN) | payer OTHER ==
--- OUTSIDE RECORDS SUMMARY | 2022-05-17 17:59 | XMS REPORT | Continuity of Care Document ---
:1945 Author Organization [facility] t Address [facility] Damaso Brooks [address] [place] [address] Care Team Providers Name Role Phone No, Pcp [facility] Primary Care Physician Unavailable VENU Attending Clinician Unavailable DR VEENA RODRIGUEZ Attending Clinician Unavailable BREANNE, DR BOUCHER Attending Clinician Unavailable MARTELL BENITO Attending Clinician Unavailable VENU Admitting Clinician Unavailable DR VEENA RODRIGUEZ Admitting Clinician Unavailable BREANNE, DR BOUCHER Admitting Clinician Unavailable QUITA DE SOUZA Admitting Clinician Unavailable RAHEEM HENSON Admitting Clinician Unavailable Payers Payer Name Policy Type Policy Number Effective Date Expiration Date Kam [facility] [id number] 2019 ALL 00:00:00 MEDICAID OF [place] [id number] 2020 00:00:00 Problems Condition Condition Condition Status Onset Resolution Last Treating Co mments Source Name Details Category Date Date Treatment Clinician Date Paranoia [facility]ia [facility] Dementia Dementia Disease [facility]:00: Me dical disturbanc [...] Medica l 00 by mouth Center nightly. melatonin 5 2020-0 Yes 5mg QD Take [...] Medical Ce nter VACCINE (#1)] Future Scheduled 2022-02-16 INFLUENZA VACCINE (#1) [facility] [code = INFLUENZA Medical Ce nter VACCINE (#1)] Future Scheduled 2021-06-18 FALLS RISK SCREENING [facility] 00:00:00 [code = FALLS RISK Medical C enter SCREENING] Future Scheduled 2021-06-18 F[place]S [address]ISK SCREENING [facility] 00:00:00 [code = FALLS RISK Medical C enter SCREENING] Future Scheduled 2020-06-[address] [facility] 00:[facility]:00 WELLNESS (YEAR 2 or Medical Center FIRST YEAR if no IPPE) [code = MEDICARE ANNUAL WELLNESS (YEAR 2 or FIRST YEAR if no IPPE)] Future Scheduled 2020-06-[address] [facility] 00:00:00 WELLNESS (YEAR 2 or Medical Center FIRST YEAR if no IPPE) [code = MEDICARE ANNUAL WELLNESS (YEAR 2 or FIRST YEAR if no IPPE)] Future Scheduled 1997 SHINGLES VACCINES ([address] [facility] 00:00:00 2) [code = SHINGLES Medical Center VACCINES (1 of 2)] Future Scheduled 1997 SHINGLES VACCINES ([address] [facility] 00:00:00 2) [code = SHINGLES Medical Center VACCINES (1 of 2)] Future Scheduled 1966 DTAP/TDAP/TD VACCINES [facility] 00:[facility]00 (1 - Tdap) [code = Medical C enter DTAP/TDAP/TD VACCINES (1 - Tdap)] Future Scheduled 1966 DTAP/TDAP/TD VACCINES [facility] 00:00:00 (1 - Tdap) [code = Medical C enter DTAP/TDAP/TD VACCINES (1 - Tdap)] Future Scheduled 1965 HEPATITIS C SCREENING [facility] [code = HEPATITIS C Medical Center SCREENING] Future Scheduled 1965 HEPATITIS C [facility]CRE[facility]ING [facility] [code = HEPATITIS C Medical Center SCREENING] Future Scheduled [address] [facility] 00:00:00 Counseling and Medical Cente r Screening (12+) [code = Tobacco Cessation Counseling and Screening (12+)] Future Scheduled 1945 COVID-19 VACCINE (#1) [facility] 00:00:00 [code = COVID-[address] VACCINE (#1)] Future Scheduled 1945 COVID-19 VACCINE (#1) [facility] 00:00:00 [code = COVID-[address] VACCINE (#1)] Future Scheduled 1945 DXA SCAN [code = DXA [facility] 00:00:00 SCAN] [facility] Future Scheduled 1947 Screening for malignant [facility] 00:00:00 neoplasm of colon Medical Ce nter (procedure) [code = 255125256] Future Scheduled 1947 Screening for malignant [facility] 00:00:00 neoplasm of colon Medical Ce nter (procedure) [code = 939492303] Future Scheduled 1945 Sigmoidoscopy [code = [facility] Future Scheduled 1947 Screening for malignant [facility] 00:00:00 neoplasm of breast Medical C enter (procedure) [code = 746229545] Future Scheduled 1947 CT Colonography (combo) [facility] 00:00:00 [code = CT Colonography [facility] (combo)] Future Scheduled 1947 Screening for malignant [facility] 00:00:00 neoplasm of colon Medical Ce nter (procedure) [code = 505068043] Future Scheduled 1947 Screening for malignant [facility] 00:00:00 neoplasm of colon Medical Ce nter (procedure) [code = 298332500] Future Scheduled 1947 Screening for malignant [facility] 00:00:00 neoplasm of colon Medical Ce nter (procedure) [code = 985695539] Future Scheduled 1947 Screening for malignant [facility] 00:00:00 neoplasm of colon Medical Ce nter (procedure) [code = 091421385] Future Scheduled 1945 Sigmoidoscopy [code = [facility]oscopy] [facility] Future Scheduled 1947 CT Colonography (combo) [facility] 00:00:00 [code = CT Colonography [facility] (combo)] Future Scheduled 1947 Screening for malignant [facility] 00:00:00 neoplasm of colon Medical Ce nter (procedure) [code = 404829326] Future Scheduled 1947 Screening for malignant [facility] 00:00:00 neoplasm of colon Medical Ce nter (procedure) [code = 293515931] Future Scheduled 1945 DXA SCAN [code = DXA [facility] 00:00:00 SCAN] Medical Center Encounters Start End Encounter Admission Attending Care Care Encounter Source Date/Time Date/Time Type Type Clinicians Facility Department ID 2021-07-14 2021-07-14 Outpatient VIGNESH Johnson [id number] [place] 11:44:00 11:44:00 HN da [facility] 2021-02-11 2021-02-25 [facility] [id number] [place] 04:04:00 16:30:00 [facility] [place] 2021-02-09 2021-02-11 [facility] [id number] [place] 01:44:00 04:03:00 SANDER [facility] [place] 2020-01-29 2020-01-29 Emergency ER [facility] Emergency [id number] [facility] 14:48:00 14:48:00 2020-01-28 2020-01-28 Emergency ER [facility] Emergency [id number] [facility] 17:28:00 17:28:00 Results Test Description [...] the FDA and the College of the [place] [employer] (CAP) are more stringent than those required for this test. Therefore, the result should be interpreted with caution and close attention to other clinical and epidemiological data BLOOD [id number] 22:35:00 Test Item Value Reference Range Interpretation Comments Culture Observations (test NO GROWTH AFTER 5 code = COB1) DAYS B12 [id number] 10:07:00 Test Item Value Reference Range Interpretation Comments VIT B12 (test code = A60) 893.0 pg/mL 180.0-914.0 [id number] 10:07:00 Test Item Value Reference Range Interpretation Comments FOLATE (test code = A75) 18.6 ng/mL 3.1-17.5 H LIPID [id number] 10:07:00 Test Item Value Reference Range Interpretation Comments CHOLESTROL (test code 251 mg/dL 140-200 H = 44A) TRIGLYCERI (test code 114 mg/dL See_Comment [Auto mated message] = 42B) The system Channelkit generated this result transmitted ref erence range: <=149. T he reference range was not used to int erpret this result as normal/abnormal . HDL (test code = 83D) 78.0 mg/dL 40.0-60.0 H LDL (test code = 34B) 134 mg/dL See_Comment H [Auto mated message] The system Channelkit generated this result transmitted ref erence range: <=99. Th e reference range was not used to int erpret this result as normal/abnormal . CHL/HDL (test code = 3.2 0.0-3.4 CHR) T4 [id number] 10:01:00 Test Item Value Reference Range Interpretation Comments T4 FREE (test code = A91) 0.90 ng/dL 0.76-1.46 THYROID PANEL/SCREEN (TSH)2021-02-12 09:50:00 Test Item Value Reference Range Interpretation Comments TSH (test code = A57) 10.400 uIU/mL 0.358-3.740 H [id number] 09:49:00 Test Item Value Reference Range Interpretation Comments PREALBUMIN (test code = 08E) 20 mg/dL 18-38 [id number] 09:47:00 Test Item Value Reference Range Interpretation Comments Hb A1C % (test code 4.9 % 3.8-6.4 = HBA) A1C % (test code = HbA1c (% ) A1C) Reference Range Normal <5.7 Prediabetes 5.7-6.4 Diabetic >=6.5 [id number] 09:38:00 Test Item Value Reference Range Interpretation [...] the FDA and the [employer] [place] [employer] (CAP) are more stringent than those required for this test. Therefore, the result should be interpreted with caution and close attention to other clinical and epidemiological data URINE [id number] 10:37:00 Test Item Value Reference Range Interpretation [...] S code = ftn) CT HEAD W/O [id number] 12:18:41 [facility] 1945 Sex: FEXAMINATION:CT HEAD W/O CONTRASTCLINICAL [...] for Paget's disease.Electronically signed by: Milton Dunn MD02/10/2021 12:18 PM CDT CHEST W/O [id number] 12:16:28 [facility] : 1945 Sex: FEXAMINATION:CT C HEST W/O [...] Curry Joseph MD 02/10/2021 12:16 PM CDT [id number] METABOLIC [id number] 08:33:00 Test Item Value Reference Range Interpretation [...] normal/abnormal . GFR 50 See_Comment L [Automated SAO TOMEAN (test mL/min/1.73m\S\2 message] The code = GFRAA) system which generated this result transmit katherine reference range : >=90. The reference range was not used to interpret this result as normal/abnormal . EGFR (test code = eGFR BY EGFR) CKD-EPI CALCULATION IS NOT RECOMMENDED FOR PATIENTS UNDER 18 YEARS OF AGE. BUN/CREA (test 15 06-06 code = BCR) CALCIUM (test code [...] MORPH (test code = RBCMOR) NORMAL LACTIC [id number] 07:44:00 Test Item Value Reference Range Interpretation Comments LACTIC ACD (test code = LA) 1.6 mmol/L 0.4-2.0 CT CHEST W/O [id number] 00:06:16 [facility] : 1945 Sex: FEXAMINATION:CT C HEST W/O [...] MD 02/09/2021 12:06 AM CDT HEAD W/O [id number] 00:03:35[facility] : 1945 Sex: FEXAMINATION:CT HEAD W/O CONTRASTCLINICAL [...] Derrick Gómez MD 02/09/2021 12:03 AM CDT AFJBMYEL PROTEIN [id number] 22:08:00 Test Item Value Reference Range Interpretation Comments CRP QUANT (test code 5.8 mg/L 0.0-2.9 H = CRPQ) Method Change (test Please note the code = METHOD) change in Method and the reference range [id number] 22:04:00 Test Item Value Reference Range Interpretation Comments FERRITIN (test code = A19) 68.5 ng/mL 8.0-252.0 [id number] 22:02:00 Test Item Value Reference Range Interpretation Comments ACETAMINPH (test code = 94M) <2.0 ug/mL 10.0-30.0 L AMMONIA [id number] 22:01:00 Test Item Value Reference Range Interpretation Comments AMMONIA (test code = 54A) 14 umol/L 11-32 LDH-LACTIC [id number] 22:01:00 Test Item Value Reference Range Interpretation Comments LDH (test code = 33A) 210 IU/L 84-246 LACTIC [id number] 22:01:00 Test Item Value Reference Range Interpretation Comments LACTIC ACD (test code = LA) 3.8 mmol/L 0.4-2.0 H ALCOHOL BLOOD (ETOH)2021-02-08 22:01:00 Test Item Value Reference Range Interpretation Comments ETOH (test code = ETHANOL HALC) The result is to be used only for medical purposes ALCOHOL (test <10 mg/dL See_Comment [Automated me ssage] code = 56A) The system Channelkit generated this result transmit katherine reference range : <=10. The refer ence range was not u sed to interpret th is result as normal/abnormal . COMPREHENSIVE METABOLIC [id number] 22:01:00 Test Item Value Reference Range Interpretation [...] normal/abnormal . GFR 42 See_Comment L [Automated SAO TOMEAN (test mL/min/1.73m\S\2 message] The code = GFRAA) [...] to interpret this result as normal/abnormal . [id number] 21:57:00 Test Item Value Reference Range Interpretation [...] the FDA and the College of the [place] [employer] (CAP) are more stringent than those required for this test. Therefore, the result should be interpreted with caution and close attention to other clinical and epidemiological data URINALYSIS WITH [id number] 21:51:00 Test Item Value Reference Range Interpretation [...] code = USPERM) /HPF NONE DRUGS OF [id number] 21:49:00 Test Item Value Reference Range Interpretation [...] = RBCMOR) NORMAL XR CHEST 1 VIEW [id number] 20:55:49 [facility] : 1945 Sex: FEXAMINATION:XR C HEST 1 [...] Surendra Murry MD 02/08/2021 8:55 PM CDT [id number] METABOLIC [id number] 07:01:00 Test Item Value Reference Range Interpretation [...] S NOT APPLICABLE FOR DIALYSIS PATIEN TS. Die Designer ID - PIAYA LCBC W/PLT COUNT & AUTO [id number] 05:54:00 Test Item Value Reference Range Interpretation [...] (BEAKER) (test code = 2801) BASIC METABOLIC [id number] 06:59:00 Test Item Value Reference Range Interpretation [...] S NOT APPLICABLE FOR DIALYSIS PATIEN TS. Die Designer ID - NITO MCBC W/PLT COUNT & AUTO [id number] 06:38:00 Test Item Value Reference Range Interpretation [...] 0-1 PERCENT (BEAKER) (test code = 2801) [id number] 14:58:00 Test Item Value Reference Range Interpretation Comments RPR SCREEN (BEAKER) (test code = Nonreactive Nonreactive 420) LIPID [id number] 09:36:00 Test Item Value Reference Range Interpretation [...] Borderline 130-159 High 160-189 Very High >=190 Die Designer ID - JUN CBASIC METABOLIC [id number] 09:36:00 Test Item Value Reference Range Interpretation [...] S NOT APPLICABLE FOR DIALYSIS PATIEN TS. Die Designer ID - JUN CCBC W/PLT COUNT & AUTO [id number] 09:19:00 Test Item Value Reference Range Interpretation [...] PERCENT (BEAKER) (test code = 2801) HEMOGLOBIN [id number] 08:12:00 Test Item Value Reference Range Interpretation Comments HEMOGLOBIN A1C (BEAKER) (test code = 5.0 % 4.3-6.1 368) MR, BRAIN, WITHOUT [id number] 21:54:00Left sided weakness, c/f strokeUnlisted Reason for [...] Durán MDReport Verified Date/Time: 01/29/2020 21:54:29 TROPONIN [id number] 20:02:00 Test Item Value Reference Range Interpretation [...] failure, acidosis, acute neurological disease, and persistent tachyarrhythmia.Die Designer ID - DBHEMOGLOBIN [id number] 09:51:00 Test Item Value Reference Range Interpretation Comments HEMOGLOBIN A1C (LUCIA) (test code = 5.2 % 4.3-6.1 368) TROPONIN [id number] 04:52:00 Test Item Value Reference Range Interpretation [...] failure, acidosis, acute neurological disease, and persistent tachyarrhythmia.Die Designer ID - EDASIBASIC METABOLIC PANEL 2020-01-29 04:44:00 [...] S NOT APPLICABLE FOR DIALYSIS PATIEN TS. Die Designer ID - EDASICBC W/PLT COUNT & AUTO [id number] 04:24:00 Test Item Value Reference Range Interpretation [...] PERCENT (BEAKER) (test code = 2801) TROPONIN [id number] 03:40:00 Test Item Value Reference Range Interpretation [...] failure, acidosis, acute neurological disease, and persistent tachyarrhythmia.Die Designer ID - EDASISEMAJ [id number] 02:33:00 Test Item Value Reference Range Interpretation [...] failure, acidosis, acute neurological disease, and persistent tachyarrhythmia.Die Designer ID - EDASISARS-COV2/RT-PCR ([facility])2020-01-29 00:04:00 Test Item Value Reference Range Interpretation Comments SARS-COV2/RT-PCR (test code Negative Not Detected, Negative, = 0968357) See external report for linked test SARS-COV-2 PERFORMING LAB [facility] (test code = 5528523) Negative results do not preclude SARS-CoV-2 infection [...] of the Act.Fact Sheet for Healthcare Pro viders:https://www.Housing.com.MyBuys/Documents/Xpert%20Xpress%20SARS%20CoV-2/Fact%20Sh eets/302-9202%62UKDH-TUC-0%20HEALTHCARE%20PROVIDERS%20FACT%20SHEET.pdfFact Sheet for Healthcare Patients:https://www.Selftrade.com/Documents/Xpert%20Xpress%20SARS%20CoV-2/Fact%20Sheets/302-8221%20SARS-COV -2%20PATIENT%20FACT%20SHEET.pdfPerforming Laboratory:[facility], [place] [address]IB/[id number] 23:50:00 Test Item Value Reference Range Interpretation [...] 2.5-3.5 for patients wiht mechanical heart valves.TROPONIN [id number] 23:42:00 Test Item Value Reference Range Interpretation [...] failure, acidosis, acute neurological disease, and persistent tachyarrhythmia.Die Designer ID - ASVITAMIN B12 AND FOLATE 2020-01-28 21:32:00 Test Item Value Reference Range Interpretation Comments VITAMIN B12 (BEAKER) (test code = 473 pg/mL 213-816 774) FOLATE (BEAKER) (test code = 362) 9.30 ng/mL >=7.00 Die Designer ID - RAKESH CTSH/FREE T4 IF [id number] 20:01:00 Test Item Value Reference Range Interpretation Comments THYROID STIMULATING HORMONE 0.644 uIU/mL 0.350-4.940 (BEAKER) (test code = 772) Die Designer ID - AARON [id number] 19:47:00 Test Item Value Reference Range Interpretation [...] failure, acidosis, acute neurological disease, and persistent tachyarrhythmia.Die Designer ID - REGIS [id number] 19:40:00 Test Item Value Reference Range Interpretation Comments TRIGLYCERIDES (BEAKER) (test code = 198 mg/dL 540) CHOLESTEROL (BEAKER) (test code = 180 mg/dL 631) HDL CHOLESTEROL (ScriptPadAKER) (test code 52 mg/dL = 976) LDL CHOLESTEROL CALCULATED (AKER) 88 mg/dL (test code = 633) Triglyceride Reference Range: Low Risk <150 Borderline 150-199 High Risk 200- 499 Very High Risk >=500Cholesterol Reference Range: Low Risk <200 Borderline 200-239 High Risk >240HDL Cholesterol Reference Range: Low Risk >=60 High Risk <40LDL Cholesterol Reference Range: Optimal <100 Near Optimal 100-129 Borderline 130-159 High 160-189 Very High >=190 Die Designer ID - KATHE, CHEST, 1 VIEW, NON [id number] 19:12:00Reason for exam:->c/f mental status changes, r/o precipitant of CVAFINAL REPORT Chest, 1 view. History: Mental status change. Comparison: None available. Discussion: The trachea is midline. The lungs are symmetrically expanded without evidence of f ocal consolidation, pneumothorax, or significant pleural effusion. The cardiomediastinal silhouette and pulmonary vasculature are within normal limits. No acute osseous abnormalities identified. The soft tissues are unremarkable. IMPRESSION: No acute cardiopulmonary process identified. Signed: Gerardo Flores MDReport Verified Date/Time: 01/28/2020 19:12:50 Reading Location: [address] Consult Reading Room B-TYPE NATRIURETIC FACTOR (BNP)2020-01-28 19:03:00 Test Item Value Reference Range Interpretation Comments B-TYPE NATRIURETIC PEPTIDE (BEAKER) 199 pg/mL 0-100 H (test code = 700) Die Designer ID - RAKESH CTROPONIN [id number] 19:02:00 Test Item Value Reference Range Interpretation [...] failure, acidosis, acute neurological disease, and persistent tachyarrhythmia.Die Designer ID - RAKESH CURINALYSIS W/ REFLEX URINE [id number] 19:01:00 Test Item Value Reference Range Interpretation [...] 1585) Occasional SOURCE(BEAKER) (test code = 2795) Die Designer ID - [auto]Die Designer ID - techBASIC METABOLIC [id number] 19:00:00 Test Item Value Reference Range Interpretation [...] 1092) DATA TO CALCULA TE ESTIMATED GFR. 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 Signed: Irlanda Liriano Verified Date/Time: 01/28/2020 18:37:33 CT, CEREBRAL PERFUSION [id number] 18:37:00Reason for exam:->Symptom onset less than 6 [...] occlusion or high-grade focal stenosis within the chin[place] of [place].2.Moderate focal stenosis of the right [...] (BEAKER) (test code = 2801) CT, BRAIN/STROKE [id number] 17:59:00Reason for exam:->cvaWhat is the patient's sedation [...] with the ordering physician. Signed: Irlanda Liriano MDRepjovany Verified Date/Time: 01/28/2020 17:59:44
[2022-05-17 18:53] LABS: Urine Blood Trace-intact (Negative); Urine Glucose Negative (Negative); Urine Protein Negative (Negative); Urine Specific Gravity 1.015 (1.005-1.030)
--- NOTE | 2022-05-17 19:03 | EDPHYS ---
Physician Documentation [facility] Name: Savana Martin Age: 77 yrs Sex: Female : 1945 Arrival Date: 05/17/2022 Time: 17:56 Bed 4 Private MD: ED Physician Gus Peoples HPI: 05/17 18:37 This 77 yrs old Female presents to ER via EMS with complaints of Altered Mental Status. rt 18:37 The patient presents with confusion. Onset: The symptoms/episode began/occurred at an rt unknown time. Associated signs and symptoms: The patient has no apparent associated signs or symptoms. Patient's baseline: Alert and oriented x2. Unable to obtain HPI due to altered mental status, baseline dementia. Patient with baseline dementia, reportedly alert and oriented x2 at baseline presents to the ED with altered mental status, "not acting right". The patient reportedly had a temperature of 100.4 at the senior living, 99 by EMS. No further history could be obtained, symptoms are moderate in severity, no other aggravating or alleviating factors.. Historical: - Allergies: 18:00 Cipro; mb9 - PMHx: 18:00 Chronic obstructive lung disease; Malnutrition; Hypothyroidism; Dementia; Deep vein mb9 thrombosis; depressive disorder; Hypertensive disorder; Lupus erythematosus; - Immunization history:: Adult Immunizations up to date. - Social history:: Smoking status: unknown. - Unable to obtain history due to: altered mental status, baseline dementia. ROS: 18:37 Unable to obtain ROS due to altered mental status, baseline dementia. rt Exam: 18:37 Constitutional: This is a well developed, well nourished patient who is awake, alert, rt and in no acute distress. Head/Face: Normocephalic, atraumatic. Eyes: Pupils equal round and reactive to light, extra-ocular motions intact. Lids and lashes normal. Conjunctiva and sclera are non-icteric and not injected. Cornea within normal limits. Periorbital areas with no swelling, redness, or edema. ENT: Nares patent. No nasal discharge, no septal abnormalities noted. Tympanic membranes are normal and external auditory canals are clear. Oropharynx with no redness, swelling, or masses, exudates, or evidence of obstruction, uvula midline. Mucous membranes moist. Neck: Trachea midline, no thyromegaly or masses palpated, and no cervical lymphadenopathy. Supple, full range of motion without nuchal rigidity, or vertebral point tenderness. No Meningismus. Chest/axilla: Normal chest wall appearance and motion. Nontender with no deformity. No lesions are appreciated. Cardiovascular: Regular rate and rhythm with a normal S1 and S2. No gallops, murmurs, or rubs. Normal PMI, no JVD. No pulse deficits. Respiratory: Lungs have equal breath sounds bilaterally, clear to auscultation and percussion. No rales, rhonchi or wheezes noted. No increased work of breathing, no retractions or nasal flaring. Abdomen/GI: Soft, non-tender, with normal bowel sounds. No distension or tympany. No guarding or rebound. No evidence of tenderness throughout. MS/ Extremity: Pulses equal, no cyanosis. Neurovascular intact. Full, normal range of motion. 18:37 Neuro: Fused, alert and oriented x1, strength and sensation intact in upper lower extremities, no cranial nerve deficits.. 18:51 ECG was reviewed by the Attending Physician. rt Vital Signs: 17:57 BP 123 / 64; Pulse 81; Resp 18; Pulse Ox 97% on R/A; Weight 58.97 kg; Height 5 ft. 7 mb9 in. (170.18 cm); Pain 0/10; 18:01 Temp 99.2(O); Pain 0/10; mb9 18:38 BP 142 / 70; Pulse 80; Resp 16; Pulse Ox 100% on R/A; Pain 0/10; mb9 19:20 BP 119 / 100; Pulse 101; Resp 18; Pulse Ox 94% 2 lpm ; ha1 20:20 BP 119 / 84; Pulse 84; Resp 19 S; Pulse Ox 95% on 2 lpm NC; ha1 17:57 Body Mass Index 20.36 (58.97 kg, 170.18 cm) mb9 MDM: 17:57 Patient medically screened. rt 19:02 Differential Diagnosis: CVA, electrolyte abnormality, pneumonia, sepsis, UTI. Data rt reviewed: vital signs, nurses notes. ED course: Presents to the ED with an altered mental status. There are no lateralizing deficits. Patient was found to have a UTI, was noted to be febrile. Patient to be admitted for further care.. 05/17 17:58 Order name: CBC with Diff; Complete Time: 19:14 rt 05/17 17:58 Order name: CMP; Complete Time: 19:52 rt 05/17 17:58 Order name: AMMONIA; Complete Time: 19:12 rt 05/17 17:58 Order name: Troponin High Sensitivity; Complete Time: 19:52 rt 05/17 17:58 Order name: UA MICROSCOPIC; Complete Time: 19:12 rt 05/17 17:58 Order name: Lactate w/ 2H reflex if indic.; Complete Time: 19:14 rt 05/17 17:58 Order name: Chest Single View XRAY; Complete Time: 21:03 rt 05/17 17:58 Order name: Head Brain Wo Cont CT; Complete Time: 19:11 rt 05/17 17:58 Order name: Blood Culture Adult (2) rt 05/17 17:58 Order name: Magnesium; Complete Time: 19:52 rt 05/17 17:58 Order name: TSH; Complete Time: 19:52 rt 05/17 18:37 Order name: COVID-19/FLU A+B; Complete Time: 21:03 la1 05/17 18:54 Order name: Urine Dipstick-Ancillary; Complete Time: 19:00 EDMS 05/17 19:14 Order name: Urine Culture EDMS 05/17 17:58 Order name: EKG; Complete Time: 17:59 rt 05/17 17:58 Order name: EKG - Nurse/Tech; Complete Time: 18:16 rt 05/17 17:58 Order name: Urine Dipstick-Ancillary (obtain specimen); Complete Time: 18:53 rt 05/17 18:53 Order name: Straight Cath - Urine; Complete Time: 18:53 aa5 EC:51 Rate is 95 beats/min. Rhythm is regular, Normal Sinus Rhythm with Occasional PVCs. WA rt interval is normal. QRS interval is normal. No ST changes noted. Clinical impression: NSR w/ Non-specific ST/T Changes. Interpreted by me. Administered Medications: 19:26 Drug: NS 0.9% 1000 ml Route: IV; Rate: 1 bolus; Site: right antecubital; ha1 19:29 Drug: Meropenem 1 grams Route: IV; Rate: calculated rate; Site: left antecubital; ha1 20:30 Follow up: Response: No adverse reaction ha1 Disposition: 19:02 Critical Care:. rt Disposition Summary: 05/17/22 19:02 Hospitalization Ordered Hospitalization Status: Inpatient Admission rt Provider: Hakan Abbott rt [facility] rt Condition: Stable rt Problem: new rt Symptoms: are unchanged rt Bed/Room Type: Standard rt Room Assignment: 224(05/17/22 20:13) cg Diagnosis - UTI/ Urinary tract infection, site not specified rt - Altered mental status, unspecified rt Forms: - Medication Reconciliation Form rt - SBAR form rt Critical care time excluding procedures: 19:02 Critical care time: Bedside Care: 30 minutes, Consultation: 5 minutes. Total time: 35 rt minutes Signatures: Dispatcher [employer] EDBonny Webb RN RN aa5 Jad Alegre, EDIS-C FAMILY SERVICE WORKER-Cla1 Ange Pryor RN RN Gita Boyer RN RN ha1 Anat Clarke RN RN mb9 Gus Peoples MD MD rt Corrections: (The following items were deleted from the chart) 20:13 19:02 rt cg
--- NOTE | 2022-05-17 19:03 | ER ---
Nurse's Notes [facility] Name: Savana Martin Age: 77 yrs Sex: Female : 1945 Arrival Date: 05/17/2022 Time: 17:56 Bed 4 Private MD: Diagnosis: UTI/ Urinary tract infection, site not specified;Altered mental status, unspecified Presentation: 05/17 17:57 Chief complaint: EMS states: [facility] called due to pt "not acting mb9 right." senior care states pts normal is AAOx2, has recurrent UTIs, and had a fever of 100.4. Coronavirus screen: At this time, the client does not indicate any symptoms associated with coronavirus-19. Ebola Screen: No symptoms or risks identified at this time. Initial Sepsis Screen: Does the patient meet any 2 criteria? No. Patient's initial sepsis screen is negative. Does the patient have a suspected source of infection? No. Patient's initial sepsis screen is negative. Risk Assessment: Do you want to hurt yourself or someone else? Patient reports no desire to harm self or others. Onset of symptoms was May 17, 2022. 17:57 Method Of Arrival: EMS: [facility] mb9 17:57 Acuity: MARGARITO 3 mb9 Historical: - Allergies: 18:00 Cipro; mb9 - PMHx: 18:00 Chronic obstructive lung disease; Malnutrition; Hypothyroidism; Dementia; Deep vein mb9 thrombosis; depressive disorder; Hypertensive disorder; Lupus erythematosus; - Immunization history:: Adult Immunizations up to date. - Social history:: Smoking status: unknown. - Unable to obtain history due to: altered mental status, baseline dementia. Screenin:30 Abuse screen: Denies threats or abuse. Denies injuries from another. Nutritional ha1 screening: alter mental status. Tuberculosis screening: No symptoms or risk factors identified. Fall Risk IV access (20 points). Mental Status- Overestimates/Forgets Limitations (15 pts.). Total Wise Fall Scale indicates Low Risk Score (25-44 pts). Fall prevention measures have been instituted. Side Rails Up X 2 Placed close to Nursing Station Frequent Obs/Assesments occuring. Assessment: 18:10 General: Appears in no apparent distress. comfortable, Behavior is calm, cooperative, mb9 appropriate for age. Pain: Denies pain. Neuro: Ferire Agitation-Sedation Scale (RASS): 0 - Alert and Calm Level of Consciousness is awake, obeys commands, Oriented to person, place. Cardiovascular: Heart tones S1 S2 present Rhythm is regular. Respiratory: Airway is patent Respiratory effort is even, unlabored, Respiratory pattern is regular, symmetrical, Breath sounds are clear bilaterally. GI: Abdomen is flat, Bowel sounds present X 4 quads. Abd is soft and non tender X 4 quads. EENT: No signs and/or symptoms were reported regarding the EENT system. Derm: Skin is fragile, is thin, Skin is dry, Skin is pale, Skin temperature is warm. Musculoskeletal: Range of motion: intact in all extremities. 18:50 Reassessment: Pt taken to CT via stretcher. mb9 19:20 General: Appears comfortable, Behavior is calm. Pain: Unable to use pain scale. FLACC ha1 scale score is 0 out of 10. Neuro: Level of Consciousness is awake, Oriented to person. Cardiovascular: Heart tones S1 S2 present Patient's skin is warm and dry. Rhythm is regular. Respiratory: Airway is patent Trachea midline Respiratory effort is even, unlabored, Respiratory pattern is regular, symmetrical. GI: Abdomen is flat, non-distended. EENT: No signs and/or symptoms were reported regarding the EENT system. Derm: Skin is pink, warm \\T\\ dry. Musculoskeletal: Circulation, motion, and sensation intact. Capillary refill < 3 seconds. Vital Signs: 17:57 BP 123 / 64; Pulse 81; Resp 18; Pulse Ox 97% on R/A; Weight 58.97 kg; Height 5 ft. 7 mb9 in. (170.18 cm); Pain 0/10; 18:01 Temp 99.2(O); Pain 0/10; mb9 18:38 BP 142 / 70; Pulse 80; Resp 16; Pulse Ox 100% on R/A; Pain 0/10; mb9 19:20 BP 119 / 100; Pulse 101; Resp 18; Pulse Ox 94% 2 lpm ; ha1 20:20 BP 119 / 84; Pulse 84; Resp 19 S; Pulse Ox 95% on 2 lpm NC; ha1 17:57 Body Mass Index 20.36 (58.97 kg, 170.18 cm) mb9 ED Course: 17:56 Patient arrived in ED. am2 17:56 Anat Clarke RN is Primary Nurse. mb9 17:56 Gus Peoples MD is Attending Physician. rt 18:00 Triage completed. mb9 18:00 Arm band placed on. mb9 18:00 Missed attempt(s): 22 gauge in left antecubital area. Maintain EMS IV. Dressing intact. mb9 Good blood return noted. Site clean \\T\\ dry. Gauge \\T\\ site: 20 gauge to right AC. 18:05 EKG done, by ED staff, reviewed by Gus Peoples MD. mb9 18:05 Missed attempt(s): 20 gauge in left forearm. Bleeding controlled, band aid applied, mb9 catheter tip intact. 18:53 COVID-19/FLU A+B Sent. mb9 18:53 Magnesium Sent. mb9 18:53 TSH Sent. mb9 18:53 Blood Culture Adult (2) Sent. mb9 18:53 Lactate w/ 2H reflex if indic. Sent. mb9 18:53 UA MICROSCOPIC Sent. mb9 18:53 Troponin High Sensitivity Sent. mb9 18:53 AMMONIA Sent. mb9 18:53 CMP Sent. mb9 18:53 CBC with Diff Sent. mb9 18:53 Straight cath inserted, using sterile technique, Returned cloudy urine. Patient aa5 tolerated well. 18:57 Head Brain Wo Cont CT In Process Unspecified. EDMS 19:01 Hakan Abbott is Hospitalizing Provider. rt 19:03 Report given to MYRON Pelayo. mb9 19:18 Chest Single View XRAY In Process Unspecified. EDMS 19:30 Patient has correct armband on for positive identification. Placed in gown. Bed in low ha1 position. Call light in reach. Side rails up X 1. 21:32 No provider procedures requiring assistance completed. Patient admitted, IV remains in ha1 place. Administered Medications: 19:26 Drug: NS 0.9% 1000 ml Route: IV; Rate: 1 bolus; Site: right antecubital; ha1 19:29 Drug: Meropenem 1 grams Route: IV; Rate: calculated rate; Site: left antecubital; ha1 20:30 Follow up: Response: No adverse reaction ha1 Medication: 21:33 VIS not applicable for this client. ha1 Outcome: 19:02 Decision to Hospitalize by Provider. rt 21:32 Admitted to Med/surg accompanied by octavio, via stretcher, room 224, with oxygen, Report ha1 called to MYRON Awan 21:32 Condition: stable 21:32 Discharge instructions given to patient, Instructed on the need for admit, Demonstrated understanding of instructions. 21:33 Patient left the ED. ha1 Signatures: Dispatcher [employer] EDMS Bonny Tai RN RN aa5 Jamilah Burch am2 Gita Larsen RN RN ha1 Anat Clarke RN RN mb9 Gus Peoples MD MD rt Corrections: (The following items were deleted from the chart) :53 21:32 Admitted to Med/surg room 224, ha1 ha1 :53 21:32 Discharge instructions given to patient, Instructed on the need for admit, ha1 Demonstrated understanding of instructions, ha1
[2022-05-17 19:05] LABS: Absolute Lymphocytes (CBC) 2.5 K/uL (0.7-4.9); Hematocrit 31.4 % (36.0-45.0); Lymphocytes % 35.2 % (15.3-44.8); RBC Red Blood Cell Count 3.45 M/uL (3.86-4.86)
--- NOTE | 2022-05-17 19:09 | RAD REPORT ---
EXAM DESCRIPTION: CT - Head Brain Wo Cont - 05/17/2022 6:55 pm CLINICAL HISTORY: Mental status change, unknown cause COMPARISON: Head Brain Wo Cont dated 03/02/2022; Head Brain Wo Cont dated 12/21/2021 TECHNIQUE: All CT scans are performed using dose optimization technique as appropriate and may inclu de automated exposure control or mA/KV adjustment according to patient size. FINDINGS: No intracranial hemorrhage, hydrocephalus or extra-axial fluid collection.No areas of brai n edema or evidence of midline shift. Moderate chronic small vessel ischemic changes. The paranasal sinuses and mastoids are clear. The calvarium is intact. IMPRESSION: No acute intracranial abnormality.
[2022-05-17 19:11] LABS: Urine Bacteria <20 /HPF (<20); Urine Crystals Unidentified Few /HPF (None Seen); Urine Mucus Slight /HPF (None Seen); Urine WBC Clump Rare /HPF (None Seen)
[2022-05-17] MEDS ORDERED: NA CHLORIDE 0.9% 1,000 ML ONE (19:15)
[2022-05-17] MEDS ORDERED: Meropenem 1000 MG/VIAL IV ONE (19:15)
[2022-05-17] MEDS ORDERED: NA CHLORIDE 0.9% 100 ML IV ONE (19:16)
[2022-05-17 19:29] LABS: Albumin 2.8 g/dL (3.4-5.0); Bilirubin Total 0.3 mg/dL (0.2-1.0); Potassium 4.8 mmol/L (3.5-5.1); Protein, Total 6.8 g/dL (6.4-8.2); Thyroid Stimulating Hormone 0.017 uIU/mL (0.360-3.740); Troponin High Sensitivity 31.1 pg/mL (<58.9)
--- NOTE | 2022-05-17 19:31 | P.HP ---
Certification for Inpatient Patient admitted to: Inpatient With expected LOS: >2 Midnights Patient will require the following post-hospital care: None Practitioner: I am a practitioner with admitting privileges, knowledge of patient current condition, hospital course, and medical plan of care. Services: Services provided to patient in accordance with Admission requirements found in Title 42 Section 412.3 of the Code of Federal Regulations Patient History Date of Service: 05/17/22 Reason for admission: AMS, UTI History of Present Illness: 77-year-old female with history of dementia, hypothyroidism, hypertension, chronic DVT on anticoagulation, COPD, lupus who is a resident of [facility] was brought to the emergency department for altered mental status, low-grade fever. Patient with history of UTIs skilled nursing staff reports patient usually oriented x2 currently only oriented x1 and not acting herself. She was evaluated in the emergency department labs were significant for hemoglobin 10.2 medical 31.4 urinalysis with 2+ leuk esterase, nitrate positive urine with greater than 50 white blood cells. Previous cultures reviewed p atient with recent history of ESBL E. coli urine culture. She was given IV meropenem in ED, ED provider wishes to admit for further evaluation and management. Allergies ciprofloxacin Allergy (Verified 05/04/20 17:07) Itching Home Medications: Acetaminophen [Tylenol*] 650 mg PO Q6HP PRN 11/30/21 Ascorbic Acid 500 mg PO BID 11/30/21 Aspirin [Aspirin EC] 81 mg PO DAILY 11/30/21 Divalproex Sodium [Depakote Sprinkle] 4 cap PO BID 11/30/21 Gabapentin [Neurontin*] 100 mg PO BID 11/30/21 Hydroxychloroquine Sulfate 1 tab PO DAILY 11/30/21 Memantine HCl 1 tab PO BID 11/30/21 Mirtazapine [Remeron] 15 mg PO BEDTIME 11/30/21 Rivastigmine Tartrate [Rivastigmine] 6 mg PO BID 11/30/21 Apixaban [Eliquis] 5 mg PO BID #60 tablet 12/28/21 Duloxetine HCl [Cymbalta] 30 mg PO DAILY 03/03/22 Levothyroxine [Synthroid*] 100 mcg PO [id number] 03/03/22 Cephalexin [Keflex*] 250 mg PO Q6H 5 Days #20 cap 03/05/22 - Past Medical/Surgical History Diabetic: No -: Hypertension -: Dementia -: Lupus -: Chronic DVTs -: COPD -: Hypothyroidism -: Malnutrition -: Depression -: Lupus Erythematosus -: back surgery Psychosocial/ Personal History: Patient lives at [facility]. - Family History Father -: Cancer, Other (see notes) Notes: No mention of renal disorders - Social History Alcohol use: No CD- Drugs: No Caffeine use: Yes Place [facility] Review of Systems is unable to be obtained Physical Examination - Physical Exam General: Alert, In no apparent distress, Oriented x1, Cooperative HEENT: Atraumatic, PERRLA, Mucous membr. moist/pink, EOMI, Sclerae nonicteric Neck: Supple, 2+ carotid pulse no bruit, No LAD, Without JVD or thyroid abnormality Respiratory: Clear to auscultation bilaterally, Normal air movement Cardiovascular: Regular rate/rhythm, Normal S1 S2 Capillary refill: <2 Seconds Gastrointestinal: Normal bowel sounds, No tenderness Musculoskeletal: No tenderness Integumentary: No rashes Neurological: Normal gait, Normal speech, Normal strength at 5/5 x4 extr, Normal tone, Normal affect Lymphatics: No axilla or inguinal lymphadenopathy - Studies Laboratory Data (last 24 hrs) 05/17/22 18:42: WBC 7.20, Hgb 10.2 L, Hct 31.4 L, Plt Count 107 L Assessment and Plan - Plan Assessment: Acute metabolic encephalopathy secondary to UTI UTIhistory of MDR/ESBL Dementia Chronic DVTs on anticoagulation Hypothyroidism Lupus Plan: Acute metabolic encephalopathy secondary to UTI: Continue to treat underlying causeUTI. UTIhistory of MDR/ESBL: Urine/blood cultures obtained patient with recent UTI with ESBL E. coli. Given Merrem in ED, continue this time follow cultures. Dementia: Continue home meds. Chronic DVTs on anticoagulation: Continue Eliquis. Hypothyroidism:Continue home meds. Lupus:Continue home meds. DVT PPX: Continue Eliquis Code status: Full Discharge Plan: [facility] Plan to discharge in: 72 Hours - Advance Directives Does patient have a Living Will: Yes Does patient have a Durable POA for Healthcare: Yes - Code Status/Comfort Care Code Status Assessed: Yes (Full code) Critical Care: No Time Spent Managing Pts Care (In Minutes): 70
--- NOTE | 2022-05-17 19:50 | RAD REPORT ---
EXAM DESCRIPTION: RAD - Chest Single View - 05/17/2022 7:16 pm CLINICAL HISTORY: Fever, ams COMPARISON: Chest Single View dated 03/05/2022; Chest Single View dated 12/27/2021; Chest Single View dated 12/21/2021; Chest Single View dated 11/29/2021; Chest Abd Pelvis Wo Con dated 12/21/2021 FINDINGS: Lines: None. Lungs: No evidence of edema or pneumonia. Pleural: No significant pleural effusions or pneumothorax. Cardiac: The heart size is within normal limits. Mediastinum: Within normal limits. Bones: No acute fractures. Other: None IMPRESSION: No acute cardiopulmonary disease.
[2022-05-17 20:01] LABS: SARS-COV-2 RT PCR NEGATIVE (NEGATIVE)
[2022-05-17] MEDS ORDERED: ALBUTEROL 2.5 MG/3 ML NEB SOL NEB PRN (21:42)
[2022-05-17] MEDS ORDERED: ONDANSETRON 4 MG/2 ML VIAL IV PRN (21:42)
[2022-05-17] MEDS ORDERED: ACETAMINOPHEN 500 MG TAB PO PRN (21:42)
[2022-05-17] MEDS: APIXABAN 5 MG TABLET PO SCH (22:10)
[2022-05-17] MEDS: NA CHLORIDE 0.9% 1,000 ML IV SCH (22:11)
[2022-05-18] MEDS ORDERED: Meropenem 1,000 MG in NA CHLORIDE 0.9% 100 ML IV SCH (01:00)
[2022-05-18 04:11] LABS: Absolute Lymphocytes (CBC) 2.2 K/uL (0.7-4.9); Hematocrit 28.8 % (36.0-45.0); Lymphocytes % 35.8 % (15.3-44.8); MCV 91.2 fL (80-100); MPV 7.9 fL (7.6-11.3); RBC Red Blood Cell Count 3.16 M/uL (3.86-4.86)
[2022-05-18 04:19] LABS: Albumin 2.4 g/dL (3.4-5.0); Bilirubin Total 0.4 mg/dL (0.2-1.0); Potassium 4.1 mmol/L (3.5-5.1); Protein, Total 6.1 g/dL (6.4-8.2)
[2022-05-18] MEDS: Meropenem 1,000 MG in NA CHLORIDE 0.9% 100 ML IV SCH ×2 (09:08→20:07)
[2022-05-18] MEDS: APIXABAN 5 MG TABLET PO SCH ×2 (09:08→20:07)
[2022-05-18] MEDS: NA CHLORIDE 0.9% 1,000 ML IV SCH (12:42)
--- NOTE | 2022-05-18 13:17 | P.PN ---
Subjective Date of Service: 05/18/22 Chief Complaint: AMS, UTI Patient remained confused. She is oriented x1. Afebrile. Physical Examination - Vital Signs Temperature: 96.8 F Blood Pressure: 116/62 Pulse: 64 Respirations: 16 Pulse Ox (%): 93 - Studies Laboratory Data (last 24 hrs) 05/17/22 18:42: Sodium 138, Potassium 4.8, BUN 27 H, Creatinine 1.60 H, Glucose 83, Magnesium 2.0, Total Bilirubin 0.3, AST 19, ALT 14, Alkaline Phosphatase 60 05/17/22 18:42: WBC 7.20, Hgb 10.2 L, Hct 31.4 L, Plt Count 107 L Microbiology Data (last 24 hrs): 05/17/22 18:42 Blood - Blood Anaerobic Blood Culture - Final 05/17/22 18:33 Blood - Blood Anaerobic Blood Culture - Final Assessment And Plan - Current Problems (Diagnosis) (1) Acute cystitis without hematuria Current Visit: Yes Status: Acute (2) History of ESBL E. coli infection Current Visit: Yes Status: Acute (3) Acute metabolic encephalopathy Current Visit: No Status: Acute (4) Dementia Current Visit: No Status: Chronic Qualifiers: Dementia type: unspecified type Qualified Code(s): F03.90 - Unspecified dementia, unspecified severity, without behavioral disturbance, psychotic disturbance, mood disturbance, and anxiety (5) Chronic deep vein thrombosis of lower extremity Current Visit: Yes Status: Acute - Plan Physical Exam General: Alert, In no apparent distress, Oriented x1, Cooperative Neck: Supple, no elevated JVD. Respiratory: Clear to auscultation bilaterally, Normal air movement Cardiovascular: Regular rate/rhythm, Normal S1 S2 Gastrointestinal: Normal bowel sounds, No tenderness Musculoskeletal: No tenderness Integumentary: No rashes Neurological: No focal motor deficit, confused Plan: Continue IV meropenem. Urine cultures pending. Urine is positive for nitrites-urea splitting organism. ESBL E. coli is highly likely cause of infection. PICC line placement. LUDMILA significantly improved. Diet as tolerated. Monitor renal function to follow LUDMILA. Continue Eliquis for DVT.
--- NOTE | 2022-05-18 13:21 | EKG ---
Test Date: 2022-05-17 Test Time: 18:08:33 Team Driver: ALBERT MEASUREMENT RESULTS: Intervals: Rate: 95 DE: 164 QRSD: 78 QT: 348 QTc: 437 [place]: P: 70 DE: 164 QRS: 69 T: 101 INTERPRETIVE STATEMENTS: Sinus rhythm with occasional premature ventricular complexes Nonspecific T wave abnormality Abnormal ECG Compared to ECG 03/02/2022 09:24:09 No significant changes Electronically Signed On 05-18-22 13:20:48 REPAIR WEAVER by Everett Barnard
[2022-05-19] MEDS: NA CHLORIDE 0.9% 1,000 ML IV SCH ×2 (04:22→14:05)
[2022-05-19 04:28] LABS: Absolute Lymphocytes (CBC) 1.7 K/uL (0.7-4.9); Hematocrit 27.1 % (36.0-45.0); Lymphocytes % 42.5 % (15.3-44.8); MCV 91.1 fL (80-100); MPV 7.9 fL (7.6-11.3); RBC Red Blood Cell Count 2.97 M/uL (3.86-4.86)
[2022-05-19 04:40] LABS: Albumin 2.7 g/dL (3.4-5.0); Bilirubin Total 0.6 mg/dL (0.2-1.0); Potassium 4.1 mmol/L (3.5-5.1); Protein, Total 6.3 g/dL (6.4-8.2)
[2022-05-19] MEDS: APIXABAN 5 MG TABLET PO SCH (08:13)
[2022-05-19] MEDS: Meropenem 1,000 MG in NA CHLORIDE 0.9% 100 ML IV SCH ×2 (08:13→20:06)
--- NOTE | 2022-05-19 16:43 | P.PN ---
Subjective Date of Service: 05/19/22 Chief Complaint: AMS, UTI Patient appears to be more awake and interactive today but still confused. She is oriented x1. Physical Examination - Vital Signs Temperature: 97.6 F Blood Pressure: 140/70 Pulse: 64 Respirations: 16 Pulse Ox (%): 100 - Studies Microbiology Data (last 24 hrs): 05/17/22 18:42 Blood - Blood Anaerobic Blood Culture - Final 05/17/22 18:33 Blood - Blood Anaerobic Blood Culture - Final Assessment And Plan - Current Problems (Diagnosis) (1) Acute cystitis without hematuria Current Visit: Yes Status: Acute (2) History of ESBL E. coli infection Current Visit: Yes Status: Acute (3) Acute metabolic encephalopathy Current Visit: No Status: Acute (4) Dementia Current Visit: No Status: Chronic Qualifiers: Dementia type: unspecified type Qualified Code(s): F03.90 - Unspecified dementia, unspecified severity, without behavioral disturbance, psychotic disturbance, mood disturbance, and anxiety (5) Chronic deep vein thrombosis of lower extremity Current Visit: Yes Status: Acute - Plan Physical Exam General: Alert, In no apparent distress, Oriented x1, Cooperative Neck: Supple, no elevated JVD. Respiratory: Clear to auscultation bilaterally, Normal air movement Cardiovascular: Regular rate/rhythm, Normal S1 S2 Gastrointestinal: Normal bowel sounds, No tenderness Musculoskeletal: No tenderness Integumentary: No rashes Neurological: No focal motor deficit, confused Plan: Urine culture is growing gram-negative leonidas. History of ESBL E. coli UTI Continue IV meropenem. Follow urine culture. ESBL E. coli is highly likely cause of infection. PICC line placement. LUDMILA resolved. Diet as tolerated. Continue Eliquis for DVT.
--- NOTE | 2022-05-19 17:13 | RAD REPORT ---
EXAM DESCRIPTION: RAD - Chest Single View - 05/19/2022 5:06 pm CLINICAL HISTORY: picc placement COMPARISON: Chest Single View dated 05/17/2022; Chest Single View dated 03/05/2022; Chest Single View dated 12/27/2021; Chest Single View dated 12/21/2021 FINDINGS: Portable chest was obtained following placement of a right upper extremity PICC line. The catheter tip projects over the SVC.
[2022-05-19 22:47] VITALS: O2SAT 96
[2022-05-20] MEDS: NA CHLORIDE 0.9% 1,000 ML IV SCH ×2 (03:02→11:20)
[2022-05-20] MEDS: Meropenem 1,000 MG in NA CHLORIDE 0.9% 100 ML IV SCH ×2 (08:46→22:03)
--- NOTE | 2022-05-20 15:55 | P.PN ---
Subjective Date of Service: 05/20/22 Chief Complaint: AMS, UTI Patient appears to be more awake and interactive. She is oriented x1. Inappropriate speech, Physical Examination - Vital Signs Temperature: 97.4 F Blood Pressure: 147/79 Pulse: 69 Respirations: 20 Pulse Ox (%): 98 - Studies Microbiology Data (last 24 hrs): 05/17/22 18:50 Clean Catch Urine [place] Count - Final >100,000 CFU/ML. 05/17/22 18:50 Clean Catch Urine - Final Escherichia Coli Esbl Gram Neg Magno Assessment And Plan - Current Problems (Diagnosis) (1) Acute cystitis without hematuria Current Visit: Yes Status: Acute (2) History of ESBL E. coli infection Current Visit: Yes Status: Acute (3) Acute metabolic encephalopathy Current Visit: No Status: Acute (4) Dementia Current Visit: No Status: Chronic Qualifiers: Dementia type: unspecified type Qualified Code(s): F03.90 - Unspecified dementia, unspecified severity, without behavioral disturbance, psychotic disturbance, mood disturbance, and anxiety (5) Chronic deep vein thrombosis of lower extremity Current Visit: Yes Status: Acute (6) Anemia Current Visit: Yes Status: Acute - Plan Physical Exam General: Alert, In no apparent distress, Oriented x1, Cooperative Neck: Supple, no elevated JVD. Respiratory: Clear to auscultation bilaterally, Normal air movement Cardiovascular: Regular rate/rhythm, Normal S1 S2 Gastrointestinal: Normal bowel sounds, No tenderness Musculoskeletal: No tenderness Integumentary: No rashes Neurological: No focal motor deficit, confused Plan: Urine culture: ESBL E. coli. Blood cultures: No growth Continue IV meropenem. PICC line placed for outpatient IV antibiotics. LUDMILA resolved. Diet as tolerated. Drop in hemoglobin noted. This is associated with drop in both WBC and platelet count. Drop in blood count likely dilutional effect of IV fluid. No active bleeding. Monitor CBC. Continue Eliquis for DVT. Social service to arrange for outpatient IV antibiotics. Stable for discharge pending outpatient IV antibiotics arrangement.
[2022-05-21 00:58] VITALS: BMI 24.1
[2022-05-21] MEDS: NA CHLORIDE 0.9% 1,000 ML IV SCH ×2 (03:26→15:39)
[2022-05-21 05:19] LABS: Absolute Lymphocytes (CBC) 2.3 K/uL (0.7-4.9); Hematocrit 27.2 % (36.0-45.0); Lymphocytes % 48.5 % (15.3-44.8); MCV 89.6 fL (80-100); MPV 7.5 fL (7.6-11.3); RBC Red Blood Cell Count 3.03 M/uL (3.86-4.86)
[2022-05-21 05:35] LABS: Potassium 3.6 mmol/L (3.5-5.1)
[2022-05-21] MEDS: Meropenem 1,000 MG in NA CHLORIDE 0.9% 100 ML IV SCH ×2 (08:00→20:30)
[2022-05-21] MEDS ORDERED: POTASSIUM CL SA 10 MEQ TAB PO ONE (09:00)
--- NOTE | 2022-05-21 14:15 | P.PN ---
Subjective Date of Service: 05/21/22 Chief Complaint: AMS, UTI Patient is awake and follows commands. She denies any complaint She is oriented x1. Her speech is more appropriate today. Physical Examination - Vital Signs Temperature: 97.1 F Blood Pressure: 161/71 Pulse: 78 Respirations: 16 Pulse Ox (%): 97 Assessment And Plan - Current Problems (Diagnosis) (1) Acute cystitis without hematuria Current Visit: Yes Status: Acute (2) History of ESBL E. coli infection Current Visit: Yes Status: Acute (3) Acute metabolic encephalopathy Current Visit: No Status: Acute (4) Dementia Current Visit: No Status: Chronic Qualifiers: Dementia type: unspecified type Qualified Code(s): F03.90 - Unspecified dementia, unspecified severity, without behavioral disturbance, psychotic disturbance, mood disturbance, and anxiety (5) Chronic deep vein thrombosis of lower extremity Current Visit: Yes Status: Acute (6) Anemia Current Visit: Yes Status: Acute - Plan Physical Exam General: Alert, In no apparent distress, Oriented x1, Cooperative Respiratory: Clear to auscultation bilaterally, Normal air movement Cardiovascular: Regular rate/rhythm, Normal S1 S2 Gastrointestinal: Normal bowel sounds, No tenderness Musculoskeletal: No tenderness Integumentary: No rashes Neurological: No focal motor deficit, dementia. Plan: Urine culture: ESBL E. coli. Blood cultures: No growth Continue IV meropenem. Patient to complete 2 weeks of antibiotics. PICC line placed for outpatient IV antibiotics. LUDMILA resolved. Diet as tolerated. Drop in hemoglobin noted. This is associated with drop in both WBC and platelet count. Drop in blood count likely dilutional effect of IV fluid. No active bleeding. Monitor CBC. Continue Eliquis for DVT. Social service assisting with arrangement for outpatient IV antibiotics in the senior living. Stable for discharge pending outpatient IV antibiotics arrangement.
[2022-05-22] MEDS: NA CHLORIDE 0.9% 1,000 ML IV SCH (05:17)
[2022-05-22 05:44] LABS: Absolute Lymphocytes (CBC) 2.4 K/uL (0.7-4.9); Hematocrit 27.3 % (36.0-45.0); Lymphocytes % 49.2 % (15.3-44.8); MCV 90.9 fL (80-100); MPV 7.3 fL (7.6-11.3)
[2022-05-22 05:54] LABS: Potassium 3.8 mmol/L (3.5-5.1)
[2022-05-22 08:26] VITALS: TEMP 97.2
[2022-05-22] MEDS ORDERED: POTASSIUM CL SA 10 MEQ TAB PO ONE (09:00)
[2022-05-22] MEDS: Meropenem 1,000 MG in NA CHLORIDE 0.9% 100 ML IV SCH (09:48)
--- NOTE | 2022-05-22 11:03 | P.DS ---
Admission Date: 05/17/22 Discharge Date: 05/22/22 Disposition: TRANSFER TO [facility] Discharge Condition: FAIR Reason for Admission: AMS, UTI - Problems (1) Acute cystitis without hematuria Current Visit: Yes Status: Acute (2) History of ESBL E. coli infection Current Visit: Yes Status: Acute (3) Acute metabolic encephalopathy Current Visit: No Status: Acute (4) Dementia Current Visit: No Status: Chronic Qualifiers: Dementia type: unspecified type (5) Chronic deep vein thrombosis of lower extremity Current Visit: Yes Status: Acute (6) Anemia Current Visit: Yes Status: Acute Brief History of Present Illness: 77-year-old female with history of dementia, hypothyroidism, hypertension, chronic DVT on anticoagulation, COPD, lupus who is a resident of [facility] was brought to the emergency department for altered mental status, low-grade fever. Patient with history of UTIs. residential staff reported patient usually oriented x2 but was oriented x1 and not acting herself on arrival in the ED. She was evaluated in the emergency department labs were significant for hemoglobin 10.2 medical 31.4 urinalysis with 2+ leuk esterase, nitrate positive urine with greater than 50 white blood cells. Previous cultures reviewed patient with recent history of ESBL E. coli urine culture. She was given IV meropenem in ED and admitted for further management. Hospital Course: Patient admitted to the medical floor and treated with IV meropenem. Urine culture: ESBL E. coli. Blood cultures: No growth Patient slated to complete 2 weeks of IV meropenem. PICC line placed for outpatient IV antibiotics. LUDMILA resolved. Patient tolerated diet There was drop in hemoglobin. This is associated with drop in both WBC and platelet count. Drop in blood count likely dilutional effect of IV fluid. No active bleeding. Hemoglobin remained stable. Continued Eliquis for DVT. Mental status improved to baseline. She is clinically stable for discharge. Vital Signs/Physical Exam: Temp Pulse Resp BP Pulse Ox 97.2 F 57 16 145/90 H 98 05/22/22 08:00 05/22/22 08:00 05/22/22 08:00 05/22/22 08:00 05/22/22 08:00 General: Alert, In no apparent distress, Oriented x3 HEENT: Mucous membr. moist/pink Neck: JVD not distended Respiratory: Clear to auscultation bilaterally, Normal air movement Cardiovascular: No edema, Regular rate/rhythm, Normal S1 S2 Gastrointestinal: Soft and benign, Non-distended, No tenderness Musculoskeletal: No swelling Integumentary: No cyanosis Neurological: Normal strength at 5/5 x4 extr Laboratory Data at Discharge: WBC 4.90 K/uL (4.3-10.9) 05/22/22 05:00 Hgb 9.1 g/dL (12.0-15.0) L 05/22/22 05:00 Hct 27.3 % (36.0-45.0) L 05/22/22 05:00 Plt Count 133 K/uL (152-406) L 05/22/22 05:00 Sodium 142 mmol/L (136-145) 05/22/22 05:00 Potassium 3.8 mmol/L (3.5-5.1) 05/22/22 05:00 BUN 15 mg/dL (7-18) 05/22/22 05:00 Creatinine 1.09 mg/dL (0.55-1.3) 05/22/22 05:00 Glucose 85 mg/dL (74-106) 05/22/22 05:00 Magnesium 2.0 mg/dL (1.8-2.4) 05/17/22 18:42 Total Bilirubin 0.6 mg/dL (0.2-1.0) 05/19/22 03:46 AST 25 U/L (15-37) 05/19/22 03:46 ALT 16 U/L (12-78) 05/19/22 03:46 Alkaline Phosphatase 54 U/L (45-117) 05/19/22 03:46 Home Medications: Acetaminophen [Tylenol*] 650 mg PO Q6HP PRN 11/30/21 Ascorbic Acid 500 mg PO BID 11/30/21 Aspirin [Aspirin EC] 81 mg PO DAILY 11/30/21 Divalproex Sodium [Depakote Sprinkle] 4 cap PO BID 11/30/21 Gabapentin [Neurontin*] 100 mg PO BID 11/30/21 Hydroxychloroquine Sulfate 1 tab PO DAILY 11/30/21 Memantine HCl 1 tab PO BID 11/30/21 Mirtazapine [Remeron] 15 mg PO BEDTIME 11/30/21 Rivastigmine Tartrate [Rivastigmine] 6 mg PO BID 11/30/21 Apixaban [Eliquis] 5 mg PO BID #60 tablet 12/28/21 Duloxetine HCl [Cymbalta] 90 mg PO DAILY 03/03/22 Levothyroxine [Synthroid*] 100 mcg PO [id number] 03/03/22 Diet: AHA Activity: Fall precautions Followup: NONE,NONE [Primary Care Provider] - Time spent managing pt's care (in minutes): 33
[2022-05-22 12:44] VITALS: BP 154/93
[2022-05-22] MEDS ORDERED: FUROSEMIDE 20 MG TABLET PO ONE (13:06)
== END 2022-05-22 14:41 | DRG 689 ==
LOC: ER 17:56 → ERHOLD 19:50 → 2ND 21:19
PROVIDERS: ADMIT Internal Medicine; ATTEND Internal Medicine
PROC: 02HV33Z Insertion of Infusion Device into Superior Vena Cava, Percutaneous Approach (ICD-10-PCS; principal; 2022-05-19)
DX: N30.00 Acute cystitis without hematuria (principal); G93.41 Metabolic encephalopathy; I82.509 Chronic embolism and thrombosis of unspecified deep veins of unspecified lower extremity; N17.9 Acute kidney failure, unspecified; Z16.12 Extended spectrum beta lactamase (ESBL) resistance; J44.9 Chronic obstructive pulmonary disease, unspecified; E03.9 Hypothyroidism, unspecified; I10 Essential (primary) hypertension; M32.9 Systemic lupus erythematosus, unspecified; F03.90 Unspecified dementia, unspecified severity, without behavioral disturbance, psychotic disturbance, mood disturbance, and anxiety; B96.20 Unspecified Escherichia coli [E. coli] as the cause of diseases classified elsewhere; Z88.1 Allergy status to other antibiotic agents; Z79.01 Long term (current) use of anticoagulants; Z79.82 Long term (current) use of aspirin; Z79.890 Hormone replacement therapy; Z79.899 Other long term (current) drug therapy; Z20.822 Contact with and (suspected) exposure to COVID-19
CPT/HCPCS: 0240U; 36415; 36569; 51702; 70450; 71045; 80048; 80053; 81003; 81015; 82140; 83605; 83735; 84443; 84484; 85025; 87040; 87077; 87086; 87088; 87186; 93005; 96374; 99285; J2185; J7030; J7613; U0003